=== PATIENT | female | born 1950 | race Caucasian/White ===

== ENCOUNTER 2024-09-30 19:26 | Inpatient (IN) | payer MEDICARE, SELFPAY ==
[2024-09-30] VITALS (13 sets, daily range): BP systolic 127–143; BP diastolic 64–81; PULSE 93–109; RESP 12–23; TEMP 36.2–36.6; O2SAT 90–95; BMI 36.4; BMI 34.4
--- NOTE | 2024-09-30 19:38 | EKG12_ITS ---
Test Reason : CP Blood Pressure : */* mmHG Vent. Rate : 105 BPM Atrial Rate : 105 BPM P-R Int : 166 ms QRS Dur : 70 ms QT Int : 330 ms P-R-T Axes : 30 17 17 degrees QTcB Int : 436 ms Sinus tachycardia Possible Inferior infarct , age undetermined Anterior infarct , age undetermined Abnormal ECG Confirmed by NADEEN LEONARDO, SHIVA ([id number]), editor greeting card DAGO RODRIGUEZ ([id number]) on 10/01/2024 11:35:26 AM Referred By: Confirmed By: SHIVA SENIOR MD
--- NOTE | 2024-09-30 19:48 | EDS_ITS ---
HPI History of Present Illness Chief Complaint: Chest Pain Detail of Chief Complaint: Chest tightness and dyspnea Informant: patient Narrative Narrative: Patient presents to the emergency department with complaint of dyspnea that started around 1 PM. She describes and chest tightness. She tells me she had COVID around Thanksgiving time. She just felt like she had a cold. She still has an occasional cough. She denies recent travel or surgery. No history of asthma or COPD. No history of PE or DVT. No heart history. [facility] Medical History Osteoarthritis of right knee Right knee pain Thyroid disease Neuropathy Hyperlipemia Hypertension Gallstones Diabetes Cataract Arthritis Home Medications ?Medication ?Instructions ?Recorded ?Last Taken ?Type aspirin 81 mg tablet,delayed 81 mg PO DAILY 04/21/24 Unknown History release (Adult Low Dose Aspirin) cholecalciferol (vitamin D3) 50 50 mcg PO DAILY 04/21/24 Unknown History mcg (2,000 unit) capsule glipizide 5 mg tablet, extended 5 mg PO DAILY 04/21/24 Unknown History release 24 hr levothyroxine 25 mcg capsule 25 mcg PO DAILY 04/21/24 Unknown History lisinopril 5 mg tablet 5 mg PO DAILY 04/21/24 Unknown History mecobalamin (vitamin B12) 1,000 3,000 mcg PO DAILY 04/21/24 Unknown History mcg chewable tablet pravastatin 80 mg tablet 80 mg PO QHS 04/21/24 Unknown History magnesium 200 mg tablet 400 mg PO DAILY 09/30/24 Unknown History potassium gluconate 600 mg (99 mg) 650 mg PO DAILY 09/30/24 Unknown History tablet Allergy/AdvReac Type Severity Reaction Status Date / Time Penicillins Allergy Intermediate Swelling Verified 09/30/24 19:28 Family History Father Cancer lung Diabetes Parkinson disease Arthritis Blood clot in vein Hydrocephalus Myocardial infarction Mother Myocardial infarction Heart disease Hypertension Hyperlipemia Brother Cancer lung COPD (chronic obstructive pulmonary disease) Grandfather CVA (cerebral vascular accident) Brother Bowel disease had ostomy Pneumonia due to COVID-19 virus Son Myocardial infarction Surgical History H/O eye surgery Cataract extraction status S/P wrist surgery S/P cholecystectomy History of hysterectomy H/O tubal ligation Hx of tonsillectomy Social History adopted: No household members: family number of children: 5 current occupational status: employed current occupation: [employer] pets and animals: Yes sexually active: No Smoking Status: Never smoker Electronic Cigarette Use: not used alcohol intake: never substance use type: does not use caffeine: Yes (1) Type: coffee frequency: does not exercise seatbelt use: always do you feel safe at home: Yes ROS ROS ED Review of Systems ROS Unobtainable: other Constitutional Constitutional ED: Reports lethargy; Denies chills, fever(s), sweats or weight loss Eyes Eyes: Denies blurry vision, change in vision or diplopia ENT ENT ED: Denies rhinorrhea or sore throat Cardiovascular Cardiovascular: Reports chest pain; Denies orthopnea or racing heartbeat Respiratory/Chest Respiratory/Chest: Reports cough, dyspnea and dyspnea on exertion; Denies ort hopnea or sputum Gastrointestinal Gastrointestinal: Denies abdominal pain, diarrhea, nausea or vomiting Genitourinary Genitourinary ED: Denies dysuria, hematuria or urinary frequency Musculoskeletal Musculoskeletal: Denies arthralgias, back pain, myalgias or neck pain Integumentary Denies abscess, Abrasions or rash Neurologic Neurologic: Denies headache(s) or weakness Psychiatric Psychiatric: Denies anxiety, depression or suicidal thoughts Endocrine Endocrinology: Denies polydipsia, polyphagia or polyuria Hematologic/Lymphatic Hematologic/Lymphatic: Denies easy bleeding, easy bruising or lymphadenopathy Allergic/Immunologic Allergic/Immunologic ED: Denies mouth swelling, tongue swelling or urticaria EXAM Physical Exam Const Vital Signs: 09/30/24 19:28 09/30/24 19:38 09/30/24 19:47 Temperature 97.2 F L Temperature Source Temporal Pulse Rate 109 H Respiratory Rate 22 H Respiratory Effort Respiratory Pattern Blood Pressure 129/64 H Blood Pressure Mean 85 Pulse Ox 90 92 Oxygen Delivery Method Nasal Cannula Non-Rebreather Oxygen Flow Rate (L/min) 6 15 13 Fraction of Inspired Oxygen (FIO2) 09/30/24 20:01 09/30/24 20:17 09/30/24 20:28 Temperature Temperature Source Pulse Rate 109 H 103 H Respiratory Rate 18 22 H Respiratory Effort Respiratory Pattern Blood Pressure 133/70 H Blood Pressure Mean 91 Pulse Ox 95 92 Oxygen Delivery Method Non-Rebreather Venturi Mask Oxygen Flow Rate (L/min) 15 Fraction of Inspired Oxygen (FIO2) 09/30/24 20:45 09/30/24 20:58 09/30/24 21:00 Temperature 97.2 F L Temperature Source Pulse Rate 109 H 103 H Respiratory Rate 18 12 Respiratory Effort Short of Breath Respiratory Pattern Normal Blood Pressure 129/64 H 142/80 H Blood Pressure Mean 85 100 Pulse Ox 92 93 Oxygen Delivery Method Venturi Mask Oxygen Flow Rate (L/min) 13 Fraction of Inspired Oxygen (FIO2) 92 Positive well nourished and well developed General Appearance ED: well developed and NAD HEENT Reports TM's clear and moist mucous membranes normocephalic and atraumatic; Negative for trauma or tenderness Tympanic Membrane ED: Yes TM's clear Eyes PERRL and EOMs intact bilaterally General Eye ED: Negative for pale conjunctiva or scleral icterus Neck no lymphadenopathy, supple and no JVD General: Negative for tenderness Chest Wall inspection of chest normal and palpation of chest normal Chest: Negative for tenderness Resp normal respiratory effort and clear to auscultation bilaterally Resp Narrative: Occasional faint expiratory wheeze bilaterally. Mild tachypnea. No accessory muscle use or retractions. Effort and Inspection: Negative for respiratory distress or pain with movement Auscultation: wheezes; Negative for rhonchi or diminished lung sounds Cardio regular rate, regular rhythm, S1 normal heart sound, S2 normal heart sound and no murmurs Peripheral Pulses: pulses 2+ throughout GI normal to inspection, nondistended, normoactive bowel sounds, soft to palpation, non-tender, non-distended and no masses Back/Spine no CVA tenderness and no thoracic nor lumbar tenderness Extremity normal to inspection General Extremety ED: Negative for edema General Extremity: Negative for edema Neuro oriented x3, CN's II-XII intact bilaterally, no sensory deficits noted and gait normal Sensorium / Orientation: awake, alert, oriented to person, oriented to place and oriented to time Motor Exam: strength 5/5 throughout and strength abnormal Psych mental status grossly normal Skin no rashes or lesions noted and no wounds MDM MDM MDM Narrative Medical decision making narrative: Patient presents to the emergency department with shortness of breath and chest discomfort. In the differential would be acute coronary syndrome versus PE or pneumonia or pneumothorax. IV line established. She was placed on oxygen due to hypoxemia on arrival. She was given a DuoNeb aerosol. CBC with differential obtained showed a white count of 12.9 with hemoglobin 12.9 and platelet count of 243. Chemistries unremarkable. BUN 21 and creatinine 1.22. Troponin was elevated to 63. BNP was normal at 38. Patient was started on heparin drip. D- dimer then came back elevated and she had a CT of the chest that showed extensive bilateral pulmonary emboli without heart strain. Patient case discussed with hospitalist who we evaluate patient for admission to the ICU. Lab Data Attestation: I reviewed the patient's lab results. Labs: Laboratory Results - last 24 hr 09/30/24 09/30/24 09/30/24 16:15 19:35 19:40 WBC 12.9 H RBC 4.16 L Hgb 12.9 Hct 40.1 MCV 96.4 MCH 31.0 MCHC 32.2 RDW Std Deviation 47.4 H RDW Coeff of Jessica 13.3 Plt Count 243 MPV 9.9 Immature Gran % (Auto) 0.600 Neut % (Auto) 61.8 Lymph % (Auto) 28.1 [place] % (Auto) 8.2 Eos % (Auto) 1.1 Baso % (Auto) 0.2 Absolute Neuts (auto) 8.0 H Absolute Lymphs (auto) 3.63 Nucleated RBC % 0 PT 14.1 INR 1.1 APTT 26.4 D-Dimer Quant (PE/DVT) 11.91 H* Sodium 139 Potassium 4.4 Chloride 108 H Carbon Dioxide 25.0 Anion Gap 5 BUN 21 H Creatinine 1.22 H Estim Creat Clear Calc 40.67 Est GFR (MDRD) Af Amer 55 L Est GFR (MDRD) Non-Af 46 L BUN/Creatinine Ratio 17.2 Glucose 173 H Lactic Acid Calcium 9.7 Troponin I High Sens 263 H* B-Natriuretic Peptide 38.1 09/30/24 20:05 WBC RBC Hgb Hct MCV MCH MCHC RDW Std Deviation RDW Coeff of Jessica Plt Count MPV Immature Gran % (Auto) Neut % (Auto) Lymph % (Auto) [place] % (Auto) Eos % (Auto) Baso % (Auto) Absolute Neuts (auto) Absolute Lymphs (auto) Nucleated RBC % PT INR APTT D-Dimer Quant (PE/DVT) Sodium Potassium Chloride Carbon Dioxide Anion Gap BUN Creatinine Estim Creat Clear Calc Est GFR (MDRD) Af Amer Est GFR (MDRD) Non-Af BUN/Creatinine Ratio Glucose Lactic Acid 1.4 Calcium Troponin I High Sens B-Natriuretic Peptide Radiography Diagnostic Testing: Clinical Impression(s) from Imaging Studies Chest CTA 09/30/24 20:32 IMPRESSION: Extensive pulmonary emboli as above without evidence of right ventricular strain at this time Electronically Signed: Vin Park MD at 21:11 EST , EKG Initial EKG: Attestation: I personally reviewed and interpreted this EKG as follows: Comments: Sinus tachycardia with ventricular rate of 105 bpm with no acute ST segment changes Critical Care Time Critical Care Time: Yes Critical care time (excluding procedures): 30-74 minutes, Including time spent:, Discussing w/Patient &/or Family/Ironer Hand, Discussing w/Consultants, Arranging Admission or Transfer, Performing Direct Patient Care at Bedside and - (30 minutes) Discharge Plan Dx/Rx/DC Orders Clinical Impression: Respiratory failure, Hypoxemia, Pulmonary emboli Disposition Disposition: Acute Care Hospital [facility], [place]
--- NOTE | 2024-09-30 19:50 | RAD_ITS ---
STUDY: X-RAY CHEST REASON FOR EXAM: Female, 74 years old. chest pain TECHNIQUE: Single frontal view of the chest. COMPARISON: CTA chest September 30, 2024 FINDINGS: The lungs are clear and expanded. There is no demonstrated pleural abnormality. Normal size heart. Normal mediastinum and peña. Normal visualized pulmonary arteries. Normal visualized aortic arch and descending thoracic aorta. Normal visualized thoracic spine. Normal visualized ribs, clavicles, and shoulders. There is no demonstrated abnormality of the visualized soft tissue structures of the upper abdomen. RAD/Chest 1 View (Portable) IMPRESSION: Normal x-ray examination of the chest. Electronically Signed: Vin Park MD at 22:06 EST ,
[2024-09-30 19:55] LABS: Absolute Lymphocyte Count 3.63 X10^3/uL (0.83-4.51); Basophil# 0.03 X10^3/uL; Basophil% 0.2 % (0-1); Eosinophil# 0.14 X10^3/uL; Eosinophils% 1.1 % (0-5); Hematocrit 40.1 % (37-47); Hemoglobin 12.9 g/dL (12.0-15.0); Lymphocyte # 3.63 X10^3/ul (0.83-4.51); Lymphocyte % 28.1 % (19-41); Mean Corp Hgb Conc 32.2 g/dL (32-36); Mean Corpuscular Volume 96.4 fL (81-99); Mean Platelet Vol. 9.9 fl (6.2-12.0); Monocyte# 1.06 X10^3/uL; Monocyte% 8.2 % (0-10); NRBC Flagged by Analyzer 0 % (0-5); Neutrophil # 7.99 X10^3/uL (2.7-7.7); Neutrophil % 61.8 % (47-70); Platelet Count 243 K/mm3 (150-450); RBC Distribution Width CV 13.3 % (11.6-14.6); RBC Distribution Width SD 47.4 fl (35.1-43.9); Red Blood Count 4.16 M/mm3 (4.2-5.4); White Blood Count 12.9 K/mm3 (4.4-11.0)
[2024-09-30] MEDS: Ipratropium/Albuterol Sulfate 3 ML AMPUL.NEB INHALATION (20:00)
[2024-09-30 20:15] LABS: Anion Gap 5 (5-15); BUN 21 mg/dL (7-18); BUN/Creat Ratio 17.2 RATIO (10-20); Calcium,Total 9.7 mg/dL (8.5-10.1); Chloride 108 mmol/L (98-107); Creatinine, Serum 1.22 mg/dL (0.55-1.02); EST Glomerular Filtration Rate 46 mL/min (>60); Est Glom Filt Rate - Afr Amer 55 mL/min (>60); Estimated Creatinine Clearance 40.67 ml/min; Glucose 173 mg/dL (74-106); Potassium 4.4 mmol/L (3.5-5.1); Sodium Level 139 mmol/L (136-145); Troponin-I HS (w/2H Reflex) 263 pg/mL (3.0-54.0)
[2024-09-30 20:29] LABS: BNP,B-Type NATRIURETIC PEPTIDE 38.1 pg/mL (0-100)
--- NOTE | 2024-09-30 20:32 | CT_ITS ---
We are attempting to reach an attending provider to discuss findings. An addendum with communication details will be sent when the communication is complete. STUDY: CTA CHEST REASON FOR EXAM: Female, 74 years old. dyspnea, chest pain, tachycardia RADIATION DOSAGE (If Supplied By Facility): CTDIvol = ( 20.91 ) mGy, DLP = ( 449.17 ) mGycm TECHNIQUE: The examination was performed with the intravenous administration of IV 100mL Isovue-370. Post-processing of the angiographic images was performed, with multiplanar reformation and 3D reconstruction. Individualized dose optimization techniques were used for this CT. The protocol utilizes one or more of the following dose reduction techniques: automated exposure control, adjustment of mA and/or kV according to patient size,and/or use of iterative reconstruction technique. COMPARISON: None. 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 There is also complete occlusion of the right lower lobe segmental branches. [ No ventricular septal straightening. Normal thoracic aorta and visualized great vessels. There is no demonstrated aortic dissection. Normal heart and pericardium. Normal mediastinum. Normal hilar regions. Normal visualized trachea and bronchi. The lungs are well expanded. Normal pulmonary parenchyma. Normal pleura. Normal chest wall structures. Normal osseous structures. Normal visualized upper abdomen. CT/CTA Chest W/WO Contrast IMPRESSION: Extensive pulmonary emboli as above without evidence of right ventricular strain at this time Electronically Signed: Vin Park MD at 21:11 EST ,
[2024-09-30] MEDS: Heparin Injection (Vial) 5,000 UNIT/ML VIAL 6000 UNIT IV (20:35)
[2024-09-30] MEDS: HEPARIN/D5w 25,000 UNITS 25,000 UNITS/250 ML IV.SOLN. 12 UNITS CONT INF (20:35)
[2024-09-30 20:37] LABS: International Normalized Ratio 1.1; Prothrombin Time (Protime)PT. 14.1 SECONDS (11.7-14.9)
[2024-09-30 20:38] LABS: Partial Thromboplast Time 26.4 Seconds (24.1-36.2)
[2024-09-30 20:42] LABS: D-Dimer Quantitative (DVT/PE) 11.91 FEU/ug/m (0.27-0.49)
[2024-09-30 20:43] LABS: Lactic Acid 1.4 mmol/L (0.4-1.9)
--- NOTE | 2024-09-30 21:08 | HP.PCM.HOS_ITS ---
HPI - General General Date of Admission: 09/30/24 Date of Service: 09/30/24 Chief Complaint: Dyspnea, chest tightness. HPI Narrative The patient is a 74 y/o F w/ PMHx: Obesity, Hypothyroidism, HTN, HLD, OA, Diabetes mellitus type II with chronic neuropathy, Possible CKD stage III unclear subtype based on current GFR who presents to the [facility] ED on 09/30/24 with onset of chest discomfort and dyspnea starting approximately 1 PM with history of COVID diagnosis around the Sunday just prior to with reporting the symptoms as cold-like/URI with occasional cough with no recent surgery or travel nor any history of asthma or COPD with improvement of her URI type symptoms with admitted sedentary lifestyle when she had been ill but given onset of these new significant symptoms of dyspnea and chest discomfort prompted ED evaluation to be cautious. She denied any recent lower extremity pain or swelling. Workup in the ED included T97.2, heart rate 109, BP 129/64, respiratory rate 22, 90% on 6 L nasal cannula eventually transition to a nonrebreather and most recent repeat vital signs T97.2, heart rate 103, BP 142/80, respiratory rate 12, 93% on a Ventimask 13 L with FiO2 92, CBC with WBC 12.9, hemoglobin 12.9, platelet 243 with left shift, coags with D-dimer 11.91, chloride 108, BUN/creatinine 21/1.22, GFR 46, glucose 173, lactic acid 1.4, troponin 263, BNP 38.1, pending chest x-ray and CTA upon request evaluation of patient, blood culture pending per ED, EKG with ST without acute evidence of ischemia. In the ED patient administered heparin bolus as well as drip and DuoNeb therapy. Given significant clot burden requested that ED physician also attempted contact vascular surgery so that they may be aware and give input about any acute interventions felt appropriate at this time however unfortunately they are not on-call for the next 48 hours. [facility] Medical History Hypothyroidism Peripheral neuropathy Type 2 diabetes mellitus Obesity Osteoarthritis of right knee Hyperlipemia Hypertension Gallstones Cataract Arthritis Home Medications ?Medication ?Instructions ?Recorded ?Last Taken ?Type aspirin 81 mg tablet,delayed 81 mg PO DAILY 04/21/24 Unknown History release (Adult Low Dose Aspirin) cholecalciferol (vitamin D3) 50 50 mcg PO DAILY 04/21/24 Unknown History mcg (2,000 unit) capsule glipizide 5 mg tablet, extended 5 mg PO DAILY 04/21/24 Unknown History release 24 hr levothyroxine 25 mcg capsule 25 mcg PO DAILY 04/21/24 Unknown History lisinopril 5 mg tablet 5 mg PO DAILY 04/21/24 Unknown History mecobalamin (vitamin B12) 1,000 3,000 mcg PO DAILY 04/21/24 Unknown History mcg chewable tablet pravastatin 80 mg tablet 80 mg PO QHS 04/21/24 Unknown History magnesium 200 mg tablet 400 mg PO DAILY 09/30/24 Unknown History potassium gluconate 600 mg (99 mg) 650 mg PO DAILY 09/30/24 Unknown History tablet Allergy/AdvReac Type Severity Reaction Status Date / Time Penicillins Allergy Intermediate Swelling Verified 09/30/24 19:28 Family History Father Cancer lung Diabetes Parkinson disease Arthritis Blood clot in vein Hydrocephalus Myocardial infarction Mother Myocardial infarction Heart disease Hypertension Hyperlipemia Brother Cancer lung COPD (chronic obstructive pulmonary disease) Grandfather CVA (cerebral vascular accident) Brother Bowel disease had ostomy Pneumonia due to COVID-19 virus Son Myocardial infarction Surgical History H/O eye surgery Cataract extraction status S/P wrist surgery S/P cholecystectomy History of hysterectomy H/O tubal ligation Hx of tonsillectomy Social History adopted: No household members: family number of children: 5 current occupational status: employed current occupation: [employer]. [email or web address]. pets and animals: Yes sexually active: No Smoking Status: Never smoker Electronic Cigarette Use: not used alcohol intake: never substance use type: does not use caffeine: Yes (1) Type: coffee frequency: does not exercise seatbelt use: always do you feel safe at home: Yes ROS ROS Narrative Admission Review of Systems: CONSTITUTIONAL: No weight loss, fever, chills, + weakness or fatigue. HEENT: Eyes: No visual loss, blurred vision, double vision or yellow sclerae. Ears, Nose, Throat: No hearing loss, sneezing, congestion, runny nose or sore throat. SKIN: No rash or itching, lesions, wounds. CARDIOVASCULAR: + Chest tightness. No marked palpitations, edema, orthopnea, syncopal events. RESPIRATORY: + Dyspnea. No marked cough or sputum, wheezing, hemoptysis. GASTROINTESTINAL: No anorexia, nausea, vomiting or diarrhea, abdominal pain, melena, BRBPR. GENITOURINARY: No dysuria, frequency, urgency or retention. NEUROLOGICAL: No headache, dizziness, syncope, paralysis, ataxia, numbness or tingling in the extremities, focal weakness, change in bowel or bladder control, seizure. MUSCULOSKELETAL: + muscle, back pain, joint pain or stiffness. HEMATOLOGIC: No anemia, bleeding or bruising. LYMPHATICS: No enlarged nodes. No history of splenectomy. PSYCHIATRIC: No history of depression or anxiety. ENDOCRINOLOGIC: No reports of sweating, cold or heat intolerance. No polyuria or polydipsia. ALLERGIES: No history of asthma, hives, eczema or rhinitis. Prior to her current presentation although currently resolved patient did report URI/cold type symptoms including cough, congestion, sore throat, occasional headache but these have since resolved with only symptoms as noted above on ROS. Vital Signs Vital Signs Vital Signs: 09/30/24 19:28 09/30/24 19:38 09/30/24 19:47 Temperature 97.2 F L Temperature Source Temporal Pulse Rate 109 H Respiratory Rate 22 H Respiratory Effort Respiratory Pattern Blood Pressure 129/64 H Blood Pressure Mean 85 Pulse Ox 90 92 Oxygen Delivery Method Nasal Cannula Non-Rebreather Oxygen Flow Rate (L/min) 6 15 13 Fraction of Inspired Oxygen (FIO2) 09/30/24 20:01 09/30/24 20:17 09/30/24 20:28 Temperature Temperature Source Pulse Rate 109 H 103 H Respiratory Rate 18 22 H Respiratory Effort Respiratory Pattern Blood Pressure 133/70 H Blood Pressure Mean 91 Pulse Ox 95 92 Oxygen Delivery Method Non-Rebreather Venturi Mask Oxygen Flow Rate (L/min) 15 Fraction of Inspired Oxygen (FIO2) 09/30/24 20:45 09/30/24 20:58 09/30/24 21:00 Temperature 97.2 F L Temperature Source Pulse Rate 109 H 103 H Respiratory Rate 18 12 Respiratory Effort Short of Breath Respiratory Pattern Normal Blood Pressure 129/64 H 142/80 H Blood Pressure Mean 85 100 Pulse Ox 92 93 Oxygen Delivery Method Venturi Mask Oxygen Flow Rate (L/min) 13 Fraction of Inspired Oxygen (FIO2) 92 Weight Weight: 192 lb 14.472 oz Body Mass Index (BMI) 36.4 Physical Exam Narrative Physical Examination: General: Awake, alert, oriented x 3 and cooperative, seated upright in the ED bed, fatigued, still mildly increased respiratory rate and some accessory muscle usage but respiratory distress has improved. Skin: Normal color, normal turgor, no icterus, no cyanosis except occasional abrasion. HEENT: AT/NC, EOMI, PERRLA, dry MM, Ventimask in place, no discerned carotid bruits, difficult to discern JVD given thickened neck. Lungs: Significantly diminished, greater bases, increased respiratory rate with some accessory muscle usage, respiratory distress improved since initial ED arrival, no rales, ronchi or wheezing. Heart: Tachycardic with regular rhythm; no gallop, rub audible. Abdomen: Soft, obese, NTTP, ND, distant normal BS, no appreciated HSM. Extremities: No cyanosis, no clubbing, mild ankle not markedly pitting edema, no tenderness to calf palpation. Neurological: Patient awake, alert, oriented as noted, cognitive function intact; pupils equally reactive to light and accommodation, cranial nerves grossly normal, moving all 4 extremities, no focal deficits, strength severely globally decreased secondary to acute presentation. Psychiatric: Affect appears fatigued, respiratory distress is improved but still tachypnea and accessory muscle usage, no acute evidence of depressive or anxiety feelings. Results Lab / Micro Data 09/30/24 19:35 09/30/24 19:35 Labs: Laboratory Results - last 24 hr 09/30/24 16:15: PT 14.1, INR 1.1, APTT 26.4, D-Dimer Quant (PE/DVT) 11.91 H* 09/30/24 19:35: WBC 12.9 H, RBC 4.16 L, Hgb 12.9, Hct 40.1, MCV 96.4, MCH 31.0, MCHC 32.2, RDW Std Deviation 47.4 H, RDW Coeff of Jessica 13.3, Plt Count 243, MPV 9.9, Immature Gran % (Auto) 0.600, Neut % (Auto) 61.8, Lymph % (Auto) 28.1, [place] % (Auto) 8.2, Eos % (Auto) 1.1, Baso % (Auto) 0.2, Absolute Neuts (auto) 8.0 H, Absolute Lymphs (auto) 3.63, Nucleated RBC % 0, Sodium 139, Potassium 4.4, C hloride 108 H, Carbon Dioxide 25.0, Anion Gap 5, BUN 21 H, Creatinine 1.22 H, Estim Creat Clear Calc 40.67, Est GFR (MDRD) Af Amer 55 L, Est GFR (MDRD) Non-Af 46 L, BUN/Creatinine Ratio 17.2, Glucose 173 H, Calcium 9.7, Troponin I High Sens 263 H* 09/30/24 19:40: B-Natriuretic Peptide 38.1 09/30/24 20:05: Lactic Acid 1.4 Assessment & Plan Assessment/Plan (1) Respiratory failure: (2) Pulmonary emboli: PLAN: Plan The patient is a 74 y/o F w/ PMHx: Obesity, Hypothyroidism, HTN, HLD, OA, Diabetes mellitus type II with chronic neuropathy, Possible CKD stage III unclear subtype based on current GFR who presents to the [facility] ED on 09/30/24 with onset of chest discomfort and dyspnea starting approximately 1 PM with history of COVID diagnosis around the Sunday just prior to with reporting the symptoms as cold-like/URI with occasional cough with no recent surgery or travel nor any history of asthma or COPD with improvement of her URI type symptoms with admitted sedentary lifestyle when she had been ill but given onset of these new significant symptoms of dyspnea and chest discomfort prompted ED evaluation to be cautious. #1. Acute Hypoxic Respiratory Failure secondary to Acute bilateral pulmonary emboli with associated elevated cardiac troponin suspected secondary to demand ischemia: EKG without acute findings, CTPA with extensive pulmonary emboli without any evidence of right ventricular strain with noted sagittal embolus with occlusion of the right and left main pulmonary arteries extending into all lobar branches bilaterally as well as as a complete occlusion of the right lower lobe segmental branches, initial troponin 263. No family history of hypercoagulable state and no recent travel but patient did recently have COVID which is a suspected etiology. Given significant respiratory status and notable findings on CT we will admit to the ICU, will consult medical review coordinator, will obtain ABG, will maintain on cardiac telemetry, will obtain ECHO, BNP and continue to cycle cardiac enzymes. At this time we will continue heparin drip and reconsider oral anticoagulant within the next 24 to 48 hours. Discussed upon arrival vascular surgery consultation given significant clot burden however unfortunately vascular surgery is not available for consult at this time for the next 48 hours. May consider consultation with them when they are money market clerk if appropriate at that time. #2. Possible Chronic Kidney Disease Stage III: Admission BUN/Cr 21/1.22, GFR 46, unfortunately baseline renal function unknown thus unclear if patient has underlying disease or if this is acute versus chronic, repeat BMP in AM to further elucidate chronicity. #3. Diabetes mellitus type II with chronic neuropathy: Hold oral home regimen, maintain on ADA diet, accu checks w/ ISS. #4. Hypertension: Continue home regimen including lisinopril, PRN hydralazine. #5. Hyperlipidemia: Will continue patient home statin therapy. #6. Hypothyroidism: We will continue patient home levothyroxine regimen. #7. Obesity: Weight loss and lifestyle changes encouraged. #8. DVT prophylaxis: Will continue heparin drip as noted. #9. CODE status: Patient DAGO is her daughter who is present and living will is currently in place. Discussed CODE status at length including difference between FULL code, DNR-CCA and DNR-CC status. Following discussions about the differences in these status, requested Full Code status. Advanced Care Planning Face to Face Time: 16 minutes. Charges/Coding Visit Charges Inpatient E&M: 52703 Init Hosp L3 Procedures Hospitalists Procedures: 23703 Advncd Care Plan 30 Min
[2024-09-30 21:40] LABS: Reflex Troponin-HS? (from REC) Y
--- NOTE | 2024-09-30 21:58 | ED.RN ---
Report called to Renee VENEER PULLER, questions/concerns answered
[2024-09-30 22:36] LABS: Magnesium 2.4 mg/dL (1.6-2.6)
[2024-09-30] MEDS: HEPARIN/D5w 25,000 UNITS 25,000 UNITS/250 ML IV.SOLN. 10 UNITS CONT INF (22:47)
[2024-09-30] MEDS: 0.9% Normal Saline (1000mL) 1,000 ML 100 ML IV (22:47)
[2024-09-30 23:05] LABS: Allen Test Positive; Base Excess -2 mmol/L (-2 to +2); Blood Gas Specimen Type ART; Mode Not entered; O2 Delivery Device Venti Mask; PO2 66 mmHG (75-100); SITE R Radial; SO2 94 % (95-99); Total Carbon Dioxide 23 mmol/L; pCO2 31.8 mmHg (35-45); pH 7.45 (7.35-7.45)
[2024-09-30 23:26] LABS: Troponin-I HS 296 pg/mL (3.0-54.0)
[2024-10-01] VITALS (12 sets, daily range): BP systolic 114–139; BP diastolic 64–83; PULSE 65–91; RESP 13–23; TEMP 36.3–36.7; O2SAT 91–100; BMI 34.4
--- NOTE | 2024-10-01 00:56 | CON.PCM.CC_ITS ---
HPI Consult Data Date of Consult: 10/01/24 HPI Narrative HPI Narrative: 74 yrs old female with past medical history of obesity, hypothyroidism, HTN, HLD, OA, DM, Chronic neuropathy, CKD presented to ED for shortness of breath, chest pain. Patient reported she had covid last week and had been in bed most of the time due to generalized ache. Patient was noted to be hypoxic and tachycardic in ED. BP stable systolic in 140's. Labs significant for WBC 12, TNI 263, Cr 1.22, D-dimer 11.9 CTA of chest with extensive bilateral emboli with out RV strain, normal parenchyma. Patient required NC oxygen supplement initially but now worsening hypoxemia on airvo. She is started on heparin drip and admitted to ICU On my evaluation of patient in ICU, she is awake, alert, on Airvo P/E: Awake, alert on Airvo HEENT: Atraumatic Respiratory: Crackles on the bases CVS: S1, S2 are well heard, HR in the 90's Abd:Soft Extre: No edema SOFTWARE ADMINISTRATOR: Awake, alert, oriented # Assessment/Plan # Extensive Bilateral PE CTA reviewed Given bilateral PE with clot burden and hypoxemia, would benefit from intervention with thrombectomy Consider transfer to higher level of care for thrombectomy Check ECHO for RV strain Continue with heparin drip, monitor PTT Not candidate for systemic thrombolytic given hemodynamic stability # Acute hypoxic respiratory failure Most likely due to PE CTA reviewed no obvious infiltrates Recent reported COVID Check for viral work up Urine legionella and strept antigen to check for pneumonia # Hx of HTN Monitor blood pressure # Hx of HLD Continue with home meds # Hx of DM ISS Monitor blood sugar # Hx of CKD Monitor urine output DVT prophylaxis: Heparin drip Critical care time 60 minutes Entire encounter done via Telemedicine [facility] Medical History Hypothyroidism Peripheral neuropathy Type 2 diabetes mellitus Obesity Osteoarthritis of right knee Hyperlipemia Hypertension Gallstones Cataract Arthritis Home Medications ?Medication ?Instructions ?Recorded ?Last Taken ?Type aspirin 81 mg tablet,delayed 81 mg PO DAILY 04/21/24 Unknown History release (Adult Low Dose Aspirin) cholecalciferol (vitamin D3) 50 50 mcg PO DAILY 04/21/24 Unknown History mcg (2,000 unit) capsule glipizide 5 mg tablet, extended 5 mg PO DAILY 04/21/24 Unknown History release 24 hr levothyroxine 25 mcg capsule 25 mcg PO DAILY 04/21/24 Unknown History lisinopril 5 mg tablet 5 mg PO DAILY 04/21/24 Unknown History mecobalamin (vitamin B12) 1,000 3,000 mcg PO DAILY 04/21/24 Unknown History mcg chewable tablet pravastatin 80 mg tablet 80 mg PO QHS 04/21/24 Unknown History magnesium 200 mg tablet 400 mg PO DAILY 09/30/24 Unknown History potassium gluconate 600 mg (99 mg) 650 mg PO DAILY 09/30/24 Unknown History tablet Allergy/AdvReac Type Severity Reaction Status Date / Time Penicillins Allergy Intermediate Swelling Verified 09/30/24 19:28 Family History Father Cancer lung Diabetes Parkinson disease Arthritis Blood clot in vein Hydrocephalus Myocardial infarction Mother Myocardial infarction Heart disease Hypertension Hyperlipemia Brother Cancer lung COPD (chronic obstructive pulmonary disease) Grandfather CVA (cerebral vascular accident) Brother Bowel disease had ostomy Pneumonia due to COVID-19 virus Son Myocardial infarction Surgical History H/O eye surgery Cataract extraction status S/P wrist surgery S/P cholecystectomy History of hysterectomy H/O tubal ligation Hx of tonsillectomy Social History adopted: No household members: family number of children: 5 current occupational status: employed current occupation: [employer]. pets and animals: Yes sexually active: No Smoking Status: Never smoker Electronic Cigarette Use: not used alcohol intake: never substance use type: does not use caffeine: Yes (1) Type: coffee frequency: does not exercise seatbelt use: always do you feel safe at home: Yes Objective Data Objective Data Vital Signs: Vital Signs Last response 3 Temperature 36.6 C 09/30/24 22:30 Temperature Source Temporal 09/30/24 22:30 Pulse Rate 93 09/30/24 23:33 Respiratory Rate 16 09/30/24 23:33 Respiratory Effort Normal 09/30/24 22:30 Respiratory Depth Normal 09/30/24 22:30 Respiratory Pattern Normal 09/30/24 23:33 Blood Pressure 130/70 H 09/30/24 23:00 Blood Pressure Mean 90 09/30/24 23:00 Blood Pressure Source Monitor 09/30/24 23:00 Pulse Ox 95 09/30/24 23:33 Oxygen Delivery Method Venturi Mask 09/30/24 23:00 Oxygen Flow Rate (L/min) 15 09/30/24 23:00 Fraction of Inspired Oxygen (FIO2) 87 09/30/24 23:33 I&O: I&O Last 24 Hours 3 09/30/24 09/30/24 10/01/24 11:59 23:59 11:59 Intake Total 26.2 / 26.2 Balance 26.2 / 26.2 I&O: Total Stay 3 09/30/24 19:26 thru 09/30/24 22:46 Intake Total 26.2 Balance 26.2 Current Meds Ordered / Administered: Current meds ordered / Administered 3 Generic Name Dose Route Start Last Admin Trade Name Freq PRN Reason Stop Dose Admin Acetaminophen 650 mg 09/30/24 22:17 Acetaminophen 325 Mg Tablet PO Q4H PRN PRN Fever, pain 1-07/31 Al Hydroxide/Mg Hydroxide 30 ml 09/30/24 22:17 Mag Hydrox/Al Hydrox/Simeth 30 Ml Udc PO Q6H PRN PRN Gastric Burning Albuterol Sulfate 2.5 mg 09/30/24 22:17 Albuterol 2.5 Mg/3 Ml Vial.Neb. INHALATION Q2H PRN PRN Dyspnea, wheezing Aspirin 81 mg 10/01/24 08:00 Aspirin E.C. 81 Mg Tablet PO DAILYCM MARGAUX Glucagon 1 mg 09/30/24 22:17 Glucagon 1 Mg/Ml Syringe IM X1 PRN HYPOGLYCEMIA Protocol Guaifenesin 10 ml 09/30/24 22:17 Guaifenesin 10 Ml Udc (200mg/10ml) PO Q4H PRN PRN COUGH Heparin Sodium (Porcine) 0 unit 09/30/24 22:35 Heparin Injection (Vial) 5,000 Unit/Ml Vial IV UD PRN dose adjustment Protocol Hydralazine HCl 10 mg 09/30/24 22:17 Hydralazine 20 Mg/Ml Vial IV Q4H PRN PRN SBP > 160 Protocol Sodium Chloride 1,000 mls @ 100 mls/hr 09/30/24 22:17 09/30/24 22:47 IV 10/01/24 08:16 100 mls/hr .Q10H [facility] Administration Protocol Dextrose 250 mls @ 0 mls/hr 09/30/24 22:17 Dextrose 10%-Water IV .Q0M PRN HYPOGLYCEMIA Protocol As Directed Heparin Sodium/Dextrose 25,000 units in 250 mls @ 10 mls/hr 09/30/24 22:17 09/30/24 22:47 CONT INF 1,000 units/hr .Q25H MARGAUX 10 mls/hr Administration Protocol As Directed Insulin Human Lispro 0 unit 10/01/24 07:00 Insulin Lispro 100 Unit/Ml Insuln.Pen SC ACHS [facility] Protocol Levothyroxine Sodium 25 mcg 10/01/24 06:00 Levothyroxine 25 Mcg Tablet PO 0600 [facility] Lisinopril 5 mg 10/01/24 10:00 Lisinopril 5 Mg Tablet PO DAILY [facility] Protocol Melatonin 3 mg 09/30/24 22:17 Melatonin 3 Mg Tablet PO QHS PRN PRN INSOMNIA Ondansetron HCl 4 mg 09/30/24 22:17 Ondansetron 4 Mg/2 Ml Vial IV Q8H PRN PRN NAUSEA/VOMITING Oxycodone HCl 5 mg 09/30/24 22:17 Oxycodone 5 Mg Tablet PO Q4H PRN PRN Pain Score 4-10 Pravastatin Sodium 80 mg 10/01/24 22:00 Pravastatin 80 Mg Tablet PO QHS [facility] Prochlorperazine Edisylate 5 mg 09/30/24 22:17 Prochlorperazine 10 Mg/2 Ml Vial IV Q4H PRN PRN Breakthrough Nausea/Vomiting Senna/Docusate Sodium 2 tablet 09/30/24 22:17 Senna/Docusate Sodium 1 Tablet PO BID PRN PRN Constipation Sodium Chloride 10 - 40 ml 09/30/24 22:21 0.9% Saline Lock 10 Ml Syringe IV UD PRN SALINE FLUSH Lab / Micro Data 09/30/24 19:35 09/30/24 19:35 Labs: Laboratory Results - last 24 hr 09/30/24 16:15: PT 14.1, INR 1.1, APTT 26.4, D-Dimer Quant (PE/DVT) 11.91 H* 09/30/24 19:35: WBC 12.9 H, RBC 4.16 L, Hgb 12.9, Hct 40.1, MCV 96.4, MCH 31.0, MCHC 32.2, RDW Std Deviation 47.4 H, RDW Coeff of Jessica 13.3, Plt Count 243, MPV 9.9, Immature Gran % (Auto) 0.600, Neut % (Auto) 61.8, Lymph % (Auto) 28.1, [place] % (Auto) 8.2, Eos % (Auto) 1.1, Baso % (Auto) 0.2, Absolute Neuts (auto) 8.0 H, Absolute Lymphs (auto) 3.63, Nucleated RBC % 0, Sodium 139, Potassium 4.4, C hloride 108 H, Carbon Dioxide 25.0, Anion Gap 5, BUN 21 H, Creatinine 1.22 H, Estim Creat Clear Calc 40.67, Est GFR (MDRD) Af Amer 55 L, Est GFR (MDRD) Non-Af 46 L, BUN/Creatinine Ratio 17.2, Glucose 173 H, Calcium 9.7, Magnesium 2.4, T roponin I High Sens 263 H* 09/30/24 19:40: B-Natriuretic Peptide 38.1 09/30/24 20:05: Lactic Acid 1.4 09/30/24 22:40: Troponin I High Sens 296 H* ABG Data ABG results: ABG 09/30/24 23:00 Specimen Type ART Sample Site R Radial pH 7.45 Bicarbonate Actual 22.0 Total CO2 23 Base Excess -2 O2 Saturation 94 L O2 % 50.0 ABG pCO2 31.8 L ABG pO2 66 L Ortega Test Positive O2 Delivery Device Venti Mask Vent Mode Not entered Imaging Radiology Impression Chest X-Ray 09/30/24 19:50 IMPRESSION: Normal x-ray examination of the chest. Electronically Signed: Vin Park MD at 22:06 EST , Chest CTA 09/30/24 20:32 IMPRESSION: Extensive pulmonary emboli as above without evidence of right ventricular strain at this time Electronically Signed: Vin Park MD at 21:11 EST , ADDENDUM: 09/30/24 2131 IMPRESSION: Extensive pulmonary emboli as above without evidence of right ventricular strain at this time N.B. : The above Results were Read Back by Vin Park MD to Moreno Mathis DO, and understanding confirmed on 09/30/2024 21:24:15 (ET). Electronically Signed: Vin Park MD at 21:11 EST , Assessment and Plan . Assessment and plan: Critical Care Time: The entirety of this encounter was done via Telemedicine
[2024-10-01 02:13] LABS: Troponin-I HS 255 pg/mL (3.0-54.0)
--- NOTE | 2024-10-01 02:28 | PCM.DC.SUM ---
Providers Date of Admission: 09/30/24 Date of Discharge: 10/01/24 Primary Care Physician: Dr. Anali Padilla MD Consultations 09/30/24 22:17 Consult: Prescription Clerk Lenses / Pulmonary Medicine Routine Consulting Provider: Intensivists/Pulmonary Med Reason for Consult: Hypoxic Resp Failure, BL PE, recent COVID illness EMERGENT Consult: Yes MD Notified: Yes Date Notified: 09/30/24 Time Notified: 22:11 Method of Notification: Text Reason For Visit: ACUTE RESP FAILURE, BL PE Diagnosis Discharge Diagnosis (1) Respiratory failure: Status: Acute Code(s): J96.90 - Respiratory failure, unspecified, unspecified whether with hypoxia or hypercapnia (2) Pulmonary emboli: Status: Acute Code(s): I26.99 - Other pulmonary embolism without acute cor pulmonale Plan: DISCHARGE DIAGNOSES: #1. Acute Hypoxic Respiratory Failure secondary to Acute bilateral pulmonary emboli with associated elevated cardiac troponin suspected secondary to demand ischemia with no CT evidence of right heart strain #2. Possible Chronic Kidney Disease Stage III #3. Diabetes mellitus type II with chronic neuropathy #4. Hypertension #5. Hyperlipidemia #6. Hypothyroidism #7. Obesity #8. CODE status: Patient DAGO is her daughter who is present and living will is currently in place. Full Code status. Medications at Discharge Home Medications aspirin 81 mg tablet,delayed release (Adult Low Dose Aspirin) 81 mg PO DAILY 04/21/24 cholecalciferol (vitamin D3) 50 mcg (2,000 unit) capsule 50 mcg PO DAILY 04/21/24 glipizide 5 mg tablet, extended release 24 hr 5 mg PO DAILY 04/21/24 levothyroxine 25 mcg capsule 25 mcg PO DAILY 04/21/24 lisinopril 5 mg tablet 5 mg PO DAILY 04/21/24 mecobalamin (vitamin B12) 1,000 mcg chewable tablet 3,000 mcg PO DAILY 04/21/24 pravastatin 80 mg tablet 80 mg PO QHS 04/21/24 magnesium 200 mg tablet 400 mg PO DAILY 09/30/24 potassium gluconate 600 mg (99 mg) tablet 650 mg PO DAILY 09/30/24 Hospital Course Operations None Procedures EKG Summary of Care Provided Minutes Spent on Discharge: 35 Hospital Course: The patient is a 74 y/o F w/ PMHx: Obesity, Hypothyroidism, HTN, HLD, OA, Diabetes mellitus type II with chronic neuropathy, Possible CKD stage III unclear subtype based on current GFR presented to the [facility] ED on 09/30/24 with onset of chest discomfort and dyspnea starting approximately 1 PM with history of COVID diagnosis around the Sunday just prior to with reporting the symptoms as cold-like/URI with occasional cough with no recent surgery or travel nor any history of asthma or COPD with improvement of her URI type symptoms with admitted sedentary lifestyle when she had been ill but given onset of these new significant symptoms of dyspnea and chest discomfort prompted ED evaluation to be cautious. She denied any recent lower extremity pain or swelling. Workup in the ED included T97.2, heart rate 109, BP 129/64, respiratory rate 22, 90% on 6 L nasal cannula eventually transition to a nonrebreather and most recent repeat vital signs T97.2, heart rate 103, BP 142/80, respiratory rate 12, 93% on a Ventimask 13 L with FiO2 92, CBC with WBC 12.9, hemoglobin 12.9, platelet 243 with left shift, coags with D-dimer 11.91, chloride 108, BUN/creatinine 21/1.22, GFR 46, glucose 173, lactic acid 1.4, troponin 263, BNP 38.1, pending chest x-ray and CTA upon request evaluation of patient, blood culture pending per ED, EKG with ST without acute evidence of ischemia. In the ED patient administered heparin bolus as well as drip and DuoNeb therapy. Given significant clot burden requested that ED physician also attempted contact vascular surgery so that they may be aware and give input about any acute interventions felt appropriate at this time however unfortunately were not on-call for the next 48 hours. Patient was admitted to the ICU given oxygenation had improved and patient was stable in the ED with requested ferryboat ticket taker consultation, cardiac enzymes were cycled and remained similar with somewhat of a mild improvement, BNP was obtained and not markedly elevated,. Patient was maintained on telemetry monitoring with continued heparin drip. Unfortunately patient oxygenation did increase although ABG not severe but there was still noted decreased p.o. to thus patient was eventually placed on Airvo given this telemetry ferryboat ticket taker recommended transfer to tertiary facility for evaluation and consideration of thrombectomy. Discussed case with [facility] Dr. Bass who accepted the patient to [facility]. Patient was made aware of the recommendation for transfer and was amenable and updated on plan of care. Weight / BMI Weight Weight: 188 lb 7.924 oz Body Mass Index (BMI) 34.4 ABG / Lab / Microbiology Data 09/30/24 19:35 09/30/24 19:35 Laboratory: Laboratory Results - last 24 hr 09/30/24 16:15: PT 14.1, INR 1.1, APTT 26.4, D-Dimer Quant (PE/DVT) 11.91 H* 09/30/24 19:35: WBC 12.9 H, RBC 4.16 L, Hgb 12.9, Hct 40.1, MCV 96.4, MCH 31.0, MCHC 32.2, RDW Std Deviation 47.4 H, RDW Coeff of Jessica 13.3, Plt Count 243, MPV 9.9, Immature Gran % (Auto) 0.600, Neut % (Auto) 61.8, Lymph % (Auto) 28.1, [place] % (Auto) 8.2, Eos % (Auto) 1.1, Baso % (Auto) 0.2, Absolute Neuts (auto) 8.0 H, Absolute Lymphs (auto) 3.63, Nucleated RBC % 0, Sodium 139, Potassium 4.4, Chloride 108 H, Carbon Dioxide 25.0, Anion Gap 5, BUN 21 H, Creatinine 1.22 H, Estim Creat Clear Calc 40.67, Est GFR (MDRD) Af Amer 55 L, Est GFR (MDRD) Non-Af 46 L, BUN/Creatinine Ratio 17.2, Glucose 173 H, Calcium 9.7, Magnesium 2.4, Troponin I High Sens 263 H* 09/30/24 19:40: B-Natriuretic Peptide 38.1 09/30/24 20:05: Lactic Acid 1.4 09/30/24 22:40: Troponin I High Sens 296 H* 10/01/24 01:30: Troponin I High Sens 255 H* ABG: ABG 09/30/24 23:00 Specimen Type ART Sample Site R Radial pH 7.45 Bicarbonate Actual 22.0 Total CO2 23 Base Excess -2 O2 Saturation 94 L O2 % 50.0 ABG pCO2 31.8 L ABG pO2 66 L Ortega Test Positive O2 Delivery Device Venti Mask Vent Mode Not entered Radiography Diagnostic Testing: Radiology Impression Chest X-Ray 09/30/24 19:50 IMPRESSION: Normal x-ray examination of the chest. Electronically Signed: Vin Park MD at 22:06 EST Reading Location ID and State: [address] [place] [address] Tel , Service support , Chest CTA 09/30/24 20:32 IMPRESSION: Extensive pulmonary emboli as above without evidence of right ventricular strain at this time Electronically Signed: Vin Park MD at 21:11 EST Reading Location ID and State: [address] [place] [address] Tel , Service support , ADDENDUM: 09/30/24 2131 IMPRESSION: Extensive pulmonary emboli as above without evidence of right ventricular strain at this time N.B. : The above Results were Read Back by Vin Park MD to Moreno Mathis DO, and understanding confirmed on 09/30/2024 21:24:15 (ET). Electronically Signed: Vin Park MD at 21:11 EST Reading Location ID and State: [facility] / [place] Tel , Service support , D/C Instructions DC O2, CPAP, BIPAP Needs PSN CPAP & BiPAP: BiPAP & CPAP Settings per PSN Mode AIRVO 09/30/24 23:33 Bipap Delivery Device Nasal Pillows 09/30/24 23:33 Fraction of Inspired Oxygen ( 80 10/01/24 01:00 FIO2) Total Flow Rate 45 09/30/24 23:33 Additional Home O2 Discharge instructions: No DC home with Oxygen: No Meaningful Use Info Meaningful Use Meaningful Use Diagnoses (Choose all that apply): VTE Ischemic Stroke Statin Dosing Therapy Reference: STATIN DOSE THERAPY REFERENCE: * Patients > 75 years receive moderate or high dose statin therapy. * Patients 75 years or YOUNGER should receive HIGH intensity statin dose unless contraindicated. You will be required to document reason for non-treatment if statin daily dose does not meet guidelines. HIGH DOSE STATIN THERAPY DAILY Atorvastatin > than or = to 40 mg Rosuvastatin > than or = to 20 mg Amlodipine + Atorvastatin > than or = to 2.5/40 mg Ezetimibe + Simvastatin 10/80 mg Simvastatin 80mg VTE Anticoag overlap given w/in hospital stay or rx'd at dc?: No Pt receive overlap for 5 days?: No Reason overlap not ordered, prescribed, or given for 5 days: Treatment Not Indicated Discharge Plan Admission Admit Date/Time: 09/30/24 21:18 Primary Reason for Your Visit: Acute Hypoxic Respiratory Failure, BL PE, Elevated Troponins Attending Provider: Demi Mendoza Primary Care Provider: Anali Padilla Consulting Providers: Lalo Mtz; Nickolas Lora; Aung Perry; Adithya Dockery; Lenard Beckford; Homero Roberts; Eleno Bell; Lily Grace; Gray Bañuelos; Stiven Levy; Suman Dumont; Brandy Del Valle; Anni Wheeler; Anders Walters; Omega Bernstein; Cleve Watt; Skyler Hummel; Andres Butler; Cisco Licona; oLn Hanson; Nilay Phillips Discharge Orders/Prescriptions Prescriptions: No Action pravastatin 80 mg tablet 80 mg PO QHS lisinopril 5 mg tablet 5 mg PO DAILY glipizide 5 mg tablet extended release 24hr 5 mg PO DAILY levothyroxine 25 mcg capsule 25 mcg PO DAILY aspirin [Adult Low Dose Aspirin] 81 mg tablet,delayed release (DR/EC) 81 mg PO DAILY mecobalamin (vitamin B12) 1,000 mcg tablet,chewable 3,000 mcg PO DAILY cholecalciferol (vitamin D3) 50 mcg (2,000 unit) capsule 50 mcg PO DAILY potassium gluconate 600 mg (99 mg) tablet 650 mg PO DAILY magnesium 200 mg tablet 400 mg PO DAILY Referrals / Follow Up: Anali Padilla MD [Primary Care Provider] - Disposition Disposition (needs filled in before D/C Order can be placed): Acute Care Hospital Charges/Coding Visit Charges Inpatient E&M: 34471 Disch Hosp >30min
[2024-10-01 03:34] LABS: Absolute Lymphocyte Count 3.73 X10^3/uL (0.83-4.51); Absolute Neutrophil Count 6.7 X10^3/uL (2.0-7.7); Basophil# 0.03 X10^3/uL; Basophil% 0.3 % (0-1); Eosinophil# 0.19 X10^3/uL; Eosinophils% 1.6 % (0-5); Hematocrit 34.6 % (37-47); Hemoglobin 11.7 g/dL (12.0-15.0); Lymphocyte # 3.73 X10^3/ul (0.83-4.51); Lymphocyte % 32.3 % (19-41); Mean Corp Hgb Conc 33.8 g/dL (32-36); Mean Corpuscular Hgb 31.6 pg (27.0-32.0); Mean Corpuscular Volume 93.5 fL (81-99); Mean Platelet Vol. 9.9 fl (6.2-12.0); Monocyte# 0.83 X10^3/uL; Monocyte% 7.2 % (0-10); NRBC Flagged by Analyzer 0 % (0-5); Neutrophil # 6.69 X10^3/uL (2.7-7.7); Neutrophil % 57.8 % (47-70); Platelet Count 219 K/mm3 (150-450); RBC Distribution Width CV 13.3 % (11.6-14.6); RBC Distribution Width SD 45.5 fl (35.1-43.9); White Blood Count 11.6 K/mm3 (4.4-11.0)
[2024-10-01 03:45] LABS: Partial Thromboplast Time 81.2 Seconds (24.1-36.2)
[2024-10-01 03:59] LABS: ALB/GLOB Ratio 0.8 RATIO (0.9-2.4); AST(SGOT) 11 U/L (15-37); Alanine Aminotransfer ALT/SGPT 17 U/L (13-56); Albumin, Serum 3.1 g/dL (3.2-5.0); Alkaline Phosphatase 74 U/L (45-117); Anion Gap 6 (5-15); BUN 16 mg/dL (7-18); BUN/Creat Ratio 15.8 RATIO (10-20); Chloride 109 mmol/L (98-107); Creatinine, Serum 1.01 mg/dL (0.55-1.02); EST Glomerular Filtration Rate 57 mL/min (>60); Est Glom Filt Rate - Afr Amer 69 mL/min (>60); Estimated Creatinine Clearance 49.57 ml/min; Globulin 3.9 g/dL (2.2-4.2); Glucose 141 mg/dL (74-106); Potassium 3.9 mmol/L (3.5-5.1); Sodium Level 139 mmol/L (136-145)
[2024-10-01] MEDS: Levothyroxine 25 MCG TABLET PO (05:57)
[2024-10-01 08:31] LABS: Bedside Glucose 126 mg/dL (74-106)
--- NOTE | 2024-10-01 09:07 | CASEMGMT ---
Insurance review for hospitals In-network with?[employer] insurance if transfer is recommended is as follows: [facility], [facility], [place], [facility], [facility], [facility], [facility], [place], [facility] ([facility]), and . Chelo Luna, Discharge Planning Asst.
== END 2024-10-01 09:25 | disposition short-term general hospital (02) | DRG 175 ==
LOC: ED 21:25 → ICU 21:36
PROVIDERS: Admitting Provider Family Medicine; Emergency Provider Emergency Medicine; PCP Internal Medicine
DX: I26.99 Other pulmonary embolism without acute cor pulmonale (principal); J96.01 Acute respiratory failure with hypoxia; I24.89 Other forms of acute ischemic heart disease; E11.42 Type 2 diabetes mellitus with diabetic polyneuropathy; N18.30 Chronic kidney disease, stage 3 unspecified; I12.9 Hypertensive chronic kidney disease with stage 1 through stage 4 chronic kidney disease, or unspecified chronic kidney disease; E03.9 Hypothyroidism, unspecified; E66.9 Obesity, unspecified; E11.22 Type 2 diabetes mellitus with diabetic chronic kidney disease; E78.5 Hyperlipidemia, unspecified; U09.9 Post COVID-19 condition, unspecified; Z68.34 Body mass index [BMI] 34.0-34.9, adult; Z79.82 Long term (current) use of aspirin; Z79.84 Long term (current) use of oral hypoglycemic drugs; Z79.890 Hormone replacement therapy
CPT/HCPCS: 36600; 71045; 71275; 80048; 80053; 82803; 82962; 83605; 83735; 83880; 84484; 85025; 85379; 85610; 85730; 87040; 93005; 94640; 94660; 94668; 99285; J7030; Q9957; Q9967; A4216

== ENCOUNTER 2024-10-17 12:22 | Emergency (ER) | payer MEDICARE, SELFPAY ==
[2024-10-17] VITALS (9 sets, daily range): BP systolic 120–146; BP diastolic 53–85; PULSE 89–107; RESP 16–23; TEMP 36.8–37.1; O2SAT 91–94; BMI 34.1
--- NOTE | 2024-10-17 13:11 | ED.VIS.DYS ---
HPI History of Present Illness Chief Complaint: Cough Informant: patient and family Narrative Narrative: 74-year-old female presenting to the emergency room with cough and congestion. Patient notable recent medical history including DVT with pulmonary embolism status post thrombectomy on 02 October at [facility]. Currently on Eliquis. Patient states that she was discharged home on 03 October and has been recovering. David Swenson began to have cough and nasal congestion. Yesterday she felt chilled with some bodyaches. No definitive fevers. She notes some green sputum production occasional wheezing. [facility] Medical History Pulmonary emboli Hypothyroidism Peripheral neuropathy Type 2 diabetes mellitus Obesity Osteoarthritis of right knee Hyperlipemia Hypertension Gallstones Cataract Arthritis Home Medications ?Medication ?Instructions ?Recorded ?Last Taken ?Type aspirin 81 mg tablet,delayed 81 mg PO DAILY 04/21/24 Unknown History release (Adult Low Dose Aspirin) cholecalciferol (vitamin D3) 50 50 mcg PO DAILY 04/21/24 Unknown History mcg (2,000 unit) capsule glipizide 5 mg tablet, extended 5 mg PO DAILY 04/21/24 Unknown History release 24 hr levothyroxine 25 mcg capsule 25 mcg PO DAILY 04/21/24 Unknown History lisinopril 5 mg tablet 5 mg PO DAILY 04/21/24 Unknown History mecobalamin (vitamin B12) 1,000 3,000 mcg PO DAILY 04/21/24 Unknown History mcg chewable tablet pravastatin 80 mg tablet 80 mg PO QHS 04/21/24 Unknown History magnesium 200 mg tablet 400 mg PO DAILY 09/30/24 Unknown History potassium gluconate 600 mg (99 mg) 650 mg PO DAILY 09/30/24 Unknown History tablet albuterol sulfate 90 mcg/actuation 2 puff inhalation Q4H PRN PRN 10/17/24 Unknown Rx aerosol inhaler (Ventolin HFA) Wheezing ##1 Allergy/AdvReac Type Severity Reaction Status Date / Time Penicillins Allergy Intermediate Swelling Verified 10/17/24 12:24 Family History Father Cancer lung Diabetes Parkinson disease Arthritis Blood clot in vein Hydrocephalus Myocardial infarction Mother Myocardial infarction Heart disease Hypertension Hyperlipemia Brother Cancer lung COPD (chronic obstructive pulmonary disease) Grandfather CVA (cerebral vascular accident) Brother Bowel disease had ostomy Pneumonia due to COVID-19 virus Son Myocardial infarction Surgical History H/O eye surgery Cataract extraction status S/P wrist surgery S/P cholecystectomy History of hysterectomy H/O tubal ligation Hx of tonsillectomy Social History adopted: No household members: family number of children: 5 current occupational status: employed current occupation: [employer]. pets and animals: Yes sexually active: No Smoking Status: Never smoker Electronic Cigarette Use: not used alcohol intake: never substance use type: does not use caffeine: Yes (1) Type: coffee frequency: does not exercise seatbelt use: always do you feel safe at home: Yes ROS ROS ED Constitutional Constitutional ED: Reports chills; Denies fever(s) or weight loss Eyes Eyes: Denies change in vision or diplopia ENT ENT ED: Reports rhinorrhea; Denies ear pain or sore throat Cardiovascular Cardiovascular: Denies chest pain, orthopnea, palpitations or racing heartbeat Respiratory/Chest Respiratory/Chest: Reports cough and sputum; Denies dyspnea, dyspnea on exertion or orthopnea Gastrointestinal Gastrointestinal: Denies abdominal pain, diarrhea, nausea or vomiting Genitourinary Genitourinary ED: Denies dysuria, hematuria or urinary frequency Musculoskeletal Musculoskeletal: Reports myalgias; Denies arthralgias Integumentary Denies abscess or rash Neurologic Neurologic: Denies headache(s) or weakness Psychiatric Psychiatric: Denies anxiety, depression, suicidal ideation or suicidal thoughts Endocrine Endocrinology: Denies polydipsia, polyphagia or polyuria Allergic/Immunologic Allergic/Immunologic ED: Denies mouth swelling, tongue swelling or urticaria EXAM Physical Exam Const Vital Signs: 10/17/24 12:22 10/17/24 12:23 10/17/24 12:24 Temperature 98.2 F 98.7 F Temperature Source Oral Oral Pulse Rate 107 H 89 Respiratory Rate 18 16 Respiratory Effort Short of Breath Respiratory Depth Normal Respiratory Pattern Normal Blood Pressure 139/85 H 146/77 H Blood Pressure Mean 103 100 Pulse Ox 94 94 Oxygen Delivery Method Room Air Room Air Room Air 10/17/24 13:21 10/17/24 13:29 10/17/24 14:00 Temperature 98.7 F 98.7 F Temperature Source Temporal Oral Pulse Rate 90 102 H 97 Respiratory Rate 16 23 H 18 Respiratory Effort Respiratory Depth Respiratory Pattern Normal Blood Pressure 131/76 H 120/53 L Blood Pressure Mean 94 75 Pulse Ox 92 93 Oxygen Delivery Method Room Air Room Air 10/17/24 14:22 10/17/24 14:50 10/17/24 14:55 Temperature 98.7 F Temperature Source Pulse Rate 98 98 Respiratory Rate 18 18 Respiratory Effort Respiratory Depth Respiratory Pattern Blood Pressure 129/63 H 129/63 H Blood Pressure Mean 85 85 Pulse Ox 92 92 93 Oxygen Delivery Method Room Air Positive well nourished and well developed General Appearance ED: well developed and NAD HEENT Reports normocephalic, head/scalp atraumatic and moist mucous membranes Eyes PERRL and EOMs intact bilaterally Neck no lymphadenopathy, supple and no JVD Resp normal respiratory effort Resp Narrative: End expiratory rhonchi with cough Cardio regular rate, regular rhythm and no murmurs GI normal to inspection, nondistended, normoactive bowel sounds and non-tender Palpation: soft Back/Spine no CVA tenderness and normal ROM Extremity normal to inspection General Extremety ED: Negative for edema General Extremity: Negative for edema Neuro oriented x3 and CN's II-XII intact bilaterally Sensorium / Orientation: alert Motor Exam: strength 5/5 throughout Psych mental status grossly normal Mood & Affect: Negative for depressed or tearful Skin no rashes or lesions noted and no wounds MDM MDM MDM Narrative Medical decision making narrative: Differential diagnosis includes but not limited to pneumonia bronchitis bronchospasm pleural effusion pulmonary infarct anemia viral syndrome My independent interpretation of the chest x-ray is no acute process no definitive pleural effusion. White count is 8.7 hemoglobin 13.1 platelet count of 200 BMP shows a creatinine 1.14. She is RSV positive. Patient received a DuoNeb. At rest her pulse ox is 96%. We got her up to ambulate her and pulse ox was 91 and she dropped to 89 but not significantly labored but readily came right back up when she rested and then continued down.. This is probably multifactorial and recovering from her pulmonary embolism and her RSV infection. We talked about admission and do think it is reasonable that she rest at home monitor. She may require admission. Her RSV infection worsen. History & Record Review Discussion w/independent historian: Patient and Family Additional record(s) reviewed:: Prior inpatient record and Prior ED visit Lab Data Attestation: I reviewed the patient's lab results. Labs: Laboratory Results - last 24 hr 10/17/24 13:22 WBC 8.7 RBC 4.09 L Hgb 13.1 Hct 40.6 MCV 99.3 H MCH 32.0 MCHC 32.3 RDW Std Deviation 53.1 H RDW Coeff of Jessica 14.6 Plt Count 200 MPV 9.8 Immature Gran % (Auto) 0.300 Neut % (Auto) 55.3 Lymph % (Auto) 25.1 [place] % (Auto) 12.0 H Eos % (Auto) 6.8 H Baso % (Auto) 0.5 Absolute Neuts (auto) 4.8 Absolute Lymphs (auto) 2.18 Nucleated RBC % 0 Sodium 139 Potassium 4.3 Chloride 106 Carbon Dioxide 26.0 Anion Gap 6 BUN 15 Creatinine 1.14 H Estim Creat Clear Calc 43.67 Est GFR (MDRD) Af Amer 60 Est GFR (MDRD) Non-Af 50 L BUN/Creatinine Ratio 13.2 Glucose 88 Calcium 9.5 Radiography Diagnostic Testing: Clinical Impression(s) from Imaging Studies Chest X-Ray 10/17/24 13:49 IMPRESSION: Mild bibasilar atelectasis or inflammation. Electronically Signed: Phyllis Sparks MD at 14:32 EST Reading Location ID and State: [facility] / [place] Tel , Service support , Discharge Plan Triage Chief Complaint: Cough ED Provider: Arun Melgar Dx/Rx/DC Orders Clinical Impression: RSV infection, Anticoagulated Instructions: RSV (Respiratory Syncytial Virus) Prescriptions: New albuterol sulfate [Ventolin HFA] 90 mcg/actuation HFA aerosol inhaler 2 puff inhalation Q4H PRN PRN (Reason: Wheezing) Qty: 1 0RF Rx Instructions: with spacer No Action pravastatin 80 mg tablet 80 mg PO QHS lisinopril 5 mg tablet 5 mg PO DAILY glipizide 5 mg tablet extended release 24hr 5 mg PO DAILY levothyroxine 25 mcg capsule 25 mcg PO DAILY aspirin [Adult Low Dose Aspirin] 81 mg tablet,delayed release (DR/EC) 81 mg PO DAILY mecobalamin (vitamin B12) 1,000 mcg tablet,chewable 3,000 mcg PO DAILY cholecalciferol (vitamin D3) 50 mcg (2,000 unit) capsule 50 mcg PO DAILY potassium gluconate 600 mg (99 mg) tablet 650 mg PO DAILY magnesium 200 mg tablet 400 mg PO DAILY Primary Care Provider: Anali Padilla Referrals: Anali Padilla MD [Primary Care Provider] - 3-5 Days Print Language: Telugu Disposition Disposition: Home, Self Care Discharge Date/Time: 10/17/24 14:55
[2024-10-17] MEDS: Ipratropium/Albuterol Sulfate 3 ML AMPUL.NEB INHALATION (13:21)
[2024-10-17 13:37] LABS: Absolute Lymphocyte Count 2.18 X10^3/uL (0.83-4.51); Absolute Neutrophil Count 4.8 X10^3/uL (2.0-7.7); Basophil# 0.04 X10^3/uL; Basophil% 0.5 % (0-1); Eosinophil# 0.59 X10^3/uL; Eosinophils% 6.8 % (0-5); Hematocrit 40.6 % (37-47); Hemoglobin 13.1 g/dL (12.0-15.0); Lymphocyte # 2.18 X10^3/ul (0.83-4.51); Lymphocyte % 25.1 % (19-41); Mean Corp Hgb Conc 32.3 g/dL (32-36); Mean Corpuscular Volume 99.3 fL (81-99); Mean Platelet Vol. 9.8 fl (6.2-12.0); Monocyte# 1.04 X10^3/uL; NRBC Flagged by Analyzer 0 % (0-5); Neutrophil # 4.81 X10^3/uL (2.7-7.7); Neutrophil % 55.3 % (47-70); Platelet Count 200 K/mm3 (150-450); RBC Distribution Width CV 14.6 % (11.6-14.6); RBC Distribution Width SD 53.1 fl (35.1-43.9); Red Blood Count 4.09 M/mm3 (4.2-5.4); White Blood Count 8.7 K/mm3 (4.4-11.0)
[2024-10-17 13:48] LABS: Anion Gap 6 (5-15); BUN 15 mg/dL (7-18); BUN/Creat Ratio 13.2 RATIO (10-20); Calcium,Total 9.5 mg/dL (8.5-10.1); Chloride 106 mmol/L (98-107); Creatinine, Serum 1.14 mg/dL (0.55-1.02); EST Glomerular Filtration Rate 50 mL/min (>60); Est Glom Filt Rate - Afr Amer 60 mL/min (>60); Estimated Creatinine Clearance 43.67 ml/min; Glucose 88 mg/dL (74-106); Potassium 4.3 mmol/L (3.5-5.1); Sodium Level 139 mmol/L (136-145)
--- NOTE | 2024-10-17 13:49 | RAD_ITS ---
HISTORY: cough. TECHNIQUE: XR Chest 2 Views. COMPARISON: 09/30/2024. FINDINGS: CARDIOMEDIASTINAL BORDERS: Cardiac silhouette within normal limits in size. Mediastinal contour unremarkable with calcification of the aortic knob. LUNGS: Mild linear bibasilar opacities. PLEURA: No pleural effusion or pneumothorax seen. OSSEOUS STRUCTURES: Unremarkable. RAD/Chest PA and Lateral IMPRESSION: Mild bibasilar atelectasis or inflammation. Electronically Signed: Phyllis Sparks MD at 14:32 EST ,
== END 2024-10-17 14:55 | disposition home or self-care (01) ==
PROVIDERS: Emergency Provider Emergency Medicine; PCP Internal Medicine; Visit Provider Emergency Medicine
DX: J20.5 Acute bronchitis due to respiratory syncytial virus (principal); E11.42 Type 2 diabetes mellitus with diabetic polyneuropathy; I10 Essential (primary) hypertension; E78.5 Hyperlipidemia, unspecified; E03.9 Hypothyroidism, unspecified; Z79.01 Long term (current) use of anticoagulants; Z79.84 Long term (current) use of oral hypoglycemic drugs; Z79.890 Hormone replacement therapy; Z79.899 Other long term (current) drug therapy; Z86.718 Personal history of other venous thrombosis and embolism; Z86.711 Personal history of pulmonary embolism
CPT/HCPCS: 71046; 80048; 85025; 87631; 94640; 99283

== ENCOUNTER → 2025-01-02 | Outpatient (CLI) | payer MEDICARE, SELFPAY ==
[2025-01-02 15:13] LABS: Color, Urine Yellow (Yellow); Glucose, Dipstick Normal (Normal); Ketone-Dipstick 5 mg/dl (Negative); Leukocyte Esterase-Dipstick 500 /ul (Negative); Nitrite-Dipstick Positive (Negative); Occult Blood-Urine 250 /ul (Negative); Protein-Dipstick 100 mg/dl (Negative); Specific Gravity, Urine 1.015 (1.002-1.030); Urine Bilirubin Dipstick Negative (Negative); Urine Clarity Turbid (Clear); Urine Urobilinogen Normal (Normal)
== END | disposition home or self-care (01) ==
LOC: LABSPEC 14:08
PROVIDERS: PCP Internal Medicine; Referring Provider Physician Assistant; Visit Provider Physician Assistant
DX: N39.0 Urinary tract infection, site not specified (principal)
CPT/HCPCS: 81002; 87077; 87086; 87088; 87186

== ENCOUNTER → 2025-01-05 | Outpatient (CLI) | payer MEDICARE, SELFPAY ==
[2025-01-05 12:50] LABS: Absolute Lymphocyte Count 2.11 X10^3/uL (0.83-4.51); Absolute Neutrophil Count 5.8 X10^3/uL (2.0-7.7); Basophil# 0.03 X10^3/uL; Basophil% 0.3 % (0-1); Eosinophil# 0.04 X10^3/uL; Eosinophils% 0.5 % (0-5); Hematocrit 32.3 % (37-47); Hemoglobin 10.3 g/dL (12.0-15.0); Lymphocyte # 2.11 X10^3/ul (0.83-4.51); Mean Corp Hgb Conc 31.9 g/dL (32-36); Mean Corpuscular Hgb 30.1 pg (27.0-32.0); Mean Corpuscular Volume 94.4 fL (81-99); Mean Platelet Vol. 10.3 fl (6.2-12.0); Monocyte% 9.1 % (0-10); NRBC Flagged by Analyzer 0 % (0-5); Neutrophil # 5.76 X10^3/uL (2.7-7.7); Neutrophil % 65.5 % (47-70); Platelet Count 294 K/mm3 (150-450); RBC Distribution Width CV 14.2 % (11.6-14.6); RBC Distribution Width SD 49.1 fl (35.1-43.9); Red Blood Count 3.42 M/mm3 (4.2-5.4); White Blood Count 8.8 K/mm3 (4.4-11.0)
[2025-01-05 12:58] LABS: International Normalized Ratio 2.7; Prothrombin Time (Protime)PT. 28.9 SECONDS (11.7-14.9)
[2025-01-05 14:24] LABS: ALB/GLOB Ratio 0.7 RATIO (0.9-2.4); AST(SGOT) 52 U/L (<=31); Alanine Aminotransfer ALT/SGPT 43 U/L (<=34); Albumin, Serum 3.3 g/dL (3.4-4.8); Alkaline Phosphatase 79 U/L (35-104); Anion Gap 14 (5-15); BUN 17 mg/dL (4-19); BUN/Creat Ratio 15.7 RATIO (10-20); Calcium,Total 9.3 mg/dL (7.6-11.0); Carbon Dioxide 22.6 mmol/L (21.0-32.0); Chloride 100 mmol/L (98-108); Cholesterol 135 mg/dL (<=200); Creatinine, Serum 1.06 mg/dL (0.70-1.20); EST Glomerular Filtration Rate 55 (>60); Globulin 4.8 g/dL (2.2-4.2); Glucose 95 mg/dL (70-99); High Density Lipoprotein 27 mg/dL; Low Density Lipoprotein Calc. 72 mg/dL; Potassium 3.6 mmol/L (3.3-5.1); Protein, Total 8.2 g/dL (5.9-8.4); Sodium Level 137 mmol/L (133-145); Total Bilirubin 0.22 mg/dL (0.00-1.30); Triglycerides 177 mg/dL; Very Low Density Lipoprotein 35 mg/dL (5-40); cholesterol:hdl ratio screen 4.96
== END | disposition home or self-care (01) ==
LOC: BIMLAB 09:09
PROVIDERS: Physician Assistant; PCP Internal Medicine; Referring Provider Internal Medicine; Visit Provider Internal Medicine
DX: I26.99 Other pulmonary embolism without acute cor pulmonale (principal); E11.40 Type 2 diabetes mellitus with diabetic neuropathy, unspecified; E11.29 Type 2 diabetes mellitus with other diabetic kidney complication; R80.9 Proteinuria, unspecified
CPT/HCPCS: 36415; 80053; 80061; 83036; 84443; 85025; 85610

== ENCOUNTER → 2025-01-09 | Outpatient (CLI) | payer MEDICARE, SELFPAY ==
[2025-01-09 16:36] LABS: International Normalized Ratio 3.2; Prothrombin Time (Protime)PT. 33.8 SECONDS (11.7-14.9)
[2025-01-09 16:42] LABS: Microalbumin,Random Urine 54.3 mg/L (NO RANGE EST.); Microalbumin:Creatinine Ratio 532.4 mg/g CRE
== END | disposition home or self-care (01) ==
LOC: BIMLAB 15:08
PROVIDERS: PCP Internal Medicine; Referring Provider Physician Assistant; Visit Provider Physician Assistant
DX: E11.29 Type 2 diabetes mellitus with other diabetic kidney complication (principal); R80.9 Proteinuria, unspecified
CPT/HCPCS: 36415; 82043; 82570; 85610

== ENCOUNTER → 2025-01-16 | Outpatient (CLI) | payer MEDICARE, SELFPAY ==
[2025-01-16 16:23] LABS: Absolute Neutrophil Count 5.4 X10^3/uL (2.0-7.7); Basophil# 0.03 X10^3/uL; Basophil% 0.3 % (0-1); Eosinophil# 0.14 X10^3/uL; Eosinophils% 1.6 % (0-5); Hematocrit 30.2 % (37-47); Hemoglobin 9.8 g/dL (12.0-15.0); Lymphocyte % 26.8 % (19-41); Mean Corp Hgb Conc 32.5 g/dL (32-36); Mean Corpuscular Hgb 29.9 pg (27.0-32.0); Mean Corpuscular Volume 92.1 fL (81-99); Mean Platelet Vol. 8.9 fl (6.2-12.0); Monocyte# 0.92 X10^3/uL; Monocyte% 10.3 % (0-10); NRBC Flagged by Analyzer 0.2 % (0-5); Neutrophil % 60.4 % (47-70); Platelet Count 340 K/mm3 (150-450); RBC Distribution Width CV 14.7 % (11.6-14.6); RBC Distribution Width SD 49.5 fl (35.1-43.9); Red Blood Count 3.28 M/mm3 (4.2-5.4); White Blood Count 8.9 K/mm3 (4.4-11.0)
[2025-01-16 16:35] LABS: International Normalized Ratio 1.9; Prothrombin Time (Protime)PT. 22.4 SECONDS (11.7-14.9)
== END | disposition home or self-care (01) ==
LOC: BIMLAB 15:44
PROVIDERS: Internal Medicine Cardiovascular Disease; PCP Internal Medicine; Referring Provider Internal Medicine; Visit Provider Internal Medicine
DX: I26.99 Other pulmonary embolism without acute cor pulmonale (principal); I10 Essential (primary) hypertension
CPT/HCPCS: 36415; 85025; 85610

== ENCOUNTER → 2025-05-11 | Outpatient (CLI) | payer MEDICARE, SELFPAY ==
[2025-05-11 12:46] LABS: Hematocrit 38.4 % (37-47); Hemoglobin 12.5 g/dL (12.0-15.0); Immature Granulocytes Count 0.040 X10^3/uL (0.0-0.0); Mean Corp Hgb Conc 32.6 g/dL (32-36); Mean Corpuscular Volume 93.2 fL (81-99); Mean Platelet Vol. 10.0 fl (6.2-12.0); NRBC Flagged by Analyzer 0 % (0-5); Platelet Count 233 K/mm3 (150-450); RBC Distribution Width CV 15.6 % (11.6-14.6); RBC Distribution Width SD 53.5 fl (35.1-43.9); Red Blood Count 4.12 M/mm3 (4.2-5.4); White Blood Count 8.7 K/mm3 (4.4-11.0)
[2025-05-11 13:03] LABS: AST(SGOT) 15 U/L (<=31); Alanine Aminotransfer ALT/SGPT 10 U/L (<=34); Albumin, Serum 4.3 g/dL (3.4-4.8); Alkaline Phosphatase 90 U/L (35-104); Anion Gap 10 (5-15); BUN 26 mg/dL (4-19); BUN/Creat Ratio 20.9 RATIO (10-20); Calcium,Total 10.4 mg/dL (7.6-11.0); Carbon Dioxide 24.5 mmol/L (21.0-32.0); Chloride 104 mmol/L (98-108); Globulin 4.0 g/dL (2.2-4.2); Glucose 110 mg/dL (70-99); Potassium 5.3 mmol/L (3.3-5.1)
--- OUTSIDE RECORDS SUMMARY | 2025-05-11 20:16 | XMS RPT_ITS | CCD ---
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 Name Role Phone DAWN CRUZ Unavailable Unavailable JULIAN, DAWN Unavailable Unavailable JULIAN, DAWN Unavailable Unavailable JULIAN DO, DR SEYMOUR Primary Care Physician [phone] JULIAN DO, DR SEYMOUR Primary Care Physician [phone] JULIAN DO, DR SEYMOUR Attending Unavailable JULIAN DO, DR SEYMOUR Primary Care Unavailable JULIAN DO, DR SEYMOUR Attending Unavailable JULIAN DO, DR SEYMOUR Primary Care Unavailable JULIAN DO, DR SEYMOUR Attending Unavailable JULIAN DO, DR SEYMOUR Primary Care Unavailable JULIAN DO, DR SEYMOUR Attending Unavailable JULIAN DO, DR SEYMOUR Primary Care Unavailable JULIAN DO, DR SEYMOUR Attending Unavailable JULIAN DO, DR SEYMOUR Primary Care Unavailable Randy LEONARDO, Ronel Duran Primary Care Provider Randy LEONARDO, Dr. Briones Primary Care Provider [phone] Dr. Moreno Mathis DO Emergency Provider [phone] Kelly LEONARDO, Dr. Demi Pacheco Admit Provider Kelly LEONARDO, Dr. Demi Pacheco Other Provider [phone] Bibi LEONARDO, Dr. May Other Provider Dr. Nickolas Lora MD Other Provider Dr. Aung Perry MD Other Provider Dr. Adithya Dockery DO Other Provider [phone] Dr. Lenard Beckford MD Other Provider Alejandra LEONARDO, Dr. Valentin Other Provider Ray LEONARDO, Dr. Johansen Other Provider [phone] Lesly LEONARDO, Dr. Bautista Other Provider Sarmad LEONARDO, Dr. Castellano Other Provider Cam LEONARDO, Dr. Saleem Other Provider [phone] Tim LEONARDO, Dr. Will Other Provider [phone] Eligio LEONARDO, Dr. Nava Other Provider [phone] Liam LEONARDO, Dr. Hutton Other Provider [facility] manuel Walters MD, Dr. Mcnamara Other Provider [phone] Amandeep LEONARDO, Dr. Duff Other Provider Shukri LEONARDO, Dr. Poon Other Provider [phone] Shaheed CAST, Dr. Holland Other Provider [phone] Carrie LEONARDO, Dr. Campos Other Provider [phone] Monae CAST, Dr. Peck Other Provider Valentin LEONARDO, Dr. Forrest Other Provider [phone] Alan LEONARDO, Dr. Pemberton Other Provider Dr. Howard Proctor DO Attending Provider Kelly LEONARDO, Dr. Demi Pacheco Attending Provider Dr. Arun Melgar DO Attending Provider Dr. Arun Melgar DO Emergency Provider Dr. Ronel Padilla MD Attending Provider Dr. Ronel Padilla MD Referring Provider Caio Beverly Attending Provider Jose Roberto Hayes Attending Provider Jose Roberto Hayes Referring Provider Arun Melgar Attending Unavailable Ronel Padilla Primary Care Unavailable Demi Mendoza Admitting Unavailable Lalo Mtz Consulting Unavailable Howard Proctor Attending Unavailable Ronel Padilla Primary Care Unavailable Lora, Nickolas Consulting Unavailable Aung Perry Consulting Unavailable Adithya Dockery Consulting Unavailable Lenard Beckford P Consulting Unavailable Matheis, Edward Consulting Unavailable Ray, Eleno Consulting Unavailable Habtegebriel, Lily Consulting Unavailab le Dand, Gray Consulting Unavailable Levy, Stiven Consulting Unavailable Dumont, Suman Consulting Unavailable Eligio, Brandy Consulting Unavailable Aljundi, Lamia Consulting Unavailable Selena, Anders Consulting Unavailable Irukulla, Omega Consulting Unavailable Shukri, Cleve Consulting Unavailable Dhesi, Skyler Consulting Unavailable Andres Butler Consulting Unavailable Fernstrom, Cisco Consulting Unavailable Valentin, Lon Consulting Unavailable Alan, Nilay Consulting Unavailable Demi Mendoza Consulting Unavailable Jose Roberto Hayes Attending Unavailable Arona, Ronel Primary Care Unavailable Jose Roberto Hayes Referring Unavailable Randy, Ronel Attending Unavailable Demi Mendoza Admitting Unavailable Demi Mendoza Attending Unavailable Lalo Mtz Consulting Unavailable Arona, Ronel Primary Care Unavailable Geno, Nickolas Consulting Unavailable Aung Perry Consulting Unavailable Adithya Dockery Consulting Unavailable Lenard Beckford P Consulting Unavailable Matheis, Edward Consulting Unavailable Ray, Eleno Consulting Unavailable Habtegebriel, Lily Consulting Unavailab le Dand, Gray Consulting Unavailable Levy, Stiven Consulting Unavailable Dumont, Suman Consulting Unavailable Eligio, Branyd Consulting Unavailable Aljundi, Lamia Consulting Unavailable Selena, Anders Consulting Unavailable Irukulla, Omega Consulting Unavailable Shukri, Cleve Consulting Unavailable Dhesi, Skyler Consulting Unavailable Andres Butler Consulting Unavailable Fernstrom, Cisco Consulting Unavailable Valentin, Lon Consulting Unavailable Alan, Nilay Consulting Unavailable Demi Mendoza Consulting Unavailable Alber Pham Attending Unavailable Randy, Ronel Referring Unavailable Jose Roberto Hayes Attending Unavailable Arona, Ronel Primary Care Unavailable Ricardo Woodruff Attending Unavailable Alber Pham Attending Unavailable Randy, Ronel Attending Unavailable Arona, Ronel Referring Unavailable Randy, Ronel Primary Care Unavailable Caio Beverly Attending Unavailable Randy, Ronel Referring Unavailable Randy, Ronel Primary Care Unavailable Arona, Ronel Referring Unavailable Arona, Ronel Attending Unavailable Arona, Ronel Primary Care Unavailable Jose Roberto Hayes Attending Unavailable Arona, Ronel Primary Care Unavailable Jose Roberto Hayes Referring Unavailable Arona, Ronel Referring Unavailable Randy, Ronel Attending Unavailable Randy, Ronel Primary Care Unavailable RANDY, RONEL Primary Care Unavailable SILVER, VIN H Attending Unavailable RANDY, RONEL Primary Care Unavailable SILVER, VIN H Attending Unavailable RANDY, RONEL Primary Care Unavailable SILVER, VIN H Attending Unavailable QIAN, AN Referring Unavailable RANDY, RONEL Primary Care Unavailable SILVER, VIN H Attending Unavailable RANDY, RONEL Primary Care Unavailable SILVER, VIN H Referring Unavailable SILVER, VIN H Attending Unavailable SILVER, VIN H Attending Unavailable RANDY, RONEL Primary Care Unavailable SILVER, VIN H Attending Unavailable RANDY, RONEL Primary Care Unavailable JOSE ROBERTO HOLGUIN Admitting Unavailable NONE, PCP Referring Unavailable JOSE ROBERTO HOLGUIN Attending Unavailable RANDY, RONEL Primary Care Unavailable QIAN, AN Attending Unavailable RANDY, RONEL Primary Care Unavailable QIAN, AN Attending Unavailable QIAN, AN Referring Unavailable RANDY, RONEL Primary Care Unavailable RANDY, RONEL Primary Care Unavailable RANDY, RONEL Primary Care Unavailable SILVER, VIN H Attending Unavailable RANDY, RONEL Primary Care Unavailable SILVER, VIN H Attending Unavailable Randy LEONARDO, Dr. Briones Primary Care Provider Dr. Ronel Padilla MD Attending Provider Dr. Ronel Padilla MD Referring Provider Allergies Allergy Classification Reported Allergen(s) Allergy Type Date of Onset Reaction(s) Facility (6 sources) Penicillin; Translations: [penicillin] Drug Allergy Weal (disorder) [facility] (17 sources) Penicillins Propensity to adverse reactions 8 Swelling, [facility] (5 sources) Penicillins Allergy to substance 5 Swelling [facility] (1 source) Penicillins Drug allergy (disorder) 5 [facility] Repository Medications Current Medications Medication Drug Class(es) Dates Sig (Normalized) Sig (Original) BD Single Use Swab 70% topical pad (1 source) Start: 05-12-2021 BD Single Use Swab 70% topical pad 1, Miscellaneous, Daily, # 100 EA, 3 Refill(s), Pharmacy: [facility], 155.6, cm, 01/18/21 15:37:00 EDT, Height, kg, 04/21/21 15:26:00 EDT, Dosing Weight Start Date: 05/12/21 Status: Ordered Blood Glucose Test Machine (1 source) Start: 07-07-2021 Blood Glucose Test Machine See Instructions, Use as directed Brand type per insurance or patient preference, # 1 EA, 0 Refill(s), Pharmacy: [facility], 155.6, cm, 01/18/21 15:37:00 EDT, Height, 86.4, kg, 07/04/21 9:38:00 EDT, Dosing Weight Start Date: 07/07/21 Status: Ordered cholecalciferol 0.05 mg oral capsule (20 sources) Vitamin D Start: 04-21-2024 take 1 capsule by mouth once daily Cholecalciferol (Vitamin D3) 50 mcg (2,000 unit) capsule Active 50 ug PO DAILY April 21, 2024 12:00am Cholecalciferol (D3 2000 PO) Take by mouth. Active glipiZIDE er 5 mg 24 hr extended release oral tablet (20 sources) Sulfonylurea Start: 07-12-2023 End: 04-20-2025 take 1 tablet by mouth once daily Glipizide 5 mg tablet extended release 24hr Active 5 mg PO DAILY 90 April 20, 2025 1:40pm Start: 01-09-2023 glipiZIDE 5 mg oral tablet, extended release Dose : 5 mg = 1 tab(s), Oral, qDayM, # 90 tab(s), 3 Refill(s), Pharmacy: [facility], 155.6, cm, 01/09/23 15:33:00 EDT, Height, kg, 01/09/23 15:33:00 EDT, Dosing Weight Start Date: 01/09/23 Status: Ordered Start: 10-20-2021 glipiZIDE 5 mg oral tablet, extended release Dose : 5 mg = 1 tab(s), Oral, qDayM, # 90 tab(s), 3 Refill(s), Pharmacy: [facility], 155.6, cm, 10/20/21 16:15:00 EST, Height, kg, 10/20/21 16:15:00 EST, Dosing Weight Start Date: 10/20/21 Status: Ordered levothyroxine sodium 0.025 mg oral tablet (20 sources) l-Thyroxine Start: 10-29-2024 End: 04-27-2025 take 1 tablet by mouth once daily Levothyroxine 25 mcg tablet Active 25 ug PO daily 90 April 27, 2025 12:33pm Start: 04-21-2024 End: 10-29-2024 take 1 capsule by mouth once daily Levothyroxine 25 mcg capsule Discontinued 25 ug PO DAILY 90 October 27, 2024 12:40pm October 29, 2024 10:41am Start: 07-12-2023 levothyroxine 25 mcg (0.025 mg) oral tablet Dose : 25 mcg = 1 tab(s), Oral, qDayAC, # 90 tab(s), 1 Refill(s), Pharmacy: [facility], 155.6, cm, 07/12/23 15:19:00 EDT, Height, kg, 07/12/23 15:19:00 EDT, Dosing Weight Start Date: 07/12/23 Status: Ordered Start: 07-12-2023 End: 10-02-2024 take 1 tablet by mouth once daily before breakfast levothyroxine (Synthroid, Levoxyl) 25 MCG tablet Take 25 mcg by mouth every morning (before breakfast). 07/12/2023 Active Start: 01-09-2023 levothyroxine 25 mcg (0.025 mg) oral tablet Dose : 25 mcg = 1 tab(s), Oral, qDayAC, # 90 tab(s), 1 Refill(s), Pharmacy: [facility], 155.6, cm, 01/09/23 15:33:00 EDT, Height, kg, 01/09/23 15:33:00 EDT, Dosing Weight Start Date: 01/09/23 Status: Ordered Start: 10-20-2021 levothyroxine 25 mcg (0.025 mg) oral tablet Dose : 25 mcg = 1 tab(s), Oral, qDayAC, # 90 tab(s), 1 Refill(s), Pharmacy: [facility], 155.6, cm, 10/20/21 16:15:00 EST, Height, kg, 10/20/21 16:15:00 EST, Dosing Weight Start Date: 10/20/21 Status: Ordered lisinopril 5 mg oral tablet (20 sources) Angiotensin Converting Enzyme Inhibitor Start: 07-12-2023 End: 04-20-2025 take 1 tablet by mouth once daily Lisinopril 5 mg tablet Active 5 mg PO DAILY 90 April 20, 2025 1:40pm Start: 01-09-2023 lisinopril 5 m g oral tablet Dose : 5 mg = 1 tab(s), Oral, Daily, # 90 tab(s), 3 Refill(s), Pharmacy: [facility], 155.6, cm, 01/09/23 15:33:00 EDT, Height, kg, 01/09/23 15:33:00 EDT, Dosing Weight Start Date: 01/09/23 Status: Ordered Start: 10-20-2021 lisinopril 5 m g oral tablet Dose : 5 mg = 1 tab(s), Oral, Daily, # 90 tab(s), 3 Refill(s), Pharmacy: [facility], 155.6, cm, 10/20/21 16:15:00 EST, Height, kg, 10/20/21 16:15:00 EST, Dosing Weight Start Date: 10/20/21 Status: Ordered mecobalamin 1 mg chewable tablet (6 sources) Start: 05-11-2025 take 1 tablet by mouth once daily Mecobalamin (Vitamin B12) 1,000 mcg tablet,chewable Active 1000 ug PO DAILY May 11, 2025 10:06am Start: 04-21-2024 End: 05-11-2025 take 3 tablets by mouth once daily Mecobalamin (Vitamin B12) 1,000 mcg tablet,chewable Discontinued 3000 ug PO DAILY April 21, 2024 12:00am May 11, 2025 10:06am pravastatin sodium 80 mg oral tablet (20 sources) HMG-CoA Reductase Inhibitor Start: 07-12-2023 End: 04-20-2025 take 1 tablet by mouth at bedtime Pravastatin 80 mg tablet Active 80 mg PO AT BEDTIME 90 April 20, 2025 1:40pm Start: 01-09-2023 pravastatin 80 mg oral tablet Dose : 80 mg = 1 tab(s), Oral, qHS, # 90 tab(s), 3 Refill(s), Pharmacy: [facility], 155.6, cm, 01/09/23 15:33:00 EDT, Height, kg, 01/09/23 15:33:00 EDT, Dosing Weight Start Date: 01/09/23 Status: Ordered Start: 10-20-2021 pravastatin 80 mg oral tablet Dose : 80 mg = 1 tab(s), Oral, qHS, # 90 tab(s), 3 Refill(s), Pharmacy: [facility], 155.6, cm, 10/20/21 16:15:00 EST, Height, kg, 10/20/21 16:15:00 EST, Dosing Weight Start Date: 10/20/21 Status: Ordered See Below (1 source) Start: 05-12-2021 See Below See Below, See Instructions, True Metrix Level 1 Control Soultion, # 1 EA, 0 Refill(s), Pharmacy: [facility], 155.6, cm, 01/18/21 15:37:00 EDT, Height, 89.7, kg, 04/21/21 15:26:00 EDT, Dosing Weight Start Date: 05/12/21 Status: Ordered Vitamin D3 (3 sources) Start: 07-12-2023 Vitamin D3 qDa y, 0 Refill(s) Start Date: 07/12/23 Status: Ordered warfarin sodium 5 mg oral tablet (16 sources) Vitamin K Antagonist Start: 05-11-2025 Warfarin 5 mg tablet Active 5 mg PO .COMPLEX May 11, 2025 10:07am 5 mg orally; 2x a week, 2.5 mg 5 days a week Start: 01-02-2025 End: 05-11-2025 take 1 tablet by mouth once Warfarin 5 mg tablet Disco ntinued 5 mg PO As Directed January 02, 2025 12:00am May 11, 2025 10:07am on odd numbered days Start: 12-25-2024 End: 02-23-2025 warfarin (Coumadin) 5 MG tab let Take as directed by [facility] (30 tablets= 30 day supply) 30 tablet 1 02/23/2025 Active Completed/Discontinued Medications Medication Drug Class(es) Dates Sig (Normalized) Sig (Original) [id number] 200 actuat albuterol 0.09 mg/actuat metered dose inhaler (5 sources) beta2-Adrenergic Agonist Start: 10-17-2024 End: 05-11-2025 Albuterol Sulfate (Ventolin Hfa) 90 mcg/actuation HFA aerosol inhaler Discontinued 2 NMA INHALATION EVERY 4 HOURS NEEDED as needed for Wheezing 1 October 17, 2024 1:00am May 11, 2025 10:06am with spacer apixaban 5 mg oral tablet (20 sources) Factor Xa Inhibitor Start: 10-27-2024 End: 01-06-2025 take 1 tablet by mouth twice daily Apixaban (Eliquis) 5 mg tablet Discontinued 5 mg PO TWICE A DAY 60 0 October 27, 2024 1:00am January 02, 2025 11:37am Start: 10-02-2024 End: 04-06-2025 take 2 tablets by mouth twice daily, then take 1 tablet by mouth twice daily apixaban (Eliquis) 5 MG tablet Take 2 tablets (10 mg) by mouth 2 times daily for 6 days, THEN 1 tablet (5 mg) 2 times daily. 66 tablet 10/02/2024 12:16 PM EST 10/02/2024 12/05/2024 Discontinued Start: 10-01-2024 End: 10-02-2024 apixaban (Eliquis) tablet 10 mg aspirin 81 mg delayed release oral tablet (13 sources) Platelet Aggregation Inhibitor, Nonsteroidal Anti-inflammatory Drug Start: 04-21-2024 End: 10-27-2024 Aspirin (Adult Low Dose Aspirin) 81 mg tablet,delayed release (DR/EC) Discontinued 81 mg PO DAILY April 21, 2024 12:00am October 27, 2024 12:20pm Start: 03-16-2020 aspirin 81 mg oral tablet (chewable) Dose : 81 mg = 1 tab(s), Oral, qDay, # 90 tab(s), 3 Refill(s), Pharmacy: [facility], 157.5, cm, 03/16/20 16:09:00 EDT, Height, kg, 03/16/20 16:09:00 EDT, Dosing Weight Start Date: 03/16/20 Status: Ordered benzonatate 200 mg oral capsule (5 sources) Non-narcotic Antitussive Start: 12-01-2024 End: 05-11-2025 take 1 capsule by mouth three times daily as needed for cough Benzonatate 200 mg capsule Discontinued 200 mg PO THREE TIMES A DAY as needed for cough 20 December 01, 2024 1:00am May 11, 2025 10:06am cephalexin 500 mg oral capsule (5 sources) Cephalosporin Antibacterial Start: 01-02-2025 End: 05-11-2025 take 1 capsule by mouth four times daily Cephalexin 500 mg capsule Discontinued 500 mg PO .QID 28 January 02, 2025 12:00am May 11, 2025 10:06am cholecalciferol 9.52 unt/ml / glucose 357 mg/ml oral gel (2 sources) Vitamin D Start: 10-01-2024 End: 10-02-2024 glucagon (rdna) 1 mg injection (2 sources) Antihypoglycemic Agent Start: 10-01-2024 End: 10-02-2024 150 ml glucose 50 mg/ml injection (4 sources) Start: 10-01-2024 End: 10-02-2024 Start: 10-01-2024 End: 10-02-2024 250 ml heparin sodium, porcine 100 unt/ml injection (4 sources) Unfractionated Heparin, Anti-coagulant Start: 10-01-2024 End: 10-01-2024 6,824 Units (80 Units/kg 85.3 kg), IntraVENous, Once, On Sun10/01/24 at 1130, For 1 dose, Initial one time bolus Start: 10-01-2024 End: 10-01-2024 5-30 Units/kg/hr 85.3 kg (4. 265-25.59 mL/hr, rounded to 4.3- 25.6 mL/hr), IntraVENous, Continuous, Starting on Sun10/01/24 at 1130, HIGH Dose Heparin Weight Based Dosing (VTE/DVT/PE) >>>>Initial dose: 18 units/kg/hr 100.9 Hold heparin for 60 min Decrease infusion by 2 units/kg/hr - notify prescriber; Check aPTT: 6 hours after initiation and 6 hours after every dose change - every 12 hrs x 1 day after 2 consecutive therapeutic aPTT - daily after every 12 hrs x 1 day is complete. insulin lispro 100 unt/ml injectable solution (2 sources) Insulin Analog Start: 10-01-2024 End: 10-02-2024 Magnesium (20 sources) Start: 09-30-2024 End: 01-07-2025 take 2 tablets by mouth once daily Magnesium 200 mg tablet Discontinued 400 mg PO DAILY September 30, 2024 1:00am January 07, 2025 8:56am Magnesium 200 MG chewable tablet Chew. Active methylPREDNISolone 4 mg oral tablet (5 sources) Corticosteroid Start: 12-01-2024 End: 01-02-2025 take 1 tablet by mouth once Methylprednisolone (Medrol (Daniel)) 4 mg tablets,dose pack Discontinued 0 PO per package directions 21 0 December 01, 2024 1:00am January 02, 2025 11:38am PO PER PKG DIR mupirocin 0.02 mg/mg topical ointment (2 sources) RNA Synthetase Inhibitor Antibacterial Start: 10-01-2024 End: 10-02-2024 1 Application, Nasal, 2 times daily, First dose on Sun10/01/24 at 1130, For 5 days, Indications: MRSA Nasal Decolonization ondansetron ODT (Zofran-ODT) disintegrating tablet 4 mg (2 sources) Start: 10-01-2024 End: 10-02-2024 take 1 tablet by mouth every eight hours as needed for nausea and vomiting ondansetron ODT (Zofran-ODT) disintegrating tablet 4 mg pantoprazole 40 mg delayed release oral tablet (2 sources) Proton Pump Inhibitor Start: 10-02-2024 End: 10-02-2024 take 40 mg by mouth once daily before breakfast 40 mg, Oral, Daily before breakfast, First dose on Sun10/02/24 at 0600, Do not crush, chew, or split. perflutren protein A microsphere (Optison) 3 mL in sodium chloride (PF) 0.9 % 10 mL IV syringe (2 sources) Start: 10-01-2024 End: 10-02-2024 potassium gluconate 2.5 meq oral tablet (20 sources) Start: 09-30-2024 End: 01-07-2025 take 1 tablet by mouth once daily Potassium Gluconate 600 mg (99 mg) tablet Discontinued 650 mg PO DAILY September 30, 2024 1:00am January 07, 2025 8:56am POTASSIUM GLUCON ATE PO Take 650 mg by mouth. Active sulfamethoxazole 800 mg / trimethoprim 160 mg oral tablet (5 sources) Dihydrofolate Reductase Inhibitor Antibacterial, Sulfonamide Antimicrobial Start: 01-04-2025 End: 05-11-2025 Sulfamethoxazole-Trimethopri m (Bactrim Ds) 800-160 mg tablet Discontinued 1 {tbl} PO Q12H 14 0 January 04, 2025 12:00am May 11, 2025 10:06am vitamin b12 1 mg oral tablet (20 sources) Vitamin B12 Start: 10-01-2024 End: 10-02-2024 take 1000 ug by mouth once daily 1,000 mcg, Oral, Daily, First dose on Sun10/01/24 at 1300 Start: 03-16-2020 Vitamin B12 0 Refill(s) Start Date: 03/16/20 Status: Ordered Problems Active Problems Problem Classification Problem Date Documented Da te Episodic/Chronic Chronic kidney disease (13 sources) Chronic kidney disease stage 3; Translations: [Chronic kidney disease, stage 3 unspecified] 01-18-2021 Chronic Diabetes mellitus with complications (14 sources) Neuropathy due to diabetes mellitus; Translations: [Chronic kidney disease due to type 2 diabetes mellitus] Onset: 04-29-2024 01-18-2021 Chronic Diabetes mellitus without complication (17 sources) Diabetes mellitus; Translations: [Type 2 diabetes mellitus without complications] Onset: 07-12-2023 03-16-2020 Chronic Disorders of lipid metabolism (10 sources) Hyperlipidemia; Translations: [Hyperlipidemia, unspecified] Onset: 11-13-2024 03-16-2020 Chronic Essential hypertension (20 sources) Hypertensive disorder; Translations: [Essential (primary) hypertension] Onset: 07-12-2023 03-16-2020 Chronic Nutritional deficiencies (7 sources) Vitamin D deficiency; Translations: [Vitamin D deficiency, unspecified] 03-16-2020 Chronic Osteoarthritis (6 sources) Osteoarthritis of right knee joint; Translations: [Unilateral primary osteoarthritis, right knee] Onset: 08-29-2024 08-01-2024 Chronic Other aftercare (5 sources) Drug therapy finding; 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] 10-25-2024 Episodic Other aftercare (4 sources) Post-discharge follow-up; Translations: [Encounter for follow-up examination after completed treatment for conditions other than malignant neoplasm] 10-27-2024 Episodic Other bone disease and musculoskeletal deformities (6 sources) Osteopenia 03-16-2020 Episodic Other bone disease and musculoskeletal deformities (1 source) Disorder of bone; Translations: [Other specified disorders of bone density and structure, unspecified site] Episodic Other lower respiratory disease (4 sources) Hypoxemia; Translations: [Hypoxemia] 10-01-2024 Episodic Other nervous system disorders (5 sources) Peripheral nerve disease ; Translations: [Polyneuropathy, unspecified] 09-30-2024 Chronic Other non-traumatic joint disorders (5 sources) Arthritis; Translations: [Polyarthritis, unspecified] 04-21-2024 Chronic Other non-traumatic joint disorders (1 source) Polyarthritis, unspecified; Translations: [Polyarthritis, unspecified] Onset: 04-29-2024 Chronic Other non-traumatic joint disorders (6 sources) Pain in right knee; Translations: [Right knee pain] Onset: 08-29-2024 09-30-2024 Episodic Phlebitis; thrombophlebitis and thromboembolism (3 sources) 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; Translations: [Chronic embolism and thrombosis of right femoral vein] Onset: 11-13-2024 11-13-2024 Chronic Pulmonary heart disease (20 sources) Pulmonary embolism; Translations: [Other pulmonary embolism without acute cor pulmonale] Onset: 10-01-2024 10-01-2024 Episodic Thyroid disorders (18 sources) Hypothyroidism; Translations: [Hypothyroidism, unspecified] Onset: 04-29-2024 03-16-2020 Chronic Unclassified (1 source) Unknown / UNK(Unknown) Onset: 04-30-2017 Unclassified (1 source) Cough, unspecified; Translations: [Cough, unspecified] Onset: 11-11-2024 Urinary tract infections (10 sources) Urinary tract infectious disease; Translations: [Urinary tract infection, site not specified] Onset: 01-12-2025 01-03-2025 Episodic Viral infection (9 sources) Respiratory syncytial virus infection; Translations: [Other specified viral diseases] 10-27-2024 Episodic Past or Other Problems Problem Classification Problem Date Documented Da te Episodic/Chronic Administrative/social admission (1 source) Persons encountering health services in other specified circumstances; Translations: [Persons encountering health services in other specified circumstances] Onset: 04-29-2024 Episodic Genitourinary symptoms and ill-defined conditions (1 source) Proteinuria, unspecified; Translations: [Proteinuria, unspecified] Onset: 04-29-2024 Episodic Other gastrointestinal disorders (1 source) Slow transit constipation; Translations: [Slow transit constipation] Onset: 04-29-2024 Episodic Residual codes; unclassified (1 source) Pain, unspecified; Translations: [Pain, unspecified] Onset: 12-01-2024 Episodic Respiratory failure; insufficiency; arrest (adult) (5 sources) Respiratory failure; Translations: [Respiratory failure, unspecified, unspecified whether with hypoxia or hypercapnia] Onset: 10-03-2024 10-01-2024 Episodic Unclassified (1 source) E11.9, E78.5, E55.9 Onset: 04-30-2017 Results Test Name Value Interpretation Reference Range Facility Progress Noteon 04-28-2025 Progress Note [facility] ([facility]) Anticoagulation Clinic [address] [place] [address]; [address], [place], [place] [id number] Yesi Flores (1950) presents to the [facility] today for follow-up warfarin visit. The encounter diagnosis was Bilateral pulmonary embolism (HCC). and has a goal INR 2.0-3.0. Pt has Coumadin 5mg tablets and at last visit was instructed to take 5mg Sun/, 2.5mg all other days. Pt confirms taking this dose and adherence to current regimen: yes Any changes in prescriptions, OTC, and/or herbal medications: no Changes in alcohol, tobacco, or marijuana use: no Any recent hospitalizations or ED visits: no Any recent falls or head trauma: no Any changes in diet (vit K): no Upcoming surgeries or procedure: no Does pt need refills on warfarin prescription: no Review of Systems Constitutional: Negative for activity change, appetite change and fatigue. HENT: Negative for nosebleeds. Respiratory: Negative for shortness of breath. Cardiovascular: Negative for chest pain and leg swelling. Gastrointestinal: Negative for blood in stool, diarrhea, nausea and vomiting. Genitourinary: Negative for hematuria. Neurological: Negative for weakness, light-headedness and headaches. Hematological: Does not bruise/bleed easily. Denies any bleeding concerns or new signs of blood clots. Objective Vitals: 04/28/25 0932 BP: 110/69 Pulse: 71 Weight: 184 lb 3.2 oz (83.6 kg) Assessment Lab Results Component Value Date INR 2.1 (H) 04/28/2025 INR 1.7 (H) 04/16/2025 INR 2.0 (H) 03/24/2025 INR 2.2 (H) 03/03/2025 INR 3.4 (H) 02/17/2025 Plan INR is therapeutic Dosing: continue 5mg Sun/, 2.5mg all other days Next INR Check: 05/19/25 Patient educated on the following: medication adherence, dietary/lifestyle considerations, and Vitamin K content and consistency Sandra was instructed to notify [facility] of any unusual bruising or active/uncontrollable bleeding, medication changes within 24 hours, missed doses, dietary changes, illnesses or hospitalizations, and upcoming surgeries. Patient given written instructions. Patient expressed understanding utilizing the teach back method. Discharged ambulatory in no apparent distress. Time spent 15 Minutes Moira Cedeño RN [facility] Progress Noteon 04-16-2025 Progress Note [facility] ([facility]) Anticoagulation Clinic [address] [place] [address]; [address], [place] [address] Yesi GORMAN Sandra (1950) presents to the [facility] clinic today for follow-up warfarin visit. The encounter diagnosis was Bilateral pulmonary embolism (HCC). and has a goal INR 2.0-3.0. Pt has Coumadin 5mg tablets and at last visit was instructed to take 5mg Mon, 2.5mg all other days. Pt confirms taking this dose and adherence to current regimen: yes Any changes in prescriptions, OTC, and/or herbal medications: no Changes in alcohol, tobacco, or marijuana use: no Any recent hospitalizations or ED visits: no Any recent falls or head trauma: no Any changes in diet (vit K): did not have increased vit. K yet. Her garden is behind on producing this year but will be coming up in the next month or two. Upcoming surgeries or procedure: no Does pt need refills on warfarin prescription: no Review of Systems Constitutional: Negative for activity change, appetite change and fatigue. HENT: Negative for nosebleeds. Respiratory: Negative for shortness of breath. Cardiovascular: Negative for chest pain and leg swelling. Gastrointestinal: Negative for blood in stool, diarrhea, nausea and vomiting. Genitourinary: Negative for hematuria. Neurological: Negative for weakness, light-headedness and headaches. Hematological: Does not bruise/bleed easily. Objective Vitals: 04/16/25 1624 BP: 93/63 Pulse: 102 Weight: 182 lb 6.4 oz (82.7 kg) Assessment Lab Results Component Value Date INR 1.7 (H) 04/16/2025 INR 2.0 (H) 03/24/2025 INR 2.2 (H) 03/03/2025 INR 3.4 (H) 02/17/2025 INR 2.3 (H) 01/27/2025 Plan INR is subtherapeutic d/t need for dose increase-no specific reason noted and INR was 2.0 last visit. Dosinmg Sun/, 2.5mg all other days Next INR Check: 05/05/26 Patient educated on the following: medication adherence, dietary/lifestyle considerations, Vitamin K content and consistency, and rationale for dose change Sandra was instructed to notify [facility] of any unusual bruising or active/uncontrollable bleeding, medication changes within 24 hours, missed doses, dietary changes, illnesses or hospitalizations, and upcoming surgeries. Patient given written instructions. Patient expressed understanding utilizing the teach back method. Discharged ambulatory in no apparent distress. Time spent 15 Minutes Moira Cedeño RN Normal [facility] Microalb:Creat Ratio,Random URon 04-09-2025 MALB:CREAT 53.2 mg/g CRE Normal [facility] Comment on above: Result Comment: AMENDED REPORT 04/09/25 3341 MALB:CREAT previously reported as: 532.4 mg/g CRE Performed By: #### L 502.0250 #### [facility] [address] [place], [address] Progress Noteon 03-24-2025 Progress Note [facility] ([facility]) Anticoagulation Clinic [address]; [address], [place] [address] Yesi Flores (1950) presents to the [facility] clinic today for follow-up warfarin visit. The encounter diagnosis was Bilateral pulmonary embolism (HCC). and has a goal INR 2.0-3.0. Pt has Coumadin 5mg tablets and at last visit was instructed to take 5mg Mon, 2.5mg all other days. Pt confirms taking this dose and adherence to current regimen: yes Any changes in prescriptions, OTC, and/or herbal medications: no Changes in alcohol, tobacco, or marijuana use: no Any recent hospitalizations or ED visits: no Any recent falls or head trauma: no Any changes in diet (vit K): no Upcoming surgeries or procedure: no Does pt need refills on warfarin prescription: no Review of Systems Constitutional: Negative for activity change, appetite change and fatigue. HENT: Negative for nosebleeds. Respiratory: Negative for shortness of breath. Cardiovascular: Negative for chest pain and leg swelling. Gastrointestinal: Negative for blood in stool, diarrhea, nausea and vomiting. Genitourinary: Negative for hematuria. Neurological: Negative for weakness, light-headedness and headaches. Hematological: Does not bruise/bleed easily. Denies any bleeding concerns or new signs of blood clots. Objective Vitals: 03/24/25 0910 BP: 101/67 Pulse: 88 Weight: 180 lb 12.8 oz (82 kg) Assessment Lab Results Component Value Date INR 2.0 (H) 03/24/2025 INR 2.2 (H) 03/03/2025 INR 3.4 (H) 02/17/2025 INR 2.3 (H) 01/27/2025 INR 1.9 (A) 01/16/2025 Plan INR is therapeutic-is now on low end of therapeutic, so will follow up in 3 weeks to ensure does not drop below. She does often increase her vit. K intake over the summer, so may need increased back up if this is the case. Dosinmg Mon, 2.5mg all other days Next INR Check: 04/14/25 Patient educated on the following: medication adherence, dietary/lifestyle considerations, and Vitamin K content and consistency Sandra was instructed to notify [facility] of any unusual bruising or active/uncontrollable bleeding, medication changes within 24 hours, missed doses, dietary changes, illnesses or hospitalizations, and upcoming surgeries. Patient given written instructions. Patient expressed understanding utilizing the teach back method. Discharged ambulatory in no apparent distress. Time spent 15 Minutes Moira Cedeño RN Normal [facility] POCT INRon 03-03-2025 INR Coag (Bld) [Relative time] 2.2 {INR} High 0.9 - 1.1 [facility] Interpretation and review of laboratory results Abnormal [facility] Performed by: [facility], [address] [place] [address] CLIA ID: [id number] [facility] Progress Noteon 03-03-2025 Progress Note [facility] ([facility]) Anticoagulation Clinic [address] [place] [address]; [address] [address] Yesi Flores (1950) presents to the [facility] clinic today for follow-up warfarin visit. The encounter diagnosis was Bilateral pulmonary embolism (HCC). and has a goal INR 2.0-3.0. Pt has Coumadin 5mg tablets and at last visit was instructed to hold x1 then take 2.5mg daily except 5mg on Mondays. Pt confirms taking this dose and adherence to current regimen: yes Any changes in prescriptions, OTC, and/or herbal medications: no Changes in alcohol, tobacco, or marijuana use: no Any recent hospitalizations or ED visits: no Any recent falls or head trauma: no Any changes in diet (vit K): no Upcoming surgeries or procedure: no Does pt need refills on warfarin prescription: no Review of Systems Constitutional: Negative for activity change, appetite change and fatigue. HENT: Negative for nosebleeds. Respiratory: Negative for shortness of breath. Cardiovascular: Positive for leg swelling (chronic problem with right leg, no worse than usual). Negative for chest pain. Gastrointestinal: Negative for blood in stool, diarrhea, nausea and vomiting. Genitourinary: Negative for hematuria. Neurological: Positive for light-headedness (once in awhile, usually if she gets up too fast). Negative for weakness and headaches. Hematological: Does not bruise/bleed easily. Objective Vitals: 03/03/25 0905 BP: 112/76 Pulse: 88 Weight: 179 lb 6.4 oz (81.4 kg) Assessment Lab Results Component Value Date INR 2.2 (H) 03/03/2025 INR 3.4 (H) 02/17/2025 INR 2.3 (H) 01/27/2025 INR 1.9 (A) 01/16/2025 INR 4.8 (HH) 01/13/2025 Plan INR is therapeutic Dosing: continue 2.5mg daily except 5mg on Mondays Next INR Check: 03/24/25 Patient educated on the following: medication adherence Patient care coordination completed: N/A Positive ROS findings are: chronic, no follow-up necessary at this time Sandra was instructed to notify [facility] of any unusual bruising or active/uncontrollable bleeding, medication changes within 24 hours, missed doses, dietary changes, illnesses or hospitalizations, and upcoming surgeries. Patient given written instructions. Patient expressed understanding utilizing the teach back method. Discharged ambulatory in no apparent distress. Time spent 10 Minutes Keely Grover RPh Normal [facility] POCT INRon 02-17-2025 INR Coag (Bld) [Relative time] 3.4 {INR} High 0.9 - 1.1 [facility] Interpretation and review of laboratory results Abnormal [facility] Performed by: [facility], [address] [place] [address] CLIA ID: [id number] [facility] Progress Noteon 02-17-2025 Progress Note [facility] ([facility]) Anticoagulation Clinic [address] [place]; [address], [place] [id number] Subjective HPI Sandra (1950) presents to the [facility] clinic today for follow-up warfarin visit. The encounter diagnosis was Bilateral pulmonary embolism (HCC). and has a goal INR 2.0-3.0. Pt has Coumadin 5mg tablets and at last visit was instructed to take 2.5mg daily 5mg MF. Pt confirms taking this dose and adherence to current regimen: yes Any changes in prescriptions, OTC, and/or herbal medications: no Changes in alcohol, tobacco, or marijuana use: no Any recent hospitalizations or ED visits: no Any recent falls or head trauma: no Any changes in diet (vit K): no Upcoming surgeries or procedure: no Does pt need refills on warfarin prescription: no Review of Systems HENT: Negative for nosebleeds. Respiratory: Negative for shortness of breath. Cardiovascular: Negative for chest pain. Gastrointestinal: Negative for blood in stool. Genitourinary: Negative for hematuria. Neurological: Negative for weakness, light-headedness and headaches. Hematological: Does not bruise/bleed easily. Objective Vitals: 02/17/25 1127 BP: 104/65 Pulse: 84 Weight: 179 lb (81.2 kg) Assessment Lab Results Component Value Date INR 3.4 (H) 02/17/2025 INR 2.3 (H) 01/27/2025 INR 1.9 (A) 01/16/2025 INR 4.8 (HH) 01/13/2025 INR 4.0 (H) 01/06/2025 Plan INR is supratherapeutic d/t unknown. Still a fairly new start to warfarin Dosing: holdx1 then decrease to 2.5mg daily 5mg Mon Next INR Check: 03/03 Patient educated on the following: medication adherence and rationale for dose change Patient care coordination completed: N/A Positive ROS findings are: n/a - no positive findings Sandra was instructed to notify [facility] of any unusual bruising or active/uncontrollable bleeding, medication changes within 24 hours, missed doses, dietary changes, illnesses or hospitalizations, and upcoming surgeries. Patient given written instructions. Patient expressed understanding utilizing the teach back method. Discharged ambulatory in no apparent distress. Time spent 10 Minutes Bina Benavides RPh Normal [facility] POCT INRon 01-27-2025 INR Coag (Bld) [Relative time] 2.3 {INR} High 0.9 - 1.1 [facility] Interpretation and review of laboratory results Abnormal [facility] Performed by: Leia Johnson [facility], [address] [place] [address] [place] [address] CLIA ID: [id number] [facility] Progress Noteon 01-27-2025 Progress Note [facility] ([facility]) Anticoagulation Clinic [address] [facility]; [address], [place] [address] Yesi Flores (1950) presents to the [facility] clinic today for follow-up warfarin visit. The encounter diagnosis was Bilateral pulmonary embolism (HCC). and has a goal INR 2.0-3.0. Pt has Coumadin 5mg tablets and at last visit was instructed to take 2.5mg daily 5mg MF. Pt confirms taking this dose and adherence to current regimen: yes Any changes in prescriptions, OTC, and/or herbal medications: no Changes in alcohol, tobacco, or marijuana use: no Any recent hospitalizations or ED visits: no Any recent falls or head trauma: no Any changes in diet (vit K): no Upcoming surgeries or procedure: no Does pt need refills on warfarin prescription: no Review of Systems HENT: Negative for nosebleeds. Respiratory: Negative for shortness of breath. Cardiovascular: Negative for chest pain. Gastrointestinal: Negative for blood in stool. Genitourinary: Negative for hematuria. Neurological: Negative for weakness, light-headedness and headaches. Hematological: Does not bruise/bleed easily. Objective Vitals: 01/27/25 1144 BP: (!) 147/83 Pulse: 82 Weight: 183 lb 12.8 oz (83.4 kg) Assessment Lab Results Component Value Date INR 2.3 (H) 01/27/2025 INR 1.9 (A) 01/16/2025 INR 4.8 (HH) 01/13/2025 INR 4.0 (H) 01/06/2025 INR 2.0 (H) 12/30/2024 Plan INR is therapeutic Dosin.5mg daily 5mg MonFri Next INR Check: 02/17 Patient educated on the following: medication adherence Patient care coordination completed: N/A Positive ROS findings are: n/a - no positive findings Sandra was instructed to notify [facility] of any unusual bruising or active/uncontrollable bleeding, medication changes within 24 hours, missed doses, dietary changes, illnesses or hospitalizations, and upcoming surgeries. Patient given written instructions. Patient expressed understanding utilizing the teach back method. Discharged ambulatory in no apparent distress. Time spent 10 Minutes Bina Benavides RPh Normal [facility] PT Coag (Bld) [Time]on 01-19 INR Coag (PPP) [Relative time] 1.9 {INR} Abnormal 0.9 - 1.1 [facility] Interpretation and review of laboratory results Abnormal [facility] Progress Noteon 01-19-2025 Progress Note [facility] ([facility]) Anticoagulation Clinic [address] [place] [address], [address], [place] [id number] Subjective HPI Sandra (1950) had INR completed by Outpatient Lab, visit was completed by phone, audio only. The encounter diagnosis was Bilateral pulmonary embolism (HCC). and has a goal INR 2.0-3.0. Pt has Coumadin 5mg tablets and at last visit was instructed to hold x2 days, then 2.5mg /Sun/Sun, 5mg Sun. Pt confirms taking this dose and adherence to current regimen: yes Any changes in prescriptions, OTC, and/or herbal medications: no Changes in alcohol, tobacco, or marijuana use: no Any recent hospitalizations or ED visits: no Any recent falls or head trauma: no Any changes in diet (vit K): no Upcoming surgeries or procedure: no Does pt need refills on warfarin prescription: no Review of Systems Denies any bleeding or new signs of blood clots. Assessment Lab Results Component Value Date INR 1.9 (A) 01/16/2025 INR 4.8 (HH) 01/13/2025 INR 4.0 (H) 01/06/2025 INR 2.0 (H) 12/30/2024 INR 1.1 10/02/2024 Plan INR is subtherapeutic d/t held doses. Dosing: trial 5mg MF, 2.5mg all other days Next INR Check: 01/27/25 Patient educated on the following: medication adherence, Vitamin K content and consistency, and rationale for dose change Patient care coordination completed: Faxed note to PCP per patient request -Dr Padilla at [phone] Patient given verbal instructions. Patient expressed understanding utilizing the teach back method. Time spent 15 Minutes Moira Cedeño RN staffed with Bina Benavides PharmD [facility] Progress Note INR received via fax . CBC included for review. Normal [facility] Protime-INRon 01-19-2025 PT Coag (Bld) [Time] 22.4 s Abnormal 9.0 - 12.[address] [facility] Absolute lymphocyte countOrd ered By: Ronel Padilla on 01-16-2025 Lymphocytes Auto (Unsp spec) [#/Vol] 2.40 10*3/uL 0.83-4.51 [facility] Absolute neutrophil countOrd ered By: Ronel Padilla on 01-16-2025 Neutrophils (Bld) [#/Vol] 5.4 10*3/uL 2.0-7.7 [facility] Automated lymphocyte count a s percentage of total leukocytesOrdered By: Ronel Padilla on 01-16-2025 Lymphocytes/100 WBC Auto (Unsp spec) 26.8 % 19-41 [facility] Basophil percentageOrdered B y: Ronle Padilla on 01-16-2025 Basophils/100 WBC (Bld) 0.3 % 0-1 [facility] CBC W/Diff, Automatedon 12-21 Absolute Lymph 2.40 X10 3/uL Normal 0.83-4.51 [facility] Comment on above: Performed By: #### L 100.0100 #### [facility] [address] [place], [address] Absolute Neut 5.4 X10 3/uL Normal 2.0-7.7 [facility] Comment on above: Performed By: #### L 100.0100 #### [facility] [address] [place], [address] Basophils/100 WBC (Bld) 0.3 % Normal 0-1 [facility] Comment on above: Performed By: #### L 100.0100 #### [facility] [address] [place], [address] Eosinophils/100 WBC (Bld) 1.6 % Normal 0-5 [facility] Comment on above: Performed By: #### L 100.0100 #### [facility] [address] [place], [address] Erythrocyte distribution width (RBC) [Ratio] 14.7 % High 11.6-14.6 [facility] Comment on above: Performed By: #### L 100.0100 #### [facility] [address] [place], [address] Hematocrit (Bld) [Volume fraction] 30.2 % Low 37-47 [facility] Comment on above: Performed By: #### L 100.0100 #### [facility] [address] [place], [address] Hemoglobin (Bld) [Mass/Vol] 9.8 g/dL Low 12.0-15.0 [facility] Comment on above: Performed By: #### L 100.0100 #### [facility] [address] [place], [address] IG% 0.600 Normal 0.0-0.9 [facility] Comment on above: Result Comment: IG% - Immature Granulocytes (promyelocytes, myelocytes and metamyelocytes) > 1% indicates that a LEFT SHIFT is Present. Performed By: #### L 100.0100 #### [facility] [address] [place], [address] Lymphocytes/100 WBC (Bld) 26.8 % Normal 19-41 [facility] Comment on above: Performed By: #### L 100.0100 #### [facility] [address] [place], [address] MCH (RBC) [Entitic mass] 29.9 pg Normal 27.0-32.0 [facility] Comment on above: Performed By: #### L 100.0100 #### [facility] [address] [place], [address] MCHC (RBC) [Mass/Vol] 32.5 g/dL Normal 32-36 [facility] Comment on above: Performed By: #### L 100.0100 #### [facility] [address] [place], [address] MCV (RBC) [Entitic vol] 92.1 fL Normal 81-99 [facility] Comment on above: Performed By: #### L 100.0100 #### [facility] [address] [place], [address] Monocytes/100 WBC (Bld) 10.3 % High 0-10 [facility] Comment on above: Performed By: #### L 100.0100 #### [facility] [address] [place], [address] Neutrophils/100 WBC (Bld) 60.4 % Normal 47-70 [facility] Comment on above: Performed By: #### L 100.0100 #### [facility] [address] [place], [address] Nucleated RBC (Bld) [#/Vol] 0.2 10*3/uL Normal 0-5 [facility] Comment on above: Performed By: #### L 100.0100 #### [facility] [address] [place], [address] Platelet mean volume (Bld) [Entitic vol] 8.9 fL Normal 6.2-12.0 [facility] Comment on above: Performed By: #### L 100.0100 #### [facility] [address] [place], [address] Platelets (Bld) [#/Vol] 340 10*3/uL Normal 150-450 [facility] Comment on above: Performed By: #### L 100.0100 #### [facility] [address] [place], [address] RBC (Bld) [#/Vol] 3.28 10*6/uL Low 4.2-5.4 [facility] Comment on above: Performed By: #### L 100.0100 #### [facility] [address] [place], [address] RDW SD 49.5 fl High 35.1-43.9 [facility] Comment on above: Performed By: #### L 100.0100 #### [facility] [address] [place], [address] WBC (Bld) [#/Vol] 8.9 10*3/uL Normal 4.4-11.0 [facility] Comment on above: Performed By: #### L 100.0100 #### [facility] [address] [place], [address] Eosinophil percentageOrdered By: Ronel Padilla on 01-16-2025 Eosinophils/100 WBC (Bld) 1.6 % 0-5 [facility] Erythrocyte distribution wid th (RBC) [Ratio]Ordered By: Ronel Padilla on 01-16-2025 Erythrocyte distribution width (RBC) [Entitic vol] 49.5 fL High 35.1-43.9 [facility] Erythrocyte distribution wid th ratioOrdered By: Ronel Padilla on 01-16-2025 Erythrocyte distribution width (RBC) [Ratio] 14.7 % High 11.6-14.6 [facility] Erythrocyte distribution wid th standard deviationOrdered By: Ronel Padilla on 01-16-2025 Erythrocyte distribution width (RBC) [Ratio] 49.5 fl High 35.1-43.9 [facility] Hematocrit Auto (Bld) [Volum e fraction]Ordered By: Ronel Padilla on 01-16-2025 Hematocrit (Bld) [Volume fraction] 30.2 % Low 37-47 [facility] Hemoglobin measurementOrdere d By: Ronel Padilla on 01-16-2025 Hemoglobin (Bld) [Mass/Vol] 9.8 g/dL Low 12.0-15.0 [facility] Immature granulocytes/100 WB C Auto (Bld)Ordered By: Ronel Padilla on 01-16-2025 Immature granulocytes/100 WBC (Bld) 0.600 % 0.0-0.9 [facility] Comment on above: IG% - Immature Granu locytes (promyelocytes, myelocytes and metamyelocytes) > 1% indicates that a LEFT SHIFT is Present. International normalized rat io (INR) calculationOrdered By: Vin Masters on 01-16-2025 INR Coag (Bld) [Relative time] 1.9 {INR} [facility] Lymphocytes Auto (Unsp spec) [#/Vol]Ordered By: Ronel Padilla on 01-16-2025 Lymphocytes (Bld) [#/Vol] 2.40 10*3/uL 0.83-4.51 [facility] Lymphocytes/100 WBC Auto (Un sp spec)Ordered By: Ronel Padilla on 01-16-2025 Lymphocytes/100 WBC (Bld) 26.8 % 19-41 [facility] MCV (mean corpuscular volume ) determinationOrdered By: Ronel Padilla on 01-16-2025 MCV (RBC) [Entitic vol] 92.1 fL 81-99 [facility] Mean corpuscular hemoglobin (MCH) determinationOrdered By: Ronel Padilla on 01-16-2025 MCH (RBC) [Entitic mass] 29.9 pg 27.0-32.0 [facility] Mean corpuscular hemoglobin concentration (MCHC) determinationOrdered By: Ronel Padilla on 01-16-2025 MCHC (RBC) [Mass/Vol] 32.5 g/dL 32-36 [facility] Mean platelet volume determi nationOrdered By: Ronel Padilla on 01-16-2025 Platelet mean volume (Bld) [Entitic vol] 8.9 fL 6.2-12.0 [facility] Monocyte percentageOrdered B y: Ronel Padilla on 01-16-2025 Monocytes/100 WBC (Bld) 10.3 % High 0-10 [facility] Neutrophil percentageOrdered By: Ronel Padilla on 01-16-2025 Neutrophils/100 WBC (Bld) 60.4 % 47-70 [facility] Nucleated red blood cell per centageOrdered By: Ronel Padilla on 01-16-2025 Nucleated RBC/100 WBC (Bld) [Ratio] 0.2 % 0-5 [facility] Platelet countOrdered By: Andre Padilla on 01-16-2025 Platelets (Bld) [#/Vol] 340 10*3/uL 150-450 [facility] Prothrombin Time w/INRon INR Coag (PPP) [Relative time] 1.9 {INR} Normal [facility] Comment on above: Performed By: #### L 300.3900 #### [facility] [address] [place], [address] PT Coag (PPP) [Time] 22.4 s High 11.7-14.9 [facility] Comment on above: Performed By: #### L 300.3900 #### [facility] [address] [place], [address] Prothrombin timeOrdered By: Vin Masters on 01-16-2025 PT Coag (PPP) [Time] 22.4 s High 11.7-14.9 [facility] RBC Auto (Bld) [#/Vol]Ordere d By: Ronel Padilla on 01-16-2025 RBC (Bld) [#/Vol] 3.28 10*6/uL Low 4.2-5.4 [facility] White blood cell (WBC) count Ordered By: Ronel Padilla on 01-16-2025 WBC (Bld) [#/Vol] 8.9 10*3/uL 4.4-11.0 [facility] POCT INRon 01-13-2025 INR Coag (Bld) [Relative time] 4.8 {INR} Critically high 0.9 - 1.1 [facility] Interpretation and review of laboratory results Abnormal [facility] Performed by: [facility], [address] [facility] [address] CLIA ID: [id number] [facility] Progress Noteon 01-13-2025 Progress Note [facility] ([facility] [address]; [address], [place] [address] Yesi Flores (1950) presents to the [facility] clinic today for follow-up warfarin visit. The encounter diagnosis was Bilateral pulmonary embolism (HCC). and has a goal INR 2.0-3.0. Pt has Coumadin 5mg tablets and at last visit was instructed to hold x1, then 5mg MWF, 2.5mg all other days. Had INR done at PCP on Sunday and was 3.2 per patient. Cannot see in chart. Pt confirms taking this dose and adherence to current regimen: yes Any changes in prescriptions, OTC, and/or herbal medications: Done with cipro since Sunday. Denies any other new meds or any new OTC or herbals. Changes in alcohol, tobacco, or marijuana use: no has not had any ETOH Any recent hospitalizations or ED visits: no Any recent falls or head trauma: no Any changes in diet (vit K): no denies any cranberry, eve, grapefruit Upcoming surgeries or procedure: no Does pt need refills on warfarin prescription: no Review of Systems Constitutional: Negative for activity change, appetite change and fatigue. HENT: Negative for nosebleeds. Respiratory: Negative for shortness of breath. Cardiovascular: Negative for chest pain and leg swelling. Gastrointestinal: Negative for blood in stool, diarrhea, nausea and vomiting. Genitourinary: Negative for hematuria. Neurological: Negative for weakness, light-headedness and headaches. Hematological: Does not bruise/bleed easily. Denies any bleeding concerns or new signs of blood clots. Objective Vitals: 01/13/25 1141 BP: 125/78 Pulse: 93 Weight: 180 lb 6.4 oz (81.8 kg) Assessment Lab Results Component Value Date INR 4.8 (HH) 01/13/2025 INR 4.0 (H) 01/06/2025 INR 2.0 (H) 12/30/2024 INR 1.1 10/02/2024 Plan INR is supratherapeutic d/t ATB? had reduced dose and still increased. Dosing: hold today and tomorrow, then resuem 5mg MWF, 2.5mg all other days Next INR Check: no appts available at [facility] in 1 week and patient cannot drive to [place] herself/does not have a ride available. Will make an exception this one time, as she has labs to be done on 01/19 by her PCP, so to go to PCP lab on 01/19 and get INR drawn, then call on 01/20/25 once result received. Patient educated on the following: medication adherence, medication interactions, dietary/lifestyle considerations, Vitamin K content and consistency, and rationale for dose change Patient care coordination completed: Faxed note to PCP per request Gave printed lab slip for INR order-will be going to [facility] in [place]-lab at her PCP office Sandra was instructed to notify [facility] of any unusual bruising or active/uncontrollable bleeding, medication changes within 24 hours, missed doses, dietary changes, illnesses or hospitalizations, and upcoming surgeries. Patient given written instructions. Patient expressed understanding utilizing the teach back method. Discharged ambulatory in no apparent distress. Time spent 20 Minutes Moira Cedeño RN Normal [facility] Albumin DL <= 20 mg/L (U) [M ass/Vol]Ordered By: Ronel Padilla on 01-09-2025 Urine Random Microalbumin 54.3 mg/L NO RANGE EST. [facility] Creatinine Unsp time (U) [Ma ss/Vol]Ordered By: Ronel Padilla on 01-09-2025 Creatinine (U) [Mass/Vol] 102.00 mg/dL 28.00-217.0 0 [facility] [employer] normalized rat io (INR) calculationOrdered By: Jose Roberto Hernandez on 01-09-2025 INR Coag (Bld) [Relative time] 3.2 {INR} [facility] Microalbumin/creat ratio urO rdered By: Ronel Padilla on 01-09-2025 Urine Microalbumin/Creatinine Ratio 532.4 mg/g CRE [facility] Prothrombin Time w/INRon INR Coag (PPP) [Relative time] 3.2 {INR} Normal [facility] Comment on above: Performed By: #### L 622.4669 #### [facility] [place], [address] PT Coag (PPP) [Time] 33.8 s High 11.7-14.9 [facility] Comment on above: Performed By: #### L 300.3900 #### [facility] [address] [place], [address] Prothrombin timeOrdered By: Jose Roberto Hernandez on 01-09-2025 PT Coag (PPP) [Time] 33.8 s High 11.7-14.9 [facility] - Coagulationon 0 01-06-2025 INR Coag (Bld) [Relative time] 4 {INR} High 0.9 - 1.1 [facility] No Panel Informationon 01-06 Interpretation and review of laboratory results Abnormal [facility] Performed by: [facility], [address] [address] CLIA ID: [id number] [facility] Progress Noteon 01-06-2025 Progress Note [facility]tico[facility] n Management [facility] ([facility]) Anticoagulation Clinic [address] [place] [address]; [address], [place] [address] Yesi Flores (1950) presents to the [facility] clinic today for follow-up warfarin visit. The encounter diagnosis was Bilateral pulmonary embolism (HCC). and has a goal INR 2.0-3.0. Pt has Coumadin 5mg tablets and at last visit was instructed to take 5mg daily except 2.5mg on MWF. Pt confirms taking this dose and adherence to current regimen: yes Any changes in prescriptions, OTC, and/or herbal medications: yes, had been on cephalexin for UTI, then switched to Cipro on Sunday - will be on Cipro for 1 week. Symptoms are improving now that she is on Cipro. Changes in alcohol, tobacco, or marijuana use: no Any recent hospitalizations or ED visits: no Any recent falls or head trauma: no Any changes in diet (vit K): no, stopped cranberry juice since last visit Upcoming surgeries or procedure: no Does pt need refills on warfarin prescription: no Review of Systems Constitutional: Negative for activity change, appetite change and fatigue. HENT: Negative for nosebleeds. Respiratory: Negative for shortness of breath. Cardiovascular: Negative for chest pain and leg swelling. Gastrointestinal: Negative for blood in stool, diarrhea, nausea and vomiting. Genitourinary: Negative for hematuria. Neurological: Negative for weakness, light-headedness and headaches. Hematological: Does not bruise/bleed easily. Objective Vitals: 01/06/25 1456 BP: 104/68 Pulse: 85 Weight: 178 lb 9.6 oz (81 kg) Assessment Lab Results Component Value Date INR 4.0 (H) 01/06/2025 INR 2.0 (H) 12/30/2024 INR 1.1 10/02/2024 Plan INR is supratherapeutic d/t new start and interaction with Cipro. Will finish Cipro Sunday. Dosing: hold today, then reduce dose to 2.5mg daily except 5mg on MWF. Next INR Check: 01/13/25 Patient educated on the following: medication adherence and medication interactions - encouraged to call us with all new meds Patient care coordination completed: N/A Positive ROS findings are: n/a - no positive findings Sandra was instructed to notify [facility] of any unusual bruising or active/uncontrollable bleeding, medication changes within 24 hours, missed doses, dietary changes, illnesses or hospitalizations, and upcoming surgeries. Patient given written instructions. Patient expressed understanding utilizing the teach back method. Discharged ambulatory in no apparent distress. Time spent 15 Minutes Keely Grover [facility] Absolute neutrophil countOrd ered By: Ronel Padilla on 01-05-2025 Neutrophils (Bld) [#/Vol] 5.8 10*3/uL 2.0-7.7 [facility] Anion gap in Serum or Plasma Ordered By: Ronel Padilla on 01-05-2025 Anion gap [Moles/Vol] 14 mmol/L 5-15 [facility] BUN/creatinine ratioOrdered By: Ronel Padilla on 01-05-2025 Urea nitrogen/Creatinine [Mass ratio] 15.7 mg/mg 10-20 [facility] Basic Metabolic Profile (BMP )on 01-05-2025 BUN Normal 4-19 [facility] Comment on above: Result Comment: DUPL ICATE Performed By: #### L 500.2500, L100.0100 #### [facility] [address] [place], [address] BUN/CRE Normal 10-20 [facility] Comment on above: Result Comment: DUPL ICATE Performed By: #### L 500.2500, L100.0100 #### [facility] [address] [place], [address] Calcium Normal 7.6-11.0 [facility] Comment on above: Result Comment: DUPL ICATE Performed By: #### L 500.2500, L100.0100 #### [facility] [address] [place], [address] CL Normal 98-108 [facility] Comment on above: Result Comment: DUPL ICATE Performed By: #### L 500.2500, L100.0100 #### [facility] [address] [place], [address] CO2 Normal 21.0-32.0 [facility] Comment on above: Result Comment: DUPL ICATE Performed By: #### L 500.2500, L100.0100 #### [facility] [address] [place], [address] CREAT,SERUM Normal 0.70-1.20 [facility] Comment on above: Result Comment: DUPL ICATE Performed By: #### L 500.2500, L100.0100 #### [facility] [address] [place], [address] eGFR Normal >60 [facility] Comment on above: Result Comment: DUPL ICATE Performed By: #### L 500.2500, L100.0100 #### [facility] [address] [place], [address] GAP Normal 5-15 [facility] Comment on above: Result Comment: DUPL ICATE Performed By: #### L 500.2500, L100.0100 #### [facility] [address] [place], [address] GLU Normal 70-99 [facility] Comment on above: Result Comment: DUPL ICATE Performed By: #### L 500.2500, L100.0100 #### [facility] [address] [place], [address] Potassium Normal 3.3-5.1 [facility] Comment on above: Result Comment: DUPL ICATE Performed By: #### L 500.2500, L100.0100 #### [facility] [address] [place], [address] Basic Metabolic Profile (BMP) Normal 133-145 [facility] Comment on above: Result Comment: DUPL ICATE Performed By: #### L 500.2500, L100.0100 #### [facility] [address] [place], [address] Basophil percentageOrdered B y: Ronel Padilla on 01-05-2025 Basophils/100 WBC (Bld) 0.3 % 0-1 [facility] Bilirubin, totalOrdered By: Ronel Padilla on 01-05-2025 Bilirubin [Mass/Vol] 0.22 mg/dL 0.00-1.30 [facility] CBC W/Diff, Automatedon 12-20 Absolute Lymph 2.11 X10 3/uL Normal 0.83-4.51 [facility] Comment on above: Performed By: #### L 300.3900, L300.4310 #### [facility] [address] [place], [address] Absolute Neut 5.8 X10 3/uL Normal 2.0-7.7 [facility] Comment on above: Performed By: #### L 300.3900, L300.4310 #### [facility] [address] [place], [address] Basophils/100 WBC (Bld) 0.3 % Normal 0-1 [facility] Comment on above: Performed By: #### L 300.3900, L300.4310 #### [facility] [address] [place], [address] Eosinophils/100 WBC (Bld) 0.5 % Normal 0-5 [facility] Comment on above: Performed By: #### L 300.3900, L300.4310 #### [facility] [address] [place], [address] Erythrocyte distribution width (RBC) [Ratio] 14.2 % Normal 11.6-14.6 [facility] Comment on above: Performed By: #### L 300.3900, L300.4310 #### [facility] [address] [place], [address] Hematocrit (Bld) [Volume fraction] 32.3 % Low 37-47 [facility] Comment on above: Performed By: #### L 300.3900, L300.4310 #### [facility] [address] [place], [address] Hemoglobin (Bld) [Mass/Vol] 10.3 g/dL Low 12.0-15.0 [facility] Comment on above: Performed By: #### L 300.3900, L300.4310 #### [facility] [address] [place], [address] IG% 0.600 Normal 0.0-0.9 [facility] Comment on above: Result Comment: IG% - Immature Granulocytes (promyelocytes, myelocytes and metamyelocytes) > 1% indicates that a LEFT SHIFT is Present. Performed By: #### L 300.3900, L300.4310 #### [facility] [address] [place], [address] Lymphocytes/100 WBC (Bld) 24.0 % Normal 19-41 [facility] Comment on above: Performed By: #### L 300.3900, L300.4310 #### [facility] [address] [place], [address] MCH (RBC) [Entitic mass] 30.1 pg Normal 27.0-32.0 [facility] Comment on above: Performed By: #### L 300.3900, L300.4310 #### [facility] [address] [place], [address] MCHC (RBC) [Mass/Vol] 31.9 g/dL Low 32-36 [facility] Comment on above: Performed By: #### L 300.3900, L300.4310 #### [facility] [address] [place], [address] MCV (RBC) [Entitic vol] 94.4 fL Normal 81-99 [facility] Comment on above: Performed By: #### L 300.3900, L300.4310 #### [facility] [address] [place], [address] Monocytes/100 WBC (Bld) 9.1 % Normal 0-10 [facility] Comment on above: Performed By: #### L 300.3900, L300.4310 #### [facility] [address] [place], [address] Neutrophils/100 WBC (Bld) 65.5 % Normal 47-70 [facility] Comment on above: Performed By: #### L 300.3900, L300.4310 #### [facility] [address] [place], [address] Nucleated RBC (Bld) [#/Vol] 0 10*3/uL Normal 0-5 [facility] Comment on above: Performed By: #### L 300.3900, L300.4310 #### [facility] [address] [place], [address] Platelet mean volume (Bld) [Entitic vol] 10.3 fL Normal 6.2-12.0 [facility] Comment on above: Performed By: #### L 300.3900, L300.4310 #### [facility] [address] [place], [address] Platelets (Bld) [#/Vol] 294 10*3/uL Normal 150-450 [facility] Comment on above: Performed By: #### L 300.3900, L300.4310 #### [facility] [address] [place], [address] RBC (Bld) [#/Vol] 3.42 10*6/uL Low 4.2-5.4 [facility] Comment on above: Performed By: #### L 300.3900, L300.4310 #### [facility] [address] [place], [address] RDW SD 49.1 fl High 35.1-43.9 [facility] Comment on above: Performed By: #### L 300.3900, L300.4310 #### [facility] [address] [place], [address] WBC (Bld) [#/Vol] 8.8 10*3/uL Normal 4.4-11.0 [facility] Comment on above: Performed By: #### L 300.3900, L300.4310 #### [facility] [address] [place], [address] Calculated very low density lipoprotein (VLDL) cholesterol measurementOrdered By: Ronel Padilla on 01-05-2025 VLDL Cholesterol 35 mg/dL 5-40 [facility] Carbon dioxide, total [Moles /volume] in Central venous bloodOrdered By: Ronel Padilla on 01-05-2025 CO2 [Moles/Vol] 22.6 mmol/L 21.0-32.0 [facility] Chloride assayOrdered By: Andre Padilla on 01-05-2025 Chloride [Moles/Vol] 100 mmol/L 98-108 [facility] Comprehensive Metabolic Prof ilon 01-05-2025 Albumin [Mass/Vol] 3.3 g/dL Low 3.4-4.8 [facility] Comment on above: Performed By: #### L 300.3900, L300.4310 #### [facility] [address] [place], [address] Albumin/Globulin [Mass ratio] 0.7 {ratio} Low 0.9-2.4 [facility] Comment on above: Performed By: #### L 300.3900, L300.4310 #### [facility] [address] [place], [address] ALK PHOS 79 U/L Normal 35-104 [facility] Comment on above: Performed By: #### L 300.3900, L300.4310 #### [facility] [address] [place], [address] ALT [Catalytic activity/Vol] 43 U/L High <=34 [facility] Comment on above: Performed By: #### L 300.3900, L300.4310 #### [facility] [address] [place], [address] AST [Catalytic activity/Vol] 52 U/L High <=31 [facility] Comment on above: Performed By: #### L 300.3900, L300.4310 #### [facility] [address] [place], [address] Bilirubin [Mass/Vol] 0.22 mg/dL Normal 0.00-1.30 [facility] Comment on above: Performed By: #### L 300.3900, L300.4310 #### [facility] [address] [place], [address] BUN/CRE 15.7 RATIO Normal 10-20 [facility] Comment on above: Performed By: #### L 300.3900, L300.4310 #### [facility] [address] [place], [address] Calcium [Mass/Vol] 9.3 mg/dL Normal 7.6-11.0 [facility] Comment on above: Performed By: #### L 300.3900, L300.4310 #### [facility] [address] [place], [address] Chloride [Moles/Vol] 100 mmol/L Normal 98-108 [facility] Comment on above: Performed By: #### L 300.3900, L300.4310 #### [facility] [address] [place], [address] CO2 [Moles/Vol] 22.6 mmol/L Normal 21.0-32.0 [facility] Comment on above: Performed By: #### L 300.3900, L300.4310 #### [facility] [address] [place], [address] Creatinine [Mass/Vol] 1.06 mg/dL Normal 0.70-1.20 [facility] Comment on above: Performed By: #### L 300.3900, L300.4310 #### [facility] [address] [place], [address] GAP 14 Normal 5-15 [facility] Comment on above: Performed By: #### L 300.3900, L300.4310 #### [facility] [address] [place], [address] GFR/1.73 sq M.predicted among non-blacks MDRD (S/P/Bld) [Vol rate/Area] 55 mL/min/{1.73_m2} Low >60 [facility] Comment on above: Result Comment: mL/m in/1.73m2 CKD-EPI Creatinine Equation (2020) Performed By: #### L 300.3900, L300.4310 #### [facility] [address] [place], [address] Globulin (S) [Mass/Vol] 4.8 g/dL High 2.2-4.2 [facility] Comment on above: Performed By: #### L 300.3900, L300.4310 #### [facility] [address] [place], [address] Glucose [Mass/Vol] 95 mg/dL Normal 70-99 [facility] Comment on above: Performed By: #### L 300.3900, L300.4310 #### [facility] [address] [place], [address] Potassium [Moles/Vol] 3.6 mmol/L Normal 3.3-5.1 [facility] Comment on above: Performed By: #### L 300.3900, L300.4310 #### [facility] [address] [place], [address] Sodium [Moles/Vol] 137 mmol/L Normal 133-145 [facility] Comment on above: Performed By: #### L 300.3900, L300.4310 #### [facility] [address] [place], [address] T PROT 8.2 g/dL Normal 5.9-8.4 [facility] Comment on above: Performed By: #### L 300.3900, L300.4310 #### [facility] [address] [place], [address] Urea nitrogen [Mass/Vol] 17 mg/dL Normal 4-19 [facility] Comment on above: Performed By: #### L 300.3900, L300.4310 #### [facility] [address] [place], [address] Eosinophil percentageOrdered By: Ronel Padilla on 01-05-2025 Eosinophils/100 WBC (Bld) 0.5 % 0-5 [facility] Erythrocyte distribution wid th ratioOrdered By: Ronel Padilla on 01-05-2025 Erythrocyte distribution width (RBC) [Ratio] 14.2 % 11.6-14.6 [facility] Erythrocyte distribution wid th standard deviationOrdered By: Ronel Padilla on 01-05-2025 Erythrocyte distribution width (RBC) [Entitic vol] 49.1 fL High 35.1-43.9 [facility] GFR/1.73 sq M.predicted katey g non-blacks MDRD (S/P/Bld) [Vol rate/Area]Ordered By: Ronel Padilla on 01-05-2025 Estimated GFR (MDRD) Non-Af Amer 55 Low >60 [facility] Comment on above: mL/min/1.73m2 CKD-EP I Creatinine Equation (2020) Hematocrit Auto (Bld) [Volum e fraction]Ordered By: Ronel Padilla on 01-05-2025 Hematocrit (Bld) [Volume fraction] 32.3 % Low 37-47 [facility] Hemoglobin A1con 01-05-2025 HbA1c (Bld) [Mass fraction] 8.0 % Normal <=5.6 [facility] Comment on above: Performed By: #### L 300.3900, L300.4310 #### [facility] [address] [place], [place], [id number] Hemoglobin A1c percentageOrd ered By: Ronel Padilla on 01-05-2025 HbA1c (Bld) [Mass fraction] 8.0 % >5.7 [facility] Hemoglobin measurementOrdere d By: Ronel Padilla on 01-05-2025 Hemoglobin (Bld) [Mass/Vol] 10.3 g/dL Low 12.0-15.0 [facility] Immature granulocytes/100 WB C Auto (Bld)Ordered By: Ronel Padilla on 01-05-2025 Immature granulocytes/100 WBC (Bld) 0.600 % 0.0-0.9 [facility] Comment on above: IG% - Immature Granu locytes (promyelocytes, myelocytes and metamyelocytes) > 1% indicates that a LEFT SHIFT is Present. International normalized rat io (INR) calculationOrdered By: Jose Roberto Hernandez on 01-05-2025 INR Coag (Bld) [Relative time] 2.7 {INR} [facility] LDL calc ser/plasOrdered By: Ronel Padilla on 01-05-2025 LDL Cholesterol, Calculated 72 mg/dL [facility] Comment on above: Jdmekoxdij=482-520 m g/dL & Higher Ojhb=540 mg/dL or greater Laboratory - Chemistry and C hemistry - challengeOrdered By: Ronel Padilla on 01-05-2025 AST [Catalytic activity/Vol] 52 U/L High <32 [facility] Lipid Profileon 01-05-2025 CHOL:HDL 4.96 Normal [facility] Comment on above: Performed By: #### L 300.3900, L300.4310 #### [facility] [address] [place], [place], [id number] (331) Cholesterol [Mass/Vol] 135 mg/dL Normal <=200 [facility] Comment on above: Result Comment: Chol esterol level, Desirable <200 mg/dL Borderline high cholesterol 200-239 mg/dL High cholesterol >=240 mg/dL Recommendations of the NCEP Adult Treatment Panel for the following risk-cutoff thresholds for the [place] population. Performed By: #### L 300.3900, L300.4310 #### [facility] [address] [place], [place], [address] Cholesterol in HDL [Mass/Vol] 27 mg/dL Low [facility] Comment on above: Result Comment: Gwendolyn onal Cholesterol Education Program (NCEP) guidelines: <40 mg/dL: Low HDL-cholesterol (major risk factor for CHD) >= 60 mg/dL: High HDL-cholesterol (negative risk factor for CHD) HDL-cholesterol is affected by a number of factors, e.g. smoking, exercise, hormones, sex and age. Performed By: #### L 300.3900, L300.4310 #### [facility] [address] [place], [address] Cholesterol in LDL [Mass/Vol] 72 mg/dL Normal [facility] Comment on above: Result Comment: Bord rtmexe=092-612 mg/dL Higher Gcjb=749 mg/dL or greater Performed By: #### L 300.3900, L300.4310 #### [facility] [address] [place], [address] Cholesterol in VLDL [Mass/Vol] 35 mg/dL Normal 5-40 [facility] Comment on above: Performed By: #### L 300.3900, L300.4310 #### [facility] [address] [place], [address] Triglyceride [Mass/Vol] 177 mg/dL Normal [facility] Comment on above: Result Comment: The drugs N-Acetylcysteine and Metamizole may falsely depress this assay. Normal range: <150 mg/dL Borderline High: 150-199 mg/dL High: 200-499 mg/dL Very High: >500 mg/dL Performed By: #### L 300.3900, L300.4310 #### [facility] [address] [place], [address] Lymphocytes Auto (Unsp spec) [#/Vol]Ordered By: Ronel Padilla on 01-05-2025 Lymphocytes (Bld) [#/Vol] 2.11 10*3/uL 0.83-4.51 [facility] Lymphocytes/100 WBC Auto (Un sp spec)Ordered By: Ronel Padilla on 01-05-2025 Lymphocytes/100 WBC (Bld) 24.0 % 19-41 [facility] MCV (mean corpuscular volume ) determinationOrdered By: Ronel Padilla on 01-05-2025 MCV (RBC) [Entitic vol] 94.4 fL 81-99 [facility] Mean corpuscular hemoglobin (MCH) determinationOrdered By: Ronel Padilla on 01-05-2025 MCH (RBC) [Entitic mass] 30.1 pg 27.0-32.0 [facility] Mean corpuscular hemoglobin concentration (MCHC) determinationOrdered By: Ronel Padilla on 01-05-2025 MCHC (RBC) [Mass/Vol] 31.9 g/dL Low 32-36 [facility] Mean platelet volume determi nationOrdered By: Ronel Padilla on 01-05-2025 Platelet mean volume (Bld) [Entitic vol] 10.3 fL 6.2-12.0 [facility] Monocyte percentageOrdered B y: Ronel Padilla on 01-05-2025 Monocytes/100 WBC (Bld) 9.1 % 0-10 [facility] Neutrophil percentageOrdered By: Ronel Padilla on 01-05-2025 Neutrophils/100 WBC (Bld) 65.5 % 47-70 [facility] Nucleated red blood cell per centageOrdered By: Ronel Padilla on 01-05-2025 Nucleated RBC/100 WBC (Bld) [Ratio] 0 % 0-5 [facility] Platelet countOrdered By: Andre Padilla on 01-05-2025 Platelets (Bld) [#/Vol] 294 10*3/uL 150-450 [facility] Potassium (Unsp spec) [Mass/ Vol]Ordered By: Ronel Padilla on 01-05-2025 Potassium [Moles/Vol] 3.6 mmol/L 3.3-5.1 [facility] Prothrombin Time w/INRon INR Coag (PPP) [Relative time] 2.7 {INR} Normal [facility] Comment on above: Performed By: #### L 500.2500, L100.0100 #### [facility] [address] [place], [address] PT Coag (PPP) [Time] 28.9 s High 11.7-14.9 [facility] Comment on above: Performed By: #### L 500.2500, L100.0100 #### [facility] [address] [place], [address] Prothrombin timeOrdered By: Jose Roberto Hernandez on 01-05-2025 PT Coag (PPP) [Time] 28.9 s High 11.7-14.9 [facility] RBC Auto (Bld) [#/Vol]Ordere d By: Ronel Padilla on 01-05-2025 RBC (Bld) [#/Vol] 3.42 10*6/uL Low 4.2-5.4 [facility] Screening total cholesterol/ high density lipoprotein (HDL) cholesterol ratioOrdered By: Ronel Padilla on 01-05-2025 Cholesterol.total/Brigitte sterol in HDL [Mass ratio] 4.96 {ratio} [facility] Serum creatinine measurement (mass/volume)Ordered By: Ronel Padilla on 01-05-2025 Creatinine [Mass/Vol] 1.06 mg/dL 0.70-1.20 [facility] Serum globulin measurementOr dered By: Ronel Padilla on 01-05-2025 Globulin (S) [Mass/Vol] 4.8 g/dL High 2.2-4.2 [facility] Serum glucose measurement (m ass/volume)Ordered By: Ronel Padilla on 01-05-2025 Glucose [Mass/Vol] 95 mg/dL 70-99 [facility] Serum or plasma alanine hernandez otransferase (ALT) measurementOrdered By: Ronel Padilla on 01-05-2025 ALT [Catalytic activity/Vol] 43 U/L High <35 [facility] Serum or plasma albumin aiden urement (mass/volume)Ordered By: Ronel Padilla on 01-05-2025 Albumin [Mass/Vol] 3.3 g/dL Low 3.4-4.8 [facility] Serum or plasma albumin/glob ulin mass ratioOrdered By: Ronel Padilla on 01-05-2025 Albumin/Globulin [Mass ratio] 0.7 {ratio} Low 0.9-2.4 [facility] Serum or plasma alkaline loreto sphatase measurementOrdered By: Ronel Padilla on 01-05-2025 ALP [Catalytic activity/Vol] 79 U/L 35-104 [facility] Serum or plasma calcium aiden urement (mass/volume)Ordered By: Ronel Padilla on 01-05-2025 Calcium [Mass/Vol] 9.3 mg/dL 7.6-11.0 [facility] Serum or plasma cholesterol in HDL measurement (mass/volume)Ordered By: Ronel Padilla on 01-05-2025 Cholesterol in HDL [Mass/Vol] 27 mg/dL Low >40 [facility] Comment on above: National Cholesterol Education Program (NCEP) guidelines:<40 mg/dL: Low HDL-cholesterol (major risk factor for CHD)>= 60 mg/dL: High HDL-cholesterol (negative risk factor for CHD)HDL-cholesterol is affected by a number of factors, e.g. smoking, exercise, hormones, sex and age. Serum or plasma cholesterol measurement (mass/volume)Ordered By: Ronel Padilla on 01-05-2025 Cholesterol [Mass/Vol] 135 mg/dL <201 [facility] Comment on above: Cholesterol level, D esirable <200 mg/dLBorderline high cholesterol 200-239 mg/dLHigh cholesterol >=240 mg/dLRecommendations of the NCEP Adult Treatment Panel for the following risk-cutoff thresholds for the [place] population. Serum or plasma urea nitroge n measurement (mass/volume)Ordered By: Ronel Padilla on 01-05-2025 Urea nitrogen [Mass/Vol] 17 mg/dL 4-19 [facility] Sodium levelOrdered By: Cheryl Padilla on 01-05-2025 Sodium [Moles/Vol] 137 mmol/L 133-145 [facility] TSH DL <= 0.005 mIU/L QnOrde red By: Ronel Padilla on 01-05-2025 Thyroid Stimulating Hormone (TSH) 2.390 uIU/mL 0.300-4.200 [facility] Thyroid Stim Hormone (TSH)on 01-05-2025 TSH 2.390 uIU/mL Normal 0.300-4.200 [facility] Comment on above: Performed By: #### L 300.3900, L300.4310 #### [facility] [address] [place], [place], [id number] Total proteinOrdered By: Guilherme Padilla on 01-05-2025 Protein [Mass/Vol] 8.2 g/dL 5.9-8.4 [facility] Triglycerides measurementOrd ered By: Ronel Padilla on 01-05-2025 Triglyceride [Mass/Vol] 177 mg/dL <199 [facility] Comment on above: The drugs N-Acetylcy steine and Metamizole may falsely depress this assay. Normal range: <150 mg/dLBorderline High: 150-199 mg/dLHigh: 200-499 mg/dLVery High: >500 mg/dL Urine Cultureon 01-05-2025 [facility] Copy of report sent to Infection Control Printer [id number] 01/05/25 0839 LAMINE. RESULTS CALLED TO VANGIE Presley 01/05/25 0839 Moira Lopez. REPORT READ BACK [BRIDGET VARGAS]. Urine Culture Urine Culture ESBL Escherichia coli Killen Count >100,000 MARKER ESBL producing OrganismA MARKER ESBL producing OrganismA Amikacin Islt MIKO 2 S Ampicillin Islt MIKO >=32 Ampicillin+Sulbac Islt MIKO >=32 R Cefepime Islt MIKO 8 I Eravacycline Islt MIKO <=0.12 S cefTRIAXone Islt MIKO >=64 R Ciprofloxacin Islt MIKO >=4 R B-Lactamase Extended Susc Islt POS Gentamicin Islt MIKO <=1 S Imipenem Islt MIKO <=0.25 S levoFLOXacin Islt MIKO >=8 R Meropenem Islt MIKO <=0.25 S Nitrofurantoin Islt MIKO <=16 S Pip+Tazo Islt MIKO <=4 S Tobramycin Islt MIKO <=1 S TMP SMX Islt MIKO <=20 S Normal [facility] Comment on above: Performed By: #### L 500.2500, L100.0100 #### [facility] [address] [place], [place], [id number] White blood cell (WBC) count Ordered By: Ronel Padilla on 01-05-2025 WBC (Bld) [#/Vol] 8.8 10*3/uL 4.4-11.0 [facility] Bilirubin Test strip Ql (U)O rdered By: Jose Roberto Hernandez on 01-02-2025 Bilirubin Ql (U) Negative Negative [facility] Glucose Ql (U)Ordered By: Charlene Hernandez on 01-02-2025 Urine Glucose (UA) Normal mg/dl Normal [facility] Internal Medicine Office Vis iton 01-02-2025 Internal Medicine Office Visit [facility] [address] [place] [address] OFFICE VISIT Date of Service: 01/02/25 MR#: [id number] Acct: [id number] Name: SANDRA MUNROE Rep #: [id number] : 1950 Provider: ASHLEY Albarado Age/Sex: 74/F Location: [facility] Status: Signed Intake Vital Signs 10/27/24 11:22 01/02/25 11:39 Height 5 ft 2 in 5 ft 2 in Weight: 187 lb 180 lb 4 oz BMI 34.2 32.9 BP 124/80 H 112/68 Blood Pressure Location Lt brachial Rt brachial Position Sitting Sitting Respiration 16 16 Pulse 102 H 112 H Pulse Source Monitor Monitor Temp 97.6 F L 97.7 F L Temp Source Temporal Temporal Pulse Oximetry (%) 97 94 Oxygen Delivery Method room air room air Intake Visit Reasons: ACUTE POSSIBLE BLADDER INFECTION Chief Complaint: 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 Accompanied by: Self Is patient in pain?: Yes Pain scale (1-10): 5 Allergies Penicillins Allergy (Intermediate, Verified 01/02/25 11:36) Swelling Medications ???Medication ???Instructions ???Recorded ???Confirmed ???Type cholecalciferol (vitamin D3) 50 50 mcg PO DAILY 04/21/24 12/01/24 History mcg (2,000 unit) capsule mecobalamin (vitamin B12) 1,000 3,000 mcg PO DAILY 04/21/24 History mcg chewable tablet magnesium 200 mg tablet 400 mg PO DAILY 09/30/24 12/01/24 History potassium gluconate 600 mg (99 mg) 650 mg PO DAILY 09/30/24 5 History tablet albuterol sulfate 90 mcg/actuation 2 puff inhalation Q4H PRN PRN 12/01/24 Rx aerosol inhaler (Ventolin HFA) Wheezing ##1 glipizide 5 mg tablet, extended 5 mg PO DAILY #90 tabs 10/27/24 Rx release 24 hr lisinopril 5 mg tablet 5 mg PO DAILY #90 tabs 10/27/24 Rx pravastatin 80 mg tablet 80 mg PO QHS #90 tabs 10/27/2408/15 Rx levothyroxine 25 mcg tablet 25 mcg PO QDAY #90 tabs 10/29/24 0 12/01/24 Rx benzonatate 200 mg capsule 200 mg PO TID PRN cough #20 caps 0 12/01/24 12/01/24 Rx cephalexin 500 mg capsule 500 mg PO .QID #28 caps 01/02/25 0 01/02/25 Rx warfarin 5 mg tablet 5 mg PO DIRECTED 01/02/2501/02 History Have you fallen in the past year?: No Nurse's Note: pt is thinking it might still be uti back is hurting same sx as last time PFSH Medical History Pulmonary emboli Hypothyroidism Peripheral neuropathy Type 2 diabetes mellitus Obesity Osteoarthritis of right knee Hyperlipemia Hypertension Gallstones Cataract Arthritis Surgical History H/O eye surgery Cataract extraction status S/P wrist surgery S/P cholecystectomy History of hysterectomy H/O tubal ligation Hx of tonsillectomy Family History Father Cancer lung Diabetes Parkinson disease Arthritis Blood clot in vein Hydrocephalus Myocardial infarction Mother Myocardial infarction Heart disease Hypertension Hyperlipemia Brother Cancer lung COPD (chronic obstructive pulmonary disease) Grandfather CVA (cerebral vascular accident) Brother Bowel disease had ostomy Pneumonia due to COVID-19 virus Son Myocardial infarction Social History adopted: No household members: family number of children: 5 current occupational status: employed current occupation: [employer]. pets and animals: Yes sexually active: No Smoking Status: Never smoker Electronic Cigarette Use: not used alcohol intake: never substance use type: does not use caffeine: Yes (1) Type: coffee frequency: does not exercise seatbelt use: always do you feel safe at home: Yes HPI HPI Chief Complaint: back pain Details: SANDRA MUNROE, is a 74 F who presents to the office today for some low back pain. Patient states that 2 weeks ago she went to an Urgent care and was diagnosed with a UTI. She was given antibiotic for this and was on this she thinks for 9 days. She states that she completed the antibiotic as directed. She went to the [facility] because she was having some dysuria with some lower abdominal pains. She had a low grade fever at that time as well She states that after completing the antibiotic that her fever, abdominal pains, and dysuria have resolved. She states that she has continued though to the have some pains on the left lower back. She states that the pain is a constant nagging ache. There is no radiation to the pains (nothing to the flank / groin). No aggravating or alleviating factors. She is not having any fevers or chills, fatigue, myalgias, or mental status changes. Exam Const General: cooperative, healthy appearing, comfortable, no acute distress, well developed and well groomed (more content not included)... Normal [facility] Ketones Test strip Ql (U)Ord ered By: Jose Roberto Hernandez on 01-02-2025 Ketones Ql (U) 5 mg/dl High Negative [facility] - Chemistry and C hemistry - challengeOrdered By: Jose Roberto Hernandez on 01-02-2025 Bilirubin Ql (U) Negative [facility] Glucose Ql (U) Negative [facility] Ketones Ql (U) Moderate (40+) [facility] pH (U) 7.5 [pH] [facility] Specific gravity (U) [Rel density] 1.015 [facility] Urobilinogen (U) [Mass/Vol] Negative [facility] - Hematology and Cell countsOrdered By: Jose Roberto Hernandez on 01-02-2025 Hemoglobin Ql (U) Large [facility] - Specimen inform ationOrdered By: Jose Roberto Hernandez on 01-02-2025 Clarity (U) Hazy [facility] Color (U) Yellow [facility] - UrinalysisOrder ed By: Jose Roberto Hernandez on 01-02-2025 Nitrite Ql (U) Positive [facility] Protein Ql (U) 3+ [facility] Nitrite Test strip Ql (U)Ord ered By: Jose Roberto Hernandez on 01-02-2025 Nitrite Ql (U) Positive High Negative [facility] No Panel InformationOrdered By: Jose Roberto Hernandez on 01-02-2025 Urine Leukocytes Positive [facility] Protein Test strip Ql (U)Ord ered By: Jose Roberto Hernandez on 01-02-2025 Protein Ql (U) 100 mg/dl High Negative [facility] Urinalysis, Routine (Dipstic k)on 01-02-2025 BILIRUBIN URINE Negative Normal Negative [facility] Comment on above: Order Comment: ANN-MARIE CTOR TO SPECIFY Performed By: #### L 500.2500, L100.0100 #### [facility] [address] [place], [address] Clarity (U) Turbid Normal Clear [facility] Comment on above: Order Comment: ANN-MARIE CTOR TO SPECIFY Performed By: #### L 500.2500, L100.0100 #### [facility] [address] [place], [address] Color (U) Yellow Normal Yellow [facility] Comment on above: Order Comment: ANN-MARIE CTOR TO SPECIFY Performed By: #### L 500.2500, L100.0100 #### [facility] [address] [place], [address] GLUCOSE, UR Normal Normal Normal [facility] Comment on above: Order Comment: ANN-MARIE CTOR TO SPECIFY Performed By: #### L 500.2500, L100.0100 #### [facility] [address] [place], [address] KETONE UR 5 mg/dl Abnormal Negative [facility] Comment on above: Order Comment: ANN-MARIE CTOR TO SPECIFY Performed By: #### L 500.2500, L100.0100 #### [facility] [address] [place], [address] LEUK ESTERASE 500 /ul Abnormal Negative [facility] Comment on above: Order Comment: ANN-MARIE CTOR TO SPECIFY Performed By: #### L 500.2500, L100.0100 #### [facility] [address] [place], [address] Nitrite Ql (U) Positive Abnormal Negative [facility] Comment on above: Order Comment: ANN-MARIE CTOR TO SPECIFY Performed By: #### L 500.2500, L100.0100 #### [facility] [address] [place], [address] OCCULT BLOOD-UR 250 /ul Abnormal Negative [facility] Comment on above: Order Comment: ANN-MARIE CTOR TO SPECIFY Performed By: #### L 500.2500, L100.0100 #### [facility] [address] [place], [address] pH UR 6.0 Normal 5.0 - 8.0 [facility] Comment on above: Order Comment: ANN-MARIE CTOR TO SPECIFY Performed By: #### L 500.2500, L100.0100 #### [facility] [address] [place], [address] PROT DIPSTX 100 mg/dl Abnormal Negative [facility] Comment on above: Order Comment: ANN-MARIE CTOR TO SPECIFY Performed By: #### L 500.2500, L100.0100 #### [facility] [address] [place], [address] SP.GR. DIPSTX 1.015 Normal 1.002-1.030 [facility] Comment on above: Order Comment: ANN-MARIE CTOR TO SPECIFY Performed By: #### L 500.2500, L100.0100 #### [facility] [address] [place], [address] UROBILI Normal Normal Normal [facility] Comment on above: Order Comment: ANN-MARIE CTOR TO SPECIFY Performed By: #### L 500.2500, L100.0100 #### [facility] [address] [place], [address] Urine blood detectionOrdered By: Jose Roberto Hernandez on 01-02-2025 Urine Occult Blood 250 /ul High Negative [facility] Urine clarityOrdered By: Vlad Hernandez on 01-02-2025 Clarity (U) Turbid Clear [facility] Urine color determinationOrd ered By: Jose Roberto Hernandez on 01-02-2025 Color (U) Yellow Yellow [facility] Urine cultureOrdered By: Vlad Hernandez on 01-02-2025 Bacteria identified Cx Nom (U) ESBL Escherichia coli Abnormal [facility] Urine leukocyte esterase det ection by dipstickOrdered By: Jose Roberto Hernandez on 01-02-2025 Leukocyte esterase Test strip Ql (U) 500 /ul High Negative [facility] Urine pHOrdered By: Jose Roberto Hernandez on 01-02-2025 pH (U) 6.0 [pH] 5.0 - 8.0 [facility] Urine specific gravity measu rementOrdered By: Jose Roberto Hernandez on 01-02-2025 Specific gravity (U) [Rel density] 1.015 1.002-1.030 [facility] Urobilinogen Ql (U)Ordered B y: Jose Roberto Hernandez on 01-02-2025 Urine Urobilinogen Normal mg/dl Normal [facility] 37on 12-30-2024 37 Stop Eliquis today 12/30/24 and no longer take. Continue warfarin as instructed on printout from [facility] clinic today. Normal [facility] POCT INRon 12-30-2024 INR Coag (Bld) [Relative time] 2 {INR} High 0.9 - 1.1 [facility] Interpretation and review of laboratory results Abnormal [facility] Performed by: [facility], [address] [place] [address] CLIA ID: [id number] [facility] Progress Noteon 12-30-2024 Progress Note [facility] Management [facility] ([facility]) Anticoagulation Clinic [address] [place] [address], [address], [place] [address] Yesi Flores (1950) presents to the [facility] clinic today for new patient visit. Pt was referred by Dr. Ryder. The encounter diagnosis was Bilateral pulmonary embolism (HCC). and has a goal INR 2.0-3.0. Duration of therapy is lifelong. PCP: Ronel Padilla MD Telephone Answering Service Operator (if applicable): Dr. ryder Pt has Coumadin 5mg tablets and was instructed to take 5mg daily starting 12/27/24. Also to bridge with Eliquis 5mg BID. Switching due to cost. Pt confirms taking this dose and adherence to current regimen. Any changes in prescriptions, OTC, and/or herbal medications: no Alcohol use: no Tobacco use: no Any recent hospitalizations or ED visits: no Any recent falls or head trauma: no Any changes in diet (vit K): no Upcoming surgeries or procedure: no Does pt need refills on warfarin prescription: no Review of Systems Constitutional: Negative for activity change, appetite change and fatigue. HENT: Negative for nosebleeds. Respiratory: Negative for shortness of breath. Cardiovascular: Negative for chest pain and leg swelling. Gastrointestinal: Negative for blood in stool, diarrhea, nausea and vomiting. Genitourinary: Negative for hematuria. Neurological: Negative for weakness, light-headedness and headaches. Hematological: Does not bruise/bleed easily. Denies any bleeding concerns or new signs of blood clots. Objective Vitals: 12/30/24 1446 BP: 116/77 Pulse: 86 Weight: 180 lb 12.8 oz (82 kg) Assessment Lab Results Component Value Date INR 2.0 (H) 12/30/2024 INR 1.1 10/02/2024 Plan INR is therapeutic but came up pretty quickly and may be seeing a little false elevation from Eliquis. Recheck in 1 week. STOP Eliquis today. Warfarin Dosin.5mg MWF, 5mg all other days Next INR Check: 01/06/25 [facility] Interested in home meter once 3 month kimmy reached. Pt signed [facility] pt agreement form. Pt was given full education which includes our office written materials, supplemental oral instructions, and all questions were answered. Specifically Sandra was educated on the indication, risks of bleeding, s/s thromboses, when to seek medical attention, medication interactions, dietary/lifestyle considerations, risks with surgery, monitoring, and importance of adherence. Pt was educated on the effects of vitamin K containing foods and the importance of consistency was stressed. Pt was also advised to avoid large amounts of alcohol, grapefruit juice or cranberry juice while on warfarin. Sandra was instructed to notify [facility] of any unusual bruising or active/uncontrollable bleeding, medication changes within 24 hours, missed doses, dietary changes, illnesses or hospitalizations, and upcoming surgeries. The patient was instructed to notify all other physicians and pharmacists know that warfarin was started as a double-check against drug interactions. Patient given written instructions. Patient expressed understanding utilizing the teach back method. Discharged ambulatory in no apparent distress. Time spent 45 Minutes Moira Cedeño RN staffed with Bina Benavides PharmD [facility] 36on 12-29-2024 36 [facility] ([facility]) Anticoagulation Clinic [address] [place] [address], [address], [place] [address] Sandra (1950) was referred to [facility] by Dr. Ryder. Patient is on warfarin for PE and has a goal INR 2.0 - 3.0. Duration of therapy = Lifelong. Pt has Coumadin 5mg tablets. Anticoagulation history: Started on warfarin: 12/27/24 Hx of DVT (if yes, when?): Yes: 09/2024 Hx of PE (if yes, when?): Yes: 09/2024 Hx of stroke (if yes, when?): No Were clots provoked or unprovoked?: ? Hx of bleed (if yes, when?): No Has patient been on any other anticoagulants in the past: Eliquis but switching due to cost HAS-BLED score = 1 (age) Interacting meds = Eliquis, Synthroid Lab Results Component Value Date HGB 10.1 (L) 10/02/2024 HCT 31.4 (L) 10/02/2024 PLT 157 10/02/2024 CREATININE 0.81 10/02/2024 ALT 6 10/02/2024 AST 16 10/02/2024 Updated pt's home medications, PMH, SH, and allergies in [facility]. Pt is scheduled for a new pt appointment on 12/30 ([place]) at 2:45. [facility] Progress Noteon 12-29-2024 Progress Note Updated episode. [facility] 36on 12-25-2024 36 Sent warfarin [facility]mg tablets to [facility] - patient to take 1 tablet nightly starting Sunday. [facility] 36 Called patient to le t her know that we will be sending in prescription today. 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 [facility] 3612-19-2024 36 I called and spoke with patient. She has about 2 weeks left of Eliquis. She would like to come to the [place] office due to distance. Due to appt availability, I was not able to schedule patient until 12/30. We will have her start the warfarin on Wednesday 12/27. I told her that I will call her back next week once we send in prescription. [facility] 3612-11-2024 36 I called the patient to go over the results of her recent echocardiogram. We had repeat echocardiogram to make sure her RV had recovered from her pulmonary embolism. The echo showed normal LV and RV function. We also heard from her pharmacy team. Unfortunately the patient did not qualify for the [facility] jodie to help cover the cost of her apixaban. The patient does not think she will be able to afford apixaban. The Xarelto is ranjith be the same problem. She currently has apixaban for another 2 to 3 weeks at home. At this point we talked about that her only option is to transition to warfarin. I will make a referral to the [facility] clinic for new warfarin initiation once the patient runs out of her apixaban in the next couple weeks. The patient voiced understanding. She is also planning on cutting back on her working hours so perhaps eventually she may qualify for the [facility] [facility] if her income drops below the cutoff. An Ryder MD, [facility], [facility] Client Support Representative [facility], [facility] [place] [address] [place] [address] [address] [place] [address] p [phone] f [phone] [email or web address] [facility] 3612-10-2024 36 I met with patient i office and unfortunately she is over income for any financial assistance. Eliquis will not be affordable moving forward. Xarelto is also the same copay. Samples were provided and patient currently has 3 weeks of medication on hand. Thanks! [facility] US Heart TransthoracicOrdere d By: Yu Chávez on 12-10-2024 Ascending Aorta 3.7 cm [facility] Work Phone: [phone] Ascending Aorta Index 2 cm/m2 [facility] Work Phone: [phone] Est. RA Pressure 3 mmHg [facility] Work Phone: Fractional Shortening 2D 32 % 28 - 44 % [facility] Work Phone: [phone] Global Longitudinal Strain -18 % [facility] Work Phone: [phone] Interpretation and review of laboratory results Abnormal [facility] Work Phone: [phone] IVC Diameter 1.1 cm [facility] Work Phone: [phone] IVSd 1 cm Abnormal 0.6 - 0.9 cm [facility] Work Phone: [phone] Left ventricular Ejection fraction by US.2D+Calculated by biplane method of disks 73 % 55 - 100 % [facility] Work Phone: [phone] LV EDV A2C 40 mL [facility] Work Phone: [phone] LV EDV A4C 43 mL [facility] Work Phone: [phone] LV EDV BP 42 mL Abnormal 56 - 104 mL [facility] Work Phone: LV EDV Index A2C 22 mL/m2 [facility] Work Phone: LV EDV Index A4C 23 mL/m2 [facility] Work Phone: [phone] LV EDV Index BP 23 mL/m2 [facility] Work Phone: LV Ejection Fraction A2C 75 % [facility] Work Phone: [phone] LV Ejection Fraction A4C 71 % [facility] Work Phone: LV ESV A2C 10 mL [facility] Work Phone: LV ESV A4C 13 mL [facility] Work Phone: LV ESV BP 11 mL Abnormal 19 - 49 mL [facility] Work Phone: LV ESV Index A2C 5 mL/m2 [facility] Work Phone: LV ESV Index A4C 7 mL/m2 [facility] Work Phone: [phone] LV ESV Index BP 6 mL/m2 [facility] Work Phone: [phone] LV Mass 2D 98.9 g 67 - 162 g [facility] Work Phone: [phone] LV Mass 2D Index 53.5 g/m2 43 - 95 g/m2 [facility] Work Phone: [phone] LV RWT Ratio 0.59 [facility] Work Phone: [phone] LVIDd 3.4 cm Abnormal 3.9 - 5.3 cm [facility] Work Phone: [phone] LVIDd Index 1.84 cm/m2 [facility] Work Phone: [phone] LVIDs 2.3 cm [facility] Work Phone: LVIDs Index 1.24 cm/m2 [facility] Work Phone: LVPWd 1 cm Abnormal 0.6 - 0.9 cm [facility] Work Phone: RV Basal Dimension 3.8 cm [facility] Work Phone: RV Free Wall Peak S' 13 cm/s [facility] [employer] Phone: RV GLS -27 % [facility] Work Phone: RV Longitudinal Dimension 6.2 cm [facility] Work Phone: RV Mid Dimension 3.2 cm [facility] Work Phone: TAPSE 1.9 cm 1.7 cm [facility] Work Phone: [facility] Work Phone: US Heart Transthoracicon Left Ventricle: Left ventricle is smaller than normal. Normal wall thickness. Hyperdynamic left ventricular systolic function. EF by 2D Simpsons Biplane is 73%. Global longitudinal strain is -18.0%. Normal wall motion. Right Ventricle: Right ventricle size is normal. Normal systolic function. Aorta: Mildly dilated ascending aorta. Ao ascending diameter is 3.7 cm. Pericardium: Evidence of prominent epicardial fat. Trivial pericardial effusion present. Left Ventricle Left ventricle is smaller than normal. Normal wall thickness. Hyperdynamic left ventricular systolic function. EF by 2D Simpsons Biplane is 73%. Global longitudinal strain is -18.0%. Normal wall motion. Right Ventricle Right ventricle size is normal. Normal systolic function. Left Atrium Left atrium size is normal. Right Atrium Right atrium size is normal. IVC/SVC IVC diameter is normal and decreases greater than 50% during inspiration; therefore the estimated right atrial pressure is normal (~3 mmHg). Tricuspid Valve Valve structure is normal. Trace regurgitation. Aortic Valve Trileaflet. No stenosis. Pulmonic Valve Valve structure is normal. Trace regurgitation. Ascending Aorta Mildly dilated ascending aorta. Ao ascending diameter is 3.7 cm. Pericardium Evidence of prominent epicardial fat. Trivial pericardial effusion present. Study Details Image quality: good. Additional technique includes myocardial strain. Heart rate: 85 bpm. Blood pressure: 129/78 mmHg. No contrast was given. [facility] 36on 12-05-2024 36 Met with patient in office previously - she was given 1 month of samples on 11/13/24. I will follow up Sunday to check in. Previously patient expressed concerns regarding cost (double checked - copay is very high ~$300 for 30 day supply). At office visit I provided [facility] phone number to have patient or daughter call back with income to verify whether or not she is eligible for assistance. Will also send email to patients daughter for financial assistance enrollment as previously discussed. I have pended new Rx for Eliquis 5 mg BID for your review. Additionally have set aside another 2 weeks of samples if needed in the meantime. Thanks! Caio Jacobson [facility] No Panel InformationOrdered By: Caio Humphreys on 12-01-2024 Influenza Types A,B Rapid (Clinic) Negative [facility] Visit Reporton 0 12-01-2024 Urgent Care Visit Report [facility] [address]], [address] [place], [place] [address] OFFICE VISIT Date of Service: 12/01/24 MR#: [id number] Acct: [id number] Name: SANDRA MUNROE Rep #: [id number] : 1950 Provider: ASHLEY Hardin Age/Sex: 74/F Location: [facility] Status: Signed Intake Vital Signs 10/27/24 11:22 12/01/24 15:27 Height 5 ft 2 in Weight: 187 lb BMI 34.2 BP 124/80 H 122/66 H Blood Pressure Location Lt brachial Lt brachial Position Sitting Sitting Respiration 16 12 Pulse 102 H 94 Pulse Source Monitor NIBP Temp 97.6 F L 97.8 F Temp Source Temporal Oral Pulse Oximetry (%) 97 98 Oxygen Delivery Method room air room air Intake Visit Reasons: CONCERN FOR FLU Chief Complaint: IRBY,BA, cough, congestion Allergies Penicillins Allergy (Intermediate, Verified 12/01/24 15:27) Swelling Medications ???Medication ???Instructions ???Recorded ???Confirmed ???Type cholecalciferol (vitamin D3) 50 50 mcg PO DAILY 04/21/24 12/01/24 History mcg (2,000 unit) capsule mecobalamin (vitamin B12) 1,000 3,000 mcg PO DAILY 04/21/24 History mcg chewable tablet magnesium 200 mg tablet 400 mg PO DAILY 09/30/24 12/01/24 History potassium gluconate 600 mg (99 mg) 650 mg PO DAILY 09/30/24 5 History tablet albuterol sulfate 90 mcg/actuation 2 puff inhalation Q4H PRN PRN 12/01/24 Rx aerosol inhaler (Ventolin HFA) Wheezing ##1 apixaban 5 mg tablet (Eliquis) 5 mg PO BID #60 tabs 10/27/2411/22 Rx glipizide 5 mg tablet, extended 5 mg PO DAILY #90 tabs 10/27/24 Rx release 24 hr lisinopril 5 mg tablet 5 mg PO DAILY #90 tabs 10/27/24 Rx pravastatin 80 mg tablet 80 mg PO QHS #90 tabs 10/27/2408/15 Rx levothyroxine 25 mcg tablet 25 mcg PO QDAY #90 tabs 10/29/24 0 12/01/24 Rx benzonatate 200 mg capsule 200 mg PO TID PRN cough #20 caps 0 12/01/24 12/01/24 Rx methylprednisolone 4 mg tablets in See Rx Instructions PO PER PKG D IR 12/01/24 12/01/24 Rx a dose pack (Medrol (Daniel)) #21 tabs Have you fallen in the past year?: No Nurse's Note: Patient here for cough, congestion, IRBY, BA x3 days. Ran rapid flu test. PFSH Medical History Pulmonary emboli Hypothyroidism Peripheral neuropathy Type 2 diabetes mellitus Obesity Osteoarthritis of right knee Hyperlipemia Hypertension Gallstones Cataract Arthritis Surgical History H/O eye surgery Cataract extraction status S/P wrist surgery S/P cholecystectomy History of hysterectomy H/O tubal ligation Hx of tonsillectomy Family History Father Cancer lung Diabetes Parkinson disease Arthritis Blood clot in vein Hydrocephalus Myocardial infarction Mother Myocardial infarction Heart disease Hypertension Hyperlipemia Brother Cancer lung COPD (chronic obstructive pulmonary disease) Grandfather CVA (cerebral vascular accident) Brother Bowel disease had ostomy Pneumonia due to COVID-19 virus Son Myocardial infarction Social History adopted: No household members: family number of children: 5 current occupational status: employed current occupation: [employer]. [employer]. pets and animals: Yes sexually active: No Smoking Status: Never smoker Electronic Cigarette Use: not used alcohol intake: never substance use type: does not use caffeine: Yes (1) Type: coffee frequency: does not exercise seatbelt use: always do you feel safe at home: Yes HPI HPI Chief Complaint: IRBY,BA, cough, congestion Details: SANDRA MUNROE, is a 74 F who presents to the office today for [facility] evaluation [facility] the [facility] for approximately 3 day history of persistent headache, myalgias, cough, congestion. No complaints of fever, chills, fatigue, nausea, and diarrhea. Patient notes no complaints of chest pain or shortness of breath or dyspnea on exertion. Several close contacts recently dx???d w/ similar URI complaints. No [id number] taken to assist. No other associated symptoms and no other alleviating/aggravatin g factors. ROS Const Constitutional: No other (As above) Exam Const General: cooperative, healthy appearing and no acute distress Orientation: alert, awake and oriented x3 HENMT Head: normal to inspection Ears: hearing grossly normal bilaterally, external ears normal, TM's normal bilaterally and EAC's normal Nose: external nose normal, nares normal, septum normal and clear nasal discharge Face and sinus: normal facial exam, sinuses nontender and face symmetric Mouth: oral mucosae normal, lip normal, tongue n (more content not included)... Normal [facility] ECG 12 lead - CLINIC PERFORM EDon 11-13-2024 Sinus Rhythm WITHIN NORMAL LIMITS [facility] Office Visiton 11-13-2024 Follow-up visit [id number] Momo Munroe 1950 F Date Provider Department Center 11/13/2024 [id number]-WHHPEAN RYDER [facility] JOANNE [facility] [address] Family History Problem Relation Age of Onset Heart disease Mother Cancer Father Diabetes type I Father Lung disease Father Family Status - Relation Status Age at Mother Father Level of Service:20490 SD OFFICE/OUTPATIENT ESTABLISHED MOD MDM 30 MIN Reason for Visit and Comments: Follow-up [091867] Normal [facility] Progress Noteon 11-13-2024 Progress Note [facility] Cardiology Note DATE of SERVICE:11/13/24 TIME of SERVICE: 10:41 AM Chief Complaint: Chief Complaint Patient presents with Follow-up History of PresentIllness: Sandra Munroe is a 74 y.o. female with medical history mentioned below who presents to clinic today for a follow-up visit. In summary, the patient presented to the hospital in September with acute shortness of breath. She initially presented to her local emergency department in [place]. She was found to have pulmonary embolism and was subsequently transferred to [facility] for further evaluation. I had seen the patient while she was admitted and had offered a pulmonary thrombectomy. The patient underwent thrombectomy removal of large thrombus burden. She was subsequently started on oral anticoagulation with apixaban. She did really well following her thrombectomy and was discharged home the following day. 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 Her echocardiogram performed showed normal LV function with mildly enlarged right ventricle. Since her hospital discharge, the patient has largely done well. She continues to deny any chest pain. Her shortness of breath is completely resolved. 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 She denies any lower extremity pain. She has been compliant with her apixaban. The cost of apixaban is an issue though as she is paying around $230 per 30-day supply at this time. She denies any bleeding complications. She denies any orthopnea or PND. She denies any syncope or loss of consciousness. Her blood pressures are well-controlled at home. Past Medical History: - Hypertension - Dyslipidemia - Diabetes - Pulmonary embolism Past Surgical History Past Surgical History: Procedure Laterality Date CARDIAC CATHETERIZATION N/A 10/01/2024 Performed by An Ryder MD at [facility] Cardiac Cath/EP Lab CARDIAC CATHETERIZATION N/A 10/01/2024 Performed by An Ryder MD at [facility] Cardiac Cath/EP Lab Family History Family History Problem Relation Name Age of Onset Heart disease Mother Madhu Cancer Father Colin Diabetes type I Father Colin Lung disease Father Colin Social History Social History Tobacco Use Smoking status: Never Smokeless tobacco: Never Substance Use Topics Alcohol use: Not Currently Drug use: Never Allergies: Allergies Allergen Reactions Penicillins Swelling and Hives Medications: Current Outpatient Medications: apixaban (Eliquis) 5 MG tablet, Take 2 tablets (10 mg) by mouth 2 times daily for 6 days, THEN 1 tablet (5 mg) 2 times daily., Disp: 66 tablet, Rfl: 0 Cholecalciferol (D3 2000 PO), Take by mouth., Disp: , Rfl: cyanocobalamin (Vitamin B-12) 1000 MCG tablet, Take 1,000 mcg by mouth daily., Disp: , Rfl: glipiZIDE XL (Glucotrol XL) 5 MG 24 hr tablet, Take 5 mg by mouth daily., Disp: , Rfl: levothyroxine (Synthroid, Levoxyl) 25 MCG tablet, Take 25 mcg by mouth every morning (before breakfast)., Disp: , Rfl: lisinopril 5 MG tablet, Take 5 mg by mouth daily., Disp: , Rfl: Magnesium 200 MG chewable tablet, Chew., Disp: , Rfl: POTASSIUM GLUCONATE PO, Take 650 mg by mouth., Disp: , Rfl: pravastatin (Pravachol) 80 MG tablet, Take 80 mg by mouth Nightly., Disp: , Rfl: Review of Systems: All full and complete review of systems was performed and was negative except for what is mentioned in the HPI. Physical Examination: Vitals: Vitals: 11/13/24 1012 BP: 110/58 BP Location: Left arm Patient Position: Sitting BP Cuff Size: Adult Pulse: 80 SpO2: 94% Weight: 185 lb 3.2 oz (84 kg) Height: 5' 2 (1.575 m) Body mass index is 33.87 kg/m?. Physical Exam: GEN: NAD, A&Ox3, cooperative, mood appropriate Neck: No JVD. Heart: regular rate and rhythm, No murmurs or rubs. Lungs: Clear to ausculation bilaterally without any wheezing or crackles. Abd: Soft, non-tender, non-distended. Ext: No edema. Some tightness in the RLE without any tenderness or erythema Laboratory Tests: Lab Results Component Value Date WBC 8.3 10/02/2024 HGB 10.1 (L) 10/02/2024 HCT 31.4 (L) 10/02/2024 MCV 99.4 (H) 10/02/2024 PLT 157 10/02/2024 Lab Results Component Value Date GLUCOSE 111 10/02/2024 CALCIUM 8.1 (L) 10/02/2024 NA 138 10/02/2024 K 3.8 10/02/2024 CO2 21 (L) 10/02/2024 CL 112 (H) 10/02/2024 BUN 13 10/02/2024 CREATININE 0.81 10/02/2024 @LASTCMP@ No results found for: CHLPL, CHOL No results found for: TRIG No results found for: HDL No results found for: LDLCALC, LDLDIRECT EKG 11/13/2024 (Personally reviewed) Sinus rhythm Transthoracic Echocardiogram 10/02/2024; Left Ventricle: Left ventricle size is normal. Mildly increased wall thickness. Normal left ventricular systolic function. EF by 2D Simpsons Biplane is 71%. Glob (more content not included)... Normal [facility] Internal Medicine Office Vis iton 10-24-2024 Internal Medicine Office Visit [facility] [address] [place] [address] [place] [address] OFFICE VISIT Date of Service: 10/27/24 MR#: [id number] Acct: [id number] Name: SANDRA MUNROE Rep #: [id number] : 1950 Provider: Dr. 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 [employer] Required: No Accompanied by: Self Is patient in pain?: No Allergies Penicillins Allergy (Intermediate, Verified 10/27/24 11:16) Swelling Medications ???Medication ???Instructions ???Recorded ???Confirmed ???Type cholecalciferol (vitamin D3) 50 50 mcg PO DAILY 04/21/24 10/27/24 History mcg (2,000 unit) capsule mecobalamin (vitamin B12) 1,000 3,000 mcg PO DAILY 04/21/24 10/27/24 History mcg chewable tablet magnesium 200 mg tablet 400 mg PO DAILY 09/30/24 10/27/24 History potassium gluconate 600 mg (99 mg) 650 mg PO DAILY 09/30/24 10/27/24 History tablet albuterol sulfate 90 mcg/actuation 2 puff inhalation Q4H PRN PRN 10/17/24 10/27/24 Rx aerosol inhaler (Ventolin HFA) Wheezing ##1 apixaban 5 mg tablet (Eliquis) 5 mg PO BID #60 tabs 10/27/24 10/27/24 Rx glipizide 5 mg tablet, extended 5 mg PO DAILY #90 tabs 10/27/24 10/27/24 Rx release 24 hr levothyroxine 25 mcg capsule 25 mcg PO DAILY #90 caps 10/27/24 10/27/24 Rx lisinopril 5 mg tablet 5 mg PO DAILY #90 tabs 10/27/24 10/27/24 Rx pravastatin 80 mg tablet 80 mg PO QHS #90 tabs 10/27/24 10/27/24 Rx Have you fallen in the past year?: No PFSH Medical History Pulmonary emboli Hypothyroidism Peripheral neuropathy Type 2 diabetes mellitus Obesity Osteoarthritis of right knee Hyperlipemia Hypertension Gallstones Cataract Arthritis Surgical History H/O eye surgery Cataract extraction status S/P wrist surgery S/P cholecystectomy History of hysterectomy H/O tubal ligation Hx of tonsillectomy Family History Father Cancer lung Diabetes Parkinson disease Arthritis Blood clot in vein Hydrocephalus Myocardial infarction Mother Myocardial infarction Heart disease Hypertension Hyperlipemia Brother Cancer lung COPD (chronic obstructive pulmonary disease) Grandfather CVA (cerebral vascular accident) Brother Bowel disease had ostomy Pneumonia due to COVID-19 virus Son Myocardial infarction Social History adopted: No household members: family number of children: 5 current occupational status: employed current occupation: [employer]. pets and animals: Yes sexually active: No Smoking Status: Never smoker Electronic Cigarette Use: not used alcohol intake: never substance use type: does not use caffeine: Yes (1) Type: coffee frequency: does not exercise seatbelt use: always do you feel safe at home: Yes HPI HPI Chief Complaint: hosp f/u Details: SANDRA MUNROE, is a 74 F who presents to the office today for a follow up. She is due for some routine blood work and believes she is up to date on her screening. She did get a flu shot since she was last seen. She doesn't smoke and does need refills. She reports she is eating healthy and reports her activity level is improving. She doesn't check her sugars at home. She is taking her medication as prescribed without problems. She does try to monitor her carbohydrate and sugar intake sometimes. She is still not up to date on her diabetic eye exam and doesn't see podiatry. The patient reports her neuropathy has been doing better. She takes her synthroid first thing in the morning before anything else. She doesn't check her blood pressure at home routinely. She is taking her medication as prescribed without problems and does monitor her salt intake. The patient presented to the ED on 09/30 with complaints of chest pain and shortness of breath and reports it started that day. She reports she was having associated lightheadedness and weakness. She had COVID around Thanksgiving and recovered from that. She was noted to be hypoxic and was started on oxygen. Labs demonstrated an elevated troponin and D-dimer levels and imaging confirmed bilateral pulmonary emboli. She was admitted for further management and started on anticoagulation. Given the extent of her clot burden, (more content not included)... Normal [facility] Absolute neutrophil countOrd ered By: Arun Carterehne on 10-17-2024 Neutrophils (Bld) [#/Vol] 4.8 10*3/uL 2.0-7.7 [facility] Basic Metabolic Profile (BMP )on 10-17-2024 BUN/CRE 13.2 RATIO Normal 10-20 [facility] Comment on above: Performed By: #### L 500.2500, L100.0100 #### [facility] [address] [place], [address] CA,Total 9.5 mg/dL Normal 8.5-10.1 [facility] Comment on above: Performed By: #### L 500.2500, L100.0100 #### [facility] [address] [place], [address] Chloride [Moles/Vol] 106 mmol/L Normal 98-107 [facility] Comment on above: Performed By: #### L 500.2500, L100.0100 #### [facility] [address] [place], [address] CO2 [Moles/Vol] 26.0 mmol/L Normal 21.0-32.0 [facility] Comment on above: Performed By: #### L 500.2500, L100.0100 #### [facility] [address] [place], [address] Creatinine [Mass/Vol] 1.14 mg/dL High 0.55-1.02 [facility] Comment on above: Result Comment: The validity of the calculated GFR GFRAA in patients over 70 years has not been determined. Clinical correlation is essential. Performed By: #### L 500.2500, L100.0100 #### [facility] [address] [place], [address] ECRCL 43.67 ml/min Normal [facility] Comment on above: Performed By: #### L 500.2500, L100.0100 #### [facility] [address] [place] [place], [address] EST GFR - AA 60 mL/min Normal >60 [facility] Comment on above: Result Comment: Afri can Ecuadorean GFR Calc Performed By: #### L 500.2500, L100.0100 #### [facility] [address] [place], [address] GAP 6 Normal 5-15 [facility] Comment on above: Performed By: #### L 500.2500, L100.0100 #### [facility] [address] [place], [address] GFR/1.73 sq M.predicted among non-blacks MDRD (S/P/Bld) [Vol rate/Area] 50 mL/min/{1.73_m2} Low >60 [facility] Comment on above: Result Comment: Non- GFR Calc Performed By: #### L 500.2500, L100.0100 #### [facility] [address] [place], [address] Glucose [Mass/Vol] 88 mg/dL Normal 74-106 [facility] Comment on above: Performed By: #### L 500.2500, L100.0100 #### [facility] [address] [place], [address] Potassium [Moles/Vol] 4.3 mmol/L Normal 3.5-5.1 [facility] Comment on above: Result Comment: Slig ht Hemolysis, Result may be falsely increased. Performed By: #### L 500.2500, L100.0100 #### [facility] [address] [place], [address] Sodium [Moles/Vol] 139 mmol/L Normal 136-145 [facility] Comment on above: Performed By: #### L 500.2500, L100.0100 #### [facility] [address] [place], [address] Urea nitrogen [Mass/Vol] 15 mg/dL Normal 7-18 [facility] Comment on above: Performed By: #### L 500.2500, L100.0100 #### [facility] [address] [place], [address] Basophil percentageOrdered B y: Arun Melgar on 10-17-2024 Basophils/100 WBC (Bld) 0.5 % 0-1 [facility] Blood urea nitrogen (BUN)/cr eatinine ratioOrdered By: Arun Melgar on 10-17-2024 Urea nitrogen/Creatinine [Mass ratio] 13.2 mg/mg 10- [facility] CBC W/Diff, Automatedon 09-22 Absolute Lymph 2.18 X10 3/uL Normal 0.83-4.51 [facility] Comment on above: Performed By: #### L 500.2500, L100.0100 #### [facility] [address] [place], [address] Absolute Neut 4.8 X10 3/uL Normal 2.0-7.7 [facility] Comment on above: Performed By: #### L 500.2500, L100.0100 #### [facility] [address] [place], [address] Basophils/100 WBC (Bld) 0.5 % Normal 0-1 [facility] Comment on above: Performed By: #### L 500.2500, L100.0100 #### [facility] [address] [place], [address] Eosinophils/100 WBC (Bld) 6.8 % High 0-5 [facility] Comment on above: Performed By: #### L 500.2500, L100.0100 #### [facility] [address] [place], [address] Erythrocyte distribution width (RBC) [Ratio] 14.6 % Normal 11.6-14.6 [facility] Comment on above: Performed By: #### L 500.2500, L100.0100 #### [facility] [address] [place], [address] Hematocrit (Bld) [Volume fraction] 40.6 % Normal 37-47 [facility] Comment on above: Performed By: #### L 500.2500, L100.0100 #### [facility] [address] [place], [address] Hemoglobin (Bld) [Mass/Vol] 13.1 g/dL Normal 12.0-15.0 [facility] Comment on above: Performed By: #### L 500.2500, L100.0100 #### [facility] [address] [place], [address] IG% 0.300 Normal 0.0-0.9 [facility] Comment on above: Result Comment: IG% - Immature Granulocytes (promyelocytes, myelocytes and metamyelocytes) > 1% indicates that a LEFT SHIFT is Present. Performed By: #### L 500.2500, L100.0100 #### [facility] [address] [place], [address] Lymphocytes/100 WBC (Bld) 25.1 % Normal 19-41 [facility] Comment on above: Performed By: #### L 500.2500, L100.0100 #### [facility] [address] [place], [address] MCH (RBC) [Entitic mass] 32.0 pg Normal 27.0-32.0 [facility] Comment on above: Performed By: #### L 500.2500, L100.0100 #### [facility] [address] [place], [address] MCHC (RBC) [Mass/Vol] 32.3 g/dL Normal 32-36 [facility] Comment on above: Performed By: #### L 500.2500, L100.0100 #### [facility] [address] [place], [address] MCV (RBC) [Entitic vol] 99.3 fL High 81-99 [facility] Comment on above: Performed By: #### L 500.2500, L100.0100 #### [facility] [address] [place], [address] Monocytes/100 WBC (Bld) 12.0 % High 0-10 [facility] Comment on above: Performed By: #### L 500.2500, L100.0100 #### [facility] [address] [place], [address] Neutrophils/100 WBC (Bld) 55.3 % Normal 47-70 [facility] Comment on above: Performed By: #### L 500.2500, L100.0100 #### [facility] [address] [place], [address] Nucleated RBC (Bld) [#/Vol] 0 10*3/uL Normal 0-5 [facility] Comment on above: Performed By: #### L 500.2500, L100.0100 #### [facility] [address] [place], [address] Platelet mean volume (Bld) [Entitic vol] 9.8 fL Normal 6.2-12.0 [facility] Comment on above: Performed By: #### L 500.2500, L100.0100 #### [facility] [address] [place], [address] Platelets (Bld) [#/Vol] 200 10*3/uL Normal 150-450 [facility] Comment on above: Performed By: #### L 500.2500, L100.0100 #### [facility] [address] [place], [address] RBC (Bld) [#/Vol] 4.09 10*6/uL Low 4.2-5.4 [facility] Comment on above: Performed By: #### L 500.2500, L100.0100 #### [facility] [address] [place], [address] RDW SD 53.1 fl High 35.1-43.9 [facility] Comment on above: Performed By: #### L 500.2500, L100.0100 #### [facility] [address] [place], [address] WBC (Bld) [#/Vol] 8.7 10*3/uL Normal 4.4-11.0 [facility] Comment on above: Performed By: #### L 500.2500, L100.0100 #### [facility] [address] [place], [address] Carbon dioxide measurementOr dered By: Arun Melgar on 10-17-2024 CO2 [Moles/Vol] 26.0 mmol/L 21.0-32.0 [facility] Chest PA and Lateralon 10-17 Chest PA and Lateral [facility] Imaging Services [address] [place] [address] Chest PA and Lateral MR#: [id number] Acct: [id number] Name: SANDRA MUNROE Rep #: [id number] : 1950 F 74 From: Phyllis schneider MD PCP: Dr. Ronel Padilla MD Status: [facility] ER Study: Chest PA and Lateral Date of Exam: 10/17/24 Exam# [id number] Ordering Dr: Arun Melgar DO [id number] HISTORY: cough. TECHNIQUE: XR Chest 2 Views. COMPARISON: 09/30/2024. FINDINGS: CARDIOMEDIASTINAL BORDERS: Cardiac silhouette within normal limits in size. Mediastinal contour unremarkable with calcification of the aortic knob. LUNGS: Mild linear bibasilar opacities. PLEURA: No pleural effusion or pneumothorax seen. OSSEOUS STRUCTURES: Unremarkable. RAD/Chest PA and Lateral IMPRESSION: Mild bibasilar atelectasis or inflammation. Electronically Signed: Phyllis Sparks MD at 14:32 EST , CC: Dr. Ronel Padilla MD; Dr. Arun Melgar DO Dehairer: Signed Normal [facility] Chloride measurementOrdered By: Arun Melgar on 10-17-2024 Chloride [Moles/Vol] 106 mmol/L 98-107 [facility] Emergency Department Summary on 10-17-2024 Emergency Department Summary [facility] Medical Records Department [address] [place] [address] Emergency Department Summary 10/17/24 MR#: [id number] Acct: [id number] Name: SANDRA MUNROE Rep #: [id number] : 1950 74 From: Arun Melgar DO PCP: Dr. Ronel Padilla MD Status:DEP ER Location: ED HPI History of Present Illness Chief Complaint: Cough Informant: patient and family Narrative Narrative: 74-year-old female presenting to the emergency room with cough and congestion. Patient notable recent medical history including DVT with pulmonary embolism status post thrombectomy on 02 October at [facility]. Currently on Eliquis. Patient states that she was discharged home on 03 October and has been recovering. David Swenson began to have cough and nasal congestion. Yesterday she felt chilled with some bodyaches. No definitive fevers. She notes some green sputum production occasional wheezing. [facility] Medical History Pulmonary emboli Hypothyroidism Peripheral neuropathy Type 2 diabetes mellitus Obesity Osteoarthritis of right knee Hyperlipemia Hypertension Gallstones Cataract Arthritis Home Medications ???Medication ???Instructions ???Recorded ???Last Taken ???Type aspirin 81 mg tablet,delayed 81 mg PO DAILY 04/21/24 Unknown History release (Adult Low Dose Aspirin) cholecalciferol (vitamin D3) 50 50 mcg PO DAILY 04/21/24 Unknown History mcg (2,000 unit) capsule glipizide 5 mg tablet, extended 5 mg PO DAILY 04/21/24 Unknown History release 24 hr levothyroxine 25 mcg capsule 25 mcg PO DAILY 04/21/24 Unknown History lisinopril 5 mg tablet 5 mg PO DAILY 04/21/24 Unknown History mecobalamin (vitamin B12) 1,000 3,000 mcg PO DAILY 04/21/24 Unknown History mcg chewable tablet pravastatin 80 mg tablet 80 mg PO QHS 04/21/24 Unknown History magnesium 200 mg tablet 400 mg PO DAILY 09/30/24 Unknown History potassium gluconate 600 mg (99 mg) 650 mg PO DAILY 09/30/24 Unknown History tablet albuterol sulfate 90 mcg/actuation 2 puff inhalation Q4H PRN PRN 10/17/24 Unknown Rx aerosol inhaler (Ventolin HFA) Wheezing ##1 Allergy/AdvReac Type Severity Reaction Status Date / Time Penicillins Allergy Intermediate Swelling Verified 10/17/24 12:24 Family History Father Cancer lung Diabetes Parkinson disease Arthritis Blood clot in vein Hydrocephalus Myocardial infarction Mother Myocardial infarction Heart disease Hypertension Hyperlipemia Brother Cancer lung COPD (chronic obstructive pulmonary disease) Grandfather CVA (cerebral vascular accident) Brother Bowel disease had ostomy Pneumonia due to COVID-19 virus Son Myocardial infarction Surgical History H/O eye surgery Cataract extraction status S/P wrist surgery S/P cholecystectomy History of hysterectomy H/O tubal ligation Hx of tonsillectomy Social History adopted: No household members: family number of children: 5 current occupational status: employed current occupation: [employer]. pets and animals: Yes sexually active: No Smoking Status: Never smoker Electronic Cigarette Use: not used alcohol intake: never substance use type: does not use caffeine: Yes (1) Type: coffee frequency: does not exercise seatbelt use: always do you feel safe at home: Yes ROS ROS ED Constitutional Constitutional ED: Reports chills; Denies fever(s) or weight loss Eyes Eyes: Denies change in vision or diplopia ENT ENT ED: Reports rhinorrhea; Denies ear pain or sore throat Cardiovascular Cardiovascular: Denies chest pain, orthopnea, palpitations or racing heartbeat Respiratory/Chest Respiratory/Chest: Reports cough and sputum; Denies dyspnea, dyspnea on exertion or orthopnea Gastrointestinal Gastrointestinal: Denies abdominal pain, diarrhea, nausea or vomiting Genitourinary Genitourinary ED: Denies dysuria, hematuria or urinary frequency Musculoskeletal Musculoskeletal: Reports myalgias; Denies arthralgias Integumentary Denies abscess or rash Neurologic Neurologic: Denies headache(s) or weakness Psychiatric Psychiatric: Denies anxiety, depression, suicidal ideation or suicidal thoughts Endocrine Endocrinology: Denies polydipsia, polyphagia or polyuria Allergic/Immunologic Allergic/Immunologic ED: Denies mouth swelling, tongue swelling or urticaria EXAM Physical Exam Const Vital Signs: 10/17/24 12:22 10/17/24 12:23 10/17/24 12:24 Temperature 98.2 F 98.7 F Temperature Source Oral Oral Pulse Rate 107 H 89 Respiratory Rate 18 16 Respiratory Effort Short of (more content not included)... Normal [facility] Eosinophil percentageOrdered By: Arun Melgar on 10-17-2024 Eosinophils/100 WBC (Bld) 6.8 % High 0-5 [facility] Erythrocyte distribution wid th ratioOrdered By: Arun Melgar on 10-17-2024 Erythrocyte distribution width (RBC) [Ratio] 14.6 % 11.6-14.6 [facility] Erythrocyte distribution wid th standard deviationOrdered By: Arun Melgar on 10-17-2024 Erythrocyte distribution width (RBC) [Entitic vol] 53.1 fL High 35.1-43.9 [facility] Estimated glomerular filtrat ion rate (GFR) AmericanOrdered By: Arun Melgar on 10-17-2024 Estimated GFR (MDRD) Amer 60 mL/min >60 [facility] Comment on above: GFR Calc Estimation of creatinine rolf aranceOrdered By: Arun Melgar on 10-17-2024 Estimated Creatinine Clearance Calc 43.67 ml/min [facility] Glomerular filtration rate ( GFR) estimationOrdered By: Arun Melgar on 10-17-2024 Estimated GFR (MDRD) Non-Af Amer 50 mL/min Low >60 [facility] Comment on above: Non- GFR Calc Glucose measurementOrdered B y: Arun Melgar on 10-17-2024 Glucose [Mass/Vol] 88 mg/dL 74-106 [facility] Hematocrit Auto (Bld) [Volum e fraction]Ordered By: Arun Melgar on 10-17-2024 Hematocrit (Bld) [Volume fraction] 40.6 % 37-47 [facility] Hemoglobin measurementOrdere d By: Arun Melgar on 10-17-2024 Hemoglobin (Bld) [Mass/Vol] 13.1 g/dL 12.0-15.0 [facility] Immature granulocytes/100 WB C Auto (Bld)Ordered By: Arun Melgar on 10-17-2024 Immature granulocytes/100 WBC (Bld) 0.300 % 0.0-0.9 [facility] Comment on above: IG% - Immature Granu locytes (promyelocytes, myelocytes and metamyelocytes) > 1% indicates that a LEFT SHIFT is Present. Influenza virus A and B and SARS-CoV-2 (COVID-19) and Respiratory syncytial virus RNAOrdered By: Arun Melgar on 10-17-2024 SARS-CoV-2 (COVID-19) RNA ROSIBEL+probe Ql (Unsp spec) RSV Abnormal [facility] Lymphocytes Auto (Unsp spec) [#/Vol]Ordered By: Arun Melgar on 10-17-2024 Lymphocytes (Bld) [#/Vol] 2.18 10*3/uL 0.83-4.51 [facility] Lymphocytes/100 WBC Auto (Un sp spec)Ordered By: Arun Melgar on 10-17-2024 Lymphocytes/100 WBC (Bld) 25.1 % 19-41 [facility] M100.678on 10-17-2024 M100.678 Pending SARS-CoV-2 (COVID 19) Negative INFLUENZA A Negative INFLUENZA B Negative RSV PCR A Positive A RSV Normal [facility] Comment on above: Performed By: #### L 300.3900, L300.4310 #### [facility] [address] [place], [address] MCV (mean corpuscular volume ) determinationOrdered By: Arun Melgar on 10-17-2024 MCV (RBC) [Entitic vol] 99.3 fL High 81-99 [facility] Mean corpuscular hemoglobin (MCH) determinationOrdered By: Arun Melgar on 10-17-2024 MCH (RBC) [Entitic mass] 32.0 pg 27.0-32.0 [facility] Mean corpuscular hemoglobin concentration (MCHC) determinationOrdered By: Arun Melgar on 10-17-2024 MCHC (RBC) [Mass/Vol] 32.3 g/dL 32-36 [facility] Mean platelet volume determi nationOrdered By: Arun Melgar on 10-17-2024 Platelet mean volume (Bld) [Entitic vol] 9.8 fL 6.2-12.0 [facility] Monocyte percentageOrdered B y: Arun Melgar on 10-17-2024 Monocytes/100 WBC (Bld) 12.0 % High 0-10 [facility] Neutrophil percentageOrdered By: Arun Melgar on 10-17-2024 Neutrophils/100 WBC (Bld) 55.3 % 47-70 [facility] Nucleated red blood cell per centageOrdered By: Arun Melgar on 10-17-2024 Nucleated RBC/100 WBC (Bld) [Ratio] 0 % 0-5 [facility] Platelet countOrdered By: Corbin Melgar on 10-17-2024 Platelets (Bld) [#/Vol] 200 10*3/uL 150-450 [facility] Potassium measurementOrdered By: Arnu Melgar on 10-17-2024 Potassium [Moles/Vol] 4.3 mmol/L 3.5-5.1 [facility] Comment on above: Slight Hemolysis, Re sult may be falsely increased. RBC Auto (Bld) [#/Vol]Ordere d By: Arun Melgar on 10-17-2024 RBC (Bld) [#/Vol] 4.09 10*6/uL Low 4.2-5.4 [facility] Serum anion gap measurementO rdered By: Arun Melgar on 10-17-2024 Anion gap [Moles/Vol] 6 mmol/L 5-15 [facility] Serum or plasma calcium aiden urement (mass/volume)Ordered By: Arun Melgar on 10-17-2024 Calcium [Mass/Vol] 9.5 mg/dL 8.5-10.1 [facility] Serum or plasma creatinine m easurement (mass/volume)Ordered By: Arun Melgar on 10-17-2024 Creatinine [Mass/Vol] 1.14 mg/dL High 0.55-1.02 [facility] Comment on above: The validity of the calculated GFR & GFRAA in patients over 70 years has not been determined. Clinical correlation is essential. Serum or plasma urea nitroge n measurement (mass/volume)Ordered By: Arun Melgar on 10-17-2024 Urea nitrogen [Mass/Vol] 15 mg/dL 7-18 [facility] Sodium levelOrdered By: Catalino Melgar on 10-17-2024 Sodium [Moles/Vol] 139 mmol/L 136-145 [facility] White blood cell (WBC) count Ordered By: Arun Melgar on 10-17-2024 WBC (Bld) [#/Vol] 8.7 10*3/uL 4.4-11.0 [facility] Culture, Blood (WB)on 2023 CUB Blood cultures x2, from two different sites No growth in 5 days. Normal [facility] Comment on above: Performed By: #### L 500.2500, L100.0100 #### [facility] [address], [address] 30on 10-02-2024 30 Problem: Knowledge Deficit Goal: Patient/family/caregiv er demonstrates understanding of disease process, treatment plan, medications, and discharge instructions Outcome: Adequate for Discharge Problem: Potential for Compromised Skin Integrity Goal: Skin Integrity is Maintained or Improved Outcome: Adequate for Discharge Goal: Nutritional status is improving Outcome: Adequate for Discharge Problem: Urinary Incontinence Goal: Perineal skin integrity is maintained or improved Outcome: Adequate for Discharge Normal [facility] CBC W Auto Differential pane l (Bld)Ordered By: Ace Renner on 10-02-2024 Basophils (Bld) [#/Vol] 0 10*3/uL 0.0 - 0.2 10*3/uL [facility] Basophils/100 WBC (Bld) 0.2 % 0.0 - 2.0 % [facility] Eosinophils (Bld) [#/Vol] 0.2 10*3/uL 0.0 - 0.5 10*3/uL [facility] Eosinophils/100 WBC (Bld) 2.2 % 0.0 - 6.0 % [facility] Erythrocyte distribution width (RBC) [Ratio] 13.3 % 11.5 - 15.0 % [facility] Hematocrit (Bld) [Volume fraction] 31.4 % Low 35.0 - 47.0 % [facility] Hemoglobin (Bld) [Mass/Vol] 10.1 g/dL Low 11.7 - 16.0 g/dL [facility] Immature granulocytes (Bld) [#/Vol] 0 10*3/uL NINF - 0.1 10*3/uL [facility] Immature granulocytes/100 WBC (Bld) 0.5 % 0.0 - 2.0 % [facility] Interpretation and review of laboratory results Abnormal [facility] Lymphocytes (Bld) [#/Vol] 2.1 10*3/uL 1.0 - 4.3 10*3/uL [facility] Lymphocytes/100 WBC (Bld) 25 % 15.0 - 45.0 % [facility] MCH (RBC) [Entitic mass] 32 pg 26.0 - 34.0 pg [facility] MCHC (RBC) [Mass/Vol] 32.2 % 30.5 - 36.0 % [facility] MCV (RBC) [Entitic vol] 99.4 fL High 77.0 - 99.0 fL [facility] Monocytes (Bld) [#/Vol] 0.7 10*3/uL 0.0 - 0.9 10*3/uL [facility] Monocytes/100 WBC (Bld) 8.3 % 5.0 - 13.0 % [facility] Neutrophils (Bld) [#/Vol] 5.3 10*3/uL 1.8 - 7.5 10*3/uL [facility] Neutrophils/100 WBC (Bld) 63.8 % 38.0 - 82.0 % [facility] Nucleated RBC/100 WBC (Bld) [Ratio] 0 % [facility] Platelet mean volume (Bld) [Entitic vol] 10.2 fL 9.0 - 12.7 fL [facility] Platelets (Bld) [#/Vol] 157 10*3/uL 140 - 440 10*3/uL [facility] RBC (Bld) [#/Vol] 3.16 10*6/uL Low 3.80 - 5.2 0 10*6/uL [facility] WBC (Bld) [#/Vol] 8.3 10*3/uL 3.6 - 10.7 10*3/uL [facility] CBC WITH AUTO DIFFERENTIALon 10-02-2024 Basophils (Bld) [#/Vol] 0.0 10*3/uL Normal 0.0-0.2 [facility] Comment on above: Performed By: #### L [id number] ####Shuttle Route Vehicle Operator: LIVIA [phone])[address] Basophils/100 WBC (Bld) 0.2 % Normal 0.0-2.0 [facility] Comment on above: Performed By: #### L [id number] ####[employer] Vehicle Operator: LIVIA [phone])[facility])[address] [place] [address] Eosinophils (Bld) [#/Vol] 0.2 10*3/uL Normal 0.0-0.5 [facility] Comment on above: Performed By: #### L [id number] ####[employer] Vehicle Operator: LIVIA [phone])[facility])[address] [place] [address] Eosinophils/100 WBC (Bld) 2.2 % Normal 0.0-6.0 [facility] Comment on above: Performed By: #### L [id number] ####[employer] Vehicle Operator: LIVIA VARGAS ([phone])[facility])[address] [place] [address] Erythrocyte distribution width (RBC) [Ratio] 13.3 % Normal 11.5-15.0 [facility] Comment on above: Performed By: #### L [id number] ####[employer] Vehicle Operator: LIVIA VARGAS ([phone])[facility])[address] [place] [address] Hematocrit (Bld) [Volume fraction] 31.4 % Low 35.0-47.0 [facility] Comment on above: Performed By: #### L [id number] ####[employer] Vehicle Operator: LIVIA VARGAS ([phone])[facility])[address] [place] [address] Hemoglobin (Bld) [Mass/Vol] 10.1 g/dL Low 11.7-16.0 [facility] Comment on above: Performed By: #### L [id number] ####[employer] Vehicle Operator: LIVIA VARGAS ([phone])[facility])[address] [place] [address] IMMATURE GRANS % 0.5 % Normal 0.0-2.0 [facility] Comment on above: Performed By: #### L [id number] ####[employer] Vehicle Operator: LIVIA VARGAS ([phone])[facility])[address] [place] [address] IMMATURE GRANS ABSOLUTE 0.0 10*3/uL Normal <0.1 [facility] Comment on above: Performed By: #### L [id number] ####[employer] Vehicle Operator: LIVIA VARGAS ([phone])[facility])[address] [place] [address] Lymphocytes (Bld) [#/Vol] 2.1 10*3/uL Normal 1.0-4.3 [facility] Comment on above: Performed By: #### L [id number] ####[employer] Vehicle Operator: LIVIA VARGAS ([phone])[facility])[address] [place] [address] Lymphocytes/100 WBC (Bld) 25.0 % Normal 15.0-45.0 [facility] Comment on above: Performed By: #### L [id number] ####[employer] Vehicle Operator: LIVIA VARGAS ([phone])[facility])[address] [place] [address] MCH (RBC) [Entitic mass] 32.0 pg Normal 26.0-34.0 [facility] Comment on above: Performed By: #### L [id number] ####[employer] Vehicle Operator: LIVIA VARGAS ([phone])[facility])[address] [place] [address] MCHC 32.2 % Normal 30.5-36.0 [facility] Comment on above: Performed By: #### L [id number] ####[employer] Vehicle Operator: LIVIA VARGAS ([phone])[facility])[address] [place] [address] MCV (RBC) [Entitic vol] 99.4 fL High 77.0-99.0 [facility] Comment on above: Performed By: #### L [id number] ####Shuttle Route Vehicle Operator: LIVIA VARGAS ([phone])[facility])[address] [place] [address] Monocytes (Bld) [#/Vol] 0.7 10*3/uL Normal 0.0-0.9 [facility] Comment on above: Performed By: #### L [id number] ####Shuttle Route Vehicle Operator: LIVIA VARGAS ([phone])[facility])[address] [place] [address] Monocytes/100 WBC (Bld) 8.3 % Normal 5.0-13.0 [facility] Comment on above: Performed By: #### L [id number] ####Shuttle Route Vehicle Operator: LIVIA VARGAS ([phone])[facility])[address] [place] [address] NEUTROPHILS ABSOLUTE 5.3 10*3/uL Normal 1.8-7.5 [facility] Comment on above: Performed By: #### L [id number] ####Shuttle Route Vehicle Operator: LIVIA VARGAS ([phone])[facility])[address] [place] [address] Neutrophils/100 WBC (Bld) 63.8 % Normal 38.0-82.0 [facility] Comment on above: Performed By: #### L [id number] ####Shuttle Route Vehicle Operator: LIVIA VARGAS ([phone])[facility])[address] [place] [address] NRBC 0.0 /100 WBCs Normal 0.0-2.0 [facility] Comment on above: Performed By: #### L [id number] ####Shuttle Route Vehicle Operator: LIVIA VARGAS ([phone])[facility])[address] [place] [address] Platelet mean volume (Bld) [Entitic vol] 10.2 fL Normal 9.0-12.7 [facility] Comment on above: Performed By: #### L [id number] ####Shuttle Route Vehicle Operator: LIVIA VARGAS ([phone])[facility])[address] [place] [address] Platelets (Bld) [#/Vol] 157 10*3/uL Normal 140-440 [facility] Comment on above: Performed By: #### L [id number] ####Shuttle Route Vehicle Operator: LIVIA VARGAS ([phone])[facility])[address] [place] [address] RBC (Bld) [#/Vol] 3.16 10*6/uL Low 3.80-5.20 [facility] Comment on above: Performed By: #### L [id number] ####Shuttle Route Vehicle Operator: LIVIA VARGAS ([phone])[facility])[address] [place] [address] WBC (Bld) [#/Vol] 8.3 10*3/uL Normal 3.6-10.7 [facility] Comment on above: Performed By: #### L [id number] ####Shuttle Route Vehicle Operator: LIVIA VARGAS ([phone])[facility])[address] [place] [address] COMPREHENSIVE METABOLIC PANE Serge 10-02-2024 Albumin [Mass/Vol] 2.8 g/dL Low 3.4-4.8 [facility] Comment on above: Performed By: #### L [id number] ####Shuttle Route Vehicle Operator: LIVIA VARGAS ([phone])[facility])[address] [place] [address] ALP [Catalytic activity/Vol] 98 U/L Normal 40-150 [facility] Comment on above: Performed By: #### L [id number] ####Shuttle Route Vehicle Operator: LIVIA VARGAS ([phone])[facility] ([facility])[address] [place] [address] ALT [Catalytic activity/Vol] 6 U/L Normal <30 [facility] Comment on above: Performed By: #### L [id number] ####Shuttle Route Vehicle Operator: LIVIA VARGAS ([id number])[facility] ([facility])[address] [place] [address] Anion gap [Moles/Vol] 5 mmol/L Normal 3-13 [facility] Comment on above: Performed By: #### L [id number] ####Shuttle Route Vehicle Operator: LIVIA VARGAS ([id number])[facility])[address] [place] [address] AST [Catalytic activity/Vol] 16 U/L Normal <34 [facility] Comment on above: Performed By: #### L [id number] ####Shuttle Route Vehicle Operator: LIVIA VARGAS ([id number])[facility])[address] [place] [address] Bilirubin [Mass/Vol] 0.4 mg/dL Normal <1.2 [facility] Comment on above: Performed By: #### L [id number] ####Shuttle Route Vehicle Operator: LIVIA VARGAS ([id number])[facility] [place] [address] Calcium [Mass/Vol] 8.1 mg/dL Low 8.8-10.0 [facility] Comment on above: Performed By: #### L [id number] ####Shuttle Route Vehicle Operator: LIVIA VARGAS ([id number])[facility])[address] [place] [address] [place] Chloride [Moles/Vol] 112 mmol/L High 98-107 [facility] Comment on above: Performed By: #### L [id number] ####Shuttle Route Vehicle Operator: LIVIA VARGAS ([phone])[facility] [place] [address] CO2 [Moles/Vol] 21 mmol/L Low 23-31 [facility] Comment on above: Performed By: #### L [id number] ####Shuttle Route Vehicle Operator: LIVIA VARGAS ([id number])[facility] [place] [address] Creatinine [Mass/Vol] 0.81 mg/dL Normal 0.57-1.11 [facility] Comment on above: Performed By: #### L [id number] ####Shuttle Route Vehicle Operator: LIVIA VARGAS ([phone])[facility] ([facility])[address] [place] [address] [place] GLOMERULAR FILTRATION RATE ML/MIN/1.73 SQ M.PREDICTED 76.3 mL/min/1.73m*2 Normal >60.0 [facility] Comment on above: Result Comment: Calc ulation based on the Chronic Kidney Disease Epidemiology Collaboration (CKD-EPI) equation refit without adjustment for race Performed By: #### L [id number] ####Shuttle Route Vehicle Operator: LIVIA VARGAS ([id number])[facility])[address] [place] [address] [place] Glucose [Mass/Vol] 111 mg/dL Normal 82-115 [facility] Comment on above: Performed By: #### L [id number] ####Shuttle Route Vehicle Operator: LIVIA VARGAS ([id number])[facility] ([facility])[address] [place] [address] Potassium [Moles/Vol] 3.8 mmol/L Normal 3.5-5.1 [facility] Comment on above: Result Comment: [facility] potassium values may be up to 0.5 mmol/L lower than serum values. Performed By: #### L [id number] ####Shuttle Route Vehicle Operator: LIVIA VARGAS ([id number])[facility] ([facility])[address] [place] [address] Protein [Mass/Vol] 6.1 g/dL Low 6.4-8.3 [facility] Comment on above: Performed By: #### L [id number] ####Shuttle Route Vehicle Operator: LIVIA VARGAS ([id number])[facility])[address] [place] [address] Sodium [Moles/Vol] 138 mmol/L Normal 136-145 [facility] Comment on above: Performed By: #### L AB17 ####Shuttle Route Vehicle Operator: LIVIA VARGAS ([id number])[facility] ([facility])[address] [place] [address] Urea nitrogen [Mass/Vol] 13 mg/dL Normal 9-23 [facility] Comment on above: Performed By: #### L AB17 ####Shuttle Route Vehicle Operator: LIVIA VARGAS ([id number])[facility])[address] [place] [address] Comprehensive metabolic 1998 panelon 10-02-2024 Albumin [Mass/Vol] 2.8 g/dL Low 3.4 - 4.8 g/dL [facility] ALP [Catalytic activity/Vol] 98 U/L 40 - 150 U/L [facility] ALT [Catalytic activity/Vol] 6 U/L NINF - 30 U/L [facility] Anion gap [Moles/Vol] 5 mmol/L 3 - 13 mmol/L [facility] AST [Catalytic activity/Vol] 16 U/L NINF - 34 U/L [facility] Bilirubin [Mass/Vol] 0.4 mg/dL NINF - 1.2 mg/dL [facility] Calcium [Mass/Vol] 8.1 mg/dL Low 8.8 - 10. 0 mg/dL [facility] Chloride [Moles/Vol] 112 mmol/L High 98 - 10 7 mmol/L [facility] CO2 [Moles/Vol] 21 mmol/L Low 23 - 31 mmol/L [facility] Creatinine [Mass/Vol] 0.81 mg/dL 0.57 - 1.11 mg/dL [facility] GFR/1.73 sq M.predicted (S/P/Bld) [Vol rate/Area] 76.3 mL/min - PINF [facility] Comment on above: Calculation based on the Chronic Kidney Disease Epidemiology Collaboration (CKD-EPI) equation refit without adjustment for race Glucose [Mass/Vol] 111 mg/dL 82 - 115 mg/dL [facility] Interpretation and review of laboratory results Abnormal [facility] Potassium [Moles/Vol] 3.8 mmol/L 3.5 - 5.1 mmol/L [facility] Comment on above: Plasma potassium bandar ues may be up to 0.5 mmol/L lower than serum values. Protein [Mass/Vol] 6.1 g/dL Low 6.4 - 8.3 g/dL [facility] Sodium [Moles/Vol] 138 mmol/L 136 - 145 mmol/L [facility] Urea nitrogen [Mass/Vol] 13 mg/dL 9 - 23 mg/dL [facility] Laboratory - Chemistry and C hemistry - challengeon 10-02-2024 Glucose [Mass/Vol] 181 mg/dL High 70 - 100 mg/dL [facility] Laboratory - Coagulationon 1 12-03-2023 aPTT Coag (PPP) [Time] 26.6 s 20.0 - 30.5 s [facility] INR Coag (PPP) [Relative time] 1.1 {INR} 0.9 - 1.1 [facility] Comment on above: Recommended Anticoag ulant Therapy: SEE BELOW ----- INR of 2.0 - 3.0 : - Prophylaxis of Venous Thrombosis (high-risk surgery) - Treatment of Venous Thrombosis - Treatment of Pulmonary Embolism (Includes tissue heart valves, Acute Myocardial Infarction to prevent systemic embolism, Valvular Heart Disease, and Atrial Fibrillation) ----- INR of 2.5 - 3.5 : - Mechanical Prosthetic Valves (high risk) - If oral anticoagulant therapy is used to prevent Myocardial Infarction PT Coag (Bld) [Time] 12 s 9.0 - 1 2.0 s 2-Observe No Panel Informationon 10-02 Acute extensive DVT in the right lower extremity as described below. Age indeterminate occlusive deep vein thrombosis in the left gastrocnemius vein. Acute occlusive deep vein thrombosis in the left soleal vein. No evidence of superficial thrombosis in the right lower extremity. No evidence of superficial thrombosis in the left lower extremity. Right Lower Venous No evidence of superficial thrombosis in the right lower extremity. Common Femoral Vein: Patent, normal phasicity, spontaneous, normal augmentation, compressible. Greater Saphenous Vein: Entire vessel patent, compressible Saphenofemoral Junction: Patent, compressible. Small Saphenous Vein: Patent, compressible. Femoral Vein: Acute non-occlusive thrombus. Popliteal Vein: Acute occlusive thrombus. Gastrocnemius Vein: Patent, compressible. Soleal Vein: Acute occlusive thrombus. Posterior Tibial Vein: Acute occlusive thrombus. Peroneal Vein: Acute occlusive thrombus. Bandage in right groin limiting visualization. Left Lower Venous No evidence of superficial thrombosis in the left lower extremity. Common Femoral Vein: Patent, normal phasicity, spontaneous, normal augmentation, compressible. Greater Saphenous Vein: Enitre vessel patent, compressible. Saphenofemoral Junction: Patent, compressible. Small Saphenous Vein: Patent, compressible. Profunda Femoral Vein: Patent. Femoral Vein: Patent, normal phasicity, spontaneous, normal augmentation, compressible. Popliteal Vein: Patent, normal phasicity, spontaneous, normal augmentation, compressible. Gastrocnemius Vein: Age indeterminate occlusive thrombus. Soleal Vein: Acute occlusive thrombus. Posterior Tibial Vein: Patent, compressible. Peroneal Vein: Patent, compressible. Food Technologist Details A schmidt scale, color Doppler imaging and spectral Doppler analysis ultrasound was performed. During the study longitudinal and transverse views were obtained. Pulsed wave doppler was performed. The exam was performed with the patient in the supine position. Overall the study quality was adequate. Study was technically difficult due to: presence of lines and dressings. CV CPACS Interpretation and review of laboratory results Abnormal 2-Observe Performed by: [employer] [facility], [address] [place], [place] [id number] CLIA ID: [id number] [employer] [facility] Interpretation and review of laboratory results Abnormal [employer] POCT ACT 208 High [employer] Performed by: [facility], [address] [address] CLIA ID: [id number] [facility] POCT ACT 217 [facility] POCT ACT 259 [facility] Interpretation and review of laboratory results Normal [facility] PROTIME AND APTTon 4 aPTT Coag (Bld) [Time] 26.6 s Normal 20.0-30.5 [facility] Comment on above: Performed By: #### Junior [id number] ####Shuttle Route Vehicle Operator: LIVIA VARGAS ([id number])[facility] ([facility])[address] [place] [address] INR Coag (PPP) [Relative time] 1.1 {INR} Normal 0.9-1.1 [facility] Comment on above: Result Comment: Liam mmended Anticoagulant Therapy: SEE BELOW ----- INR of 2.0 - 3.0 : - Prophylaxis of Venous Thrombosis (high-risk surgery) - Treatment of Venous Thrombosis - Treatment of Pulmonary Embolism (Includes tissue heart valves, Acute Myocardial Infarction to prevent systemic embolism, Valvular Heart Disease, and Atrial Fibrillation) ----- INR of 2.5 - 3.5 : - Mechanical Prosthetic Valves (high risk) - If oral anticoagulant therapy is used to prevent Myocardial Infarction Performed By: #### L [id number] ####Shuttle Route Vehicle Operator: LIVIA VARGAS ([id number])[facility] ([facility])[address] [place] [address] PT Coag (PPP) [Time] 12.0 s Normal 9.0-12.0 [facility] Comment on above: Performed By: #### L [id number] ####Shuttle Route Vehicle Operator: LIVIA VARGAS ([phone])[facility] ([facility])[address] [place] [address] Progress Noteon 10-02-2024 Progress Note -- Attestation signed by Jose Roberto Holguin MD at 10/02/2024 7:44 PM I have personally performed a [id number] diagnostic evaluation on this patient on date of service 10/02/24. History, labs, imaging studies, and electronic medical record have been reviewed by me. This note documented by the [x]house visitor []MARGIE reflects my history, exam, and medical decision making. I have reviewed and agree with the care plan. Changes were made in the orders as necessary. ROS documentation was reviewed and negative unless otherwise stated in HPI. Additional pertinent interval history, ROS, and physical exam findings: Ambulating off oxygen without desat. No pre-syncope. BP stable. Ok for discharge. BP normal/elevated. Should be able to resume low-dose ACEi. ICU Progress Note Name: Sandra Munroe : 1950(74 y.o.) Date: 10/02/24 Team: MICU Attending: Dr. Holguin Subjective: Hospital Summary: On 09/30 Pt began to get short of breath and lightheaded around 1PM. She presented to the ED at [facility]. D-dimer was elevated so CTA chest was obtained. Showed bilateral extensive PE without evidence of RV strain. Was started on a heparin gtt. Pt was also noted to be hypoxic so was placed on HFNC. Pt reports she tested positive for COVID on 09/16 and was essentially bed bound recovering. Denies any recent surgery. No trauma or other illness. Pt reports her last medical procedure was in July when she got a Rt knee injection. Interval Events: Pt resting bed this AM. Thrombectomy performed yesterday. Pt satting well on room air. States her breathing feels much better. ECHO being done this AM. Pt has no complaints. Scheduled Meds:apixaban, 10 mg, Oral, BID Followed by [START ON 10/08/2024] apixaban, 5 mg, Oral, BID cyanocobalamin, 1,000 mcg, Oral, Daily influenza, 0.5 mL, IntraMUSCular, Once insulin lispro, 0-6 Units, SubCUTAneous, TID WC levothyroxine, 25 mcg, Oral, qAM AC [Held by provider] lisinopril, 5 mg, Oral, Daily mupirocin, 1 Application, Nasal, BID pantoprazole, 40 mg, Oral, qAM AC pravastatin, 80 mg, Oral, Nightly Continuous Infusions: Objective: Last Vitals: BP MAP 109/94 (10/02/24 1000) 101 (10/02/24 1000) Arterial BP MAP Temp 36.8 ?C (98.2 ?F) (10/02/24 0800) Pulse 83 (10/02/24 1000) Resp 23 (10/02/24 0900) SpO2 92 % (10/02/24 1000) Weight 181 lb (82.1 kg) (10/02/24 0848) BMI Body mass index is 33.11 kg/m?. I/O: 10/01 0700 - 10/02 0659 In: 400 [P.O.:380; I.V.:20] Out: 5 Ventilator: Oxygen Delivery: O2 Flow Rate (L/min): 2 L/min Invasive Lines / Tubes / Drains: Peripheral IV 10/01/24 Anterior;Left;Proximal Antecubital (Active) Number of days: 0 Peripheral IV 10/01/24 Anterior;Right Wrist (Active) Number of days: 0 Central Line Indication: NA - patient does not have a central line Etienne Indications: NA - patient does not have a Etienne catheter Restraints: NA - patient is not restrained. Wounds: Puncture Site 10/01/24 Leg Anterior;Proximal;Righ t;Upper (Active) Date First Assessed/Time First Assessed: 10/01/241532 Location: Leg Wound Location Orientation: Anterior;Proximal;Righ t;Upper Constitutional: General Appearance [x]WDWN [x]Obese []Cachectic []Thin []Ill Eyes: Inspection of Pupils/Irises Pupils round and react: [x]Yes []No Sclera: []Icteric [x]Non-Icteric Inspection of Conjunctiva/Lids Conjunctiva: []Injected [x]Non-Injected Lids: [x]Intact []Lesion Present ENT/Mouth: External Inspection of ears/nose [] Normal [] Scar/Lesion/Mass Inspection of teeth/lips/gums Dentition: [x][place] Teeth []Dentures Lips/Gums: [x]Intact []Lesion Present Mucosa: [x][place] []Moist []Dry Neck: External Appearance Overall Appearance: []Normal []Lesion/Mass/Crepitus Present Trachea midline: []Yes []No Thyroid [x]Normal []Enlarged []Tender []Mass []Absent Respiratory: Respiratory effort []Labored [x]Non-Labored [] Mechanically-Ventilate d Auscultation [x]Clear []Crackles []Wheezes []Rhonchi Cardiovascular: Auscultation Rate: [x]Regular []Irregular []Tachycardia []Bradycardia Rhythm: [x]Regular []Irregular Murmur: []Present [x]Absent Extremities Peripheral Edema: []Present [x]Absent Varicosities: []Present []Absent Gastrointestinal: Abdomen Palpation: [x]Soft []Firm []Tender [x]Non-Tender []Distended [x]Non-distended Mass: []Present [x]Absent Bowel Sounds: [x]Present []Absent Hernia: []Present []Absent Liver/Spleen: []Hepatosplenomegaly []Organomegaly Absent Musculoskeletal: Inspection of Digits and Nails Cyanosis: []Present [x]Absent Clubbing: []Present [x]Absent Ischemia: []Present [x]Absent Infection: []Present [x]Absent Extremities M (more content not included)... Normal [facility] Progress Note -- Attestation signed by An Ryder MD at 10/02/2024 3:00 PM This patient was seen and personally examined by me. Labs, imaging studies and electronic medical record reviewed. See [x]progress note []H&P []Consult documented by MARGIE which reflects my hpi, pmh, psh, ros, fh, sh as well with my additions and assessment and plan as I discussed with the MARGIE. Ms. Castellanos is okay 74-year-old lady who presented to the hospital initially in [place] with acute onset of more shortness of breath and dizziness. She was found to have large pulmonary embolism with a saddle component. She was taken for mechanical thrombectomy yesterday with removal of large thrombus burden. Subsequently the patient did really well. She has been weaned off oxygen overnight. Her right femoral access site is without any hematoma. An echocardiogram performed today showing normal LV function and some mild RV dilation. She has been transition from heparin to Eliquis. She will continue 10 mg twice daily for 7 days then subsequently would reduce to 5 mg twice daily. Her DVT scan is done but the results are still pending at this time. From our standpoint the patient can be discharged later today as long as she walks in the hallways and does fine without any drop in any O2 sats. Even though the patient did have COVID not too long ago which is considered a prothrombotic state I would recommend lifelong anticoagulation given the extent of her pulmonary embolism on presentation. The patient is not very active at baseline as well. We will arrange follow-up with the cardiology team as an outpatient. An Ryder MD, [facility], [facility] Client Support Representative [facility] [place] [address] [place] [address] [place] [address] p [phone] f [phone] [email or web address] [facility] [place] [facility] Interventional Cardiology NAME: Sandra Munroe DATE OF : 1950 CHIEF COMPLAINT Shortness of breath/PE ASSESSMENT AND PLAN Submassive saddle PE S/p an INARI 10/01/24. Overall patient doing well at this time. Her SaO2 stable on room air, she doing well with ambulation. Patient will be maintained on apixaban 5 mg twice daily after loading dose 10 mg twice daily x 7 days. At this time we will plan for long-term oral anticoagulation. She okay for discharge from our standpoint. All questions were answered. Primary Hypertension Blood pressure is well controlled. BP Goal <120/80. Blood pressure soft at times, but she is asymptomatic. Continue lisinopril. Lifestyle modification with DASH diet, Limit caffeine and alcohol, and avoid tobacco use. Avoid NSAIDs and decongestants. Continue to monitor and report persistent HTN. Mixed Hyperlipidemia Last LDL undetectable second to hypertriglyceridemia. Recommended goal of <55 mg/dL per ESC guidelines. Last LFTs were stable. Continue pravastatin. Follow low fat/low cholesterol diet. See addendum for further recommendations. SUBJECTIVE Sandra Munroe is an 74 y.o. female with past medical history significant for hypertension, hyperlipidemia, diabetes with neuropathy, and obesity. She presented to [facility] with shortness of breath and dizziness. Recently had COVID around Thanksgiving and has not been active. Upon admission her SaO2 was 70% she was started on high flow nasal cannula. CT showed bilateral saddle pulmonary embolism. At bedtime troponin mildly elevated. Transferred to [facility] for possible thrombectomy. RV dilation noted on CT. She underwent and INARI procedure with removal of large thrombus burden. TTE completed today official results pending but LVEF 71%, RV non-dilated. Today patient was up ambulating the unit without difficulty on room air. Her family at bedside. Her breathing is much improved. Denies any chest pain, chest tightness, palpitations, dizziness, lightheadedness, presyncope or syncope. Denies any SOB, edema, orthopnea, PND, bendopnea, fatigue, or weight changes. Denies myalgia, nausea, vomiting, diarrhea, dysuria, fever, or chills. No acute events overnight. Allergies Allergen Reactions Penicillins Swelling OBJECTIVE Vitals: 10/02/24 0800 10/02/24 0848 10/02/24 0900 10/02/24 1000 BP: 131/62 113/70 109/94 BP Location: Left arm Patient Position: Lying Pulse: 91 92 83 Resp: 17 23 Temp: 36.8 ?C (98.2 ?F) TempSrc: Temporal SpO2: 93% 96% 92% Weight: 181 lb (82.1 kg) Height: 5' 2 (1.575 m) Intake/Output Summary (Last 24 hours) at 10/02/2024 1054 Last data filed at 10/02/2024 0645 Gross per 24 hour Intake 400 ml Output 5 ml Net 395 ml Physical Exam Constitutional: General: She is not in acute distress. Appearance: Normal appearance. Neck: Vascular: No JVD. Cardiovascular: Rate and Rhythm: (more content not included)... Normal [facility] Progress Note PHYSICAL THERAPY [facility] Name/MRN: Sandra Munroe ([id number]) Date: 10/02/2024 PT orders received. Per orders, PT eval and treat - if Josh mobility sub score is less than or equal to 2 (Activity/Mobility). Current Activity/Mobility score is 3. Will sign off PT. If PT eval is needed, will need eval and treat orders placed. Ana Jose, PT Normal [facility] US Heart TransthoracicOrdere d By: Sacha Prado on 10-02-2024 Ao Root Index 1.86 cm/m2 [facility] Work Phone: Aortic Arch 2.4 cm [facility] Work Phone: Aortic Root 3.4 cm [facility] Work Phone: Aortic Sinus Valsalva 3.4 cm [facility] [employer] Work Phone: Aortic Sinus Valsalva Index 1.86 cm/m2 [facility] Work Phone: Ascending Aorta 3.6 cm [facility] Work Phone: Ascending Aorta Index 1.97 cm/m2 [employer] Work Phone: E/E' Lateral 6.6 [facility] Work Phone: E/E' Ratio (Averaged) 6.6 [facility] [employer] Work Phone: E/E' Septal 6.6 [facility] Work Phone: EF BP 71 % 55 - 100 % [facility] Work Phone: Est. RA Pressure 3 mmHg [facility] Work Phone: Fractional Shortening 2D 35 % 28 - 44 % [facility] Work Phone: Global Longitudinal Strain -19 % [facility] Work Phone: Interpretation and review of laboratory results Abnormal [facility] Work Phone: IVC Diameter 2 cm [facility] Work Phone: IVSd 1.3 cm Abnormal 0.6 - 0.9 cm [facility] Work Phone: LA Diameter 3 cm [facility] Work Phone: LA Size Index 1.64 cm/m2 [facility] [employer] Work Phone: LA Volume 2C 28 mL 22 - 52 mL [facility] Work Phone: LA Volume 4C 33 mL 22 - 52 mL [facility] Work Phone: [phone] LA Volume A/L 33 mL [facility] Work Phone: LA Volume BP 35 mL 22 - 52 mL [facility] Work Phone: LA Volume Index 2C 15 mL/m2 Abnormal 16 - 34 mL/m2 [facility] Work Phone: LA Volume Index 4C 18 mL/m2 16 - 34 mL/m2 [facility] Work Phone: LA Volume Index A/L 18 mL/m2 16 - 34 mL/m2 [facility] Work Phone: LA Volume Index BP 19 ml/m2 16 - 34 ml/m2 [facility] Work Phone: LA/AO Root Ratio 0.88 [facility] Work Phone: LV E' Lateral Velocity 10 cm/s [facility] Work Phone: LV E' Septal Velocity 10 cm/s [facility] Work Phone: LV EDV A2C 37 mL [facility] Work Phone: LV EDV A4C 59 mL [facility] Work Phone: LV EDV BP 49 mL Abnormal 56 - 104 mL [facility] Work Phone: LV EDV Index A2C 20 mL/m2 [facility] Work Phone: LV EDV Index A4C 32 mL/m2 [facility] Work Phone: LV EDV Index BP 27 mL/m2 [facility] Work Phone: LV Ejection Fraction A2C 71 % [facility] Work Phone: LV Ejection Fraction A4C 71 % [facility] Work Phone: LV ESV A2C 11 mL [facility] Work Phone: LV ESV A4C 17 mL [facility] Work Phone: LV ESV BP 14 mL Abnormal 19 - 49 mL [facility] [facility] Work Phone: LV ESV Index A2C 6 mL/m2 [facility] Work Phone: LV ESV Index A4C 9 mL/m2 [facility] Work Phone: LV ESV Index BP 8 mL/m2 [facility] Work Phone: LV Mass 2D 196.1 g Abnormal 67 - 162 g [facility] Work Phone: LV Mass 2D Index 107.1 g/m2 Abnormal 43 - 95 g/m2 [facility] Work Phone: LV RWT Ratio 0.56 [facility] Work Phone: LVIDd 4.3 cm 3.9 - 5.3 cm [facility] Work Phone: LVIDd Index 2.35 cm/m2 [facility] Work Phone: LVIDs 2.8 cm [facility] Work Phone: LVIDs Index 1.53 cm/m2 [facility] Work Phone: LVOT Area 3.1 cm2 [facility] Work Phone: LVOT Cardiac Output 5.9 liter/mi nut e [facility] [employer] Work Phone: LVOT Diameter 2 cm [facility] [employer] Work Phone: LVOT Mean Gradient 3 mmHg [facility] [employer] Work Phone: LVOT Peak Gradient 6 mmHg [facility] [employer] Work Phone: [phone] LVOT Peak Velocity 1.2 m/s [facility] [employer] Work Phone: [phone] LVOT Stroke Volume Index 40.5 mL/m2 [facility] [employer] Work Phone: LVOT SV 74.1 ml [facility] [employer] Work Phone: [phone] LVOT VTI 23.6 cm [facility] [employer] Work Phone: LVPWd 1.2 cm Abnormal 0.6 - 0.9 cm [facility] [employer] Work Phone: [phone] MV A Velocity 0.93 m/s [facility] [employer] Work Phone: [phone] MV E Velocity 0.66 m/s [facility] Work Phone: MV E Wave Deceleration Time 216.1 ms [facility] [employer] Work Phone: MV E/A 0.71 [facility] [employer] Work Phone: RA Area 4C 29.4 mL [facility] [employer] Work Phone: [phone] RV Basal Dimension 2.8 cm [facility] [employer] Work Phone: RV Free Wall Peak S' 17 cm/s [facility] [employer] Work Phone: RV Longitudinal Dimension 6.5 cm [facility] [employer] Work Phone: RV Mid Dimension 3.1 cm [facility] Work Phone: RVSP 25 mmHg [facility] [employer] Work Phone: Sinotubular Junction 2.7 cm [facility] [employer] Work Phone: TAPSE 2.1 cm 1.7 cm [facility] [employer] Work Phone: TR Max Velocity 2.36 m/s [facility] Work Phone: TR Peak Gradient 22 mmHg [facility] [employer] Work Phone: [facility] [employer] Work Phone: US Heart Transthoracicon Left Ventricle: Left ventricle size is normal. Mildly increased wall thickness. Normal left ventricular systolic function. EF by 2D Simpsons Biplane is 71%. Global longitudinal strain is normal with a value of -19.0%. Normal wall motion. Normal diastolic function. Normal left ventricular filling pressure. Right Ventricle: Right ventricle is mildly dilated. Normal systolic function. Aorta: Normal sized sinuses of Valsalva. Mildly dilated ascending aorta. Ao ascending diameter is 3.6 cm. No significant valvular abnormalities. Left Ventricle Left ventricle size is normal. Mildly increased wall thickness. Normal left ventricular systolic function. EF by 2D Simpsons Biplane is 71%. Global longitudinal strain is normal with a value of -19.0%. Normal wall motion. Normal diastolic function. Normal left ventricular filling pressure. Right Ventricle Right ventricle is mildly dilated. Normal systolic function. Left Atrium Left atrium size is normal. LA Vol Index A/L is 18 mL/m2. Right Atrium Right atrium size is normal. IVC/SVC IVC diameter is normal and decreases greater than 50% during inspiration; therefore the estimated right atrial pressure is normal (~3 mmHg). Mitral Valve Valve structure is normal. Trace regurgitation. No stenosis noted. Tricuspid Valve Valve structure is normal. Trace regurgitation. Normal RVSP. RVSP is 25 mmHg. Aortic Valve Trileaflet. No cusp thickening. No cusp calcification. No regurgitation. No stenosis. Pulmonic Valve The pulmonic valve visualization is suboptimal but appears to be functioning normally. No regurgitation. Ascending Aorta Normal sized sinuses of Valsalva. Mildly dilated ascending aorta. Ao ascending diameter is 3.6 cm. Pericardium No pericardial effusion. Septum No interatrial shunt visualized on color Doppler. Pulmonary Artery Main pulmonary artery is normal in size. Study Details Image quality: adequate. Additional technique includes myocardial strain. Heart rate: 83 bpm. Blood pressure: 125/65 mmHg. The underlying ECG rhythm was sinus rhythm. No contrast was given. Echo Additional Conclusions No significant valvular abnormalities. Wall Scoring Baseline Score Index: 1.00 The left ventricular wall motion is normal. CV CPACS 30on 10-01-2024 30 Problem: Knowledge Deficit Goal: Patient/family/caregiv er demonstrates understanding of disease process, treatment plan, medications, and discharge instructions Outcome: Progressing Problem: Potential for Compromised Skin Integrity Goal: Skin Integrity is Maintained or Improved Outcome: Progressing Goal: Nutritional status is improving Outcome: Progressing Problem: Urinary Incontinence Goal: Perineal skin integrity is maintained or improved Outcome: Progressing Normal [facility] APTTon 10-01-2024 aPTT Coag (Bld) [Time] 25.0 s Normal 20.0-30.5 [facility] Comment on above: Result Comment: SEJAL R COMMENTS: NOTE: The therapeutic time for Heparin anticoagulation, based on Xa activity inhibition, is an APTT of 46-80 seconds. Performed By: #### L [id number] ####Shuttle Route Vehicle Operator: LIVIA VARGAS ([id number])[address] Absolute neutrophil countOrd ered By: Demi Mendoza on 10-01-2024 Neutrophils (Bld) [#/Vol] 6.7 10*3/uL 2.0-7.7 [facility] Albumin to globulin ratioOrd ered By: Demi Mendoza on 10-01-2024 Albumin/Globulin [Mass ratio] 0.8 {ratio} Low 0.9-2.4 [facility] Anesthesia Noteon 10-01-2024 Anesthesia Note Sedation Plan ASA class 3 - patient with severe systemic disease Mallampati class: II - soft palate, uvula, fauces visible. Sedation plan: local anesthesia and minimal sedation Risks, benefits, and alternatives discussed with patient. Plan discussed with attending. Immediate reassessment prior to sedation: Patient's status reviewed and vital signs assessed; acceptable to perform procedure and proceed to administer sedation as planned. Normal [facility] Basophil percentageOrdered B y: Demi Kelly on 10-01-2024 Basophils/100 WBC (Bld) 0.3 % 0-1 W [facility] Bedside Glucoseon 10-01-2024 FINGERSTICK GLU 126 mg/dL High 74-106 [facility] Comment on above: Result Comment: ADOLFO KERN OF PATIENT CARE PER NURSING PROTOCOL Performed By: #### L 501.080 #### [facility] [address], [address] Bilirubin, totalOrdered By: Demi Mendoza on 10-01-2024 Bilirubin [Mass/Vol] 0.50 mg/dL 0.20-1.00 [facility] Comment on above: For patients on eltr ombopag therapy, use of Dimension Birchleaf TBIL is not recommended. Blood urea nitrogen (BUN)/cr eatinine ratioOrdered By: Demi Mendoza on 10-01-2024 Urea nitrogen/Creatinine [Mass ratio] 15.8 mg/mg 10-20 [facility] CBC W Auto Differential pane l (Bld)on 10-01-2024 Basophils (Bld) [#/Vol] 0 10*3/uL 0.0 - 0.2 10*3/uL [facility] [employer] Basophils/100 WBC (Bld) 0.2 % 0.0 - 2.0 % [facility] [employer] Eosinophils (Bld) [#/Vol] 0.2 10*3/uL 0.0 - 0.5 10*3/uL [facility] [employer] Eosinophils/100 WBC (Bld) 1.8 % 0.0 - 6.0 % [facility] [employer] Erythrocyte distribution width (RBC) [Ratio] 13.2 % 11.5 - 15.0 % [facility] [employer] Hematocrit (Bld) [Volume fraction] 33.9 % Low 35.0 - 47.0 % [facility] Hemoglobin (Bld) [Mass/Vol] 11.2 g/dL Low 11.7 - 16.0 g/dL [facility] [employer] Immature granulocytes (Bld) [#/Vol] 0 10*3/uL NINF - 0.1 10*3/uL [facility] [employer] Immature granulocytes/100 WBC (Bld) 0.5 % 0.0 - 2.0 % [facility] [employer] Interpretation and review of laboratory results Abnormal [facility] Lymphocytes (Bld) [#/Vol] 2.6 10*3/uL 1.0 - 4.3 10*3/uL [facility] Lymphocytes/100 WBC (Bld) 32.1 % 15.0 - 45.0 % [facility] MCH (RBC) [Entitic mass] 31.5 pg 26.0 - 34.0 pg [facility] MCHC (RBC) [Mass/Vol] 33 % 30.5 - 36.0 % [facility] MCV (RBC) [Entitic vol] 95.2 fL 77.0 - 99.0 fL [facility] Monocytes (Bld) [#/Vol] 0.6 10*3/uL 0.0 - 0.9 10*3/uL [facility] Monocytes/100 WBC (Bld) 7 % 5.0 - 13.0 % [facility] Neutrophils (Bld) [#/Vol] 4.8 10*3/uL 1.8 - 7.5 10*3/uL [facility] Neutrophils/100 WBC (Bld) 58.4 % 38.0 - 82.0 % [facility] Nucleated RBC/100 WBC (Bld) [Ratio] 0 % [facility] Platelet mean volume (Bld) [Entitic vol] 9.9 fL 9.0 - 12.7 fL [facility] Platelets (Bld) [#/Vol] 191 10*3/uL 140 - 440 10*3/uL [facility] RBC (Bld) [#/Vol] 3.56 10*6/uL Low 3.80 - 5.2 0 10*6/uL [facility] WBC (Bld) [#/Vol] 8.2 10*3/uL 3.6 - 10.7 10*3/uL [facility] CBC W/Diff, Automatedon 12 Absolute Lymph 3.73 X10 3/uL Normal 0.83-4.51 [facility] Comment on above: Performed By: #### L 500.2500, L100.0100 #### [facility] [address] [place], [address] Absolute Neut 6.7 X10 3/uL Normal 2.0-7.7 [facility] Comment on above: Performed By: #### L 500.2500, L100.0100 #### [facility] [address] [place], [address] Basophils/100 WBC (Bld) 0.3 % Normal 0-1 W [facility] Comment on above: Performed By: #### L 500.2500, L100.0100 #### [facility] [address] [place], [address] Eosinophils/100 WBC (Bld) 1.6 % Normal 0-5 [facility] Comment on above: Performed By: #### L 500.2500, L100.0100 #### [facility] [address] [place], [address] Erythrocyte distribution width (RBC) [Ratio] 13.3 % Normal 11.6-14.6 [facility] Comment on above: Performed By: #### L 500.2500, L100.0100 #### [facility] [address] [place], [address] Hematocrit (Bld) [Volume fraction] 34.6 % Low 37-47 [facility] Comment on above: Performed By: #### L 500.2500, L100.0100 #### [facility] [address] [place], [address] Hemoglobin (Bld) [Mass/Vol] 11.7 g/dL Low 12.0-15.0 [facility] Comment on above: Performed By: #### L 500.2500, L100.0100 #### [facility] [address] [place], [address] IG% 0.800 Normal 0.0-0.9 [facility] Comment on above: Result Comment: IG% - Immature Granulocytes (promyelocytes, myelocytes and metamyelocytes) > 1% indicates that a LEFT SHIFT is Present. Performed By: #### L 500.2500, L100.0100 #### [facility] [address] [place], [address] Lymphocytes/100 WBC (Bld) 32.3 % Normal 19-41 [facility] Comment on above: Performed By: #### L 500.2500, L100.0100 #### [facility] [address] [place], [address] MCH (RBC) [Entitic mass] 31.6 pg Normal 27.0-32.0 [facility] Comment on above: Performed By: #### L 500.2500, L100.0100 #### [facility] [address] [place], [address] MCHC (RBC) [Mass/Vol] 33.8 g/dL Normal 32-36 [facility] Comment on above: Performed By: #### L 500.2500, L100.0100 #### [facility] [address] [place], [address] MCV (RBC) [Entitic vol] 93.5 fL Normal 81-99 [facility] Comment on above: Performed By: #### L 500.2500, L100.0100 #### [facility] [address] [place], [address] Monocytes/100 WBC (Bld) 7.2 % Normal 0-10 [facility] Comment on above: Performed By: #### L 500.2500, L100.0100 #### [facility] [address] [place], [address] Neutrophils/100 WBC (Bld) 57.8 % Normal 47-70 [facility] Comment on above: Performed By: #### L 500.2500, L100.0100 #### [facility] [address] [place], [address] Nucleated RBC (Bld) [#/Vol] 0 10*3/uL Normal 0-5 [facility] Comment on above: Performed By: #### L 500.2500, L100.0100 #### [facility] [address] [place], [address] Platelet mean volume (Bld) [Entitic vol] 9.9 fL Normal 6.2-12.0 [facility] Comment on above: Performed By: #### L 500.2500, L100.0100 #### [facility] [address] [place], [address] Platelets (Bld) [#/Vol] 219 10*3/uL Normal 150-450 [facility] Comment on above: Performed By: #### L 500.2500, L100.0100 #### [facility] [address] [place], [address] RBC (Bld) [#/Vol] 3.70 10*6/uL Low 4.2-5.4 [facility] Comment on above: Performed By: #### L 500.2500, L100.0100 #### [facility] [address] [place], [address] RDW SD 45.5 fl High 35.1-43.9 [facility] Comment on above: Performed By: #### L 500.2500, L100.0100 #### [facility] [address] [place], [address] WBC (Bld) [#/Vol] 11.6 10*3/uL High 4.4-11.0 [facility] Comment on above: Performed By: #### L 500.2500, L100.0100 #### [facility] [address] [place], [address] CBC WITH AUTO DIFFERENTIALon 10-01-2024 Basophils (Bld) [#/Vol] 0.0 10*3/uL Normal 0.0-0.2 [facility] Comment on above: Performed By: #### L [id number] #### [employer] Operator: LIVIA VARGAS ([id number]) [facility] ([facility]) [address] [place] [address] [place] Basophils/100 WBC (Bld) 0.2 % Normal 0.0-2.0 [facility] Comment on above: Performed By: #### L [id number] #### [employer] Operator: LIVIA VARGAS ([id number]) [facility] ([facility]) [address] [place] [address] [place] Eosinophils (Bld) [#/Vol] 0.2 10*3/uL Normal 0.0-0.5 [facility] Comment on above: Performed By: #### L [id number] #### [employer] Operator: LIVIA VARGAS ([phone]) [facility]) [address] [place] [address] Eosinophils/100 WBC (Bld) 1.8 % Normal 0.0-6.0 [facility] Comment on above: Performed By: #### L [id number] #### [employer] Operator: LIVIA VARGAS ([id number]) [facility]) [address] [place] [address] Erythrocyte distribution width (RBC) [Ratio] 13.2 % Normal 11.5-15.0 [facility] Comment on above: Performed By: #### L [id number] #### [employer] Operator: LIVIA VARGAS ([id number]) [facility]) [address] [place] [address] Hematocrit (Bld) [Volume fraction] 33.9 % Low 35.0-47.0 [facility] Comment on above: Performed By: #### L [id number] #### [employer] Operator: LIVIA VARGAS ([id number]) [facility]) [address] [place] [address] Hemoglobin (Bld) [Mass/Vol] 11.2 g/dL Low 11.7-16.0 [facility] Comment on above: Performed By: #### L [id number] #### [employer] Operator: LIVIA VARGAS ([id number]) [facility]) [address] [place] [address] IMMATURE GRANS % 0.5 % Normal 0.0-2.0 [facility] Comment on above: Performed By: #### L [id number] #### [employer] Operator: LIVIA VARGAS ([id number]) [address] IMMATURE GRANS ABSOLUTE 0.0 10*3/uL Normal <0.1 [facility] Comment on above: Performed By: #### L [id number] #### [employer] Operator: LIVIA VARGAS ([id number]) [facility]) [address] [place] [address] Lymphocytes (Bld) [#/Vol] 2.6 10*3/uL Normal 1.0-4.3 [facility] Comment on above: Performed By: #### L [id number] #### [employer] Operator: LIVIA VARGAS ([id number]) [facility]) [address] [place] [address] Lymphocytes/100 WBC (Bld) 32.1 % Normal 15.0-45.0 [facility] Comment on above: Performed By: #### L [id number] #### [employer] Operator: LIVIA VARGAS ([id number]) [facility]) [address] [place] [address] MCH (RBC) [Entitic mass] 31.5 pg Normal 26.0-34.0 [facility] Comment on above: Performed By: #### L [id number] #### [employer] Operator: LIVIA VARGAS ([id number]) [facility]) [address] [place] [address] MCHC 33.0 % Normal 30.5-36.0 [facility] Comment on above: Performed By: #### L [id number] #### [employer] Operator: LIVIA VARGAS ([id number]) [facility]) [address] [place] [address] MCV (RBC) [Entitic vol] 95.2 fL Normal 77.0-99.0 [facility] Comment on above: Performed By: #### L [id number] #### [employer] Operator: LIVIA VARGAS ([id number]) [facility] ([facility]) [address] [place] [address] Monocytes (Bld) [#/Vol] 0.6 10*3/uL Normal 0.0-0.9 [facility] Comment on above: Performed By: #### L [id number] #### [employer] Operator: LIVIA VARGAS ([id number]) [facility]) [address] [place] [address] Monocytes/100 WBC (Bld) 7.0 % Normal 5.0-13.0 [facility] Comment on above: Performed By: #### L [id number] #### [employer] Operator: LIVIA VARGAS ([id number]) [facility] [address] [place] [address] NEUTROPHILS ABSOLUTE 4.8 10*3/uL Normal 1.8-7.5 [facility] Comment on above: Performed By: #### L [id number] #### [employer] Operator: LIVIA VARGAS ([id number]) [facility] ([facility]) [address] [place] [address] Neutrophils/100 WBC (Bld) 58.4 % Normal 38.0-82.0 [facility] Comment on above: Performed By: #### L [id number] #### [employer] Operator: LIVIA VARGAS ([id number]) [facility]) [address] [place] [address] NRBC 0.0 /100 WBCs Normal 0.0-2.0 [facility] Comment on above: Performed By: #### L [id number] #### [employer] Operator: LIVIA VARGAS ([id number]) [facility] ([facility]) [address] [place] [address] Platelet mean volume (Bld) [Entitic vol] 9.9 fL Normal 9.0-12.7 [facility] Comment on above: Performed By: #### L [id number] #### [employer] Operator: LIVIA VARGAS ([id number]) [facility] ([facility]) [address] [place] [address] [place] Platelets (Bld) [#/Vol] 191 10*3/uL Normal 140-440 [facility] Comment on above: Performed By: #### L [id number] #### [employer] Operator: LIVIA VARGAS ([id number]) [facility] ([facility]) [address] [place] [address] [place] RBC (Bld) [#/Vol] 3.56 10*6/uL Low 3.80-5.20 [facility] Comment on above: Performed By: #### L [id number] #### [employer] Operator: LIVIA VARGAS ([id number]) [facility]) [address] [place] [address] WBC (Bld) [#/Vol] 8.2 10*3/uL Normal 3.6-10.7 [facility] Comment on above: Performed By: #### L [id number] #### [employer] Operator: LIVIA VARGAS ([id number]) [facility] ([facility]) [address] [place] [address] COMPREHENSIVE METABOLIC PANE Serge 10-01-2024 Albumin [Mass/Vol] 2.9 g/dL Low 3.4-4.8 [facility] Comment on above: Performed By: #### L [id number] ####[employer] Operator: LIVIA VARGAS ([id number])[facility])[address] [place] [address] ALP [Catalytic activity/Vol] 63 U/L Normal 40-150 [facility] Comment on above: Performed By: #### L [id number] ####[employer] Operator: LIVIA VARGAS ([id number])[facility])[address] [place] [address] ALT [Catalytic activity/Vol] U/L Normal <30 [facility] Comment on above: Performed By: #### L [id number] ####[employer] Operator: LIVIA VARGAS ([id number])[facility])[address] [place] [address] Anion gap [Moles/Vol] 7 mmol/L Normal 3-13 [facility] Comment on above: Performed By: #### L [id number] ####[employer] Vehicle Operator: LIVIA VARGAS ([id number])[facility])[address] [place] [address] AST [Catalytic activity/Vol] 15 U/L Normal <34 [facility] Comment on above: Performed By: #### L [id number] ####[employer] Vehicle Operator: LIVIA VARGAS ([id number])[facility] ([facility])[address] [place] [address] Bilirubin [Mass/Vol] 0.4 mg/dL Normal <1.2 [facility] Comment on above: Performed By: #### L [id number] ####[employer]uttle Route Vehicle Operator: LIVIA VARGAS ([id number])[facility])[address] [place] [address] Calcium [Mass/Vol] 8.0 mg/dL Low 8.8-10.0 [facility] Comment on above: Performed By: #### L [id number] ####[employer] Route Vehicle Operator: LIVIA VARGAS ([id number])[facility])[address] [place] [address] Chloride [Moles/Vol] 111 mmol/L High 98-107 [facility] Comment on above: Performed By: #### L [id number] ####[employer] Route Vehicle Operator: LIVIA VARGAS ([id number])[facility] ([facility])[address] [place] [address] CO2 [Moles/Vol] 22 mmol/L Low 23-31 [facility] Comment on above: Performed By: #### L [id number] ####Shuttle Route Vehicle Operator: LIVIA VARGAS ([id number])[facility])[address] [place] [address] Creatinine [Mass/Vol] 0.82 mg/dL Normal 0.57-1.11 [facility] Comment on above: Performed By: #### L [id number] ####Shuttle Route Vehicle Operator: LIVIA VARGAS ([id number])[facility] ([facility])[address] [place] [address] [place] GLOMERULAR FILTRATION RATE ML/MIN/1.73 SQ M.PREDICTED 75.2 mL/min/1.73m*2 Normal >60.0 [facility] Comment on above: Result Comment: Calc ulation based on the Chronic Kidney Disease Epidemiology Collaboration (CKD-EPI) equation refit without adjustment for race Performed By: #### L [id number] ####[employer] Route Vehicle Operator: LIVIA VARGAS ([id number])[facility] ([facility])[address] [place] [address] Glucose [Mass/Vol] 148 mg/dL High 82-115 [facility] Comment on above: Performed By: #### L [id number] ####Sh[employer] Route Vehicle Operator: LIVIA VARGAS ([phone])[facility])[address] [place] [address] Potassium [Moles/Vol] 3.6 mmol/L Normal 3.5-5.1 [facility] Comment on above: Result Comment: [facility] potassium values may be up to 0.5 mmol/L lower than serum values. Performed By: #### L [id number] ####Shuttle Route Vehicle Operator: LIVIA VARGAS ([id number])[facility])[address] [place] [address] Protein [Mass/Vol] 6.4 g/dL Normal 6.4-8.3 [facility] Comment on above: Performed By: #### L [id number] ####[employer] Route Vehicle Operator: LIVIA VARGAS ([id number])[facility] ([facility])[address] [place] [address] Sodium [Moles/Vol] 140 mmol/L Normal 136-145 [facility] Comment on above: Performed By: #### L [id number] ####[employer] Route Vehicle Operator: LIVIA VARGAS ([id number])[facility])[address] [place] [address] Urea nitrogen [Mass/Vol] 13 mg/dL Normal 9-23 [facility] Comment on above: Performed By: #### L [id number] ####[employer]uttle Route Vehicle Operator: LIVIA VARGAS ([id number])[facility])[address] [place] [address] Carbon dioxide measurementOr dered By: Demi Mendoza on 10-01-2024 CO2 [Moles/Vol] 24.0 mmol/L 21.0-32.0 [facility] Cardiac catheterization stud yon 10-01-2024 Images from the original result were not included. Impression Successful mechanical thrombectomy of pulmonary arteries with large thrombus burden removed. Improvement in mean pulmonary artery pressure from 26 mm Hg to 17 mm Hg. Recommendations: Restart anticoagulation with oral anticoagulants about 2 hours post procedure as long as the access site is without any hematoma. Rest of the care per the primary team. --------- Right heart catheterization: Pre-Intervention: PA systolic 46 mm Hg, PA diastolic 15 mm Hg and PA mean of 26 mm Hg Post intervention: PA systolic 27 mm Hg, PA diastolic 9 mm Hg and PA mean of 17 mm Hg Procedure notes: Right femoral vein infiltration with needle visualized under fluoro and US guidance. The femoral vein was closed with 2 Perclose devices with hemostasis achieved. Peripheral Angiogram: After getting access, angiogram of the IVC and Iliofemoral vein was performed through the sheath. No evidence of clot was noted in the Iliofemoral vein or the IVC. Pulmonary angiogram / mechanical thrombectomy: Flowtriever catheter was advanced to the right lobar pulmonary artery. Mechanical thrombectomy with flowtriever was performed in the R middle lobe/Truncus, and R main PA with a total of 3 aspirations though we were not able to fill the catheter syringe. Under negative suction, the flowtriever catheter was removed through the sheath (The flowtriever sheath was also placed on negative suction). The flowtriever catheter was flushed without any significant with large thrombus removal. The flowtriever sheath was then removed under negative suction. The sheath was then flushed after removal, large thrombus was removed from the sheath. The flowtriever was hen advanced to the R main PA and pulmonary angiogram was performed that did not show much of a residual thrombus. The flowtriever catheter was then pulled to the L main PA and angiogram was performed that did not show any significant moment. A Flowsaver device was used to return the blood back to the patient. Estimated blood loss of approximately 20-30 ml. Total contrast use 70 ml. Images of thrombus removed can be seen below. Pulmonary Thrombectomy Thrombus present in the following site: right pulmonary artery. Catheter used: CATH ASPIR [id number] 24F 95CM. Right Heart Cath Covelo-Narcisa catheter not inserted. Clinical Background 74 y.o. female with a past medical history of hypertension, hyperlipidemia, hypothyroidism, type 2 diabetes mellitus, chronic neuropathy, osteoarthritis of the right knee, and obesity who initially presented to [facility] due to complaints of shortness of breath and dizziness who was subsequently found to have a large saddle pulmonary embolism. Thrombolysis Access site: RFV. Cath Recommendations Patient management should include: Aggressive risk factor modification and aggressive medical management. CV CPACS HEMO Cardiac catheterization stud yOrdered By: An Ryder on 10-01-2024 [facility] [employer] Work Phone: Chloride measurementOrdered By: Demi Mendoza on 10-01-2024 Chloride [Moles/Vol] 109 mmol/L High 98-107 [facility] Comprehensive Metabolic Prof ilon 10-01-2024 Albumin [Mass/Vol] 3.1 g/dL Low 3.2-5.0 [facility] Comment on above: Performed By: #### L 500.2500, L100.0100 #### [facility] [address] [place], [address] Albumin/Globulin [Mass ratio] 0.8 {ratio} Low 0.9-2.4 [facility] Comment on above: Performed By: #### L 500.2500, L100.0100 #### [facility] [address] [place], [address] ALK P 74 U/L Normal 45-117 [facility] Comment on above: Performed By: #### L 500.2500, L100.0100 #### [facility] [address] [place], [address] ALT [Catalytic activity/Vol] 17 U/L Normal 13-56 [facility] Comment on above: Performed By: #### L 500.2500, L100.0100 #### [facility] [address] [place], [address] AST [Catalytic activity/Vol] 11 U/L Low 15-37 [facility] Comment on above: Performed By: #### L 500.2500, L100.0100 #### [facility] [address] [place], [address] Bilirubin [Mass/Vol] 0.50 mg/dL Normal 0.20-1.00 [facility] Comment on above: Result Comment: For patients on eltrombopag therapy, use of Dimension [place] TBIL is not recommended. Performed By: #### L 500.2500, L100.0100 #### [facility] [address] [place], [address] BUN/CRE 15.8 RATIO Normal 10-20 [facility] Comment on above: Performed By: #### L 500.2500, L100.0100 #### [facility] [address] [place], [address] CA,Total 9.0 mg/dL Normal 8.5-10.1 [facility] Comment on above: Performed By: #### L 500.2500, L100.0100 #### [facility] [address] [place], [address] Chloride [Moles/Vol] 109 mmol/L High 98-107 [facility] Comment on above: Performed By: #### L 500.2500, L100.0100 #### [facility] [address] [place], [address] CO2 [Moles/Vol] 24.0 mmol/L Normal 21.0-32.0 [facility] Comment on above: Performed By: #### L 500.2500, L100.0100 #### [facility] [address] [place], [address] Creatinine [Mass/Vol] 1.01 mg/dL Normal 0.55-1.02 [facility] Comment on above: Result Comment: The validity of the calculated GFR GFRAA in patients over 70 years has not been determined. Clinical correlation is essential. Performed By: #### L 500.2500, L100.0100 #### [facility] [address] [place], [address] ECRCL 49.57 ml/min Normal [facility] Comment on above: Performed By: #### L 500.2500, L100.0100 #### [facility] [address] [place], [address] EST GFR - AA 69 mL/min Normal >60 [facility] Comment on above: Result Comment: Afri can Ecuadorean GFR Calc Performed By: #### L 500.2500, L100.0100 #### [facility] [address] [place], [address] GAP 6 Normal 5-15 [facility] Comment on above: Performed By: #### L 500.2500, L100.0100 #### [facility] [address] [place], [address] GFR/1.73 sq M.predicted among non-blacks MDRD (S/P/Bld) [Vol rate/Area] 57 mL/min/{1.73_m2} Low >60 [facility] Comment on above: Result Comment: Non- GFR Calc Performed By: #### L 500.2500, L100.0100 #### [facility] [address] [place], [address] Globulin (S) [Mass/Vol] 3.9 g/dL Normal 2.2-4.2 [facility] Comment on above: Performed By: #### L 500.2500, L100.0100 #### [facility] [address] [place], [address] Glucose [Mass/Vol] 141 mg/dL High 74-106 [facility] Comment on above: Result Comment: Fast ing Glucose result greater than or equal to 126 mg/dL suggests DIABETES MELLITUS per A.D.A. criteria. Performed By: #### L 500.2500, L100.0100 #### [facility] [address] [place], [address] Potassium [Moles/Vol] 3.9 mmol/L Normal 3.5-5.1 [facility] Comment on above: Performed By: #### L 500.2500, L100.0100 #### [facility] [address] [place], [address] Sodium [Moles/Vol] 139 mmol/L Normal 136-145 [facility] Comment on above: Performed By: #### L 500.2500, L100.0100 #### [facility] [address] [place], [address] T PROT 7.0 g/dL Normal 6.4-8.2 [facility] Comment on above: Performed By: #### L 500.2500, L100.0100 #### [facility] [address] [place], [address] Urea nitrogen [Mass/Vol] 16 mg/dL Normal 7-18 [facility] Comment on above: Performed By: #### L 500.2500, L100.0100 #### [facility] [address] [place], [address] Comprehensive metabolic 1998 panelon 10-01-2024 Albumin [Mass/Vol] 2.9 g/dL Low 3.4 - 4.8 g/dL [facility] ALP [Catalytic activity/Vol] 63 U/L 40 - 150 U/L [facility] ALT [Catalytic activity/Vol] U/L NINF - 30 U/L [facility] Anion gap [Moles/Vol] 7 mmol/L 3 - 13 mmol/L [facility] AST [Catalytic activity/Vol] 15 U/L NINF - 34 U/L [facility] Bilirubin [Mass/Vol] 0.4 mg/dL NINF - 1.2 mg/dL [facility] Calcium [Mass/Vol] 8 mg/dL Low 8.8 - 10. 0 mg/dL [facility] Chloride [Moles/Vol] 111 mmol/L High 98 - 10 7 mmol/L [facility] CO2 [Moles/Vol] 22 mmol/L Low 23 - 31 mmol/L [facility] Creatinine [Mass/Vol] 0.82 mg/dL 0.57 - 1.11 mg/dL [facility] GFR/1.73 sq M.predicted (S/P/Bld) [Vol rate/Area] 75.2 mL/min - PINF [facility] Comment on above: Calculation based on the Chronic Kidney Disease Epidemiology Collaboration (CKD-EPI) equation refit without adjustment for race Glucose [Mass/Vol] 148 mg/dL High 82 - 115 mg/dL [facility] Interpretation and review of laboratory results Abnormal [facility] Potassium [Moles/Vol] 3.6 mmol/L 3.5 - 5.1 mmol/L [facility] Comment on above: Plasma potassium bandar ues may be up to 0.5 mmol/L lower than serum values. Protein [Mass/Vol] 6.4 g/dL 6.4 - 8.3 g/dL [facility] Sodium [Moles/Vol] 140 mmol/L 136 - 145 mmol/L [facility] Urea nitrogen [Mass/Vol] 13 mg/dL 9 - 23 mg/dL [facility] Consulton 10-01-2024 Consult -- Attestation signed by An Ryder MD at 10/01/2024 1:24 PM I, Dr. Ryder, saw and evaluated the patient on 10/01/2024. I personally obtained the ibarra and critical portions of the history and physical exam. I reviewed the chart and discussed the patient with the fellow Dr. Hart. I agree with the fellow's medical decision making. Ms. Munroe is a 74-year-old female with prior medical history of hypertension, dyslipidemia, diabetes and obesity who presented to the hospital as a transfer from [place] where she presented with acute onset of shortness of breath and dizziness the day of her presentation. Reportedly the patient did have a COVID around and claims she has not been as active at home. On the day of the presentation she did have acute worsening of her shortness of breath along with lightheadedness. She did not have any syncope or loss of consciousness. She stayed at home for a bit but when she was seen by her family she was noted to be quite short of breath so they brought her to the emergency department locally. She was found to have a sats in the 70s and was placed on high flow nasal cannula. She subsequently underwent CT PE study that showed extensive bilateral pulmonary embolism along with a saddle. She was noted to have mildly elevated high-sensitivity troponin. She was transferred to [facility] for further management. I personally reviewed the CT scan and she does have extensive proximal thrombus bilaterally along with a saddle PE. The RV looks enlarged on the CT. On my evaluation, the patient was on 9 L of high flow nasal cannula which I turned down to 5 L while maintaining her O2 sats. Her heart rates are within normal limits along with her blood pressure at this time. She does endorse some shortness of breath. We talked about how to proceed at this time including her different options including anticoagulation versus catheter-based therapies. Looking at the clot burden in the location of the clot, I think the patient will be a good candidate for catheter-based therapies. We discussed the risks and benefits of the procedure. Continue anticoagulation at this time. We will proceed with mechanical thrombectomy for pulmonary embolism later on today. We would also recommend echocardiogram to evaluate her RV function and lower extremity duplex to rule out any residual DVTs. The patient will need age-appropriate cancer screenings. Despite her having COVID recently and that being a nidus for her DVT/PE, we may have to consider indefinite anticoagulation at discharge. An Ryder MD, [facility], [facility] Client Support Representative [facility], [facility] [address] [place] [id number] p [phone] f [phone] [email or web address] [facility] Heart & Vascular [place] [facility] Cardiology /Electrophysiology Consult Note Reason for Consult/Chief Complaint: SOB and dizziness, Saddle PE Referring provider: Dr. Bass Established paper cleaner: None History of Present Illness: Sandra Munroe is a 74 y.o. female with a past medical history of hypertension, hyperlipidemia, hypothyroidism, type 2 diabetes mellitus, chronic neuropathy, osteoarthritis of the right knee, and obesity who initially presented to [facility] due to complaints of shortness of breath and dizziness. The patient reports that she tested positive for COVID right before . Since then, she has been feeling well. She has been working and recently went to the mall with her daughters for holiday gifts without any issues. She noted that yesterday afternoon she acutely began to feel very dizzy and slightly lightheaded. Later that evening, around dinnertime, she continued to complain of dizziness and lightheadedness and was slightly short of breath. Per her daughters, who are present at bedside, they note that she looked very schmidt and unwell and she was visibly short of breath. Given her symptoms, she presented to the emergency department. While at [facility] she was noted to be hypoxic and was started on supplemental oxygen initially via nasal cannula but she did eventually require high flow nasal cannula. She was noted to have an elevated high-sensitivity troponin, and an elevated D-dimer. She underwent a CTA chest which was notable for bilateral extensive PEs with a saddle embolus component. She was transferred to [facility] for consideration for mechanical thrombectomy. On my evaluation today, she states that she is feeling well. She continues to have some shortness of breath, and endorses that she did have some chest pressure yesterday when her symptoms began at home. She has no personal history of DVT/PE. Her father did have DVTs, however, this was in the setting of judy (more content not included)... Normal [facility] Consultation - Intensiviston 10-01-2024 Consultation - Kindergarten Instructional Assistant [facility] Medical Records Department [address] [place] [address] Consultation - Kindergarten Instructional Assistant 10/01/24 0056 MR#: [id number] Acct: [id number] Name: SANDRA MUNROE Rep #: [id number] : 1950 74 From: Lily Grace MD PCP: Dr. Ronel Padilla MD Status:ADM IN Location: ICU ICU-1 HPI Consult Data Date of Consult: 10/01/24 HPI Narrative HPI Narrative: 74 yrs old female with past medical history of obesity, hypothyroidism, HTN, HLD, OA, DM, Chronic neuropathy, CKD presented to ED for shortness of breath, chest pain. Patient reported she had covid last week and had been in bed most of the time due to generalized ache. Patient was noted to be hypoxic and tachycardic in ED. BP stable systolic in 140's. Labs significant for WBC 12, TNI 263, Cr 1.22, D-dimer 11.9 CTA of chest with extensive bilateral emboli with out RV strain, normal parenchyma. Patient required NC oxygen supplement initially but now worsening hypoxemia on airvo. She is started on heparin drip and admitted to ICU On my evaluation of patient in ICU, she is awake, alert, on Airvo P/E: Awake, alert on Airvo HEENT: Atraumatic Respiratory: Crackles on the bases CVS: S1, S2 are well heard, HR in the 90's Abd:Soft Extre: No edema SUPERVISOR STATEMENT CLERKS: Awake, alert, oriented # Assessment/Plan # Extensive Bilateral PE CTA reviewed Given bilateral PE with clot burden and hypoxemia, would benefit from intervention with thrombectomy Consider transfer to higher level of care for thrombectomy Check ECHO for RV strain Continue with heparin drip, monitor PTT Not candidate for systemic thrombolytic given hemodynamic stability # Acute hypoxic respiratory failure Most likely due to PE CTA reviewed no obvious infiltrates Recent reported COVID Check for viral work up Urine legionella and strept antigen to check for pneumonia # Hx of HTN Monitor blood pressure # Hx of HLD Continue with home meds # Hx of DM ISS Monitor blood sugar # Hx of CKD Monitor urine output DVT prophylaxis: Heparin drip Critical care time 60 minutes Entire encounter done via Telemedicine [facility] Medical History Hypothyroidism Peripheral neuropathy Type 2 diabetes mellitus Obesity Osteoarthritis of right knee Hyperlipemia Hypertension Gallstones Cataract Arthritis Home Medications ???Medication ???Instructions ???Recorded ???Last Taken ???Type aspirin 81 mg tablet,delayed 81 mg PO DAILY 04/21/24 Unknown History release (Adult Low Dose Aspirin) cholecalciferol (vitamin D3) 50 50 mcg PO DAILY 04/21/24 Unknown History mcg (2,000 unit) capsule glipizide 5 mg tablet, extended 5 mg PO DAILY 04/21/24 Unknown History release 24 hr levothyroxine 25 mcg capsule 25 mcg PO DAILY 04/21/24 Unknown History lisinopril 5 mg tablet 5 mg PO DAILY 04/21/24 Unknown History mecobalamin (vitamin B12) 1,000 3,000 mcg PO DAILY 04/21/24 Unknown History mcg chewable tablet pravastatin 80 mg tablet 80 mg PO QHS 04/21/24 Unknown History magnesium 200 mg tablet 400 mg PO DAILY 09/30/24 Unknown History potassium gluconate 600 mg (99 mg) 650 mg PO DAILY 09/30/24 Unknown History tablet Allergy/AdvReac Type Severity Reaction Status Date / Time Penicillins Allergy Intermediate Swelling Verified 09/30/24 19:28 Family History Father Cancer lung Diabetes Parkinson disease Arthritis Blood clot in vein Hydrocephalus Myocardial infarction Mother Myocardial infarction Heart disease Hypertension Hyperlipemia Brother Cancer lung COPD (chronic obstructive pulmonary disease) Grandfather CVA (cerebral vascular accident) Brother Bowel disease had ostomy Pneumonia due to COVID-19 virus Son Myocardial infarction Surgical History H/O eye surgery Cataract extraction status S/P wrist surgery S/P cholecystectomy History of hysterectomy H/O tubal ligation Hx of tonsillectomy Social History adopted: No household members: family number of children: 5 current occupational status: employed current occupation: [employer]. [employer]. pets and animals: Yes sexually active: No Smoking Status: Never smoker Electronic Cigarette Use: not used alcohol intake: never substance use type: does not use caffeine: Yes (1) Type: coffee frequency: does not exercise seatbelt use: always do you feel safe at home: Yes Objective Data Objective Data Vital Signs: Vital Signs Last response 3 Temperature 36.6 C 09/30/24 22:30 Temperature Source Temporal 09/30/24 22:30 Pulse Rate 93 09/30/24 23:33 Respiratory Rate 16 09/30 (more content not included)... Normal [facility] Eosinophil percentageOrdered By: Demi Mendoza on 10-01-2024 Eosinophils/100 WBC (Bld) 1.6 % 0-5 [facility] Erythrocyte distribution wid th ratioOrdered By: Demi Mendoza on 10-01-2024 Erythrocyte distribution width (RBC) [Ratio] 13.3 % 11.6-14.6 [facility] Erythrocyte distribution wid th standard deviationOrdered By: Demi Mendoza on 10-01-2024 Erythrocyte distribution width (RBC) [Entitic vol] 45.5 fL High 35.1-43.9 [facility] Estimated glomerular filtrat ion rate (GFR) AmericanOrdered By: Demi Mendoza on 10-01-2024 Estimated GFR (MDRD) Amer 69 mL/min >60 [facility] Comment on above: GFR Calc Estimation of creatinine rolf aranceOrdered By: Demi Mendoza on 10-01-2024 Estimated Creatinine Clearance Calc 49.57 ml/min [facility] Glomerular filtration rate ( GFR) estimationOrdered By: Demi Kelly on 10-01-2024 Estimated GFR (MDRD) Non-Af Amer 57 mL/min Low >60 [facility] Comment on above: Non- GFR Calc Glucose measurementOrdered B y: Demi Mendoza on 10-01-2024 Glucose [Mass/Vol] 141 mg/dL High 74-106 [facility] Comment on above: Fasting Glucose resu lt greater than or equal to 126 mg/dL suggests DIABETES MELLITUS per A.D.A. criteria. [facility] deOrdered By: Howard Proctor on 10-01-2024 Bedside Glucose (Misc Panel) 126 mg/dL High 74-106 [facility] Comment on above: MANAGEMENT OF PATIEN T CARE PER NURSING PROTOCOL HEMOGLOBIN A1Con 10-01-2024 Glucose [Mass/Vol] 160 mg/dL Normal [facility] Comment on above: Result Comment: ORDE R COMMENTS: HbA1c values of 5.7-6.4 percent indicate an increased risk for developing diabetes mellitus. HbA1c values greater than or equal to 6.5 percent are diagnostic of diabetes mellitus. For diagnosis of diabetes in individuals without unequivocal hyperglycemia, results should be confirmed by repeat testing. Performed By: #### L AB90 ####Shuttle Route Vehicle Operator: LIVIA VARGAS ([id number])[facility] ([facility])[address] [place] [address] HEMOGLOBIN A1C 7.2 %HbA1C High <5.7 [facility] Comment on above: Result Comment: Norm al less than 5.7% Prediabetes 5.7% to 6.4% Diabetes 6.5% or higher --HgbA1C levels may not be accurate in patients who have renal disease, received recent blood transfusions, are anemic, or who have dyshemoglobinemia. Performed By: #### L AB90 ####Shuttle Route Vehicle Operator: LIVIA VARGAS ([id number])[facility])[address] [place] [address] Hematocrit Auto (Bld) [Volum e fraction]Ordered By: Demi Mendoza on 10-01-2024 Hematocrit (Bld) [Volume fraction] 34.6 % Low 37-47 [facility] Hemoglobin measurementOrdere d By: Demi Mendoza on 10-01-2024 Hemoglobin (Bld) [Mass/Vol] 11.7 g/dL Low 12.0-15.0 [facility] Immature granulocytes/100 WB C Auto (Bld)Ordered By: Demi Mendoza on 10-01-2024 Immature granulocytes/100 WBC (Bld) 0.800 % 0.0-0.9 [facility] Comment on above: IG% - Immature Granu locytes (promyelocytes, myelocytes and metamyelocytes) > 1% indicates that a LEFT SHIFT is Present. L501.4020on 10-01-2024 TROPONIN-I HS 255 pg/mL Invalid Interpretation Code 3.0-54.0 [facility] Comment on above: Order Comment: 'TROP ' Serial specimen #1, #2 or #3: 3 Result Comment: Crit ical Result(s) Called at: 02:11:38 10/01/2024 by: Becky Barnes. Results read back by same. Please Note: New Test Units and Gender Specific Reference Ranges. For more information see Policy Stat Procedure [place] High Sensitivity Troponin (TNIH) and attachments. Performed By: #### L 300.3900, L300.4310 #### [facility] [address] [place], [address] Laboratory - Chemistry and C hemistry - challengeon 10-01-2024 Glucose [Mass/Vol] 140 mg/dL High 70 - 100 mg/dL [facility] Average glucose Estimated from glycated hemoglobin (Bld) [Mass/Vol] 160 mg/dL [facility] Laboratory - Chemistry and C hemistry - challengeOrdered By: Demi Mendoza on 10-01-2024 AST [Catalytic activity/Vol] 11 U/L Low 15-37 [facility] - Hematology and Cell countson 10-01-2024 HbA1c (Bld) [Mass fraction] 7.2 % High NINF [facility] Comment on above: Normal less than 5.7 % Prediabetes 5.7% to 6.4% Diabetes 6.5% or higher --HgbA1C levels may not be accurate in patients who have renal disease, received recent blood transfusions, are anemic, or who have dyshemoglobinemia. Lymphocytes Auto (Unsp spec) [#/Vol]Ordered By: Demi Mendoza on 10-01-2024 Lymphocytes (Bld) [#/Vol] 3.73 10*3/uL 0.83-4.51 [facility] Lymphocytes/100 WBC Auto (Un sp spec)Ordered By: Demi Mendoza on 10-01-2024 Lymphocytes/100 WBC (Bld) 32.3 % 19-41 [facility] MCV (mean corpuscular volume ) determinationOrdered By: Demi Mendoza on 10-01-2024 MCV (RBC) [Entitic vol] 93.5 fL 81-99 [facility] Mean corpuscular hemoglobin (MCH) determinationOrdered By: Demi Mendoza on 10-01-2024 MCH (RBC) [Entitic mass] 31.6 pg 27.0-32.0 [facility] Mean corpuscular hemoglobin concentration (MCHC) determinationOrdered By: Demi Mendoza on 10-01-2024 MCHC (RBC) [Mass/Vol] 33.8 g/dL 32-36 [facility] Mean platelet volume determi nationOrdered By: Demi Mendoza on 10-01-2024 Platelet mean volume (Bld) [Entitic vol] 9.9 fL 6.2-12.0 [facility] Monocyte percentageOrdered B y: White on 10-01-2024 Monocytes/100 WBC (Bld) 7.2 % 0-10 [facility] Neutrophil percentageOrdered By: White on 10-01-2024 Neutrophils/100 WBC (Bld) 57.8 % 47-70 [facility] No Panel Informationon 10-01 Interpretation and review of laboratory results Abnormal [facility] velingo Performed by: [facility], [address] [place] [id number] CLIA ID: [id number] [facility] [employer]ingo Performed by: [employer] [facility], [address] [place] [address] CLIA ID: [id number] Reportable Results: OxyHemoglobin 0 - 100% Expected Ranges: OxyHemoglobin Arterial Sample 95 - 100%* Adequate Oxygenation >=92% Venous sample 60 - 85%* Note: *OxyHemoglobin Reference Ranges based upon literature review Adequate oxygenation based upon [facility] Clinical Decision [facility] [employer] Performed by: [facility], [address] [place] [address] CLIA ID: [id number] Reportable Results: OxyHemoglobin 0 - 100% Expected Ranges: OxyHemoglobin Arterial Sample 95 - 100%* Adequate Oxygenation >=92% Venous sample 60 - 85%* Note: *OxyHemoglobin Reference Ranges based upon literature review Adequate oxygenation based upon [facility] Clinical Decision [facility] Interpretation and review of laboratory results Abnormal [facility] HbA1c values of 5.7-6.4 percent indicate an increased risk for developing diabetes mellitus. HbA1c values greater than or equal to 6.5 percent are diagnostic of diabetes mellitus. For diagnosis of diabetes in individuals without unequivocal hyperglycemia, results should be confirmed by repeat testing. 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 Normal [facility] Partial Thromboplast Timeon 10-01-2024 aPTT Coag (Bld) [Time] 81.2 s High 24.1-36.2 [facility] Comment on above: Performed By: #### L 300.3900, L300.4310 #### [facility] [address] [place], [place], [id number] Platelet countOrdered By: Jane rios Kelly on 10-01-2024 Platelets (Bld) [#/Vol] 219 10*3/uL 150-450 [facility] Potassium measurementOrdered By: Demi Mendoza on 10-01-2024 Potassium [Moles/Vol] 3.9 mmol/L 3.5-5.1 [facility] RBC Auto (Bld) [#/Vol]Ordere d By: Demi Mendoza on 10-01-2024 RBC (Bld) [#/Vol] 3.70 10*6/uL Low 4.2-5.4 [facility] Serum anion gap measurementO rdered By: Demi Mendoza on 10-01-2024 Anion gap [Moles/Vol] 6 mmol/L 5-15 [facility] Serum globulin measurementOr dered By: Demi Mendoza on 10-01-2024 Globulin (S) [Mass/Vol] 3.9 g/dL 2.2-4.2 [facility] Serum or plasma alanine hernandez otransferase (ALT) measurementOrdered By: Demi Mendoza on 10-01-2024 ALT [Catalytic activity/Vol] 17 U/L 13-56 [facility] Serum or plasma albumin aiden urement (mass/volume)Ordered By: Demi Mendoza on 10-01-2024 Albumin [Mass/Vol] 3.1 g/dL Low 3.2-5.0 [facility] Serum or plasma alkaline loreto sphatase measurementOrdered By: Demi Kelly on 10-01-2024 ALP [Catalytic activity/Vol] 74 U/L 45-117 [facility] Serum or plasma calcium aiden urement (mass/volume)Ordered By: Demi Mendoza on 10-01-2024 Calcium [Mass/Vol] 9.0 mg/dL 8.5-10.1 [facility] Serum or plasma creatinine m easurement (mass/volume)Ordered By: Demi Mendoza on 10-01-2024 Creatinine [Mass/Vol] 1.01 mg/dL 0.55-1.02 [facility] Comment on above: The validity of the calculated GFR & GFRAA in patients over 70 years has not been determined. Clinical correlation is essential. Serum or plasma urea nitroge n measurement (mass/volume)Ordered By: Demi Mendoza on 10-01-2024 Urea nitrogen [Mass/Vol] 16 mg/dL 7-18 [facility] Sodium levelOrdered By: Sandrita mn Kelly on 10-01-2024 Sodium [Moles/Vol] 139 mmol/L 136-145 [facility] Total proteinOrdered By: Adrian umn Kelly on 10-01-2024 Protein [Mass/Vol] 7.0 g/dL 6.4-8.2 [facility] Troponin IOrdered By: Demi Mendoza on 10-01-2024 Troponin I High Sensitivity 255 pg/mL High 3.0-54.0 [facility] Comment on above: Critical Result(s) C alled at: 02:11:38 10/01/2024 by: Becky Barnes. Results read back by same. Please Note: New Test Units and Gender Specific Reference Ranges. For more information see Policy Stat Procedure [place] High Sensitivity Troponin (TNIH) and attachments. Vital signson 10-01-2024 Oxygen saturation in Blood 63 % [facility] Oxygen saturation in Blood 65 % [facility] White blood cell (WBC) count Ordered By: Demi Mendoza on 10-01-2024 WBC (Bld) [#/Vol] 11.6 10*3/uL High 4.4-11.0 [facility] aPTT Coag (Bld) [Time]on aPTT Coag (PPP) [Time] 25 s 20.0 - 30.5 s [facility] Interpretation and review of laboratory results Normal [facility] NOTE: The therapeuti c time for Heparin anticoagulation, based on Xa activity inhibition, is an APTT of 46-80 seconds. [facility] aPTT Coag (PPP) [Time]Ordere d By: Demi Mendoza on 10-01-2024 aPTT Coag (Bld) [Time] 81.2 s High 24.1-36.2 [facility] 12 Lead EKGon 09-30-2024 12 Lead EKG [facility] [address] [address] 12 Lead EKG 09/30/241945 MR#: [id number] Acct: [id number] Name: SANDRA MUNROE Rep #: [id number] : 1950 74 From: Ricardo Woodruff MD Attending Dr: Dr. Howard Proctor DO Status: DIS IN Ordering Dr: Moreno Mathis DO Date: 09/30/24 Location: ICU Sex: F C Admitted: 09/30/24 Test Reason : CP Blood Pressure : */* mmHG Vent. Rate : 105 BPM Atrial Rate : 105 BPM P-R Int : 166 ms QRS Dur : 70 ms QT Int : 330 ms P-R-T Axes : 30 17 17 degrees QTcB Int : 436 ms Sinus tachycardia Possible Inferior infarct , age undetermined Anterior infarct , age undetermined Abnormal ECG Confirmed by NADEEN LEONARDO, RICARDO ([id number]), dictionary editor DAGO RODRIGUEZ ([id number]) on 10/01/2024 11:35:26 AM Referred By: Confirmed By: RICARDO WOODRUFF MD 10/01/24 1135 Date Ricardo Woodruff MD CC: Dr. Ronel Padilla MD; Dr. Howard Proctor DO; Dr. Moreno Mathis DO Signed Normal [facility] Assessment of wrist artery p atency prior to arterial punctureOrdered By: Demi Mendoza on 09-30-2024 Ortega Test Positive Normal [facility] Comment on above: Performed By: #### L 501.080 #### [facility] [address] [place], [address] BNP (brain natriuretic pepti de measurement)Ordered By: Moreno Mathis on 09-30-2024 Natriuretic peptide B (Bld) [Mass/Vol] 38.1 pg/mL 0-100 [facility] BNP,B-Type NATRIURETIC PEPTI Yue 09-30-2024 Natriuretic peptide B (Bld) [Mass/Vol] 38.1 pg/mL Normal 0-100 [facility] Comment on above: Performed By: #### L 501.080 #### [facility] [address] [place] [place], [address] Base excess Calc (BldV) [Mol es/Vol]Ordered By: Demi Mendoza on 09-30-2024 Blood Gas Base Excess -2 mmol/L -2-2 [facility] Basic Metabolic Profile (BMP )on 09-30-2024 BUN/CRE 17.2 RATIO Normal 10-20 [facility] Comment on above: Order Comment: 1Y Performed By: #### L 500.2500, L100.0100 #### [facility] [address] [place], [address] CA,Total 9.7 mg/dL Normal 8.5-10.1 [facility] Comment on above: Order Comment: 1Y Performed By: #### L 500.2500, L100.0100 #### [facility] [address] [place], [address] Chloride [Moles/Vol] 108 mmol/L High 98-107 [facility] Comment on above: Order Comment: 1Y Performed By: #### L 500.2500, L100.0100 #### [facility] [address] [place], [address] CO2 [Moles/Vol] 25.0 mmol/L Normal 21.0-32.0 [facility] Comment on above: Order Comment: 1Y Performed By: #### L 500.2500, L100.0100 #### [facility] [address] [place], [address] Creatinine [Mass/Vol] 1.22 mg/dL High 0.55-1.02 [facility] Comment on above: Order Comment: 1Y Result Comment: The validity of the calculated GFR GFRAA in patients over 70 years has not been determined. Clinical correlation is essential. Performed By: #### L 500.2500, L100.0100 #### [facility] [address] [place], [address] ECRCL 40.67 ml/min Normal [facility] Comment on above: Order Comment: 1Y Performed By: #### L 500.2500, L100.0100 #### [facility] [address] [place], [address] EST GFR - AA 55 mL/min Low >60 [facility] Comment on above: Order Comment: 1Y Result Comment: Afri can Ecuadorean GFR Calc Performed By: #### L 500.2500, L100.0100 #### [facility] [address] [place], [address] GAP 5 Normal 5-15 [facility] Comment on above: Order Comment: 1Y Performed By: #### L 500.2500, L100.0100 #### [facility] [address] [place], [address] GFR/1.73 sq M.predicted among non-blacks MDRD (S/P/Bld) [Vol rate/Area] 46 mL/min/{1.73_m2} Low >60 [facility] Comment on above: Order Comment: 1Y Result Comment: Non- GFR Calc Performed By: #### L 500.2500, L100.0100 #### [facility] [address] [place], [address] Glucose [Mass/Vol] 173 mg/dL High 74-106 [facility] Comment on above: Order Comment: 1Y Result Comment: Fast ing Glucose result greater than or equal to 126 mg/dL suggests DIABETES MELLITUS per A.D.A. criteria. Performed By: #### L 500.2500, L100.0100 #### [facility] [address] [place], [address] Potassium [Moles/Vol] 4.4 mmol/L Normal 3.5-5.1 [facility] Comment on above: Order Comment: 1Y Performed By: #### L 500.2500, L100.0100 #### [facility] [address] [place], [address] Sodium [Moles/Vol] 139 mmol/L Normal 136-145 [facility] Comment on above: Order Comment: 1Y Performed By: #### L 500.2500, L100.0100 #### [facility] [address] [place], [address] Urea nitrogen [Mass/Vol] 21 mg/dL High 7-18 [facility] Comment on above: Order Comment: 1Y Performed By: #### L 500.2500, L100.0100 #### [facility] [address] [place], [address] BUN Normal - [facility] Comment on above: Order Comment: 'TROP ' Serial specimen #1, #2 or #3: 1 Result Comment: DUP ORDER Performed By: #### L 501.080 #### [facility] [address] [place], [address] BUN/CRE Normal 10-20 [facility] Comment on above: Order Comment: 'TROP ' Serial specimen #1, #2 or #3: 1 Result Comment: DUP ORDER Performed By: #### L 501.080 #### [facility] [address] [place], [address] CA,Total Normal 8.5-10.1 [facility] Comment on above: Order Comment: 'TROP ' Serial specimen #1, #2 or #3: 1 Result Comment: DUP ORDER Performed By: #### L 501.080 #### [facility] [address] [place], [address] CL Normal 98-107 [facility] Comment on above: Order Comment: 'TROP ' Serial specimen #1, #2 or #3: 1 Result Comment: DUP ORDER Performed By: #### L 501.080 #### [facility] [address] [place], [address] CO2 Normal 21.0-32.0 [facility] Comment on above: Order Comment: 'TROP ' Serial specimen #1, #2 or #3: 1 Result Comment: DUP ORDER Performed By: #### L 501.080 #### [facility] [address] [place], [address] CREAT,SERUM Normal 0.55-1.02 [facility] Comment on above: Order Comment: 'TROP ' Serial specimen #1, #2 or #3: 1 Result Comment: DUP ORDER Performed By: #### L 501.080 #### [facility] [address] [place], [address] EST GFR Normal >60 [facility] Comment on above: Order Comment: 'TROP ' Serial specimen #1, #2 or #3: 1 Result Comment: DUP ORDER Performed By: #### L 501.080 #### [facility] [address] [place], [address] EST GFR - AA Normal >60 [facility] Comment on above: Order Comment: 'TROP ' Serial specimen #1, #2 or #3: 1 Result Comment: DUP ORDER Performed By: #### L 501.080 #### [facility] [address] [place], [address] GAP Normal 5-15 [facility] Comment on above: Order Comment: 'TROP ' Serial specimen #1, #2 or #3: 1 Result Comment: DUP ORDER Performed By: #### L 501.080 #### [facility] [address] [place], [address] GLU Normal 74-106 [facility] Comment on above: Order Comment: 'TROP ' Serial specimen #1, #2 or #3: 1 Result Comment: DUP ORDER Performed By: #### L 501.080 #### [facility] [address] [place], [address] Potassium Normal 3.5-5.1 [facility] Comment on above: Order Comment: 'TROP ' Serial specimen #1, #2 or #3: 1 Result Comment: DUP ORDER Performed By: #### L 501.080 #### [facility] [address] [place], [address] Basic Metabolic Profile (BMP) Normal 136-145 [facility] Comment on above: Order Comment: 'TROP ' Serial specimen #1, #2 or #3: 1 Result Comment: DUP ORDER Performed By: #### L 501.080 #### [facility] [address] [place], [address] [facility] 12-10-2 024 Base excess Calc (Bld) [Moles/Vol] -2 mmol/L Normal -2 to +2 [facility] Comment on above: Performed By: #### L 501.080 #### [facility] [address] [place], [address] Blood Gas Type ART Normal [facility] Comment on above: Performed By: #### L 501.080 #### [facility] [address] [place], [address] CO2 [Moles/Vol] 23 mmol/L Normal [facility] Comment on above: Performed By: #### L 501.080 #### [facility] [address] [place], [address] FI02 50.0 Normal [facility] Comment on above: Performed By: #### L 501.080 #### [facility] [address] [place], [address] HCO3 (Bld) [Moles/Vol] 22.0 mmol/L Normal 22-26 [facility] Comment on above: Performed By: #### L 501.080 #### [facility] [address] [place], [address] Mode Not entered Normal [facility] Comment on above: Performed By: #### L 501.080 #### [facility] [address] [place], [address] O2 Delivery Dev Venti Mask Normal [facility] Comment on above: Performed By: #### L 501.080 #### [facility] [address] [place], [address] pCO2 31.8 mmHg Low 35-45 [facility] Comment on above: Performed By: #### L 501.080 #### [facility] [address] [place], [address] pH (Bld) 7.45 [pH] Normal 7.35-7.45 [facility] Comment on above: Performed By: #### L 501.080 #### [facility] [address] [place], [address] PO2 66 mmHG Low 75-100 [facility] Comment on above: Performed By: #### L 501.080 #### [facility] [address] [place], [address] SITE R Radial Normal [facility] Comment on above: Performed By: #### L 501.080 #### [facility] [address] [place], [address] SO2 94 Low 95-99 [facility] Comment on above: Performed By: #### L 501.080 #### [facility] [address] [place], [address] Blood bicarbonate measuremen tOrdered By: Demi Mendoza on 09-30-2024 Blood Gas Bicarbonate Actual 22.0 mmol/L [facility] Blood cultureOrdered By: Sarah Mathis on 09-30-2024 Bacteria identified Cx Nom (Bld) No growth in 5 days. [facility] CBC W/Diff, Automatedon 09-21 Absolute Lymph 3.63 X10 3/uL Normal 0.83-4.51 [facility] Comment on above: Performed By: #### L 500.2500, L100.0100 #### [facility] [address] [place], [address] Absolute Neut 8.0 X10 3/uL High 2.0-7.7 [facility] Comment on above: Performed By: #### L 500.2500, L100.0100 #### [facility] [address] [place], [address] Basophils/100 WBC (Bld) 0.2 % Normal 0-1 [facility] Comment on above: Performed By: #### L 500.2500, L100.0100 #### [facility] [address] [place], [address] Eosinophils/100 WBC (Bld) 1.1 % Normal 0-5 [facility] Comment on above: Performed By: #### L 500.2500, L100.0100 #### [facility] [address] [place], [address] Erythrocyte distribution width (RBC) [Ratio] 13.3 % Normal 11.6-14.6 [facility] Comment on above: Performed By: #### L 500.2500, L100.0100 #### [facility] [address] [place], [address] Hematocrit (Bld) [Volume fraction] 40.1 % Normal 37-47 [facility] Comment on above: Performed By: #### L 500.2500, L100.0100 #### [facility] [address] [place], [address] Hemoglobin (Bld) [Mass/Vol] 12.9 g/dL Normal 12.0-15.0 [facility] Comment on above: Performed By: #### L 500.2500, L100.0100 #### [facility] [address] [place], [address] IG% 0.600 Normal 0.0-0.9 [facility] Comment on above: Result Comment: IG% - Immature Granulocytes (promyelocytes, myelocytes and metamyelocytes) > 1% indicates that a LEFT SHIFT is Present. Performed By: #### L 500.2500, L100.0100 #### [facility] [address] [place], [address] Lymphocytes/100 WBC (Bld) 28.1 % Normal 19-41 [facility] Comment on above: Performed By: #### L 500.2500, L100.0100 #### [facility] [address] [place], [address] MCH (RBC) [Entitic mass] 31.0 pg Normal 27.0-32.0 [facility] Comment on above: Performed By: #### L 500.2500, L100.0100 #### [facility] [address] [place], [address] MCHC (RBC) [Mass/Vol] 32.2 g/dL Normal 32-36 [facility] Comment on above: Performed By: #### L 500.2500, L100.0100 #### [facility] [address] [place], [address] MCV (RBC) [Entitic vol] 96.4 fL Normal 81-99 [facility] Comment on above: Performed By: #### L 500.2500, L100.0100 #### [facility] [address] [place], [address] Monocytes/100 WBC (Bld) 8.2 % Normal 0-10 [facility] Comment on above: Performed By: #### L 500.2500, L100.0100 #### [facility] [address] [place], [address] Neutrophils/100 WBC (Bld) 61.8 % Normal 47-70 [facility] Comment on above: Performed By: #### L 500.2500, L100.0100 #### [facility] [address] [place], [address] Nucleated RBC (Bld) [#/Vol] 0 10*3/uL Normal 0-5 [facility] Comment on above: Performed By: #### L 500.2500, L100.0100 #### [facility] [address] [place], [address] Platelet mean volume (Bld) [Entitic vol] 9.9 fL Normal 6.2-12.0 [facility] Comment on above: Performed By: #### L 500.2500, L100.0100 #### [facility] [address] [place], [address] Platelets (Bld) [#/Vol] 243 10*3/uL Normal 150-450 [facility] Comment on above: Performed By: #### L 500.2500, L100.0100 #### [facility] [address] [place], [address] RBC (Bld) [#/Vol] 4.16 10*6/uL Low 4.2-5.4 [facility] Comment on above: Performed By: #### L 500.2500, L100.0100 #### [facility] [address] [place], [address] RDW SD 47.4 fl High 35.1-43.9 [facility] Comment on above: Performed By: #### L 500.2500, L100.0100 #### [facility] [address] [place], [address] WBC (Bld) [#/Vol] 12.9 10*3/uL High 4.4-11.0 [facility] Comment on above: Performed By: #### L 500.2500, L100.0100 #### [facility] [address] [place], [address] Absolute Neut Normal 2.0-7.7 [facility] Comment on above: Result Comment: DUP ORDER Performed By: #### L 501.080 #### [facility] [address] [place], [address] HCT Normal 37-47 [facility] Comment on above: Result Comment: DUP ORDER Performed By: #### L 501.080 #### [facility] [address] [place], [address] HGB Normal 12.0-15.0 [facility] Comment on above: Result Comment: DUP ORDER Performed By: #### L 501.080 #### [facility] [address] [place], [address] MCH Normal 27.0-32.0 [facility] Comment on above: Result Comment: DUP ORDER Performed By: #### L 501.080 #### [facility] [address] [place], [address] MCHC Normal 32-36 [facility] Comment on above: Result Comment: DUP ORDER Performed By: #### L 501.080 #### [facility] [address] [place], [address] MCV Normal 81-99 [facility] Comment on above: Result Comment: DUP ORDER Performed By: #### L 501.080 #### [facility] [address] [place], [address] NEUT% Normal 47-70 [facility] Comment on above: Result Comment: DUP ORDER Performed By: #### L 501.080 #### [facility] [address] [place], [address] PLT Normal 150-450 [facility] Comment on above: Result Comment: DUP ORDER Performed By: #### L 501.080 #### [facility] [address] [place], [address] RBC Normal 4.2-5.4 [facility] Comment on above: Result Comment: DUP ORDER Performed By: #### L 501.080 #### [facility] [address] [place], [address] RDW CV Normal 11.6-14.6 [facility] Comment on above: Result Comment: DUP ORDER Performed By: #### L 501.080 #### [facility] [address] [place], [address] RDW SD Normal 35.1-43.9 [facility] Comment on above: Result Comment: DUP ORDER Performed By: #### L 501.080 #### [facility] [address] [place], [address] WBC Normal 4.4-11.0 [facility] Comment on above: Result Comment: DUP ORDER Performed By: #### L 501.080 #### [facility] [address] [place], [address] CTA Chest W/WO Contraston CTA Chest W/WO Contrast [facility] Imaging Services [address] [place] [address] CTA Chest W/WO Contrast MR#: [id number] Acct: [id number] Name: SANDRA MUNROE Junior Rep #: [id number] : 1950 F 74 From: Vin Pryor PCP: Dr. Ronel Padilla MD Status: REG ER Study: CTA Chest W/WO Contrast Date of Exam: 09/30/24 Exam# [id number] Ordering Dr: Moreno Mathis DO ADDENDUM by Dr. Vin Park MD on 09/30/24 at 2110 [id number] STUDY: CTA CHEST REASON FOR EXAM: Female, 74 years old. dyspnea, chest pain, tachycardia RADIATION DOSAGE (If Supplied By Facility): CTDIvol = ( 20.91 ) mGy, DLP = ( 449.17 ) mGycm TECHNIQUE: The examination was performed with the intravenous administration of IV 100mL Isovue-370. Post-processing of the angiographic images was performed, with multiplanar reformation and 3D reconstruction. Individualized dose optimization techniques were used for this CT. The protocol utilizes one or more of the following dose reduction techniques: automated exposure control, adjustment of mA and/or kV according to patient size,and/or use of iterative reconstruction technique. COMPARISON: None. 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 There is also complete occlusion of the right lower lobe segmental branches. [ No ventricular septal straightening. Normal thoracic aorta and visualized great vessels. There is no demonstrated aortic dissection. Normal heart and pericardium. Normal mediastinum. Normal hilar regions. Normal visualized trachea and bronchi. The lungs are well expanded. Normal pulmonary parenchyma. Normal pleura. Normal chest wall structures. Normal osseous structures. Normal visualized upper abdomen. 09/30/242110 Date cc: Dr. Ronel Padilla MD; Dr. Moreno Mathis DO * Signed ADDENDUM by Dr. Vin Park MD on 09/30/[address]/CTA Chest W/WO Contrast IMPRESSION: Extensive pulmonary emboli as above without evidence of right ventricular strain at this time N.B. : The above Results were Read Back by Vin Park MD to Moreno Mathis DO, and understanding confirmed on 09/30/2024 21:24:15 (ET). Electronically Signed: Vin Park MD at 21:11 EST , 09/30/24 213 Date cc: Dr. Ronel Padilla MD; Dr. Moreno Mathis, * Signed We are attempting to reach an attending provider to discuss findings. An addendum with communication details will be sent when the communication is complete. [id number] STUDY: CTA CHEST REASON FOR EXAM: Female, 74 years old. dyspnea, chest pain, tachycardia RADIATION DOSAGE (If Supplied By Facility): CTDIvol = ( 20.91 ) mGy, DLP = ( 449.17 ) mGycm TECHNIQUE: The examination was performed with the intravenous administration of IV 100mL Isovue-370. Post-processing of the angiographic images was performed, with multiplanar reformation and 3D reconstruction. Individualized dose optimization techniques were used for this CT. The protocol utilizes one or more of the following dose reduction techniques: automated exposure control, adjustment of mA and/or kV according to patient size,and/or use of iterative reconstruction technique. COMPARISON: None. 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 There is also complete occlusion of the right lower lobe segmental branches. [ No ventricular septal straightening. Normal thoracic aorta and visualized great vessels. There is no demonstrated aortic dissection. Normal heart and pericardium. Normal mediastinum. Normal hilar regions. Normal visualized trachea and bronchi. The lungs are well expanded. Normal pulmonary parenchyma. Normal pleura. Normal chest wall structures. Normal osseous structures. Normal visualized upper abdomen. CT/CTA Chest W/WO Contrast IMPRESSION: Extensive pulmonary emboli as above without evidence of right ventricular strain at this time Electronically Signed: Vin Park MD at 21:11 EST , CC: Dr. Ronel Padilla MD; Dr. Moreno Mathis DO Dehairer: Signed Normal [facility] Chest 1 View (Portable)on Chest 1 View (Portable) [facility] Imaging Services [address] [place] [address] [id number] Chest 1 View (Portable) MR#: [id number] Acct: [id number] Name: SANDRA MUNROE Rep #: [id number] : 1950 F 74 From: Vin Pryor PCP: Dr. Ronel Padilla MD Status: ADM IN Study: Chest 1 View (Portable) Date of Exam: 09/30/24 Exam# [id number] Ordering Dr: Moreno Mathis DO [id number] STUDY: X-RAY CHEST REASON FOR EXAM: Female, 74 years old. chest pain TECHNIQUE: Single frontal view of the chest. COMPARISON: CTA chest September 30, 2024 FINDINGS: The lungs are clear and expanded. There is no demonstrated pleural abnormality. Normal size heart. Normal mediastinum and peña. Normal visualized pulmonary arteries. Normal visualized aortic arch and descending thoracic aorta. Normal visualized thoracic spine. Normal visualized ribs, clavicles, and shoulders. There is no demonstrated abnormality of the visualized soft tissue structures of the upper abdomen. RAD/Chest 1 View (Portable) IMPRESSION: Normal x-ray examination of the chest. Electronically Signed: Vin Park MD at 22:06 EST Reading Location ID and State: [facility] / [place] Tel , Service support , CC: Dr. Ronel Padilla MD; Dr. Moreno Mathis DO Dehairer: Signed Normal [facility] D-Dimer Quantitative (DVT/PE )on 09-30-2024 D-DIMER QUANT 11.91 FEU/ug/m Invalid Interpretation Code 0.27-0.49 [facility] Comment on above: Result Comment: D-Di savita ELEVATED (>0.49): Additional studies and clinical assessments are indicated to conclude diagnosis of: Deep Vein Thrombosis (DVT) or Pulmonary Embolism (PE) RESULTS CALLED TO CARLOS 09/30/242038 Sade Moon. REPORT READ BACK BY .SAME Performed By: #### L 501.080 #### [facility] [address] [facility] [place], [address] D-dimer measurement for deep venous thrombosisOrdered By: Moreno Mathis on 09-30-2024 D-Dimer Quantitative (PE/DVT) 11.91 FEU/ug/m High 0.27-0.49 [facility] Comment on above: D-Dimer ELEVATED (>0 .49): Additional studies and clinicalassessments are indicated to conclude diagnosis of:Deep Vein Thrombosis (DVT) or Pulmonary Embolism (PE)RESULTS CALLED TO CARLOS 09/30/242038 Sade Moon.REPORT READ BACK BY .GINNY Determination of fraction of inspired oxygenOrdered By: Demi Mendoza on 09-30-2024 Blood Gas Oxygen Percent 50.0 [facility] Emergency Department Summary on 09-30-2024 Emergency Department Summary [facility] Medical Records Department [address] [place] [address] Emergency Department Summary 09/30/24 MR#: [id number] Acct: [id number] Name: MUNROEJOSUESANDRA L Rep #: [id number] : 1950 74 From: Moreno Mathis DO PCP: Dr. Ronel Padilla MD Status:ADM IN Location: ICU ICU05-1 HPI History of Present Illness Chief Complaint: Chest Pain Detail of Chief Complaint: Chest tightness and dyspnea Informant: patient Narrative Narrative: Patient presents to the emergency department with complaint of dyspnea that started around 1 PM. She describes and chest tightness. She tells me she had COVID around Thanksgiving time. She just felt like she had a cold. She still has an occasional cough. She denies recent travel or surgery. No history of asthma or COPD. No history of PE or DVT. No heart history. [facility] Medical History Osteoarthritis of right knee Right knee pain Thyroid disease Neuropathy Hyperlipemia Hypertension Gallstones Diabetes Cataract Arthritis Home Medications ???Medication ???Instructions ???Recorded ???Last Taken ???Type aspirin 81 mg tablet,delayed 81 mg PO DAILY 04/21/24 Unknown History release (Adult Low Dose Aspirin) cholecalciferol (vitamin D3) 50 50 mcg PO DAILY 04/21/24 Unknown History mcg (2,000 unit) capsule glipizide 5 mg tablet, extended 5 mg PO DAILY 04/21/24 Unknown History release 24 hr levothyroxine 25 mcg capsule 25 mcg PO DAILY 04/21/24 Unknown History lisinopril 5 mg tablet 5 mg PO DAILY 04/21/24 Unknown History mecobalamin (vitamin B12) 1,000 3,000 mcg PO DAILY 04/21/24 Unknown History mcg chewable tablet pravastatin 80 mg tablet 80 mg PO QHS 04/21/24 Unknown History magnesium 200 mg tablet 400 mg PO DAILY 09/30/24 Unknown History potassium gluconate 600 mg (99 mg) 650 mg PO DAILY 09/30/24 Unknown History tablet Allergy/AdvReac Type Severity Reaction Status Date / Time Penicillins Allergy Intermediate Swelling Verified 09/30/24 19:28 Family History Father Cancer lung Diabetes Parkinson disease Arthritis Blood clot in vein Hydrocephalus Myocardial infarction Mother Myocardial infarction Heart disease Hypertension Hyperlipemia Brother Cancer lung COPD (chronic obstructive pulmonary disease) Grandfather CVA (cerebral vascular accident) Brother Bowel disease had ostomy Pneumonia due to COVID-19 virus Son Myocardial infarction Surgical History H/O eye surgery Cataract extraction status S/P wrist surgery S/P cholecystectomy History of hysterectomy H/O tubal ligation Hx of tonsillectomy Social History adopted: No household members: family number of children: 5 current occupational status: employed current occupation: [employer]. [employer]. pets and animals: Yes sexually active: No Smoking Status: Never smoker Electronic Cigarette Use: not used alcohol intake: never substance use type: does not use caffeine: Yes (1) Type: coffee frequency: does not exercise seatbelt use: always do you feel safe at home: Yes ROS ROS ED Review of Systems ROS Unobtainable: other Constitutional Constitutional ED: Reports lethargy; Denies chills, fever(s), sweats or weight loss Eyes Eyes: Denies blurry vision, change in vision or diplopia ENT ENT ED: Denies rhinorrhea or sore throat Cardiovascular Cardiovascular: Reports chest pain; Denies orthopnea or racing heartbeat Respiratory/Chest Respiratory/Chest: Reports cough, dyspnea and dyspnea on exertion; Denies orthopnea or sputum Gastrointestinal Gastrointestinal: Denies abdominal pain, diarrhea, nausea or vomiting Genitourinary Genitourinary ED: Denies dysuria, hematuria or urinary frequency Musculoskeletal Musculoskeletal: Denies arthralgias, back pain, myalgias or neck pain Integumentary Denies abscess, Abrasions or rash Neurologic Neurologic: Denies headache(s) or weakness Psychiatric Psychiatric: Denies anxiety, depression or suicidal thoughts Endocrine Endocrinology: Denies polydipsia, polyphagia or polyuria Hematologic/Lymphatic Hematologic/Lymphatic: Denies easy bleeding, easy bruising or lymphadenopathy Allergic/Immunologic Allergic/Immunologic ED: Denies mouth swelling, tongue swelling or urticaria EXAM Physical Exam Const Vital Signs: 09/30/24 19:28 09/30/24 19:38 09/30/24 19:47 Temperature 97.2 F L Temperature Source Temporal Pulse Rate 109 H Respiratory Rate 22 H Respiratory Effort Respiratory Pattern Blood Pressure 129/64 H Blood Pressure Mean 85 Pulse Ox 90 92 Oxygen Delivery Method Nasal Cannula (more content not included)... Normal [facility] H AND P Exam - [facility] 09-30-2024 H&P Exam - Hospitalist [facility] Medical Records Department [address] [place] [address] H P Exam - Hospitalist 09/30/242107 MR#: [id number] Acct: [id number] Name: SANDRA MUNROE Rep #: [id number] : 1950 74 From: Demi Mendoza MD PCP: Dr. Ronel Padilla MD Status:ADM IN Location: ICU ICU05-1 HPI - General General Date of Admission: 09/30/24 Date of Service: 09/30/24 Chief Complaint: Dyspnea, chest tightness. HPI Narrative The patient is a 74 y/o F w/ PMHx: Obesity, Hypothyroidism, HTN, HLD, OA, Diabetes mellitus type II with chronic neuropathy, Possible CKD stage III unclear subtype based on current GFR who presents to the [facility] ED on 09/30/24 with onset of chest discomfort and dyspnea starting approximately 1 PM with history of COVID diagnosis around the Sunday just prior to with reporting the symptoms as cold-like/URI with occasional cough with no recent surgery or travel nor any history of asthma or COPD with improvement of her URI type symptoms with admitted sedentary lifestyle when she had been ill but given onset of these new significant symptoms of dyspnea and chest discomfort prompted ED evaluation to be cautious. She denied any recent lower extremity pain or swelling. Workup in the ED included T97.2, heart rate 109, BP 129/64, respiratory rate 22, 90% on 6 L nasal cannula eventually transition to a nonrebreather and most recent repeat vital signs T97.2, heart rate 103, BP 142/80, respiratory rate 12, 93% on a Ventimask 13 L with FiO2 92, CBC with WBC 12.9, hemoglobin 12.9, platelet 243 with left shift, coags with D-dimer 11.91, chloride 108, BUN/creatinine 21/1.22, GFR 46, glucose 173, lactic acid 1.4, troponin 263, BNP 38.1, pending chest x-ray and CTA upon request evaluation of patient, blood culture pending per ED, EKG with ST without acute evidence of ischemia. In the ED patient administered heparin bolus as well as drip and DuoNeb therapy. Given significant clot burden requested that ED physician also attempted contact vascular surgery so that they may be aware and give input about any acute interventions felt appropriate at this time however unfortunately they are not on-call for the next 48 hours. [facility] Medical History Hypothyroidism Peripheral neuropathy Type 2 diabetes mellitus Obesity Osteoarthritis of right knee Hyperlipemia Hypertension Gallstones Cataract Arthritis Home Medications ???Medication ???Instructions ???Recorded ???Last Taken ???Type aspirin 81 mg tablet,delayed 81 mg PO DAILY 04/21/24 Unknown History release (Adult Low Dose Aspirin) cholecalciferol (vitamin D3) 50 50 mcg PO DAILY 04/21/24 Unknown History mcg (2,000 unit) capsule glipizide 5 mg tablet, extended 5 mg PO DAILY 04/21/24 Unknown History release 24 hr levothyroxine 25 mcg capsule 25 mcg PO DAILY 04/21/24 Unknown History lisinopril 5 mg tablet 5 mg PO DAILY 04/21/24 Unknown History mecobalamin (vitamin B12) 1,000 3,000 mcg PO DAILY 04/21/24 Unknown History mcg chewable tablet pravastatin 80 mg tablet 80 mg PO QHS 04/21/24 Unknown History magnesium 200 mg tablet 400 mg PO DAILY 09/30/24 Unknown History potassium gluconate 600 mg (99 mg) 650 mg PO DAILY 09/30/24 Unknown History tablet Allergy/AdvReac Type Severity Reaction Status Date / Time Penicillins Allergy Intermediate Swelling Verified 09/30/24 19:28 Family History Father Cancer lung Diabetes Parkinson disease Arthritis Blood clot in vein Hydrocephalus Myocardial infarction Mother Myocardial infarction Heart disease Hypertension Hyperlipemia Brother Cancer lung COPD (chronic obstructive pulmonary disease) Grandfather CVA (cerebral vascular accident) Brother Bowel disease had ostomy Pneumonia due to COVID-19 virus Son Myocardial infarction Surgical History H/O eye surgery Cataract extraction status S/P wrist surgery S/P cholecystectomy History of hysterectomy H/O tubal ligation Hx of tonsillectomy Social History adopted: No household members: family number of children: 5 current occupational status: employed current occupation: [employer]. [employer]. pets and animals: Yes sexually active: No Smoking Status: Never smoker Electronic Cigarette Use: not used alcohol intake: never substance use type: does not use caffeine: Yes (1) Type: coffee frequency: does not exercise seatbelt use: always do you feel safe at home: Yes ROS ROS Narrative Admission Review of Systems: CONSTITUTIONAL: No weight loss, fever, chills, + weakness or fatigue. HEENT: Eyes: No visual loss, blurred vision, doub (more content not included)... Normal [facility] International normalized rat io (INR) calculationOrdered By: Moreno Mathis on 09-30-2024 INR Coag (Bld) [Relative time] 1.1 {INR} [facility] L501.4020on 09-30-2024 TROPONIN-I HS 296 pg/mL Invalid Interpretation Code 3.0-54.0 [facility] Comment on above: Result Comment: Crit ical Result(s) Called at: 23:25:44 09/30/2024 by: Becky EDWARDS. Results read back by same. Please Note: New Test Units and Gender Specific Reference Ranges. For more information see Policy Stat Procedure [place] High Sensitivity Troponin (TNIH) and attachments. Performed By: #### L 500.2500, L100.0100 #### [facility] [address] [place], [address] L501.5425on 09-30-2024 TROPONIN-I HS 263 pg/mL Invalid Interpretation Code 3.0-54.0 [facility] Comment on above: Order Comment: 1Y Result Comment: Crit ical Result(s) Called at: 20:12:39 09/30/2024 by: FERNANDEZ TRIANA. Results read back by same. Please Note: New Test Units and Gender Specific Reference Ranges. For more information see Policy Stat Procedure [place] High Sensitivity Troponin (TNIH) and attachments. Performed By: #### L 500.2500, L100.0100 #### [facility] [address] [place], [address] Lactic Acidon 09-30-2024 Lactate [Moles/Vol] 1.4 mmol/L Normal 0.4-1.9 [facility] Comment on above: Order Comment: Y Performed By: #### L 501.080 #### [facility] [address] [place], [address] Lactic acid measurementOrder ed By: Moreno Ungur on 09-30-2024 Lactate [Moles/Vol] 1.4 mmol/L 0.4-2.0 [facility] Magnesiumon 09-30-2024 Magnesium [Mass/Vol] 2.4 mg/dL Normal 1.6-2.6 [facility] Comment on above: Order Comment: Comme nts: may add to ED labs Performed By: #### L 501.5200 #### [facility] [address] [place], [address] Magnesium measurementOrdered By: Demi Mendoza on 09-30-2024 Magnesium [Mass/Vol] 2.4 mg/dL 1.6-2.6 [facility] No Panel InformationOrdered By: Demi Mendoza on 09-30-2024 Blood Gas Sample Site R Radial [facility] Blood Gas Specimen Type ART W [facility] Blood Gas Vent Mode Not entered [facility] Oxygen Delivery Device Venti Mask [facility] Oxygen saturation measuremen tOrdered By: Demi Mendoza on 09-30-2024 Blood Gas Oxygen Saturation 94 % Low 95-99 [facility] Partial Thromboplast Timeon 09-30-2024 aPTT Coag (Bld) [Time] 26.4 s Normal 24.1-36.2 [facility] Comment on above: Performed By: #### L 300.3900, L300.4310 #### [facility] [address] [place], [address] Partial pressure of carbon d ioxide measurementOrdered By: Demi Mendoza on 09-30-2024 Arterial Blood Partial Pressure CO2 31.8 mmHg Low 35-45 [facility] Partial pressure of oxygen m easurementOrdered By: Demi Mendoza on 09-30-2024 Arterial Blood Partial Pressure O2 66 mmHG Low 75-100 [facility] Prothrombin Time w/INRon INR Coag (PPP) [Relative time] 1.1 {INR} Normal [facility] Comment on above: Performed By: #### L 300.3900, L300.4310 #### [facility] [address] [place], [address] PT Coag (PPP) [Time] 14.1 s Normal 11.7-14.9 [facility] Comment on above: Performed By: #### L 300.3900, L300.4310 #### [facility] [address] [place], [address] Prothrombin timeOrdered By: Moreno Mathis on 09-30-2024 PT Coag (PPP) [Time] 14.1 s 11.7-14.9 [facility] Total carbon dioxide measure mentOrdered By: Demi Mendoza on 09-30-2024 Blood Gas Total CO2 23 mmol/L [facility] pH (Unsp spec)Ordered By: Jane Mendoza on 09-30-2024 Blood Gas pH 7.45 7.35-7.45 [facility] Orthopedic Visit Reporton Orthopedic Visit Report [facility] [address] [place] [address] [address] [place], [place] [address] OFFICE VISIT Date of Service: 08/14/24 MR#: [id number] Acct: [id number] Name: SANDRA MUNROE Rep #: [id number] : 1950 Provider: Dr. Alber gale MD Age/Sex: 73/F Location[facility] Status: Signed with Addenda ADDENDUM by CHARLENE Austin on 08/14/24 at 1549 Office Procedure Documentation entered by Leyda Austin MA 08/14/24 15:49: Ortho Injections Injections Is this a patient provided medication?: No Details: Obtained consent for injection. Under sterile conditions, injected the patients Right knee with 2ml Kenalog and 4ml bupivacaine. The patient tolerated the injection well without any noted complication. Patient should call our office if redness develops, pain worsens or if they have any concerns. Office Meds Kenalog 40 mg/mL suspension for injection Performing Provider: Alber Pham MD Performing Location: [facility] Administered by: Alber Pham MD on 08/14/24 15:48 Dose Route Admin Location Dispensed Lot Number Expiration Date BACILIO Cortez [employer]urer 80 mg intra-articular Right knee 2 mL [id number] 01/20/26 8738-6279-17 [employer] Date cc: * Signed Intake Vital Signs 08/01/24 13:40 Height 5 ft 1 in Weight: 201 lb 8 oz BMI 38.0 Intake Visit Reasons: RIGHT KNEE Chief Complaint: right knee pain Accompanied by: Self Is patient in pain?: Yes Pain scale (1-10): 2 Allergies Penicillins Allergy (Intermediate, Verified 08/14/24 15:33) Swelling Medications ???Medication ???Instructions ???Recorded ???Confirmed ???Type aspirin 81 mg tablet,delayed 81 mg PO DAILY 04/21/24 08/14/24 History release (Adult Low Dose Aspirin) cholecalciferol (vitamin D3) 50 50 mcg PO DAILY 04/21/24 08/14/24 History mcg (2,000 unit) capsule glipizide 5 mg tablet, extended 5 mg PO DAILY 04/21/24 08/14/24 History release 24 hr levothyroxine 25 mcg capsule 25 mcg PO DAILY 04/21/24 08/14/24 History lisinopril 5 mg tablet 5 mg PO DAILY 04/21/24 08/14/24 History mecobalamin (vitamin B12) 1,000 1,000 mcg PO DAILY 04/21/24 08/14/24 History mcg chewable tablet pravastatin 80 mg tablet 80 mg PO QHS 04/21/24 08/14/24 History Have you fallen in the past year?: No PFSH Medical History Osteoarthritis of right knee Right knee pain Thyroid disease Neuropathy Hyperlipemia Hypertension Gallstones Diabetes Cataract Arthritis Surgical History H/O eye surgery Cataract extraction status S/P wrist surgery S/P cholecystectomy History of hysterectomy H/O tubal ligation Hx of tonsillectomy Family History Father Cancer lung Diabetes Parkinson disease Arthritis Blood clot in vein Hydrocephalus Myocardial infarction Mother Myocardial infarction Heart disease Hypertension Hyperlipemia Brother Cancer lung COPD (chronic obstructive pulmonary disease) Grandfather CVA (cerebral vascular accident) Brother Bowel disease had ostomy Pneumonia due to COVID-19 virus Son Myocardial infarction Social History adopted: No household members: family number of children: 5 current occupational status: employed current occupation: [employer]. pets and animals: Yes sexually active: No Smoking Status: Never smoker Electronic Cigarette Use: not used alcohol intake: never substance use type: does not use caffeine: Yes (1) Type: coffee frequency: does not exercise seatbelt use: always do you feel safe at home: Yes HPI RIGHT KNEE Details: This documentation accurately reflects the service provided and the decisions made by me, Dr. Alber Pham MD 08/14/24 1118. Part of today???s visit was documented by [ ], acting as scribe. SANDRA MUNROE is a 73 year old F here today for 2 weeks follow-up right knee pain and moderate to advanced osteoarthritis. Patient is wanting to go ahead with a cortisone injection at today's visit. Coding Level of Care Code Attention Marcos Diagnoses Osteoarthritis of right knee M17.11 Right knee pain M25.561 Comment 41483 and cpt inject major joint Assessment and Plan Assessment and Plan (1) Osteoarthritis of right knee: Status: Acute Plan: SANDRA MUNROE is a 73 year old F here today for R knee pain. X-rays show moderate to advanced medial compartment joint space narrowing and osteoarthritis. Patient likely had a temporary flare of the pre-existing osteoarthritis. Right knee intra-articular cortisone injection (more content not included)... Normal [facility] Knee 4 or More Viewson 08-01 Knee 4 or More Views [facility] [address] [place] [address] Knee 4 or More Views MR#: [id number] Acct: [id number] Name: SANDRA MUNROE Rep #: [id number] : 1950 F 73 From: Jose Roberto Rodriguez MD PCP: Status: DEP AMB Study: Knee 4 or More Views Date of Exam: 08/01/24 Exam# [id number] Ordering Dr: Alber Pham MD [id number] INDICATION: pain EXAMINATION/TECHNIQUE: X-RAY - RIGHT XR Knee Complete 4 Views or More 4 VIEWS COMPARISON: None FINDINGS: SOFT TISSUES: No soft tissue swelling or gas. No radiopaque foreign body. BONES/JOINTS: No acute fracture. Trace suprapatellar effusion.. Near complete medial compartment space narrowing and mild patellofemoral space narrowing. Mild tricompartment osteophyte formation. . No sclerotic or destructive changes observed. RAD/Knee 4 or More Views IMPRESSION: No evidence of acute injury. Tricompartment osteoarthritis, most prominent in the medial compartment, with trace effusion. Electronically Signed: Jose Roberto Rodriguez MD at 20:08 EDT Reading Location ID and State: [facility] / [place] Tel , Service support , CC: Dr. Alber Pham MD Dehairer: Signed Normal [facility] Orthopedic Visit Reporton Orthopedic Visit Report [facility] [address] [place] [id number] OFFICE VISIT Date of Service: 08/01/24 MR#: [id number] Acct: [id number] Name: SANDRA MUNROE Rep #: [id number] : 1950 Provider: Dr. Alber gale MD Age/Sex: 73/F Location: [facility] Status: Signed Intake Vital Signs 04/21/24 08:01 08/01/24 13:40 Height 5 ft 1 in 5 ft 1 in Weight: 201 lb 201 lb 8 oz BMI 38.0 38.0 BP 122/82 H Blood Pressure Location Lt brachial Position Sitting Respiration 14 Pulse 73 Pulse Source Monitor Temp 98.4 F Temp Source Temporal Pulse Oximetry (%) 97 Oxygen Delivery Method room air Intake Visit Reasons: RIGHT KNEE Chief Complaint: right knee pain Accompanied by: Self Is patient in pain?: Yes Pain scale (1-10): 5 Allergies Penicillins Allergy (Intermediate, Verified 08/01/24 13:42) Swelling Medications ???Medication ???Instructions ???Recorded ???Confirmed ???Type aspirin 81 mg tablet,delayed 81 mg PO DAILY 04/21/24 08/01/24 History release (Adult Low Dose Aspirin) cholecalciferol (vitamin D3) 50 50 mcg PO DAILY 04/21/24 08/01/24 History mcg (2,000 unit) capsule glipizide 5 mg tablet, extended 5 mg PO DAILY 04/21/24 08/01/24 History release 24 hr levothyroxine 25 mcg capsule 25 mcg PO DAILY 04/21/24 08/01/24 History lisinopril 5 mg tablet 5 mg PO DAILY 04/21/24 08/01/24 History mecobalamin (vitamin B12) 1,000 1,000 mcg PO DAILY 04/21/24 08/01/24 History mcg chewable tablet pravastatin 80 mg tablet 80 mg PO QHS 04/21/24 08/01/24 History Have you fallen in the past year?: Yes [facility] Medical History (Updated 08/01/24 @ 13:58 by Alber Pham MD) Osteoarthritis of right knee Right knee pain Thyroid disease Neuropathy Hyperlipemia Hypertension Gallstones Diabetes Cataract Arthritis Surgical History H/O eye surgery Cataract extraction status S/P wrist surgery S/P cholecystectomy History of hysterectomy H/O tubal ligation Hx of tonsillectomy Family History Father Cancer lung Diabetes Parkinson disease Arthritis Blood clot in vein Hydrocephalus Myocardial infarction Mother Myocardial infarction Heart disease Hypertension Hyperlipemia Brother Cancer lung COPD (chronic obstructive pulmonary disease) Grandfather CVA (cerebral vascular accident) Brother Bowel disease had ostomy Pneumonia due to COVID-19 virus Son Myocardial infarction Social History adopted: No household members: family number of children: 5 current occupational status: employed current occupation: [employer]. [employer]. pets and animals: Yes sexually active: No Smoking Status: Never smoker Electronic Cigarette Use: not used alcohol intake: never substance use type: does not use caffeine: Yes (1) Type: coffee frequency: does not exercise seatbelt use: always do you feel safe at home: Yes HPI RIGHT KNEE Details: This documentation accurately reflects the service provided and the decisions made by me, Dr. Alber Pham MD 08/01/24 3264. Part of today???s visit was documented by [ ], acting as scribe. SANDRA MUNROE is a 73 year old F here today for R knee pain. 2 weeks. no trauma. medial mostly. and posterior. worse with twisting. tx icey hot topical. advil and tylenol. a brace but hurting worse. it did swell. getting much better over time. now 5/10 pain, no pain at rest. never had it before. has OA in the hip. changes with the weather. Ortho Exam General General: Yes no acute distress Neurologic: Yes alert and Yes oriented x3 Psychologic: Yes reasonable and appropriate Right Knee Skin/Wound: Yes CDI, No erythema, No ecchymosis and No swelling Examination: Yes Med jt line tenderness, No Lat jt line tenderness, No TTP inf pole patella, No Crepitus, Yes Pain with flexion, No Pain with extention, No Gabriel's Test, No TTP Patellar tendon, No TTP Tibial tubercle, No TTP Pes Anserine and No Illiotibial band tenderness Quad Atrophy: No Stability: NML: Anterior Drawer, NML: Bogdan, NML: Posterior Drawer, NML: Valgus 0, NML: Valgus 30, NML: Varus 0 and NML: Varus 30 Patella Translation: 2 Patellar Tilt Normal: Yes Patella Grind: Yes KNEE: rom 0-100, nvi, slight antlagic gait, incr bmi Left Knee Patella Translation: 2 Supplemental Info Right knee x-rays taken today 4 views obtained show moderate to advanced medial compartment joint space narrowing and signs of osteoarthritis as well as mild-mod at the patellofemoral joint. No acute abnormalities. Coding Level of Care Code Off vis,new,level 3 Diagnoses Right knee pain M25.561 Ost (more content not included)... Normal [facility] Office Vis iton 04-17-2024 Internal Medicine Office Visit [facility] [address] [place], [place] [address] OFFICE VISIT Date of Service: 04/21/24 MR#: [id number] Acct: [id number] Name: SANDRA MUNROE Rep #: [id number] : 1950 Provider: Dr. 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 Sales Required: No Is patient in pain?: No Allergies Penicillins Allergy (Intermediate, Verified 04/21/24 07:47) Swelling Medications ???Medication ???Instructions ???Recorded ???Confirmed ???Type aspirin 81 mg tablet,delayed 81 mg PO DAILY 04/21/24 04/21/24 History release (Adult Low Dose Aspirin) cholecalciferol (vitamin D3) 50 50 mcg PO DAILY 04/21/24 04/21/24 History mcg (2,000 unit) capsule glipizide 5 mg tablet, extended 5 mg PO DAILY 04/21/24 04/21/24 History release 24 hr levothyroxine 25 mcg capsule 25 mcg PO DAILY 04/21/24 04/21/24 History lisinopril 5 mg tablet 5 mg PO DAILY 04/21/24 04/21/24 History mecobalamin (vitamin B12) 1,000 1,000 mcg PO DAILY 04/21/24 04/21/24 History mcg chewable tablet pravastatin 80 mg tablet 80 mg PO QHS 04/21/24 04/21/24 History Have you fallen in the past year?: No Nurse's Note: Does not think she is due for a1c yet. Is concerned about neuropathy in feet. [facility] Medical History Thyroid disease Neuropathy Hyperlipemia Hypertension Gallstones Diabetes Cataract Arthritis Surgical History (Updated 04/21/24 @ 08:[address] Ronel Padilla MD) H/O eye surgery Cataract extraction status S/P wrist surgery S/P cholecystectomy History of hysterectomy H/O tubal ligation Hx of tonsillectomy Family History (Updated 04/21/24 @ 08:[address] Ronel Padilla MD) Father Cancer lung Diabetes Parkinson disease Arthritis Blood clot in vein Hydrocephalus Myocardial infarction Mother Myocardial infarction Heart disease Hypertension Hyperlipemia Brother Cancer lung COPD (chronic obstructive pulmonary disease) Grandfather CVA (cerebral vascular accident) Brother Bowel disease had ostomy Pneumonia due to COVID-19 virus Son Myocardial infarction Social History (Updated 04/21/24 @ 08:[address] Ronel Padilla MD) adopted: No household members: family number of children: 5 current occupational status: employed current occupation: [employer]. [employer]. pets and animals: Yes sexually active: No Smoking Status: Never smoker Electronic Cigarette Use: not used alcohol intake: never substance use type: does not use caffeine: Yes (1) Type: coffee frequency: does not exercise seatbelt use: always do you feel safe at home: Yes HPI HPI Details: SANDRA MUNROE, is a 73 F who presents to the office today to establish care. She was seeing Dr. Cruz and last saw them in December. She is up to date on her routine blood work and believes she is up to date on her screening. She is going to think about her shingrix vaccine. She isn't due for any other immunizations. She doesn't smoke and doesn't need any refills. She reports she is eating healthy and staying active. The patient was diagnosed with diabetes about 18 years ago. She doesn't check her sugars at home. She is taking her medication as prescribed without problems. She does try to monitor her carbohydrate and sugar intake sometimes. She is not up to date on her diabetic eye exam and doesn't see podiatry. The patient reports she has had problems with neuropathy. She reports she gets numbness in her 2nd and 3rd toes bilaterally and will notice an intermittent tingling/itching sensation. She doesn't currently take or do anything for it. She denies any significant pain with it. She doesn't feel her symptoms are getting worse stating they are about the same. She does wear some compression stockings which does help. The patient has been on thyroid medications for around 3-5 years. She takes her synthroid first thing in the morning before anything else. The patient has been on blood pressure medications for about 18 years as well. She doesn't check her blood pressure at home routinely. She is taking her medication as prescribed without problems and does monitor her salt intake. The patient takes her cholesterol medication as prescribed. She states for a while, she wasn't really watching her diet. She states she has been trying to do better in terms of watching her diet for fatty/high cholesterol foods. She has no other qu (more content not included)... Normal [facility] .Auto Diffon 01-07-2024 Basophil, Absolute 0.0 10 3/mcL Normal 0.0-0.2 [facility] ([place]) Comment on above: Performed By: #### A DIFF, LIPID, ANEU, GFR, A1C, TSH, VIDH, CBC, CMP #### [address] [address] Basophils/100 WBC (Bld) 0.2 % Normal 0.0-2.5 A [facility] ([place]) Comment on above: Performed By: #### A DIFF, LIPID, ANEU, GFR, A1C, TSH, VIDH, CBC, CMP #### [address] [address] Eosinophil, Absolute 0.2 10 3/mcL Normal 0.0-0.4 [facility] ([place]) Comment on above: Performed By: #### A DIFF, LIPID, ANEU, GFR, A1C, TSH, VIDH, CBC, CMP #### [address] [address] Eosinophils/100 WBC (Bld) 2.1 % Normal 0.0-7.0 [facility] ([place]) Comment on above: Performed By: #### A DIFF, LIPID, ANEU, GFR, A1C, TSH, VIDH, CBC, CMP #### [address] [address] Lymphocyte, Absolute 2.6 10 3/mcL Normal 0.8-3.9 [facility] ([place]) Comment on above: Performed By: #### A DIFF, LIPID, ANEU, GFR, A1C, TSH, VIDH, CBC, CMP #### [address] [address] Lymphocytes/100 WBC (Bld) 31.9 % Normal 10.0-50.0 [facility] ([place]) Comment on above: Performed By: #### A DIFF, LIPID, ANEU, GFR, A1C, TSH, VIDH, CBC, CMP #### [address] [address] Monocyte, Absolute 0.6 10 3/mcL Normal 0.2-1.0 [facility] ([place]) Comment on above: Performed By: #### A DIFF, LIPID, ANEU, GFR, A1C, TSH, VIDH, CBC, CMP #### [address] [address] Monocytes/100 WBC (Bld) 7.8 % Normal 1.7-13.0 A [facility] ([place]) Comment on above: Performed By: #### A DIFF, LIPID, ANEU, GFR, A1C, TSH, VIDH, CBC, CMP #### [address] [address] Neutrophils/100 WBC (Bld) 58.0 % Normal 37.0-80.0 [facility] ([place]) Comment on above: Performed By: #### A DIFF, LIPID, ANEU, GFR, A1C, TSH, VIDH, CBC, CMP #### [address] [address] .GFRon 01-07-2024 GFR 65 ml/min/1.73sqm Normal [facility] ([place]) Comment on above: Result Comment: GFR Population mean for , Non- Americans Ages 20-29 = 116 mL/min/1.73 sq.m. Ages 30-39 = 107 mL/min/1.73 sq.m. Ages 40-49 = 99 mL/min/1.73 sq.m. Ages 50-59 = 93 mL/min/1.73 sq.m. Ages 60-69 = 85 mL/min/1.73 sq.m. Ages 70+ = 75 mL/min/1.73 sq.m. Chronic Kidney Disease: Less than 60 mL/min/1.73 square meters End Stage Renal Disease: Less than 15 mL/min/1.73 square meters Performed By: #### A DIFF, LIPID, ANEU, GFR, A1C, TSH, VIDH, CBC, CMP #### [address] [address] GFR Non- 54 ml/min/1.73sqm Normal [facility] ([place]) Comment on above: Result Comment: GFR Population mean for , Non- Americans Ages 20-29 = 116 mL/min/1.73 sq.m. Ages 30-39 = 107 mL/min/1.73 sq.m. Ages 40-49 = 99 mL/min/1.73 sq.m. Ages 50-59 = 93 mL/min/1.73 sq.m. Ages 60-69 = 85 mL/min/1.73 sq.m. Ages 70+ = 75 mL/min/1.73 sq.m. Chronic Kidney Disease: Less than 60 mL/min/1.73 square meters End Stage Renal Disease: Less than 15 mL/min/1.73 square meters Performed By: #### A DIFF, LIPID, ANEU, GFR, A1C, TSH, VIDH, CBC, CMP #### [address] [address] .NEUABSon 01-07-2024 Neutrophil, Absolute 4.8 10 3/mcL Normal 2.9-6.2 [facility] ([place]) Comment on above: Performed By: #### A DIFF, LIPID, ANEU, GFR, A1C, TSH, VIDH, CBC, CMP #### [address] [address] A1Con 01-07-2024 HbA1c (Bld) [Mass fraction] 7.0 % High 4.3-6.4 [facility] ([place]) Comment on above: Performed By: #### A DIFF, LIPID, ANEU, GFR, A1C, TSH, VIDH, CBC, CMP #### [address] [address] CBCon 01-07-2024 Erythrocyte distribution width (RBC) [Ratio] 14.3 % Normal 11.5-14.5 [facility] ([place]) Comment on above: Performed By: #### A DIFF, LIPID, ANEU, GFR, A1C, TSH, VIDH, CBC, CMP #### [address] [address] Hematocrit (Bld) [Volume fraction] 40.0 % Normal 37.0-47.0 [facility] ([place]) Comment on above: Performed By: #### A DIFF, LIPID, ANEU, GFR, A1C, TSH, VIDH, CBC, CMP #### [address] [address] Hgb 13.8 G/dL Normal 12.0-16.0 [facility] ([place]) Comment on above: Performed By: #### A DIFF, LIPID, ANEU, GFR, A1C, TSH, VIDH, CBC, CMP #### [address] [address] MCH (RBC) [Entitic mass] 32.6 pg High 27.0-31.2 [facility] ([place]) Comment on above: Performed By: #### A DIFF, LIPID, ANEU, GFR, A1C, TSH, VIDH, CBC, CMP #### [address] [address] MCHC 34.6 G/dL Normal 33.0-37.0 [facility] ([place]) Comment on above: Performed By: #### A DIFF, LIPID, ANEU, GFR, A1C, TSH, VIDH, CBC, CMP #### [address] [address] MCV (RBC) [Entitic vol] 94.1 fL High 80.0-94.0 A [facility] ([place]) Comment on above: Performed By: #### A DIFF, LIPID, ANEU, GFR, A1C, TSH, VIDH, CBC, CMP #### [address] [address] Platelet 206 10 3/mcL Normal 130-400 [facility] ([place]) Comment on above: Performed By: #### A DIFF, LIPID, ANEU, GFR, A1C, TSH, VIDH, CBC, CMP #### [address] [address] Platelet mean volume (Bld) [Entitic vol] 7.8 fL Normal 7.4-10.4 [facility] ([place]) Comment on above: Performed By: #### A DIFF, LIPID, ANEU, GFR, A1C, TSH, VIDH, CBC, CMP #### [address] [address] RBC 4.25 10 6/mcL Normal 4.20-5.40 [facility] ([place]) Comment on above: Performed By: #### A DIFF, LIPID, ANEU, GFR, A1C, TSH, VIDH, CBC, CMP #### [address] [address] WBC 8.3 10 3/mcL Normal 4.6-10.8 [facility] ([place]) Comment on above: Performed By: #### A DIFF, LIPID, ANEU, GFR, A1C, TSH, VIDH, CBC, CMP #### [address] [address] CMPon 01-07-2024 Albumin Level 3.7 G/dL Normal 3.4-4.8 [facility] ([place]) Comment on above: Performed By: #### A DIFF, LIPID, ANEU, GFR, A1C, TSH, VIDH, CBC, CMP #### [address] [address] Albumin/Globulin [Mass ratio] 0.9 {ratio} Low 1.1-2.5 [facility] ([place]) Comment on above: Performed By: #### A DIFF, LIPID, ANEU, GFR, A1C, TSH, VIDH, CBC, CMP #### [address] [address] ALP [Catalytic activity/Vol] 80 U/L Normal 40-135 [facility] ([place]) Comment on above: Performed By: #### A DIFF, LIPID, ANEU, GFR, A1C, TSH, VIDH, CBC, CMP #### [address] [address] ALT [Catalytic activity/Vol] 26 U/L Normal 14-59 [facility] ([place]) Comment on above: Performed By: #### A DIFF, LIPID, ANEU, GFR, A1C, TSH, VIDH, CBC, CMP #### [address] [address] AST [Catalytic activity/Vol] 15 U/L Normal 10-40 [facility] ([place]) Comment on above: Performed By: #### A DIFF, LIPID, ANEU, GFR, A1C, TSH, VIDH, CBC, CMP #### [address] [address] Bili Total 0.4 mg/dL Normal 0.2-1.0 [facility] ([place]) Comment on above: Result Comment: Use of this assay is not recommended for patients undergoing treatment with eltrombopag due to the potential for falsely elevated results. Performed By: #### A DIFF, LIPID, ANEU, GFR, A1C, TSH, VIDH, CBC, CMP #### [address] [address] BUN/Creatinine Ratio 20 ratio Normal 7-27 [facility] ([place]) Comment on above: Performed By: #### A DIFF, LIPID, ANEU, GFR, A1C, TSH, VIDH, CBC, CMP #### [address] [address] Calcium [Mass/Vol] 9.7 mg/dL Normal 8.4-10.2 [facility] ([place]) Comment on above: Performed By: #### A DIFF, LIPID, ANEU, GFR, A1C, TSH, VIDH, CBC, CMP #### [address] [address] Chloride [Moles/Vol] 102 mmol/L Normal 98-107 [facility] ([place]) Comment on above: Performed By: #### A DIFF, LIPID, ANEU, GFR, A1C, TSH, VIDH, CBC, CMP #### [address] [address] CO2 [Moles/Vol] 29 mmol/L Normal 23-31 [facility] ([place]) Comment on above: Performed By: #### A DIFF, LIPID, ANEU, GFR, A1C, TSH, VIDH, CBC, CMP #### [address] [address] Creatinine [Mass/Vol] 1.01 mg/dL Normal 0.55-1.02 [facility] ([place]) Comment on above: Performed By: #### A DIFF, LIPID, ANEU, GFR, A1C, TSH, VIDH, CBC, CMP #### [address] [address] Electrolyte Balance 7.0 mEq/L Normal 4.0-15.0 [facility] ([place]) Comment on above: Performed By: #### A DIFF, LIPID, ANEU, GFR, A1C, TSH, VIDH, CBC, CMP #### [address] [address] Globulin 4.0 G/dL Normal [facility] ([place]) Comment on above: Performed By: #### A DIFF, LIPID, ANEU, GFR, A1C, TSH, VIDH, CBC, CMP #### [address] [address] Glucose [Mass/Vol] 153 mg/dL High 83-110 [facility] ([place]) Comment on above: Performed By: #### A DIFF, LIPID, ANEU, GFR, A1C, TSH, VIDH, CBC, CMP #### [address] [address] Potassium [Moles/Vol] 4.9 mmol/L Normal 3.5-5.1 [facility] ([place]) Comment on above: Performed By: #### A DIFF, LIPID, ANEU, GFR, A1C, TSH, VIDH, CBC, CMP #### [address] [address] Sodium [Moles/Vol] 138 mmol/L Normal 136-145 [facility] ([place]) Comment on above: Performed By: #### A DIFF, LIPID, ANEU, GFR, A1C, TSH, VIDH, CBC, CMP #### [address] [address] Total Protein 7.7 G/dL Normal 6.4-8.2 [facility] ([place]) Comment on above: Performed By: #### A DIFF, LIPID, ANEU, GFR, A1C, TSH, VIDH, CBC, CMP #### [address] [place], [place] [address] Urea nitrogen [Mass/Vol] 20 mg/dL High 05-08 [facility] ([place]) Comment on above: Performed By: #### A DIFF, LIPID, ANEU, GFR, A1C, TSH, VIDH, CBC, CMP #### [address] [address] LABORATORYOrdered By: SYSTEM SYSTEM on 01-07-2024 25-hydroxyvitamin D3 [Mass/Vol] 31.7 ng/mL Invalid Interpretation Code AO ADM SS Comment on above: Interpretive Data: I nterpretive Values Based on Total 25(OH) Vitamin D: Deficient <20 ng/mL Insufficient 20 - <30 ng/mL Sufficient 30-100 ng/mL Albumin BCP dye [Mass/Vol] 3.7 G/dL Normal 3.4 - 4.8 G/dL AO ADM SS Albumin/Globulin [Mass ratio] 0.9 {ratio} Low 1.1 - 2.5 ratio AO ADM SS ALP [Catalytic activity/Vol] 80 U/L Normal 40 - 135 U/L AO ADM SS ALT With P-5'-P [Catalytic activity/Vol] 26 U/L Normal 14 - 59 U/L AO ADM SS AST With P-5'-P [Catalytic activity/Vol] 15 U/L Normal 10 - 40 U/L AO ADM SS Basophil, Absolute 0.0 103/mcL Normal 0.0 - 0.2 10^3/mcL AO Workflow SS Basophils/100 WBC (Bld) 0.2 % Normal 0.0 - 2.5 % AO Workflow SS Bilirubin [Mass/Vol] 0.4 mg/dL Normal 0.2 - 1 .0 mg/dL AO ADM SS Comment on above: Interpretive Data: U se of this assay is not recommended for patients undergoing treatment with eltrombopag due to the potential for falsely elevated results. Calcium [Mass/Vol] 9.7 mg/dL Normal 8.4 - 10. 2 mg/dL AO ADM SS Chloride [Moles/Vol] 102 mmol/L Normal 98 - 10 7 mmol/L AO ADM SS CO2 [Moles/Vol] 29 mmol/L Normal 23 - 31 mmol/L AO ADM SS Creatinine [Mass/Vol] 1.01 mg/dL Normal 0.55 - 1.02 mg/dL AO ADM SS Electrolyte Balance 7.0 mEq/L Normal 4.0 - 15 .0 mEq/L AO ADM SS Eosinophil, Absolute 0.2 103/mcL Normal 0.0 - 0 .4 10^3/mcL AO Workflow SS Eosinophils/100 WBC (Bld) 2.1 % Normal 0.0 - 7.0 % AO Workflow SS Erythrocyte distribution width (RBC) [Ratio] 14.3 % Normal 11.5 - 14.5 % AO Workflow SS GFR/1.73 sq M.predicted among blacks MDRD (S/P/Bld) [Vol rate/Area] 65 ml/min/1.73sqm Invalid Interpretation Code AO Chemistry S Comment on above: Interpretive Data: GFR Population mean for , Non- Americans Ages 20-29 = 116 mL/min/1.73 sq.m. Ages 30-39 = 107 mL/min/1.73 sq.m. Ages 40-49 = 99 mL/min/1.73 sq.m. Ages 50-59 = 93 mL/min/1.73 sq.m. Ages 60-69 = 85 mL/min/1.73 sq.m. Ages 70+ = 75 mL/min/1.73 sq.m. Chronic Kidney Disease: Less than 60 mL/min/1.73 square meters End Stage Renal Disease: Less than 15 mL/min/1.73 square meters GFR/1.73 sq M.predicted among non-blacks MDRD (S/P/Bld) [Vol rate/Area] 54 ml/min/1.73sqm Invalid Interpretation Code AO Chemistry S Comment on above: Interpretive Data: GFR Population mean for , Non- Americans Ages 20-29 = 116 mL/min/1.73 sq.m. Ages 30-39 = 107 mL/min/1.73 sq.m. Ages 40-49 = 99 mL/min/1.73 sq.m. Ages 50-59 = 93 mL/min/1.73 sq.m. Ages 60-69 = 85 mL/min/1.73 sq.m. Ages 70+ = 75 mL/min/1.73 sq.m. Chronic Kidney Disease: Less than 60 mL/min/1.73 square meters End Stage Renal Disease: Less than 15 mL/min/1.73 square meters Globulin 4.0 G/dL Invalid Interpretation Code AO ADM SS Glucose [Mass/Vol] 153 mg/dL High 83 - 110 mg/dL AO ADM SS HbA1c (Bld) [Mass fraction] 7.0 % High 4.3 - 6.4 % AO ADM SS Hematocrit (Bld) [Volume fraction] 40.0 % Normal 37.0 - 47.0 % AO Workflow SS Hemoglobin (Bld) [Mass/Vol] 13.8 G/dL Normal 12.0 - 16.0 G/dL AO Workflow SS Lymphocyte, Absolute 2.6 103/mcL Normal 0.8 - 3 .9 10^3/mcL AO Workflow SS Lymphocytes/100 WBC (Bld) 31.9 % Normal 10.0 - 50.0 % AO Workflow SS MCH (RBC) [Entitic mass] 32.6 pg High 27.0 - 31.2 pg AO Workflow SS MCHC 34.6 G/dL Normal 33.0 - 37.0 G/dL AO Workflow SS MCV (RBC) [Entitic vol] 94.1 fL High 80.0 - 94.0 fL AO Workflow SS Monocyte, Absolute 0.6 103/mcL Normal 0.2 - 1.0 10^3/mcL AO Workflow SS Monocytes/100 WBC (Bld) 7.8 % Normal 1.7 - 13.0 % AO Workflow SS Neutrophil, Absolute 4.8 103/mcL Normal 2.9 - 6 .2 10^3/mcL AO Workflow SS Neutrophils/100 WBC (Bld) 58.0 % Normal 37.0 - 80.0 % AO Workflow SS Platelet mean volume (Bld) [Entitic vol] 7.8 fL Normal 7.4 - 10.4 fL AO Workflow SS Platelets (Bld) [#/Vol] 206 103/mcL Normal 130 - 400 10^3/mcL AO Workflow SS Potassium [Moles/Vol] 4.9 mmol/L Normal 3.5 - 5.1 mmol/L AO ADM SS Protein [Mass/Vol] 7.7 G/dL Normal 6.4 - 8.2 G/dL AO ADM SS RBC (Bld) [#/Vol] 4.25 106/mcL Normal 4.20 - 5.4 0 10^6/mcL AO Workflow SS Sodium [Moles/Vol] 138 mmol/L Normal 136 - 145 mmol/L AO ADM SS TSH Qn 3.62 m[IU]/L Normal 0.36 - 3.74 mcIU/mL AO ADM SS Urea nitrogen [Mass/Vol] 20 mg/dL High 7 - 18 mg/dL AO ADM SS Urea nitrogen/Creatinine [Mass ratio] 20 ratio Normal 7 - 27 ratio AO ADM SS WBC (Bld) [#/Vol] 8.3 103/mcL Normal 4.6 - 10.8 10^3/mcL AO Workflow SS LABORATORYOrdered By: Elaine Meek on 01-07-2024 Cholesterol [Mass/Vol] 298 mg/dL High 0 - 2 00 mg/dL AO ADM SS Comment on above: Interpretive Data: C holesterol Reference Interval: Less than 200 Desirable 200-239 Borderline high risk 240 and above High risk Cholesterol in HDL [Mass/Vol] 45 mg/dL Normal 40 - 60 mg/dL AO ADM SS LDL Cholesterol Not Valid Invalid Interpretation Code 0 - 130 AO ADM SS Comment on above: Result Comment: Trig lyceride >400 invalidates the calculated LDL. Triglyceride [Mass/Vol] 529 mg/dL High 0 - 150 mg/dL AO ADM SS Comment on above: Interpretive Data: T riglyceride Reference Interval: Less than 150 Normal 150-199 Borderline high risk 200-499 High risk 500 or higher Very high risk LIPIDon 01-07-2024 Cholesterol [Mass/Vol] 298 mg/dL High 0-200 [facility] ([place]) Comment on above: Result Comment: Chol esterol Reference Interval: Less than 200 Desirable 200-239 Borderline high risk 240 and above High risk Performed By: #### A DIFF, LIPID, ANEU, GFR, A1C, TSH, VIDH, CBC, CMP #### [address] [address] Cholesterol in HDL [Mass/Vol] 45 mg/dL Normal 40-60 [facility] ([place]) Comment on above: Performed By: #### A DIFF, LIPID, ANEU, GFR, A1C, TSH, VIDH, CBC, CMP #### [address] [address] LDL Cholesterol Not Valid Normal 0-130 [facility] ([place]) Comment on above: Result Comment: Trig lyceride >400 invalidates the calculated LDL. Performed By: #### A DIFF, LIPID, ANEU, GFR, A1C, TSH, VIDH, CBC, CMP #### [address] [address] Triglyceride [Mass/Vol] 529 mg/dL High 0-150 A [facility] ([place]) Comment on above: Result Comment: Trig lyceride Reference Interval: Less than 150 Normal 150-199 Borderline high risk 200-499 High risk 500 or higher Very high risk Performed By: #### A DIFF, LIPID, ANEU, GFR, A1C, TSH, VIDH, CBC, CMP #### [address] [address] TSHon 01-07-2024 TSH Qn 3.62 m[IU]/L Normal 0.36-3.74 [facility] ([place]) Comment on above: Performed By: #### A DIFF, LIPID, ANEU, GFR, A1C, TSH, VIDH, CBC, CMP #### [address] [address] VIDHon 01-07-2024 Vit. D 25-Hydroxy 31.7 ng/mL Normal [facility] ([place]) Comment on above: Result Comment: Inte rpretive Values Based on Total 25(OH) Vitamin D: Deficient <20 ng/mL Insufficient 20 - <30 ng/mL Sufficient 30-100 ng/mL Performed By: #### A DIFF, LIPID, ANEU, GFR, A1C, TSH, VIDH, CBC, CMP #### [address] [address] [place] MAMMOGRAM SCREENING YASH Davidson/Era 08-27-2023 MA MAMMOGRAM SCREENING BILATERAL W/BRENT ORIGINAL FROM: [place] [address] [address] PROCEDURE FOR: SANDRA MUNROE [address] [place] [address] Home: PID#: [id number] Exam#: [id number] : 1950 Age: 72 TO: DAWN CRUZ DO [address] [place] [id number] Fax: NO FAX EXAMINATION: SCREENING DIGITAL BILATERAL MAMMOGRAM WITH TOMOSYNTHESIS, 08/27/2023 7:32 am TECHNIQUE: Screening mammography of the bilateral breasts was performed with tomosynthesis. 2D standard and 3D tomosynthesis combination imaging performed through both breasts in the MLO and CC projection. Computer aided detection was utilized in the interpretation of this exam. COMPARISON: 10/23/2021, 05/16/2021 HISTORY: Breast cancer screening. FINDINGS: BREAST DENSITY: Scattered fibroglandular tissue There are benign appearing calcifications in both breasts. There are no significant masses or calcifications. IMPRESSION: No mammographic evidence of malignancy. Continued screening with annual mammograms is recommended. Manolo Tiradozick risk calculations, generated with the history provided, report this patient's 10 year risk and lifetime risk for developing breast cancer at 2.6% and 3.5%, respectively. Based on this assessment tool, if the patient's calculated lifetime risk is below 20%, then the patient is considered at average risk for developing breast cancer. If the patient's calculated lifetime risk is at or above 20%, then the patient is considered high risk for developing breast cancer and may be a candidate for supplemental breast MRI screening in addition to annual mammographic screening per the [employer]. BIRADS: MAMMOGRAM BI-RADS: 2: Benign finding RECALL: 1 year screening RECALL TYPE: mammo LETTER SENT: Normal BI-RADS 1 and 2 Interpreted by: Lenard Flores MD Preliminary Report By: Lenard Flores MD Electronically signed By Lenard Flores MD Dictated Date: 08/27/2023 9:33:54 AM Prelim Date: 08/27/2023 9:41:01 AM Sign Date: 08/27/2023 9:41:01 AM Ordering Provider: DAWN CRUZ It Support Engineer: JEANETTE COMER RT (R) (M) (CT) letter sent: Normal BI-RADS 1 and 2 Mammogram BI-RADS: 2 Benign Normal [facility] ([place]) LABORATORYOrdered By: Samuel Arevalo on 07-12-2023 Albumin DL <= 20 mg/L (U) [Mass/Vol] 4306 mcg/dL Invalid Interpretation Code AO ADM SS Albumin/Creatinine DL <= 20 mg/L (U) [Mass ratio] 77 mcg/mg Invalid Interpretation Code 0 - 30 mcg/mg AO ADM SS Creatinine (U) [Mass/Vol] 55.9 mg/dL Invalid Interpretation Code 28.0 - 117.0 mg/dL AO ADM SS MALBRon 07-12-2023 U Creatinine 55.9 mg/dL Normal 28.0-117.0 [facility] ([place]) Comment on above: Performed By: #### M ALBR #### [address] [address] U Microalb 4306 mcg/dL Normal [facility] ([place]) Comment on above: Performed By: #### M ALBR #### [address] [address] U Ratio Alb/Cre 77 mcg/mg High 0-30 [facility] ([place]) Comment on above: Performed By: #### M ALBR #### [address] [address] .Auto Diffon 07-09-2023 Basophil, Absolute 0.0 10 3/mcL Normal 0.0-0.2 [facility] ([place]) Comment on above: Performed By: #### A DIFF, LIPID, ANEU, GFR, A1C, TSH, VIDH, CBC, CMP #### [address] [address] Basophils/100 WBC (Bld) 0.3 % Normal 0.0-2.5 A [facility] ([place]) Comment on above: Performed By: #### A DIFF, LIPID, ANEU, GFR, A1C, TSH, VIDH, CBC, CMP #### [address] [address] Eosinophil, Absolute 0.4 10 3/mcL Normal 0.0-0.4 [facility] ([place]) Comment on above: Performed By: #### A DIFF, LIPID, ANEU, GFR, A1C, TSH, VIDH, CBC, CMP #### [address] [address] Eosinophils/100 WBC (Bld) 5.7 % Normal 0.0-7.0 [facility] ([place]) Comment on above: Performed By: #### A DIFF, LIPID, ANEU, GFR, A1C, TSH, VIDH, CBC, CMP #### [address] [address] Lymphocyte, Absolute 2.3 10 3/mcL Normal 0.8-3.9 [facility] ([place]) Comment on above: Performed By: #### A DIFF, LIPID, ANEU, GFR, A1C, TSH, VIDH, CBC, CMP #### [address] [address] Lymphocytes/100 WBC (Bld) 31.4 % Normal 10.0-50.0 [facility] ([place]) Comment on above: Performed By: #### A DIFF, LIPID, ANEU, GFR, A1C, TSH, VIDH, CBC, CMP #### [address] [address] Monocyte, Absolute 0.5 10 3/mcL Normal 0.2-1.0 [facility] ([place]) Comment on above: Performed By: #### A DIFF, LIPID, ANEU, GFR, A1C, TSH, VIDH, CBC, CMP #### [address] [address] Monocytes/100 WBC (Bld) 6.4 % Normal 1.7-13.0 [facility] ([place]) Comment on above: Performed By: #### A DIFF, LIPID, ANEU, GFR, A1C, TSH, VIDH, CBC, CMP #### [address] [address] Neutrophils/100 WBC (Bld) 56.2 % Normal 37.0-80.0 [facility] ([place]) Comment on above: Performed By: #### A DIFF, LIPID, ANEU, GFR, A1C, TSH, VIDH, CBC, CMP #### [address] [address] .GFRon 07-09-2023 GFR 56 ml/min/1.73sqm Normal [facility] ([place]) Comment on above: Result Comment: GFR Population mean for , Non- Americans Ages 20-29 = 116 mL/min/1.73 sq.m. Ages 30-39 = 107 mL/min/1.73 sq.m. Ages 40-49 = 99 mL/min/1.73 sq.m. Ages 50-59 = 93 mL/min/1.73 sq.m. Ages 60-69 = 85 mL/min/1.73 sq.m. Ages 70+ = 75 mL/min/1.73 sq.m. Chronic Kidney Disease: Less than 60 mL/min/1.73 square meters End Stage Renal Disease: Less than 15 mL/min/1.73 square meters Performed By: #### A DIFF, LIPID, ANEU, GFR, A1C, TSH, VIDH, CBC, CMP #### [address] [address] GFR Non- 46 ml/min/1.73sqm Normal [facility] ([place]) Comment on above: Result Comment: GFR Population mean for , Non- Americans Ages 20-29 = 116 mL/min/1.73 sq.m. Ages 30-39 = 107 mL/min/1.73 sq.m. Ages 40-49 = 99 mL/min/1.73 sq.m. Ages 50-59 = 93 mL/min/1.73 sq.m. Ages 60-69 = 85 mL/min/1.73 sq.m. Ages 70+ = 75 mL/min/1.73 sq.m. Chronic Kidney Disease: Less than 60 mL/min/1.73 square meters End Stage Renal Disease: Less than 15 mL/min/1.73 square meters Performed By: #### A DIFF, LIPID, ANEU, GFR, A1C, TSH, VIDH, CBC, CMP #### [address] [address] .NEUABSon 07-09-2023 Neutrophil, Absolute 4.1 10 3/mcL Normal 2.9-6.2 [facility] ([place]) Comment on above: Performed By: #### A DIFF, LIPID, ANEU, GFR, A1C, TSH, VIDH, CBC, CMP #### [place] [id number] A1Con 07-09-2023 HbA1c (Bld) [Mass fraction] 7.1 % High 4.3-6.4 [facility] ([place]) Comment on above: Performed By: #### A DIFF, LIPID, ANEU, GFR, A1C, TSH, VIDH, CBC, CMP #### [place] [address] CBCon 07-09-2023 Erythrocyte distribution width (RBC) [Ratio] 13.4 % Normal 11.5-14.5 [facility] ([place]) Comment on above: Performed By: #### A DIFF, LIPID, ANEU, GFR, A1C, TSH, VIDH, CBC, CMP #### [place] [address] Hematocrit (Bld) [Volume fraction] 36.5 % Low 37.0-47.0 [facility] ([place]) Comment on above: Performed By: #### A DIFF, LIPID, ANEU, GFR, A1C, TSH, VIDH, CBC, CMP #### [place] [address] Hgb 12.5 G/dL Normal 12.0-16.0 [facility] ([place]) Comment on above: Performed By: #### A DIFF, LIPID, ANEU, GFR, A1C, TSH, VIDH, CBC, CMP #### [place] [address] MCH (RBC) [Entitic mass] 32.2 pg High 27.0-31.2 [facility] ([place]) Comment on above: Performed By: #### A DIFF, LIPID, ANEU, GFR, A1C, TSH, VIDH, CBC, CMP #### [address] [address] MCHC 34.4 G/dL Normal 33.0-37.0 [facility] ([place]) Comment on above: Performed By: #### A DIFF, LIPID, ANEU, GFR, A1C, TSH, VIDH, CBC, CMP #### [address] [address] MCV (RBC) [Entitic vol] 93.8 fL Normal 80.0-94.0 A [facility] ([place]) Comment on above: Performed By: #### A DIFF, LIPID, ANEU, GFR, A1C, TSH, VIDH, CBC, CMP #### [address] [address] Platelet 220 10 3/mcL Normal 130-400 [facility] ([place]) Comment on above: Performed By: #### A DIFF, LIPID, ANEU, GFR, A1C, TSH, VIDH, CBC, CMP #### [address] [address] Platelet mean volume (Bld) [Entitic vol] 7.8 fL Normal 7.4-10.4 [facility] ([place]) Comment on above: Performed By: #### A DIFF, LIPID, ANEU, GFR, A1C, TSH, VIDH, CBC, CMP #### [address] [address] RBC 3.89 10 6/mcL Low 4.20-5.40 [facility] ([place]) Comment on above: Performed By: #### A DIFF, LIPID, ANEU, GFR, A1C, TSH, VIDH, CBC, CMP #### [address] [address] WBC 7.3 10 3/mcL Normal 4.6-10.8 [facility] ([place]) Comment on above: Performed By: #### A DIFF, LIPID, ANEU, GFR, A1C, TSH, VIDH, CBC, CMP #### [address] [address] CMPon 07-09-2023 Albumin Level 3.7 G/dL Normal 3.4-4.8 [facility] ([place]) Comment on above: Performed By: #### A DIFF, LIPID, ANEU, GFR, A1C, TSH, VIDH, CBC, CMP #### [address] [address] Albumin/Globulin [Mass ratio] 0.9 {ratio} Low 1.1-2.5 [facility] ([place]) Comment on above: Performed By: #### A DIFF, LIPID, ANEU, GFR, A1C, TSH, VIDH, CBC, CMP #### [address] [address] ALP [Catalytic activity/Vol] 90 U/L Normal 40-135 [facility] ([place]) Comment on above: Performed By: #### A DIFF, LIPID, ANEU, GFR, A1C, TSH, VIDH, CBC, CMP #### [address] [address] ALT [Catalytic activity/Vol] 25 U/L Normal 14-59 [facility] ([place]) Comment on above: Performed By: #### A DIFF, LIPID, ANEU, GFR, A1C, TSH, VIDH, CBC, CMP #### [address] [address] AST [Catalytic activity/Vol] 14 U/L Normal 10-40 [facility] ([place]) Comment on above: Performed By: #### A DIFF, LIPID, ANEU, GFR, A1C, TSH, VIDH, CBC, CMP #### [address] [address] Bili Total 0.4 mg/dL Normal 0.2-1.0 [facility] ([place]) Comment on above: Result Comment: Use of this assay is not recommended for patients undergoing treatment with eltrombopag due to the potential for falsely elevated results. Performed By: #### A DIFF, LIPID, ANEU, GFR, A1C, TSH, VIDH, CBC, CMP #### [address] [address] BUN/Creatinine Ratio 16 ratio Normal 7-27 [facility] ([place]) Comment on above: Performed By: #### A DIFF, LIPID, ANEU, GFR, A1C, TSH, VIDH, CBC, CMP #### [address] [address] Calcium [Mass/Vol] 9.0 mg/dL Normal 8.4-10.2 [facility] ([place]) Comment on above: Performed By: #### A DIFF, LIPID, ANEU, GFR, A1C, TSH, VIDH, CBC, CMP #### [address] [address] Chloride [Moles/Vol] 103 mmol/L Normal 98-107 [facility] ([place]) Comment on above: Performed By: #### A DIFF, LIPID, ANEU, GFR, A1C, TSH, VIDH, CBC, CMP #### [address] [address] CO2 [Moles/Vol] 28 mmol/L Normal 23-31 [facility] ([place]) Comment on above: Performed By: #### A DIFF, LIPID, ANEU, GFR, A1C, TSH, VIDH, CBC, CMP #### [address] [address] Creatinine [Mass/Vol] 1.15 mg/dL High 0.55-1.02 [facility] ([place]) Comment on above: Performed By: #### A DIFF, LIPID, ANEU, GFR, A1C, TSH, VIDH, CBC, CMP #### [address] [address] Electrolyte Balance 9.0 mEq/L Normal 4.0-15.0 [facility] ([place]) Comment on above: Performed By: #### A DIFF, LIPID, ANEU, GFR, A1C, TSH, VIDH, CBC, CMP #### [address] [address] Globulin 4.1 G/dL Normal [facility] ([place]) Comment on above: Performed By: #### A DIFF, LIPID, ANEU, GFR, A1C, TSH, VIDH, CBC, CMP #### [place] [address] Glucose [Mass/Vol] 149 mg/dL High 83-110 [facility] ([place]) Comment on above: Performed By: #### A DIFF, LIPID, ANEU, GFR, A1C, TSH, VIDH, CBC, CMP #### [address] [address] Potassium [Moles/Vol] 4.7 mmol/L Normal 3.5-5.1 [facility] ([place]) Comment on above: Performed By: #### A DIFF, LIPID, ANEU, GFR, A1C, TSH, VIDH, CBC, CMP #### [address] [address] Sodium [Moles/Vol] 140 mmol/L Normal 136-145 [facility]) Comment on above: Performed By: #### A DIFF, LIPID, ANEU, GFR, A1C, TSH, VIDH, CBC, CMP #### [address] [address] Total Protein 7.8 G/dL Normal 6.4-8.2 [facility]) Comment on above: Performed By: #### A DIFF, LIPID, ANEU, GFR, A1C, TSH, VIDH, CBC, CMP #### [address] [address] Urea nitrogen [Mass/Vol] 18 mg/dL Normal 7-18 [facility]) Comment on above: Performed By: #### A DIFF, LIPID, ANEU, GFR, A1C, TSH, VIDH, CBC, CMP #### [address] [address] LABORATORYOrdered By: SYSTEM SYSTEM on 07-09-2023 25-hydroxyvitamin D3 [Mass/Vol] 38.0 ng/mL Invalid Interpretation Code AO ADM SS Comment on above: Interpretive Data: I nterpretive Values Based on Total 25(OH) Vitamin D: Deficient <20 ng/mL Insufficient 20 - <30 ng/mL Sufficient 30-100 ng/mL Albumin BCP dye [Mass/Vol] 3.7 G/dL Invalid Interpretation Code 3.4 - 4.8 G/dL AO ADM SS Albumin/Globulin [Mass ratio] 0.9 {ratio} Invalid Interpretation Code 1.1 - 2.5 ratio AO ADM SS ALP [Catalytic activity/Vol] 90 U/L Invalid Interpretation Code 40 - 135 U/L AO ADM SS ALT With P-5'-P [Catalytic activity/Vol] 25 U/L Invalid Interpretation Code 14 - 59 U/L AO ADM SS AST With P-5'-P [Catalytic activity/Vol] 14 U/L Invalid Interpretation Code 10 - 40 U/L AO ADM SS Basophil, Absolute 0.0 103/mcL Invalid Interpretation Code 0.0 - 0.2 10^3/mcL AO Workflow SS Basophils/100 WBC (Bld) 0.3 % Invalid Interpretation Code 0.0 - 2.5 % AO Workflow SS Bilirubin [Mass/Vol] 0.4 mg/dL Invalid Interpretation Code 0.2 - 1.0 mg/dL AO ADM SS Comment on above: Interpretive Data: U se of this assay is not recommended for patients undergoing treatment with eltrombopag due to the potential for falsely elevated results. Calcium [Mass/Vol] 9.0 mg/dL Invalid Interpretation Code 8.4 - 10.2 mg/dL AO ADM SS Chloride [Moles/Vol] 103 mmol/L Invalid Interpretation Code 98 - 107 mmol/L AO ADM SS CO2 [Moles/Vol] 28 mmol/L Invalid Interpretation Code 23 - 31 mmol/L AO ADM SS Creatinine [Mass/Vol] 1.15 mg/dL Invalid Interpretation Code 0.55 - 1.02 mg/dL AO ADM SS Electrolyte Balance 9.0 mEq/L Invalid Interpretation Code 4.0 - 15.0 mEq/L AO ADM SS Eosinophil, Absolute 0.4 103/mcL Invalid Interpretation Code 0.0 - 0.4 10^3/mcL AO Workflow SS Eosinophils/100 WBC (Bld) 5.7 % Invalid Interpretation Code 0.0 - 7.0 % AO Workflow SS Erythrocyte distribution width (RBC) [Ratio] 13.4 % Invalid Interpretation Code 11.5 - 14.5 % AO Workflow SS GFR/1.73 sq M.predicted among blacks MDRD (S/P/Bld) [Vol rate/Area] 56 ml/min/1.73sqm Invalid Interpretation Code AO Chemistry S Comment on above: Interpretive Data: GFR Population mean for , Non- Americans Ages 20-29 = 116 mL/min/1.73 sq.m. Ages 30-39 = 107 mL/min/1.73 sq.m. Ages 40-49 = 99 mL/min/1.73 sq.m. Ages 50-59 = 93 mL/min/1.73 sq.m. Ages 60-69 = 85 mL/min/1.73 sq.m. Ages 70+ = 75 mL/min/1.73 sq.m. Chronic Kidney Disease: Less than 60 mL/min/1.73 square meters End Stage Renal Disease: Less than 15 mL/min/1.73 square meters GFR/1.73 sq M.predicted among non-blacks MDRD (S/P/Bld) [Vol rate/Area] 46 ml/min/1.73sqm Invalid Interpretation Code [place] Chemistry S Comment on above: Interpretive Data: GFR Population mean for , Non- Americans Ages 20-29 = 116 mL/min/1.73 sq.m. Ages 30-39 = 107 mL/min/1.73 sq.m. Ages 40-49 = 99 mL/min/1.73 sq.m. Ages 50-59 = 93 mL/min/1.73 sq.m. Ages 60-69 = 85 mL/min/1.73 sq.m. Ages 70+ = 75 mL/min/1.73 sq.m. Chronic Kidney Disease: Less than 60 mL/min/1.73 square meters End Stage Renal Disease: Less than 15 mL/min/1.73 square meters Globulin 4.1 G/dL Invalid Interpretation Code AO ADM SS Glucose [Mass/Vol] 149 mg/dL Invalid Interpretation Code 83 - 110 mg/dL AO ADM SS HbA1c (Bld) [Mass fraction] 7.1 % Invalid Interpretation Code 4.3 - 6.4 % AO ADM SS Hematocrit (Bld) [Volume fraction] 36.5 % Invalid Interpretation Code 37.0 - 47.0 % AO Workflow SS Hemoglobin (Bld) [Mass/Vol] 12.5 G/dL Invalid Interpretation Code 12.0 - 16.0 G/dL AO Workflow SS Lymphocyte, Absolute 2.3 103/mcL Invalid Interpretation Code 0.8 - 3.9 10^3/mcL AO Workflow SS Lymphocytes/100 WBC (Bld) 31.4 % Invalid Interpretation Code 10.0 - 50.0 % AO Workflow SS MCH (RBC) [Entitic mass] 32.2 pg Invalid Interpretation Code 27.0 - 31.2 pg AO Workflow SS MCHC 34.4 G/dL Invalid Interpretation Code 33.0 - 37.0 G/dL AO Workflow SS MCV (RBC) [Entitic vol] 93.8 fL Invalid Interpretation Code 80.0 - 94.0 fL AO Workflow SS Monocyte, Absolute 0.5 103/mcL Invalid Interpretation Code 0.2 - 1.0 10^3/mcL AO Workflow SS Monocytes/100 WBC (Bld) 6.4 % Invalid Interpretation Code 1.7 - 13.0 % AO Workflow SS Neutrophil, Absolute 4.1 103/mcL Invalid Interpretation Code 2.9 - 6.2 10^3/mcL AO Workflow SS Neutrophils/100 WBC (Bld) 56.2 % Invalid Interpretation Code 37.0 - 80.0 % AO Workflow SS Platelet mean volume (Bld) [Entitic vol] 7.8 fL Invalid Interpretation Code 7.4 - 10.4 fL AO Workflow SS Platelets (Bld) [#/Vol] 220 103/mcL Invalid Interpretation Code 130 - 400 10^3/mcL AO Workflow SS Potassium [Moles/Vol] 4.7 mmol/L Invalid Interpretation Code 3.5 - 5.1 mmol/L AO ADM SS Protein [Mass/Vol] 7.8 G/dL Invalid Interpretation Code 6.4 - 8.2 G/dL AO ADM SS RBC (Bld) [#/Vol] 3.89 106/mcL Invalid Interpretation Code 4.20 - 5.40 10^6/mcL AO Workflow SS Sodium [Moles/Vol] 140 mmol/L Invalid Interpretation Code 136 - 145 mmol/L AO ADM SS TSH Qn 2.73 m[IU]/L Invalid Interpretation Code 0.36 - 3.74 mcIU/mL AO ADM SS Urea nitrogen [Mass/Vol] 18 mg/dL Invalid Interpretation Code 7 - 18 mg/dL AO ADM SS Urea nitrogen/Creatinine [Mass ratio] 16 ratio Invalid Interpretation Code 7 - 27 ratio AO ADM SS WBC (Bld) [#/Vol] 7.3 103/mcL Invalid Interpretation Code 4.6 - 10.8 10^3/mcL AO Workflow SS LABORATORYOrdered By: Rani Todd on 07-09-2023 Cholesterol [Mass/Vol] 200 mg/dL Invalid Interpretation Code 0 - 200 mg/dL AO ADM SS Comment on above: Interpretive Data: C holesterol Reference Interval: Less than 200 Desirable 200-239 Borderline high risk 240 and above High risk Cholesterol in HDL [Mass/Vol] 43 mg/dL Invalid Interpretation Code 40 - 60 mg/dL AO ADM SS Cholesterol in LDL [Mass/Vol] 118 mg/dL Invalid Interpretation Code 0 - 130 mg/dL AO ADM SS Triglyceride [Mass/Vol] 194 mg/dL Invalid Interpretation Code 0 - 150 mg/dL AO ADM SS Comment on above: Interpretive Data: T riglyceride Reference Interval: Less than 150 Normal 150-199 Borderline high risk 200-499 High risk 500 or higher Very high risk LIPIDon 07-09-2023 Cholesterol [Mass/Vol] 200 mg/dL Normal 0-200 [facility] ([place]) Comment on above: Result Comment: Chol esterol Reference Interval: Less than 200 Desirable 200-239 Borderline high risk 240 and above High risk Performed By: #### A DIFF, LIPID, ANEU, GFR, A1C, TSH, VIDH, CBC, CMP #### [address] [address] Cholesterol in HDL [Mass/Vol] 43 mg/dL Normal 40-60 [facility] ([place]) Comment on above: Performed By: #### A DIFF, LIPID, ANEU, GFR, A1C, TSH, VIDH, CBC, CMP #### [address] [address] Cholesterol in LDL [Mass/Vol] 118 mg/dL Normal 0-130 [facility] ([place]) Comment on above: Performed By: #### A DIFF, LIPID, ANEU, GFR, A1C, TSH, VIDH, CBC, CMP #### [address] [address] Triglyceride [Mass/Vol] 194 mg/dL High 0-150 A [facility] ([place]) Comment on above: Result Comment: Trig lyceride Reference Interval: Less than 150 Normal 150-199 Borderline high risk 200-499 High risk 500 or higher Very high risk Performed By: #### A DIFF, LIPID, ANEU, GFR, A1C, TSH, VIDH, CBC, CMP #### [address] [address] TSHon 09-18-2023 TSH Qn 2.73 m[IU]/L Normal 0.36-3.74 [facility] ([place]) Comment on above: Performed By: #### A DIFF, LIPID, ANEU, GFR, A1C, TSH, VIDH, CBC, CMP #### [address] [address] VIDHon 07-09-2023 Vit. D 25-Hydroxy 38.0 ng/mL Normal [facility] ([place]) Comment on above: Result Comment: Inte rpretive Values Based on Total 25(OH) Vitamin D: Deficient <20 ng/mL Insufficient 20 - <30 ng/mL Sufficient 30-100 ng/mL Performed By: #### A DIFF, LIPID, ANEU, GFR, A1C, TSH, VIDH, CBC, CMP #### [address] [address] .Auto Diffon 01-13-2023 Basophil, Absolute 0.0 10 3/mcL Normal 0.0-0.2 [facility] ([place]) Comment on above: Performed By: #### A DIFF, LIPID, ANEU, GFR, A1C, TSH, VIDH, CBC, CMP #### [address] [address] Basophils/100 WBC (Bld) 0.6 % Normal 0.0-2.5 A [facility] ([place]) Comment on above: Performed By: #### A DIFF, LIPID, ANEU, GFR, A1C, TSH, VIDH, CBC, CMP #### [address] [address] Eosinophil, Absolute 0.3 10 3/mcL Normal 0.0-0.4 [facility] ([place]) Comment on above: Performed By: #### A DIFF, LIPID, ANEU, GFR, A1C, TSH, VIDH, CBC, CMP #### [address] [address] Eosinophils/100 WBC (Bld) 4.3 % Normal 0.0-7.0 [facility] ([place]) Comment on above: Performed By: #### A DIFF, LIPID, ANEU, GFR, A1C, TSH, VIDH, CBC, CMP #### [address] [address] Lymphocyte, Absolute 2.5 10 3/mcL Normal 0.8-3.9 [facility] ([place]) Comment on above: Performed By: #### A DIFF, LIPID, ANEU, GFR, A1C, TSH, VIDH, CBC, CMP #### [address] [address] Lymphocytes/100 WBC (Bld) 35.4 % Normal 10.0-50.0 [facility] ([place]) Comment on above: Performed By: #### A DIFF, LIPID, ANEU, GFR, A1C, TSH, VIDH, CBC, CMP #### [address] [address] Monocyte, Absolute 0.6 10 3/mcL Normal 0.2-1.0 [facility] ([place]) Comment on above: Performed By: #### A DIFF, LIPID, ANEU, GFR, A1C, TSH, VIDH, CBC, CMP #### [address] [address] Monocytes/100 WBC (Bld) 8.4 % Normal 1.7-13.0 A [facility] ([place]) Comment on above: Performed By: #### A DIFF, LIPID, ANEU, GFR, A1C, TSH, VIDH, CBC, CMP #### [address] [address] Neutrophils/100 WBC (Bld) 51.3 % Normal 37.0-80.0 [facility] ([place]) Comment on above: Performed By: #### A DIFF, LIPID, ANEU, GFR, A1C, TSH, VIDH, CBC, CMP #### [address] [address] .GFRon 01-13-2023 GFR 60 ml/min/1.73sqm Normal [facility] ([place]) Comment on above: Result Comment: GFR Population mean for , Non- Americans Ages 20-29 = 116 mL/min/1.73 sq.m. Ages 30-39 = 107 mL/min/1.73 sq.m. Ages 40-49 = 99 mL/min/1.73 sq.m. Ages 50-59 = 93 mL/min/1.73 sq.m. Ages 60-69 = 85 mL/min/1.73 sq.m. Ages 70+ = 75 mL/min/1.73 sq.m. Chronic Kidney Disease: Less than 60 mL/min/1.73 square meters End Stage Renal Disease: Less than 15 mL/min/1.73 square meters Performed By: #### A DIFF, LIPID, ANEU, GFR, A1C, TSH, VIDH, CBC, CMP #### [address] [address] GFR Non- 50 ml/min/1.73sqm Normal [facility] ([place]) Comment on above: Result Comment: GFR Population mean for , Non- Americans Ages 20-29 = 116 mL/min/1.73 sq.m. Ages 30-39 = 107 mL/min/1.73 sq.m. Ages 40-49 = 99 mL/min/1.73 sq.m. Ages 50-59 = 93 mL/min/1.73 sq.m. Ages 60-69 = 85 mL/min/1.73 sq.m. Ages 70+ = 75 mL/min/1.73 sq.m. Chronic Kidney Disease: Less than 60 mL/min/1.73 square meters End Stage Renal Disease: Less than 15 mL/min/1.73 square meters Performed By: #### A DIFF, LIPID, ANEU, GFR, A1C, TSH, VIDH, CBC, CMP #### [address] [address] .NEUABSon 01-13-2023 Neutrophil, Absolute 3.6 10 3/mcL Normal 2.9-6.2 [facility] ([place]) Comment on above: Performed By: #### A DIFF, LIPID, ANEU, GFR, A1C, TSH, VIDH, CBC, CMP #### [address] [address] A1Con 01-13-2023 HbA1c (Bld) [Mass fraction] 7.1 % High 4.3-6.4 [facility] ([place]) Comment on above: Performed By: #### A DIFF, LIPID, ANEU, GFR, A1C, TSH, VIDH, CBC, CMP #### [address] [id number] CBCon 01-13-2023 Erythrocyte distribution width (RBC) [Ratio] 13.7 % Normal 11.5-14.5 [facility] ([place]) Comment on above: Performed By: #### A DIFF, LIPID, ANEU, GFR, A1C, TSH, VIDH, CBC, CMP #### [place] [address] Hematocrit (Bld) [Volume fraction] 38.2 % Normal 37.0-47.0 [facility] ([place]) Comment on above: Performed By: #### A DIFF, LIPID, ANEU, GFR, A1C, TSH, VIDH, CBC, CMP #### [place] [address] Hgb 13.2 G/dL Normal 12.0-16.0 [facility] ([place]) Comment on above: Performed By: #### A DIFF, LIPID, ANEU, GFR, A1C, TSH, VIDH, CBC, CMP #### [place] [address] MCH (RBC) [Entitic mass] 32.2 pg High 27.0-31.2 [facility] ([place]) Comment on above: Performed By: #### A DIFF, LIPID, ANEU, GFR, A1C, TSH, VIDH, CBC, CMP #### [place] [address] MCHC 34.6 G/dL Normal 33.0-37.0 [facility] ([place]) Comment on above: Performed By: #### A DIFF, LIPID, ANEU, GFR, A1C, TSH, VIDH, CBC, CMP #### [place] [id number] MCV (RBC) [Entitic vol] 93.2 fL Normal 80.0-94.0 A [facility] ([place]) Comment on above: Performed By: #### A DIFF, LIPID, ANEU, GFR, A1C, TSH, VIDH, CBC, CMP #### [address] [address] Platelet 201 10 3/mcL Normal 130-400 [facility] ([place]) Comment on above: Performed By: #### A DIFF, LIPID, ANEU, GFR, A1C, TSH, VIDH, CBC, CMP #### [address] [address] Platelet mean volume (Bld) [Entitic vol] 8.0 fL Normal 7.4-10.4 [facility] ([place]) Comment on above: Performed By: #### A DIFF, LIPID, ANEU, GFR, A1C, TSH, VIDH, CBC, CMP #### [address] [address] RBC 4.10 10 6/mcL Low 4.20-5.40 [facility] ([place]) Comment on above: Performed By: #### A DIFF, LIPID, ANEU, GFR, A1C, TSH, VIDH, CBC, CMP #### [address] [address] WBC 7.0 10 3/mcL Normal 4.6-10.8 [facility] ([place]) Comment on above: Performed By: #### A DIFF, LIPID, ANEU, GFR, A1C, TSH, VIDH, CBC, CMP #### [address] [address] CMPon 01-13-2023 Albumin Level 3.7 G/dL Normal 3.4-4.8 [facility] ([place]) Comment on above: Performed By: #### A DIFF, LIPID, ANEU, GFR, A1C, TSH, VIDH, CBC, CMP #### [address] [address] Albumin/Globulin [Mass ratio] 1.0 {ratio} Low 1.1-2.5 [facility] ([place]) Comment on above: Performed By: #### A DIFF, LIPID, ANEU, GFR, A1C, TSH, VIDH, CBC, CMP #### [address] [address] ALP [Catalytic activity/Vol] 90 U/L Normal 40-135 [facility] ([place]) Comment on above: Performed By: #### A DIFF, LIPID, ANEU, GFR, A1C, TSH, VIDH, CBC, CMP #### [address] [address] ALT [Catalytic activity/Vol] 27 U/L Normal 14-59 [facility] ([place]) Comment on above: Performed By: #### A DIFF, LIPID, ANEU, GFR, A1C, TSH, VIDH, CBC, CMP #### [address] [address] AST [Catalytic activity/Vol] 16 U/L Normal 10-40 [facility] ([place]) Comment on above: Performed By: #### A DIFF, LIPID, ANEU, GFR, A1C, TSH, VIDH, CBC, CMP #### [address] [address] Bili Total 0.4 mg/dL Normal 0.2-1.0 [facility] ([place]) Comment on above: Result Comment: Use of this assay is not recommended for patients undergoing treatment with eltrombopag due to the potential for falsely elevated results. Performed By: #### A DIFF, LIPID, ANEU, GFR, A1C, TSH, VIDH, CBC, CMP #### [address] [address] BUN/Creatinine Ratio 19 ratio Normal 7-27 [facility] ([place]) Comment on above: Performed By: #### A DIFF, LIPID, ANEU, GFR, A1C, TSH, VIDH, CBC, CMP #### [address] [address] Calcium [Mass/Vol] 9.1 mg/dL Normal 8.4-10.2 [facility] ([place]) Comment on above: Performed By: #### A DIFF, LIPID, ANEU, GFR, A1C, TSH, VIDH, CBC, CMP #### [address] [address] Chloride [Moles/Vol] 106 mmol/L Normal 98-107 [facility] ([place]) Comment on above: Performed By: #### A DIFF, LIPID, ANEU, GFR, A1C, TSH, VIDH, CBC, CMP #### [address] [address] CO2 [Moles/Vol] 25 mmol/L Normal 23-31 [facility] ([place]) Comment on above: Performed By: #### A DIFF, LIPID, ANEU, GFR, A1C, TSH, VIDH, CBC, CMP #### [address] [address] Creatinine [Mass/Vol] 1.08 mg/dL High 0.55-1.02 [facility] ([place]) Comment on above: Performed By: #### A DIFF, LIPID, ANEU, GFR, A1C, TSH, VIDH, CBC, CMP #### [address] [address] Electrolyte Balance 10.0 mEq/L Normal 4.0-15.0 [facility] ([place]) Comment on above: Performed By: #### A DIFF, LIPID, ANEU, GFR, A1C, TSH, VIDH, CBC, CMP #### [address] [address] Globulin 3.8 G/dL Normal [facility] ([place]) Comment on above: Performed By: #### A DIFF, LIPID, ANEU, GFR, A1C, TSH, VIDH, CBC, CMP #### [address] [address] Glucose [Mass/Vol] 122 mg/dL High 83-110 [facility] ([place]) Comment on above: Performed By: #### A DIFF, LIPID, ANEU, GFR, A1C, TSH, VIDH, CBC, CMP #### [address] [address] Potassium [Moles/Vol] 5.2 mmol/L High 3.5-5.1 [facility] ([place]) Comment on above: Performed By: #### A DIFF, LIPID, ANEU, GFR, A1C, TSH, VIDH, CBC, CMP #### [address] [address] Sodium [Moles/Vol] 141 mmol/L Normal 136-145 [facility] ([place]) Comment on above: Performed By: #### A DIFF, LIPID, ANEU, GFR, A1C, TSH, VIDH, CBC, CMP #### [address] [address] Total Protein 7.5 G/dL Normal 6.4-8.2 [facility] ([place]) Comment on above: Performed By: #### A DIFF, LIPID, ANEU, GFR, A1C, TSH, VIDH, CBC, CMP #### [place] [address] [place], [place] [address] Urea nitrogen [Mass/Vol] 20 mg/dL High 7-18 [facility] ([place]) Comment on above: Performed By: #### A DIFF, LIPID, ANEU, GFR, A1C, TSH, VIDH, CBC, CMP #### [address] [address] LABORATORYOrdered By: SYSTEM SYSTEM on 01-13-2023 Albumin BCP dye [Mass/Vol] 3.7 G/dL Invalid Interpretation Code 3.4 - 4.8 G/dL AO ADM SS Albumin/Globulin [Mass ratio] 1.0 {ratio} Invalid Interpretation Code 1.1 - 2.5 ratio AO ADM SS ALP [Catalytic activity/Vol] 90 U/L Invalid Interpretation Code 40 - 135 U/L AO ADM SS ALT With P-5'-P [Catalytic activity/Vol] 27 U/L Invalid Interpretation Code 14 - 59 U/L AO ADM SS AST With P-5'-P [Catalytic activity/Vol] 16 U/L Invalid Interpretation Code 10 - 40 U/L AO ADM SS Bilirubin [Mass/Vol] 0.4 mg/dL Invalid Interpretation Code 0.2 - 1.0 mg/dL AO ADM SS Calcium [Mass/Vol] 9.1 mg/dL Invalid Interpretation Code 8.4 - 10.2 mg/dL AO ADM SS Chloride [Moles/Vol] 106 mmol/L Invalid Interpretation Code 98 - 107 mmol/L AO ADM SS CO2 [Moles/Vol] 25 mmol/L Invalid Interpretation Code 23 - 31 mmol/L AO ADM SS Creatinine [Mass/Vol] 1.08 mg/dL Invalid Interpretation Code 0.55 - 1.02 mg/dL AO ADM SS Electrolyte Balance 10.0 mEq/L Invalid Interpretation Code 4.0 - 15.0 mEq/L AO ADM SS GFR 60 ml/min/1.73sqm Invalid Interpretation Code AO Chemistry S GFR Non- 50 ml/min/1.73sqm Invalid Interpretation Code AO Chemistry S Globulin 3.8 G/dL Invalid Interpretation Code AO ADM SS Glucose [Mass/Vol] 122 mg/dL Invalid Interpretation Code 83 - 110 mg/dL AO ADM SS HbA1c (Bld) [Mass fraction] 7.1 % Invalid Interpretation Code 4.3 - 6.4 % AO ADM SS Potassium [Moles/Vol] 5.2 mmol/L Invalid Interpretation Code 3.5 - 5.1 mmol/L AO ADM SS Protein [Mass/Vol] 7.5 G/dL Invalid Interpretation Code 6.4 - 8.2 G/dL AO ADM SS Sodium [Moles/Vol] 141 mmol/L Invalid Interpretation Code 136 - 145 mmol/L AO ADM SS TSH Qn 1.85 m[IU]/L Invalid Interpretation Code 0.36 - 3.74 mcIU/mL AO ADM SS Urea nitrogen [Mass/Vol] 20 mg/dL Invalid Interpretation Code 7 - 18 mg/dL AO ADM SS Urea nitrogen/Creatinine [Mass ratio] 19 ratio Invalid Interpretation Code 7 - 27 ratio AO ADM SS Vit. D 25-Hydroxy 41.4 ng/mL Invalid Interpretation Code AO ADM SS LABORATORYOrdered By: Samuel Bowers on 01-13-2023 Basophil, Absolute 0.0 103/mcL Invalid Interpretation Code 0.0 - 0.2 10^3/mcL AO Workflow SS Basophils/100 WBC (Bld) 0.6 % Invalid Interpretation Code 0.0 - 2.5 % AO Workflow SS Cholesterol [Mass/Vol] 232 mg/dL Invalid Interpretation Code 0 - 200 mg/dL AO ADM SS Cholesterol in HDL [Mass/Vol] 48 mg/dL Invalid Interpretation Code 40 - 60 mg/dL AO ADM SS Cholesterol in LDL [Mass/Vol] 134 mg/dL Invalid Interpretation Code 0 - 130 mg/dL AO ADM SS Eosinophil, Absolute 0.3 103/mcL Invalid Interpretation Code 0.0 - 0.4 10^3/mcL AO Workflow SS Eosinophils/100 WBC (Bld) 4.3 % Invalid Interpretation Code 0.0 - 7.0 % AO Workflow SS Erythrocyte distribution width (RBC) [Ratio] 13.7 % Invalid Interpretation Code 11.5 - 14.5 % AO Workflow SS Hematocrit (Bld) [Volume fraction] 38.2 % Invalid Interpretation Code 37.0 - 47.0 % AO Workflow SS Hemoglobin (Bld) [Mass/Vol] 13.2 G/dL Invalid Interpretation Code 12.0 - 16.0 G/dL AO Workflow SS Lymphocyte, Absolute 2.5 103/mcL Invalid Interpretation Code 0.8 - 3.9 10^3/mcL AO Workflow SS Lymphocytes/100 WBC (Bld) 35.4 % Invalid Interpretation Code 10.0 - 50.0 % AO Workflow SS MCH (RBC) [Entitic mass] 32.2 pg Invalid Interpretation Code 27.0 - 31.2 pg AO Workflow SS MCHC 34.6 G/dL Invalid Interpretation Code 33.0 - 37.0 G/dL AO Workflow SS MCV (RBC) [Entitic vol] 93.2 fL Invalid Interpretation Code 80.0 - 94.0 fL AO Workflow SS Monocyte, Absolute 0.6 103/mcL Invalid Interpretation Code 0.2 - 1.0 10^3/mcL AO Workflow SS Monocytes/100 WBC (Bld) 8.4 % Invalid Interpretation Code 1.7 - 13.0 % AO Workflow SS Neutrophil, Absolute 3.6 103/mcL Invalid Interpretation Code 2.9 - 6.2 10^3/mcL AO Workflow SS Neutrophils/100 WBC (Bld) 51.3 % Invalid Interpretation Code 37.0 - 80.0 % AO Workflow SS Platelet mean volume (Bld) [Entitic vol] 8.0 fL Invalid Interpretation Code 7.4 - 10.4 fL AO Workflow SS Platelets (Bld) [#/Vol] 201 103/mcL Invalid Interpretation Code 130 - 400 10^3/mcL AO Workflow SS RBC (Bld) [#/Vol] 4.10 106/mcL Invalid Interpretation Code 4.20 - 5.40 10^6/mcL AO Workflow SS Triglyceride [Mass/Vol] 250 mg/dL Invalid Interpretation Code 0 - 150 mg/dL AO ADM SS WBC (Bld) [#/Vol] 7.0 103/mcL Invalid Interpretation Code 4.6 - 10.8 10^3/mcL AO Workflow SS LIPIDon 01-13-2023 Cholesterol [Mass/Vol] 232 mg/dL High 0-200 [facility] ([place]) Comment on above: Result Comment: Chol esterol Reference Interval: Less than 200 Desirable 200-239 Borderline high risk 240 and above High risk Performed By: #### A DIFF, LIPID, ANEU, GFR, A1C, TSH, VIDH, CBC, CMP #### [address] [address] Cholesterol in HDL [Mass/Vol] 48 mg/dL Normal 40-60 [facility] ([place]) Comment on above: Performed By: #### A DIFF, LIPID, ANEU, GFR, A1C, TSH, VIDH, CBC, CMP #### [address] [address] Cholesterol in LDL [Mass/Vol] 134 mg/dL High 0-130 [facility] ([place]) Comment on above: Performed By: #### A DIFF, LIPID, ANEU, GFR, A1C, TSH, VIDH, CBC, CMP #### [address] [address] Triglyceride [Mass/Vol] 250 mg/dL High 0-150 A [facility] ([place]) Comment on above: Result Comment: Trig lyceride Reference Interval: Less than 150 Normal 150-199 Borderline high risk 200-499 High risk 500 or higher Very high risk Performed By: #### A DIFF, LIPID, ANEU, GFR, A1C, TSH, VIDH, CBC, CMP #### [address] [address] TSHon 01-13-2023 TSH Qn 1.85 m[IU]/L Normal 0.36-3.74 [facility] ([place]) Comment on above: Performed By: #### A DIFF, LIPID, ANEU, GFR, A1C, TSH, VIDH, CBC, CMP #### [address] [address] VIDHon 01-13-2023 Vit. D 25-Hydroxy 41.4 ng/mL Normal [facility] ([place]) Comment on above: Result Comment: Inte rpretive Values Based on Total 25(OH) Vitamin D: Deficient <20 ng/mL Insufficient 20 - <30 ng/mL Sufficient 30-100 ng/mL Performed By: #### A DIFF, LIPID, ANEU, GFR, A1C, TSH, VIDH, CBC, CMP #### [place] [address] [place] [address] LABORATORYOrdered By: Alejandro Reece on 01-14-2022 Albumin BCP dye [Mass/Vol] 3.9 G/dL Invalid Interpretation Code 3.4 - 4.8 G/dL AO ADM SS Albumin/Globulin [Mass ratio] 1.1 {ratio} Invalid Interpretation Code 1.1 - 2.5 ratio AO ADM SS ALP [Catalytic activity/Vol] 89 U/L Invalid Interpretation Code 40 - 135 U/L AO ADM SS ALT With P-5'-P [Catalytic activity/Vol] 20 U/L Invalid Interpretation Code 14 - 59 U/L AO ADM SS AST With P-5'-P [Catalytic activity/Vol] 11 U/L Invalid Interpretation Code 10 - 40 U/L AO ADM SS Basophil, Absolute 0.00 103/mcL Invalid Interpretation Code 0.00 - 0.19 10^3/mcL AO Auto Heme SS Basophils/100 WBC (Bld) 0.3 % Invalid Interpretation Code 0.0 - 2.5 % AO Auto Heme SS Bilirubin [Mass/Vol] 0.4 mg/dL Invalid Interpretation Code 0.2 - 1.0 mg/dL AO ADM SS Calcium [Mass/Vol] 9.5 mg/dL Invalid Interpretation Code 8.4 - 10.2 mg/dL AO ADM SS Chloride [Moles/Vol] 104 mmol/L Invalid Interpretation Code 98 - 107 mmol/L AO ADM SS Cholesterol [Mass/Vol] 228 mg/dL Invalid Interpretation Code 0 - 200 mg/dL AO ADM SS Cholesterol in HDL [Mass/Vol] 47 mg/dL Invalid Interpretation Code 40 - 60 mg/dL AO ADM SS Cholesterol in LDL [Mass/Vol] 130 mg/dL Invalid Interpretation Code 0 - 130 mg/dL AO ADM SS CO2 [Moles/Vol] 22 mmol/L Invalid Interpretation Code 23 - 31 mmol/L AO ADM SS Creatinine [Mass/Vol] 1.11 mg/dL Invalid Interpretation Code 0.55 - 1.02 mg/dL AO ADM SS Electrolyte Balance 15.0 mEq/L Invalid Interpretation Code 4.0 - 15.0 mEq/L AO ADM SS Eosinophil, Absolute 0.20 103/mcL Invalid Interpretation Code 0.00 - 0.40 10^3/mcL AO Auto Heme SS Eosinophils/100 WBC (Bld) 3.0 % Invalid Interpretation Code 0.0 - 7.0 % AO Auto Heme SS Erythrocyte distribution width (RBC) [Ratio] 13.6 % Invalid Interpretation Code 11.5 - 14.5 % AO Auto Heme SS Globulin 3.7 G/dL Invalid Interpretation Code AO ADM SS Glucose [Mass/Vol] 127 mg/dL Invalid Interpretation Code 83 - 110 mg/dL AO ADM SS HbA1c (Bld) [Mass fraction] 6.6 % Invalid Interpretation Code 4.3 - 6.4 % AO ADM SS Hematocrit (Bld) [Volume fraction] 37.8 % Invalid Interpretation Code 37.0 - 47.0 % AO Auto Heme SS Hemoglobin (Bld) [Mass/Vol] 12.9 G/dL Invalid Interpretation Code 12.0 - 16.0 G/dL AO Auto Heme SS Lymphocyte, Absolute 2.90 103/mcL Invalid Interpretation Code 0.77 - 3.85 10^3/mcL AO Auto Heme SS Lymphocytes/100 WBC (Bld) 39.4 % Invalid Interpretation Code 10.0 - 50.0 % AO Auto Heme SS MCH (RBC) [Entitic mass] 31.7 pg Invalid Interpretation Code 27.0 - 31.2 pg AO Auto Heme SS MCHC (RBC) [Mass/Vol] 34.2 G/dL Invalid Interpretation Code 33.0 - 37.0 G/dL AO Auto Heme SS MCV (RBC) [Entitic vol] 92.7 fL Invalid Interpretation Code 80.0 - 94.0 fL AO Auto Heme SS Monocyte, Absolute 0.60 103/mcL Invalid Interpretation Code 0.15 - 1.00 10^3/mcL AO Auto Heme SS Monocytes/100 WBC (Bld) 8.4 % Invalid Interpretation Code 1.7 - 13.0 % AO Auto Heme SS Neutrophil, Absolute 3.60 103/mcL Invalid Interpretation Code 2.85 - 6.16 10^3/mcL AO Auto Heme SS Neutrophils/100 WBC (Bld) 48.9 % Invalid Interpretation Code 37.0 - 80.0 % AO Auto Heme SS Platelet mean volume (Bld) [Entitic vol] 8.4 fL Invalid Interpretation Code 7.4 - 10.4 fL AO Auto Heme SS Platelets (Bld) [#/Vol] 222 103/mcL Invalid Interpretation Code 130 - 400 10^3/mcL AO Auto Heme SS Potassium [Moles/Vol] 4.6 mmol/L Invalid Interpretation Code 3.5 - 5.1 mmol/L AO ADM SS Protein [Mass/Vol] 7.6 G/dL Invalid Interpretation Code 6.4 - 8.2 G/dL AO ADM SS RBC (Bld) [#/Vol] 4.07 106/mcL Invalid Interpretation Code 4.20 - 5.40 10^6/mcL AO Auto Heme SS Sodium [Moles/Vol] 141 mmol/L Invalid Interpretation Code 136 - 145 mmol/L AO ADM SS Triglyceride [Mass/Vol] 257 mg/dL Invalid Interpretation Code 0 - 150 mg/dL AO ADM SS TSH Qn 2.21 m[IU]/L Invalid Interpretation Code 0.36 - 3.74 mcIU/mL AO ADM SS Urea nitrogen [Mass/Vol] 17 mg/dL Invalid Interpretation Code 7 - 18 mg/dL AO ADM SS Urea nitrogen/Creatinine [Mass ratio] 15 ratio Invalid Interpretation Code 7 - 27 ratio AO ADM SS Vit. D 25-Hydroxy 37.7 ng/mL Invalid Interpretation Code AO ADM SS WBC (Bld) [#/Vol] 7.40 103/mcL Invalid Interpretation Code 4.60 - 10.80 10^3/mcL AO Auto Heme SS LABORATORYOrdered By: SYSTEM SYSTEM on 01-14-2022 GFR 59 ml/min/1.73sqm Invalid Interpretation Code AO Chemistry S GFR Non- 48 ml/min/1.73sqm Invalid Interpretation Code AO Chemistry S A1C [facility] 04-30-2017 Hemoglobin A1c/Hemoglobin.total mass fraction (Bld) 6.6 % High 4.8-5.9 [facility] Comment on above: Performed By: #### A 1C ####[address] [address] Comp. Metabolic Panelon 04-21 Chloride 102 mmol/L Normal 98-107 [facility] Comment on above: Performed By: #### C MP ####[address] [address] Electrolyte Balance 8.0 mEq/L Normal [facility] Comment on above: Performed By: #### C MP ####[address] [address] Potassium molar conc 5.1 mmol/L Normal 3.5-5.1 [facility] Comment on above: Performed By: #### C MP ####[address] [address] Sodium 138 mmol/L Normal 136-146 [facility] Comment on above: Performed By: #### C MP ####[address] [address] Alanine aminotransferase (ALT) 12 U/L Normal 10-35 [facility] Comment on above: Performed By: #### C MP ####[place] [address] [address] Albumin/Globulin Ratio 1.5 {ratio} Normal 1.1-2.5 [facility] Comment on above: Performed By: #### C MP ####[address] [address] Alk. Phosphatase 75 IU/L Normal 40-135 [facility] Comment on above: Performed By: #### C MP ####[place] [address] [address] Aspartate aminotransferase (AST) 12 U/L Normal 10-40 [facility] Comment on above: Performed By: #### C MP ####[address] [address] Globulin 3.0 G/dL Normal [facility] Comment on above: Performed By: #### C MP ####[address] [address] T. Protein 7.4 G/dL Normal 6.0-8.3 [facility] Comment on above: Performed By: #### C MP ####[address] [address] Bilirubin (direct) 0.3 mg/dL Normal 0.2-1.0 [facility] Comment on above: Performed By: #### C MP ####[place] [address] [address] Glucose mass conc 125 mg/dL High 80-115 [facility] Comment on above: Performed By: #### C MP ####[address] [address] Calcium 9.7 mg/dL Normal 8.4-10.2 [facility] Comment on above: Performed By: #### C MP ####[address] [address] Albumin 4.4 G/dL Normal 3.4-4.8 [facility] Comment on above: Performed By: #### C MP ####[address] [address] BUN/Creatinine Ratio 19 mg/mg Normal 7-27 [facility] Comment on above: Performed By: #### C MP ####[address] [address] CO2 28 mmol/L Normal 23-31 [facility] Comment on above: Performed By: #### C MP ####[address] [address] Creatinine 1.0 mg/dL Normal 0.6-1.2 [facility] Comment on above: Performed By: #### C MP ####[address] [address] Urea nitrogen 19 mg/dL High 7-18 [facility] Comment on above: Performed By: #### C MP ####[address] [address] Glomerular Filtration Rate E stimateon 04-30-2017 eGFR (non-black) mL/min/{1.73_m2} Normal [facility] Comment on above: Result Comment: Jacobo rivers mean GFR = 85 mL/min/1.73 sq.m. for ages 60-69 years. Chronic Kidney Disease: Less than 60 mL/min/1.73 square metersEnd Stage Renal Disease: Less than 15 mL/min/1.73 square meters Performed By: #### G FR ####[address] [address] eGFR (non-black) 55 mL/min/1.73m 2 Normal A [facility] Comment on above: Performed By: #### G FR ####[place] [address] [address] HDL Cholesterol Profileon Cholesterol 277 mg/dL High 131-200 [facility] Comment on above: Result Comment: Chol esterol Reference Interval: Less than 200 Desirable 200-239 Borderline high risk 240 and above High risk ------ Performed By: #### L IPID ####[place] [address] [address] LDL Cholesterol 152 mg/dL High 0-130 [facility] Comment on above: Result Comment: LDL is a calculated result and requires a 12-hr fast. LDL Reference Interval: Less than 100 Optimal 100-129 Near or above optimal 130-159 Borderline high risk 160-189 High risk 190 and above Very high risk ------- Performed By: #### L IPID ####[place] [address] [address] HDL Cholesterol 49 mg/dL Normal 35-90 [facility] Comment on above: Result Comment: HDL Reference Interval: Less than 40 Low - high risk 60 or above Optimal/lowers risk ------ Performed By: #### L IPID ####[place] [address] [address] Triglyceride 382 mg/dL High 40-150 [facility] Comment on above: Result Comment: Trig lyceride Reference Interval: Less than 150 Normal 150-199 Borderline high risk 200-499 High risk 500 or higher Very high risk ------ Performed By: #### L IPID ####[place] [id number] [place] [address] Vit. D 25-Hydroxyon 04-30-20 17 Vit. D 25-Hydroxy 35 ng/mL Normal [facility] Comment on above: Result Comment: Inte rpretive Values Based on Total 25(OH)D: Severe Deficiency <20 ng/mL Mild to Moderate Deficiency 20-30 ng/mL Optimum Levels 30-100 ng/mL Toxicity Possible >100 ng/mL Performed By: #### V IDH ####[place] [id number] [place] [id number] Vital Signs Date Time Vital Sign Value Performing Clinician Facility 05-11-2025 10:07-0400 Body height 157.[address] Ronel Padilla MD Work Phone: [facility] 05-11-2025 10:07-0400 Body mass index (BMI) [Ratio] 33.8 kg/m2 Dr. Ronel Padilla MD Work Phone: [facility] 05-11-2025 10:07-0400 Body temperature 97.5 [degF] Dr. Ronel Padilla MD Work Phone: [facility] 05-11-2025 10:07-0400 Body weight 83.[address] Ronel Padilla MD Work Phone: [facility] 05-11-2025 10:07-0400 Diastolic blood pressure 84 mm[Hg] Dr. Ronel Padilla MD Work Phone: [facility] 05-11-2025 10:07-0400 Heart rate 72 /min Dr. Ronel Padilla MD Work Phone: [facility] 05-11-2025 10:07-0400 Respiratory rate 16 /min Dr. Ronel Padilla MD Work Phone: [facility] 05-11-2025 10:07-0400 SaO2% (BldA) [Mass fraction] 98 % Dr. Ronel Padilla MD Work Phone: [facility] 05-11-2025 10:07-0400 Systolic blood pressure 126 mm[Hg] Dr. Ronel Padilla MD Work Phone: [facility] 03-03-2025 09:05-0400 Body mass index (BMI) [Ratio] 32.81 kg/m2 [facility] 03-03-2025 09:05-0400 Body weight 81.38 kg [facility] 03-03-2025 09:05-0400 Diastolic blood pressure 76 mm[Hg] [facility] 03-03-2025 09:05-0400 Heart rate 88 /min [facility] 03-03-2025 09:05-0400 Systolic blood pressure 112 mm[Hg] [facility] 02-17-2025 11:27-0400 Body mass index (BMI) [Ratio] 32.74 kg/m2 Bina Kennedy [facility] Work Phone: [facility] 02-17-2025 11:27-0400 Body weight 81.19 kg Bina Kennedy [facility] Work Phone: [facility] 02-17-2025 11:27-0400 Diastolic blood pressure 65 mm[Hg] Bina Benavides [facility] Work Phone: [facility] 02-17-2025 11:27-0400 Heart rate 84 /min Bina Benavides [facility] Work Phone: [facility] 02-17-2025 11:27-0400 Systolic blood pressure 104 mm[Hg] Bina Benavides [facility] Work Phone: [facility] 01-27-2025 11:44-0400 Body mass index (BMI) [Ratio] 33.62 kg/m2 Bina Benavides [facility] Work Phone: [facility] 01-27-2025 11:44-0400 Body weight 83.37 kg Bina Benavides [facility] Work Phone: [facility] 01-27-2025 11:44-0400 Diastolic blood pressure 83 mm[Hg] Bina Benavides [facility] Work Phone: [facility] 01-27-2025 11:44-0400 Heart rate 82 /min Bina Benavides [facility] Work Phone: [facility] 01-27-2025 11:44-0400 Systolic blood pressure 147 mm[Hg] Bina Benavides [facility] Work Phone: [facility] 01-13-2025 11:41-0400 Body mass index (BMI) [Ratio] 33 kg/m2 Moira Mol RN Work Phone: [facility] 01-13-2025 11:41-0400 Body weight 81.83 kg Moira Mol RN Work Phone: [facility] 01-13-2025 11:41-0400 Diastolic blood pressure 78 mm[Hg] Moira Mol RN Work Phone: [facility] 01-13-2025 11:41-0400 Heart rate 93 /min Moira Mol RN Work Phone: [facility] 01-13-2025 11:41-0400 Systolic blood pressure 125 mm[Hg] Moira Mol RN Work Phone: [facility] 01-06-2025 14:56-0400 Body mass index (BMI) [Ratio] 32.67 kg/m2 Keely Grover [facility] [place] 01-06-2025 14:56-0400 Body weight 81.01 kg Keely Grover [facility] [place] 01-06-2025 14:56-0400 Diastolic blood pressure 68 mm[Hg] [facility] 01-06-2025 14:56-0400 Heart rate 85 /min [place] [facility] 01-06-2025 14:56-0400 Systolic blood pressure 104 mm[Hg] [place] [facility] 01-02-2025 11:39-0400 Body height 157.[address] Ronel Padilla MD Work Phone: [facility] 01-02-2025 11:39-0400 Body mass index (BMI) [Ratio] 32.9 kg/m2 Dr. Ronel Padilla MD Work Phone: [facility] 01-02-2025 11:39-0400 Body temperature 97.7 [degF] Dr. Ronel Padilla MD Work Phone: [facility] 01-02-2025 11:39-0400 Body weight 81.[address] Ronel Padilla MD Work Phone: [facility] 01-02-2025 11:39-0400 Diastolic blood pressure 68 mm[Hg] Dr. Rnoel Padilla MD Work Phone: [facility] 01-02-2025 11:39-0400 Heart rate 112 /min Dr. Ronel Padilla MD Work Phone: [facility] 01-02-2025 11:39-0400 Respiratory rate 16 /min Dr. Ronel Padilla MD Work Phone: [facility] 01-02-2025 11:39-0400 SaO2% (BldA) [Mass fraction] 94 % Dr. Ronel Padilla MD Work Phone: [facility] 01-02-2025 11:39-0400 Systolic blood pressure 112 mm[Hg] Dr. Ronel Padilla MD Work Phone: [facility] 12-30-2024 14:46-0400 Body mass index (BMI) [Ratio] 33.07 kg/m2 Moira Cedeño RN Work Phone: [facility] 12-30-2024 14:46-0400 Body weight 82.01 kg Moira Cedeño RN Work Phone: [facility] 12-30-2024 14:46-0400 Diastolic blood pressure 77 mm[Hg] Moira Cedeño RN Work Phone: [facility] 12-30-2024 14:46-0400 Heart rate 86 /min Moira Cedeño RN Work Phone: [facility] 12-30-2024 14:46-0400 Systolic blood pressure 116 mm[Hg] Moira Cedeño RN Work Phone: [facility] 12-10-2024 13:59-0500 Body height 157.5 cm An Ryder MD Work Phone: [facility] 12-10-2024 13:59-0500 Body mass index (BMI) [Ratio] 33.87 kg/m2 An Ryder MD Work Phone: [facility] 12-10-2024 13:59-0500 Body weight 84.01 kg An Ryder MD Work Phone: [facility] 12-01-2024 15:27-0500 Body temperature 97.8 [degF] Dr. Ronel Padilla MD Work Phone: [facility] 12-01-2024 15:27-0500 Diastolic blood pressure 66 mm[Hg] Dr. Ronel Padilla MD Work Phone: [facility] 12-01-2024 15:27-0500 Heart rate 94 /min Dr. Ronel Padilla MD Work Phone: [facility] 12-01-2024 15:27-0500 Respiratory rate 12 /min Dr. Ronel Padilla MD Work Phone: [facility] 12-01-2024 15:27-0500 SaO2% (BldA) [Mass fraction] 98 % Dr. Ronel Padilla MD Work Phone: [facility] 12-01-2024 15:27-0500 Systolic blood pressure 122 mm[Hg] Dr. Ronel Padilla MD Work Phone: [facility] 11-13-2024 10:12-0500 Body height 157.5 cm An Ryder MD Work Phone: [facility] 11-13-2024 10:12-0500 Body mass index (BMI) [Ratio] 33.87 kg/m2 An Ryder MD Work Phone: [facility] 11-13-2024 10:12-0500 Body weight 84.01 kg An Ryder MD Work Phone: [facility] 11-13-2024 10:12-0500 Diastolic blood pressure 58 mm[Hg] An Ryder MD Work Phone: [facility] 11-13-2024 10:12-0500 Heart rate 80 /min An Ryder MD Work Phone: [facility] 11-13-2024 10:12-0500 SaO2% (BldA) [Mass fraction] 94 % An Ryder MD Work Phone: [facility] 11-13-2024 10:12-0500 Systolic blood pressure 110 mm[Hg] An Ryder MD Work Phone: [facility] 10-27-2024 11:22-0500 Body mass index (BMI) [Ratio] 34.2 kg/m2 Dr. Ronel Padilla MD Work Phone: [facility] 10-27-2024 11:22-0500 Body temperature 97.6 [degF] Dr. Ronel Padilla MD Work Phone: [facility] 10-27-2024 11:22-0500 Body weight 84.[address] Ronel Padilla MD Work Phone: [facility] 10-27-2024 11:22-0500 Diastolic blood pressure 80 mm[Hg] Dr. Ronel Padilla MD Work Phone: [facility] 10-27-2024 11:22-0500 Heart rate 102 /min Dr. Ronel Padilla MD Work Phone: [facility] 10-27-2024 11:22-0500 Respiratory rate 16 /min Dr. Ronel Padilla MD Work Phone: [facility] 10-27-2024 11:22-0500 SaO2% (BldA) [Mass fraction] 97 % Dr. Ronel Padilla MD Work Phone: [facility] 10-27-2024 11:22-0500 Systolic blood pressure 124 mm[Hg] Dr. Ronel Padilla MD Work Phone: [facility] 10-17-2024 14:55-0500 SaO2% (BldA) [Mass fraction] 93 % Dr. Ronel Padilla MD Work Phone: [facility] 10-17-2024 14:50-0500 Body temperature 98.7 [degF] Dr. Ronel Padilla MD Work Phone: [facility] 10-17-2024 14:50-0500 Diastolic blood pressure 63 mm[Hg] Dr. Ronel Padilla MD Work Phone: [facility] 10-17-2024 14:50-0500 Heart rate 98 /min Dr. Ronel Padilla MD Work Phone: [facility] 10-17-2024 14:50-0500 Respiratory rate 18 /min Dr. Ronel Padilla MD Work Phone: [facility] 10-17-2024 14:50-0500 Systolic blood pressure 129 mm[Hg] Dr. Ronel Padilla MD Work Phone: [facility] 10-17-2024 12:23-0500 Body mass index (BMI) [Ratio] 34.1 kg/m2 Dr. Ronel Padilla MD Work Phone: [facility] 10-17-2024 12:23-0500 Body weight 84.[address] Ronel Padilla MD Work Phone: [facility] 10-02-2024 12:00-0500 Body temperature 98.4 [degF] Rubens Bass MD Work Phone: [facility] 10-02-2024 12:00-0500 Diastolic blood pressure 74 mm[Hg] Rubens Bass MD Work Phone: [facility] 10-02-2024 12:00-0500 Heart rate 82 /min Rubens Bass MD Work Phone: [facility] 10-02-2024 12:00-0500 Respiratory rate 22 /min Rubens Bass MD Work Phone: [facility] 10-02-2024 12:00-0500 SaO2% (BldA) [Mass fraction] 96 % Rubens Bass MD Work Phone: [facility] 10-02-2024 12:00-0500 Systolic blood pressure 143 mm[Hg] Rubens Bass MD Work Phone: [facility] 10-02-2024 08:48-0500 Body height 157.5 cm Rubens Bass MD Work Phone: [facility] 10-02-2024 08:48-0500 Body mass index (BMI) [Ratio] 33.11 kg/m2 Rubens Bass MD Work Phone: [facility] 10-02-2024 08:48-0500 Body weight 82.1 kg Rubens Bass MD Work Phone: [facility] 10-01-2024 10:35-0500 Inhaled oxygen flow rate 10 L/min Dr. Ronel Padilla MD Work Phone: [facility] 10-01-2024 10:35-0500 SaO2% (BldA) [Mass fraction] 94 % Dr. Ronel Padilla MD Work Phone: [facility] 10-01-2024 09:00-0500 Diastolic blood pressure 64 mm[Hg] Dr. Ronel Padilla MD Work Phone: [facility] 10-01-2024 09:00-0500 Heart rate 78 /min Dr. Ronel Padilla MD Work Phone: [facility] 10-01-2024 09:00-0500 Respiratory rate 15 /min Dr. Ronel Padilla MD Work Phone: [facility] 10-01-2024 09:00-0500 Systolic blood pressure 114 mm[Hg] Dr. Ronel Padilla MD Work Phone: [facility] 10-01-2024 08:00-0500 Body temperature 98.1 [degF] Dr. Ronel Padilla MD Work Phone: [facility] 10-01-2024 04:15-0500 Body mass index (BMI) [Ratio] 34.4 kg/m2 Dr. Ronel Padilla MD Work Phone: [facility] 10-01-2024 04:15-0500 Body weight 85.[address] Ronel Padilla MD Work Phone: [facility] 10-01-2024 03:00-0500 Inhaled oxygen concentration 70 % Dr. Ronel Padilla MD Work Phone: [facility] Encounters Encounter Date Encounter Type Care Provider Facility Start: 05-11-[address] Ronel Padilla MD -Laboratory [facility] Start: 05-11-2025 End: 05-11-[address] Ronel Padilla MD Work Phone: -[facility] Start: 05-11-2025 End: 05-11-[address] Ronel Padilla MD -[facility] Work Phone: Start: 04-28-2025 End: 04-28-2025 ambulatory RONEL PADILLA [facility] Start: 04-16-2025 End: 04-16-2025 ambulatory VINKEILA MASTERS [facility] Start: 03-24-2025 End: 03-24-2025 ambulatory VIN MASTERS [facility] Start: 03-03-2025 End: 03-03-2025 Anticoagulant drug monitoring Vin Masters MD Work Phone: [facility] Comment on above: Bilateral pulmonary embolism (HCC) Start: 03-03-2025 End: 03-03-2025 ambulatory RONEL HERRLAY [facility] Start: 02-21-2025 End: 02-23-2025 Refill Vin Masters MD Work Phone: [facility] Start: 02-17-2025 End: 02-17-2025 Anticoagulant drug monitoring Vin Masters MD Work Phone: [facility] Comment on above: Bilateral pulmonary embolism (HCC) (Primary Dx) Start: 02-17-2025 End: 02-17-2025 ambulatory RONEL HERRLAY [facility] Start: 01-27-2025 End: 01-27-[address] [facility] Start: 01-27-2025 End: 01-27-2025 Anticoagulant drug monitoring Vin Masters MD Work Phone: [facility] Comment on above: Bilateral pulmonary embolism (HCC) Start: 01-19-2025 End: 01-19-[address] [facility] Start: 01-19-2025 End: 01-19-2025 Anticoagulant drug monitoring Moira Cedeño RN Work Phone: [facility] Comment on above: Bilateral pulmonary embolism (HCC) Start: 01-16-2025 End: 01-16-[address] Ronel Padilla MD Work Phone: [facility] Work Phone: Start: 01-16-2025 End: 01-16-[address] Ronel Padilla MD -Laboratory, [facility] Start: 01-16-2025 End: 01-16-2025 ambulatory Ronel Padilla Facility:[facility] Start: 01-13-2025 End: 01-13-2025 Anticoagulant drug monitoring Vin Masters MD Work Phone: [facility] Comment on above: Bilateral pulmonary embolism (HCC) Start: 01-13-2025 End: 01-13-[address] [facility] Start: 01-09-2025 End: 01-09-[address] Ronel Padilla MD Work Phone: [facility] Work Phone: Start: 01-09-2025 End: 01-09-2025 Patient encounter procedure Jose Roberto RAMIREZ -Laboratory, [facility] Start: 01-09-2025 End: 01-09-2025 ambulatory Jose Roberto RAMIREZ Facility:[facility] Start: 01-06-2025 End: 01-06-[address] [facility] Start: 01-06-2025 End: 01-06-2025 Anticoagulant drug monitoring Vin Masters MD Work Phone: [facility] Comment on above: Bilateral pulmonary embolism (HCC) (Primary Dx) Start: 01-05-2025 End: 01-05-[address] Ronel Padilla MD Work Phone: [facility] Work Phone: Start: 01-05-2025 End: 01-05-[address] Ronel Padilla MD -Laboratory, [facility] Start: 01-05-2025 End: 01-05-2025 ambulatory Ronel Padilla Facility:[facility] Start: 01-02-2025 End: 01-02-[address] Ronel Padilla MD Work Phone: [facility] Work Phone: Start: 01-02-2025 End: 01-02-2025 Patient encounter procedure Jose Roberto RAMIREZ -Laboratory, Specimen Work Phone: Start: 01-02-2025 End: 01-02-2025 Patient encounter procedure Jose Roberto RAMIREZ -[facility] Work Phone: Start: 01-02-2025 End: 01-02-2025 ambulatory Ronel Padilla Facility:[facility] Start: 01-02-2025 End: 01-02-2025 ambulatory Jose Roberto RAMIREZ Facility:[facility] Start: 12-30-2024 End: 12-30-2024 Anticoagulant drug monitoring Vin Masters MD Work Phone: [facility] Comment on above: Bilateral pulmonary embolism (HCC) Start: 12-30-2024 End: 12-30-2024 ambulatory [facility] Start: 12-11-2024 End: 12-11-2024 Telephone encounter An Ryder MD Work Phone: [facility] Start: 12-10-2024 End: 12-10-2024 Subsequent hospital visit by physician An Ryder MD Work Phone: [facility] Comment on above: Bilateral pulmonary embolism (HCC) Start: 12-10-2024 End: 12-10-2024 ambulatory [facility] Start: 12-05-2024 End: 12-06-2024 Refill Caio Sanchez [facility] [place] Start: 12-01-2024 End: 12-01-2024 ambulatory Caio RAMIREZ Facility:[facility] Start: 12-01-2024 End: 12-01-2024 Patient encounter procedure Caio RAMIRE[facility] Work Phone: Start: 11-13-2024 End: 11-13-2024 Office outpatient visit 25 minutes An Ryder MD Work Phone: [facility] Comment on above: Bilateral pulmonary embolism (HCC) (Primary Dx); Chronic deep vein thrombosis (DVT) of femoral vein of right lower extremity (HCC); Mixed hyperlipidemia; Primary hypertension Start: 11-13-2024 End: 11-13-2024 ambulatory [facility] Start: 10-27-2024 End: 10-27-[address] Ronel Padilla MD -[facility] Work Phone: Start: 10-27-2024 End: 10-27-2024 ambulatory Ronel Padilla Facility:[facility] Start: 10-17-2024 End: 10-17-2024 Emergency department patient visit Dr. Arun Melgar DO -Emergency Department Work Phone: Start: 10-01-2024 End: 10-02-2024 Evaluation and management of inpatient Rubens Bass MD Work Phone: [facility] Cardiac Thoracic Vascular Intensive Care Unit CTV ICU T1 Comment on above: Bilateral pulmonary embolism (HCC) (Primary Dx); Pulmonary embolism (HCC) Start: 10-01-2024 Non-patient / Non-visit Dr. Jane Mendoza MD -[facility] Work Phone: Start: 09-30-2024 ambulatory Demi Mendoza Facility :[facility] Start: 09-30-2024 End: 10-01-2024 Evaluation and management of inpatient Dr. Howard Proctor DO -Intensive Care Unit Work Phone: Start: 08-14-2024 End: 08-14-2024 ambulatory Alber Pham Facility:[facility] Start: 08-01-2024 End: 08-01-2024 ambulatory Alber Pham Facility:[facility] Start: 04-21-2024 End: 04-21-2024 ambulatory Ronel Padilla Facility:[facility] Start: 01-07-2024 End: 01-08-[address] DAWN CRUZ DO Facility:[facility] Start: 01-07-2024 End: 01-07-[address] DAWN CRUZ DO [facility] Start: 08-27-2023 End: 08-28-[address] DAWN CRUZ DO Facility:[facility] Start: 08-27-2023 End: 08-27-[address] DAWN CRUZ DO [facility] Start: 07-12-2023 End: 07-17-[address] DAWN CRUZ DO Facility:[facility] Start: 07-12-2023 End: 07-16-[address] DAWN CRUZ DO [facility] Start: 07-09-2023 End: 07-10-[address] DAWN CRUZ DO Facility:[facility] Start: 07-09-2023 End: 07-09-[address] DAWN CRUZ DO [facility] Start: 01-13-2023 End: 01-14-[address] DAWN CRUZ DO Facility:[facility] Start: 01-13-2023 End: 01-13-[address] DAWN CRUZ DO [facility] Start: 01-14-2022 End: 01-14-[address] DAWN CRUZ DO [facility] Start: 04-30-2017 End: 05-01-2017 Ambulatory DAWN CRUZ Facility:[facility] [place] Procedures Date Procedure Procedure Detail Performing Clinician Start: 03-03-2025 Prothrombin time Ni lay Provider Poct Start: 02-17-2025 Prothrombin time Vin Masters MD Work Phone: Start: 01-27-2025 Prothrombin time Vin Masters MD Work Phone: Start: 01-16-2025 Prothrombin time Histor ical Provider Work Phone: Start: 01-13-2025 Prothrombin time Vin Masetrs MD Work Phone: Start: 01-06-2025 Prothrombin time Vin Masters MD Work Phone: Start: 01-02-[address] Nancy Padilla MD Work Phone: Start: 03-11-2025 Prothrombin time Vin Masters MD Work Phone: Start: 12-10-2024 Echo transthorc r-t 2d w/wo m-mode rec f-up/lmtd An Ryder MD Work Phone: Start: 11-13-2024 Ecg routine ecg w/le ast 12 lds w/i&r An Ryder MD Work Phone: Start: 10-17-2024 SARS-CoV-2, Influenz a & RSV (PCR) Dr. Ronel Padilla MD Work Phone: Start: 10-17-2024 X-ray of chest, PA a nd lateral views Dr. Ronel Padilla MD Work Phone: Start: 10-02-2024 Glucose quantitative blood xcpt reagent strip Jose Roberto Holguin MD Work Phone: Start: 10-02-2024 Dup-scan xtr veins c omplete bilateral study Rio Vieyra DO Work Phone: Start: 10-02-2024 Echo tthrc r-t 2d w/ wom-mode compl spec&colr d Rio Vieyra DO Work Phone: Start: 10-02-2024 [facility] Work Phone: Start: 10-01-2024 Glucose quantitative blood xcpt reagent strip Jose Roberto Holguin MD Work Phone: Start: 10-01-2024 Cardiac catheterizat ion study An Ryder MD Work Phone: Start: 10-01-2024 End: 10-01-2024 POCT ACT Rubens Bass MD Work Phone: Start: 10-01-2024 End: 10-01-2024 POCT O2 SATURATION Rubens Bass MD Work Phone: Start: 10-01-2024 End: 10-01-2024 POCT ACT Rubens Bass MD Work Phone: Start: 10-01-2024 Comprehensive metabo lic panel An Ryder MD Work Phone: Start: 10-01-2024 Hemoglobin glycosylated a1c Kush Vieyra DO Work Phone: Start: 09-30-2024 CT angiography of est with contrast Dr. Ronel Padilla MD Work Phone: Start: 09-30-2024 Plain chest X-ray Dr. Katerin Padilla MD Work Phone: Start: 09-30-[address] Nancy Padilla MD Work Phone: Plan of Treatment Date Care Activity Detail Author Start: 11-19-2025 End: 11-19-2025 Patient encounter procedure 11/19/2025 10:20 AM EST Office Visit [facility] [place] [address] [place] [phone] An Ryder MD [address] [place] [address] [facility] [place] Start: 10-02-2025 Diabetes: Estimated Glomerular Filtration Rate for [facility] Diabetes: Estimated Glomerular Filtration Rate for [facility] Start: 10-01-2025 Hemoglobin A1c measurement Diabetes: Hemoglobin A1C [facility] Start: 06-22-2025 Influenza vaccination Influenza Vaccine (Season Ended) [facility] Start: 05-11-2025 CBC W Auto Differential panel - Blood [facility] Start: 05-11-2025 Comprehensive metabolic 2000 panel - Serum or Plasma [facility] Start: 03-24-2025 End: 03-24-2025 Anticoagulant drug monitoring 03/24/2025 9:05 AM EDT Anticoagulation - Warfarin Visit [facility] [address] [address] [facility] Start: 03-03-2025 End: 03-03-2025 Anticoagulant drug monitoring 03/03/2025 9:05 AM EDT Anticoagulation - Warfarin Visit [facility] [address] [address] [facility] Start: 02-17-2025 End: 02-17-2025 Anticoagulant drug monitoring 02/17/2025 11:35 AM EDT Anticoagulation - Warfarin Visit [facility] [address] [address] [facility] Start: 02-03-2025 End: 02-03-2025 Anticoagulant drug monitoring 02/03/2025 10:20 AM EDT Anticoagulation - Warfarin Visit [facility] [address] [address] [facility] Start: 01-27-2025 End: 01-27-2025 Anticoagulant drug monitoring 01/27/2025 11:35 AM EDT Anticoagulation - Warfarin Visit [facility] [address] [address] [facility] Start: 01-20-2025 End: 01-20-2025 Anticoagulant drug monitoring 01/20/2025 1:00 AM EDT Anticoagulation - Warfarin Visit [facility] [address] [phone] [facility] Start: 01-19-2025 End: 01-13-2026 Prothrombin time (PT) in Blood by Coagulation assay [facility] Lab Routine Bilateral pulmonary embolism (HCC) Expected: 01/19/2025 (Approximate), Expires: 01/13/2026 [facility] Work Phone: Comment on above: Expected: 01/19/2025 (Approximate), Expi res: 01/13/2026 Start: 01-13-2025 End: 01-13-2025 Anticoagulant drug monitoring 01/13/2025 11:45 AM EDT Anticoagulation - Warfarin Visit [facility] [address] [address] [facility] Start: 01-06-2025 End: 01-06-2025 Anticoagulant drug monitoring 01/06/2025 2:45 PM EDT Anticoagulation - Warfarin Visit [facility] [address] [address] [facility] Start: 12-10-2024 End: 12-10-2024 Patient encounter procedure 12/10/2024 2:00 PM EST Appointment [facility] [address] [place] [phone] An Ryder MD [address] [place] [address] [facility] Start: 11-13-2024 End: 11-13-2026 US Heart Transthoracic Transthoracic echocardiogram (TTE) limited with contrast, bubble, strain, and 3D PRN CV Echocardiography Routine Bilateral pulmonary embolism (HCC) Expected: 11/13/2024 (Approximate), Expires: 11/13/2026 [facility] Work Phone: Comment on above: Expected: 11/13/2024 (Approximate), Expi res: 11/13/2026 Start: 11-13-2024 End: 11-13-2024 Patient encounter procedure 11/13/2024 10:20 AM EST Office Visit [address] [phone] An Ryder MD [address] [place] [address] [facility] Start: 10-22-2024 Medicare Advantage Annual Wellness Visit Medicare Advantage Annual Wellness Visit [facility] Start: 10-01-2024 Patient discharge [facility] Start: 10-01-2024 Continuous positive airway pressure ventilation treatment [facility] Start: 09-30-2024 Following clinical pathway protocol [facility] Start: 09-30-2024 Assessment of risk of venous thromboembolism [facility] Start: 09-30-2024 Care regimes management [facility] Start: 09-30-2024 Consultation [facility] Start: 09-30-2024 Continuous pulse oximetry [facility] Start: 09-30-2024 Fall prevention [facility] Start: 09-30-2024 Incentive spirometry [facility] Start: 09-30-2024 Insertion of catheter into peripheral vein [facility] Start: 09-30-2024 Introduction of urinary catheter [facility] Start: 09-30-2024 Measuring intake and output [facility] Start: 09-30-2024 Notification of physician [facility] Start: 09-30-2024 Oxygen therapy [facility] Start: 09-30-2024 Providing care according to standard [facility] Start: 09-30-2024 Provision of activity privileges [facility] Start: 09-30-2024 Referral to occupational therapist [facility] Start: 09-30-2024 Referral to service [facility] Start: 09-30-2024 Vital signs measurements [facility] Start: 09-30-2024 End: 09-30-2024 [facility] Start: 09-30-2024 Admission procedure [facility] Start: 06-22-2024 COVID-19 Vaccine () COVID-19 Vaccine () [facility] Start: 06-22-2024 Influenza vaccination Influenza Vaccine (#1) [facility] Start: 10-22-2023 Medicare Advantage Annual Wellness Visit Medicare Advantage Annual Wellness Visit [facility] Start: 05-08-2016 Zoster Vaccines (2 of 3) Zoster Vaccines (2 of 3) [facility] Start: 2010 RSV Immunization for Adults (1 - Risk 60-74 years 1-dose series) RSV Immunization for Adults (1 - Risk 60-74 years 1-dose series) [facility] Start: 1990 Screening for malignant neoplasm of breast Mammogram [facility] Start: 1969 DTaP/Tdap/Td Vaccines (1 - Tdap) DTaP/Tdap/Td Vaccines (1 - Tdap) [facility] Start: 1968 Diabetes: Urine Albumin-Creatinine Ratio for [facility] Diabetes: Urine Albumin-Creatinine Ratio for [facility] Start: 1968 Hepatitis C screening Hepatitis C Screening [facility] Start: 1962 Depression Screening Depression Screening [facility] Start: 1960 Diabetic foot examination Diabetes: Foot Exam [facility] Start: 1960 Glaucoma screening Diabetes: Retinopathy Screening [facility] Start: 1960 Preventive dental service Diabetes: Dental Exam [facility] Start: 1950 Lipid panel Lipid Panel [facility] Start: 1950 Screening for malignant neoplasm of colon [facility] Start: 1950 Screening for osteoporosis Bone Density Scan [facility] Start: 1950 Thyroid stimulating hormone measurement TSH Level [facility] Alanine aminotransfe rase [Enzymatic activity/volume] in Serum or Plasma [facility] Albumin [Mass/volume ] in Serum or Plasma [facility] Alkaline phosphatase [Enzymatic activity/volume] in Serum or Plasma [facility] Anion gap in Serum o r Plasma [facility] Bilirubin, total measurement [facility] BUN/Creatinine ratio [facility] Calcium [Mass/volume ] in Serum or Plasma [facility] Carbon dioxide, tota l [Moles/volume] in Central venous blood [facility] Creatinine [Mass/vol ume] in Serum or Plasma [facility] Erythrocyte mean corpuscular volume determination [facility] Glucose [Mass/volume ] in Serum or Plasma [facility] Hematocrit [Volume Fraction] of Blood [facility] Hemoglobin [Mass/vol ume] in Blood [facility] Leukocytes [#/volume ] in Blood [facility] Mean corpuscular hemoglobin concentration determination [facility] Mean corpuscular hemoglobin determination [facility] Measurement of renal function [facility] Neutrophil count [facility] Neutrophil percent differential count [facility] Patient Education RSV (Respirato ry Syncytial Virus) [facility] Work Phone: Patient referral [facility] Work Phone: Platelets [#/volume] in Blood [facility] Potassium measurement [facility] Red blood cell count [facility] Red cell distributio n width determination [facility] Serum chloride measurement [facility] Sodium measurement [facility] Total protein measurement [facility] Urea nitrogen [Mass/volume] in Serum or Plasma [facility] Immunizations Immunization Date Immunization Notes Care Provider Fa [facility] 07-12-2023 Pneumococcal conjuga te PCV20, polysaccharide [id number] conjugate, adjuvant, PF; Translations: [Prevnar 20] DR DAWN CRUZ DO [facility] 08-24-2022 Covid Pfizer Bivalen t Booster Dr. Ronel Padilla MD Work Phone: [facility] 07-20-2022 influenza, high dose seasonal, preservative-free DR DAWN CRUZ DO [facility] 07-20-2022 influenza, injectabl e, quadrivalent, preservative free Dr. Ronel Padilla MD Work Phone: [facility] 07-20-2022 influenza virus vaccine, unspecified formulation Rubens Bass MD Work Phone: [facility] 04-06-2022 Covid (Pfizer) Dr. Ronel Padilla MD Work Phone: [facility] 04-06-2022 SARS-CoV-2 mRNA (tcpgdukunxk-cfjr-mikuz se) vaccine DR DAWN CRUZ DO [facility] 08-03-2021 SARS-CoV-2 mRNA (tozinameran) vaccine DR DAWN CRUZ DO [facility] 11-16-2020 SARS-CoV-2 mRNA (tozinameran) vaccine DR DAWN CRUZ DO [facility] Comment on above: Result Comment: 2020: [id number] 10-26-2020 Covid (Pfizer) Dr. Ronel Padilla MD Work Phone: [facility] 10-26-2020 SARS-CoV-2 (COVID-19 ) mRNA-[address] DAWN CRUZ DO [facility] Comment on above: Location History: [facility] 08-27-2018 pneumococcal conjuga te vaccine, [address] DAWN CRUZ DO [facility] 08-16-2017 influenza virus vaccine, unspecified formulation DR DAWN CRUZ DO [facility] 08-16-2017 influenza, injectabl e, quadrivalent, preservative free Dr. Ronel Padilla MD Work Phone: [facility] 08-08-2016 influenza virus vaccine, unspecified formulation DR DAWN CRUZ DO [facility] 08-08-2016 influenza, injectabl e, quadrivalent, preservative free Dr. Ronel Padilla MD Work Phone: [facility] 03-13-2016 zoster vaccine, live DR NOAH CRUZ DO [facility] 02-21-2016 pneumococcal polysaccharide vaccine, [address] DAWN CRUZ DO [facility] 09-21-2015 influenza virus vaccine, unspecified formulation DR DAWN CRUZ DO [facility] 09-21-2015 Influenza, high dose seasonal Dr. Ronel Padilla MD Work Phone: [facility] 09-21-2015 influenza, high dose seasonal, preservative-free Dr. Ronel Padilla MD Work Phone: [facility] NEGATED: Highlighted row has not occurred!10-02-2024 Seasonal trivalent influenza vaccine, adjuvanted, preservative free Rubens Bass MD Work Phone: [facility] Comment on above: Deferred: Patient Re fused - per patient, already received this year's dose Payers Date Payer Category Payer Medicare [id number] 2024 Private Health Insurance [facility] [id number] 2024 Self-pay 2018 Medicare HMO [id number] 2016 Private Health Insurance [id number] 1950 Unknown [id number] 2.16.8 [id number] 1950 Unknown [id number] 2.16.8 [id number] 1950 Unknown [id number] 2.16.8 40.1.373598.3.579.2.627 1950 Unknown [id number] 2.16.8 40.1.225110.3.579.2.627 1950 Unknown [id number] 2.16.8 40.1.550593.3.579.2.627 Unknown [id number] 2.16.8 40.1.277113.3.579.2.462 Unknown [id number] 2.16.8 40.1.544177.3.579.2.462 Unknown [id number] 2.16.8 40.1.314005.3.579.2.462 Unknown [id number] 2.16.8 40.1.488151.3.579.2.462 Unknown [id number] 2.16.8 40.1.396128.3.579.2.462 Unknown [id number] 2.16.8 40.1.762483.3.579.2.462 Unknown [id number] 2.16.8 40.1.859580.3.579.2.462 Unknown [id number] 2.16.8 40.1.435543.3.579.2.462 Unknown [id number] 2.16.8 40.1.177890.3.579.2.462 Unknown [id number] 2.16.8 40.1.737993.3.579.2.462 Unknown [id number] 2.16.8 40.1.640410.3.579.2.462 Unknown [id number] 2.16.8 40.1.730288.3.579.2.462 Unknown [id number] 2.16.8 40.1.545217.3.579.2.462 Unknown [id number] 2.16.8 40.1.367425.3.579.2.462 Unknown [id number] 2.16.8 40.1.294479.3.579.2.462 Social History Date Type Detail Facility Start: 01-14-2021 End: 10-17-2024 Never smoked tobacco (finding) [facility] Start: 1950 Sex Assigned At Female A [facility] Tobacco smoking stat [facility] Tobacco smoking consumption unknown [facility] Start: 10-01-2024 End: 11-13-2024 History of Social function [facility] Start: 10-01-2024 End: 11-13-2024 Humiliation, Afraid, Rape, and Kick questionnaire [HARK] [facility] Within the last year , have you been afraid of your partner or ex-partner? No [facility] How often to you hav e a drink containing alcohol? Never [facility] How many standard dr inks containing alcohol do you have on a typical day? Patient does not drink [facility] Start: 1950 Sex assigned at Not on file S [facility] Start: 10-01-2024 End: 01-21-2025 Sex Female (finding) [facility] Start: 11-13-2024 Tobacco use and exposure Smoke less tobacco non-user [facility] Start: 11-13-2024 Alcoholic beverage intake Ex-drinker (finding) [facility] Medical Equipment Procedure Code Equipment Code Equipment Origin al Text Equipment Identifier Dates Blood Glucose Te st Strips Start: 07-07-2021 Lancets Start: 09-27-2021 Device Perclose Prostyle - [id number] Start: 10-01-2024 Device Perclose Prostyle - [id number] Start: 10-01-2024 Goals Date Patient Goal Desired Activity /State Functional Status Date Assessment Result Facility 10-01-2024 Functional status Activity Abili ty Unable to Assess [facility] Work Phone: Mental Status Date Assessment Result Facility 10-01-2024 Cognitive function Voice/Name [facility] Work Phone: Clinical Notes 08-27-2023 to 03-03-2025 Keely Grover, [facility] - 03/03/2025 9:05 AM Lisa Benavides, [facility] - 02/17/2025 11:35 AM Lisa Benavides, [facility] - 01/27/2025 11:35 AM Maureen Durbin [place] - 01/19/2025 12:00 AM EDTAttachments Note Date & Type Note Facility 03-03-2025 History of Presen t illness Narrative Images from the original note were not included. [facility] ([facility]) Anticoagulation Clinic [address] [place] [address]; [address], [place] [address] Yesi Flores (1950) presents to the [facility] clinic today for follow-up warfarin visit. The encounter diagnosis was Bilateral pulmonary embolism (HCC). and has a goal INR 2.0-3.0. Pt has Coumadin 5mg tablets and at last visit was instructed to hold x1 then take 2.5mg daily except 5mg on Mondays. Pt confirms taking this dose and adherence to current regimen: yes Any changes in prescriptions, OTC, and/or herbal medications: no Changes in alcohol, tobacco, or marijuana use: no Any recent hospitalizations or ED visits: no Any recent falls or head trauma: no Any changes in diet (vit K): no Upcoming surgeries or procedure: no Does pt need refills on warfarin prescription: no Review of Systems Constitutional: Negative for activity change, appetite change and fatigue. HENT: Negative for nosebleeds. Respiratory: Negative for shortness of breath. Cardiovascular: Positive for leg swelling (chronic problem with right leg, no worse than usual). Negative for chest pain. Gastrointestinal: Negative for blood in stool, diarrhea, nausea and vomiting. Genitourinary: Negative for hematuria. Neurological: Positive for light-headedness (once in awhile, usually if she gets up too fast). Negative for weakness and headaches. Hematological: Does not bruise/bleed easily. Objective Vitals: 03/03/25 0905 BP: 112/76 Pulse: 88 Weight: 179 lb 6.4 oz (81.4 kg) Assessment Lab Results Component Value Date INR 2.2 (H) 03/03/2025 INR 3.4 (H) 02/17/2025 INR 2.3 (H) 01/27/2025 INR 1.9 (A) 01/16/2025 INR 4.8 (HH) 01/13/2025 Plan INR is therapeutic Dosing: continue 2.5mg daily except 5mg on Mondays Next INR Check: 03/24/25 Patient educated on the following: medication adherence Patient care coordination completed: N/A Positive ROS findings are: chronic, no follow-up necessary at this time Sandra was instructed to notify [facility] of any unusual bruising or active/uncontrollable bleeding, medication changes within 24 hours, missed doses, dietary changes, illnesses or hospitalizations, and upcoming surgeries. Patient given written instructions. Patient expressed understanding utilizing the teach back method. Discharged ambulatory in no apparent distress. Time spent 10 Minutes Keely Grover RPh documented in this encounter [facility] 02-17-2025 History of Presen t illness Narrative Images from the original note were not included. [facility] ([facility]) Anticoagulation Clinic [address] [place] [address]; [address], [place] [address] Yesi GORMAN Sandra (1950) presents to the [facility] clinic today for follow-up warfarin visit. The encounter diagnosis was Bilateral pulmonary embolism (HCC). and has a goal INR 2.0-3.0. Pt has Coumadin 5mg tablets and at last visit was instructed to take 2.5mg daily 5mg MF. Pt confirms taking this dose and adherence to current regimen: yes Any changes in prescriptions, OTC, and/or herbal medications: no Changes in alcohol, tobacco, or marijuana use: no Any recent hospitalizations or ED visits: no Any recent falls or head trauma: no Any changes in diet (vit K): no Upcoming surgeries or procedure: no Does pt need refills on warfarin prescription: no Review of Systems HENT: Negative for nosebleeds. Respiratory: Negative for shortness of breath. Cardiovascular: Negative for chest pain. Gastrointestinal: Negative for blood in stool. Genitourinary: Negative for hematuria. Neurological: Negative for weakness, light-headedness and headaches. Hematological: Does not bruise/bleed easily. Objective Vitals: 02/17/25 1127 BP: 104/65 Pulse: 84 Weight: 179 lb (81.2 kg) Assessment Lab Results Component Value Date INR 3.4 (H) 02/17/2025 INR 2.3 (H) 01/27/2025 INR 1.9 (A) 01/16/2025 INR 4.8 (HH) 01/13/2025 INR 4.0 (H) 01/06/2025 Plan INR is supratherapeutic d/t unknown. Still a fairly new start to warfarin Dosing: holdx1 then decrease to 2.5mg daily 5mg Mon Next INR Check: 03/03 Patient educated on the following: medication adherence and rationale for dose change Patient care coordination completed: N/A Positive ROS findings are: n/a - no positive findings Sandra was instructed to notify [facility] of any unusual bruising or active/uncontrollable bleeding, medication changes within 24 hours, missed doses, dietary changes, illnesses or hospitalizations, and upcoming surgeries. Patient given written instructions. Patient expressed understanding utilizing the teach back method. Discharged ambulatory in no apparent distress. Time spent 10 Minutes Bina Benavides RPh documented in this encounter [facility] 01-27-2025 History of Presen t illness Narrative Images from the original note were not included. [facility] ([facility]) Antico[facility] Clinic [address] [facility]; [address], [place] [address] Subjective HPI Sandra (1950) presents to the [facility] clinic today for follow-up warfarin visit. The encounter diagnosis was Bilateral pulmonary embolism (HCC). and has a goal INR 2.0-3.0. Pt has Coumadin 5mg tablets and at last visit was instructed to take 2.5mg daily 5mg MF. Pt confirms taking this dose and adherence to current regimen: yes Any changes in prescriptions, OTC, and/or herbal medications: no Changes in alcohol, tobacco, or marijuana use: no Any recent hospitalizations or ED visits: no Any recent falls or head trauma: no Any changes in diet (vit K): no Upcoming surgeries or procedure: no Does pt need refills on warfarin prescription: no Review of Systems HENT: Negative for nosebleeds. Respiratory: Negative for shortness of breath. Cardiovascular: Negative for chest pain. Gastrointestinal: Negative for blood in stool. Genitourinary: Negative for hematuria. Neurological: Negative for weakness, light-headedness and headaches. Hematological: Does not bruise/bleed easily. Objective Vitals: 01/27/25 1144 BP: (!) 147/83 Pulse: 82 Weight: 183 lb 12.8 oz (83.4 kg) Assessment Lab Results Component Value Date INR 2.3 (H) 01/27/2025 INR 1.9 (A) 01/16/2025 INR 4.8 (HH) 01/13/2025 INR 4.0 (H) 01/06/2025 INR 2.0 (H) 12/30/2024 Plan INR is therapeutic Dosin.5mg daily 5mg MonFri Next INR Check: 02/17 Patient educated on the following: medication adherence Patient care coordination completed: N/A Positive ROS findings are: n/a - no positive findings Sandra was instructed to notify [facility] of any unusual bruising or active/uncontrollable bleeding, medication changes within 24 hours, missed doses, dietary changes, illnesses or hospitalizations, and upcoming surgeries. Patient given written instructions. Patient expressed understanding utilizing the teach back method. Discharged ambulatory in no apparent distress. Time spent 10 Minutes Bina Benavides RPh documented in this encounter [facility] 01-19-2025 History of Presen t illness Narrative INR received via fax. CBC included for review. Images from the original note were not included. [facility] ([facility]) Anticoagulation Clinic [address] [place] [address], [address], [place] [id number] Subjective VITA Sandra (1950) had INR completed by Outpatient Lab, visit was completed by phone, audio only. The encounter diagnosis was Bilateral pulmonary embolism (HCC). and has a goal INR 2.0-3.0. Pt has Coumadin 5mg tablets and at last visit was instructed to hold x2 days, then 2.5mg /Sun/Sun, 5mg Sun. Pt confirms taking this dose and adherence to current regimen: yes Any changes in prescriptions, OTC, and/or herbal medications: no Changes in alcohol, tobacco, or marijuana use: no Any recent hospitalizations or ED visits: no Any recent falls or head trauma: no Any changes in diet (vit K): no Upcoming surgeries or procedure: no Does pt need refills on warfarin prescription: no Review of Systems Denies any bleeding or new signs of blood clots. Assessment Lab Results Component Value Date INR 1.9 (A) 01/16/2025 INR 4.8 (HH) 01/13/2025 INR 4.0 (H) 01/06/2025 INR 2.0 (H) 12/30/2024 INR 1.1 10/02/2024 Plan INR is subtherapeutic d/t held doses. Dosing: trial 5mg MF, 2.5mg all other days Next INR Check: 01/27/25 Patient educated on the following: medication adherence, Vitamin K content and consistency, and rationale for dose change Patient care coordination completed: Faxed note to PCP per patient request -Dr Padilla at [phone] Patient given verbal instructions. Patient expressed understanding utilizing the teach back method. Time spent 15 Minutes Moira Cedeño RN staffed with Bina Benavides PharmD documented in this encounter [facility] 01-13-2025 History of Presen t illness Narrative Images from the original note were not included. [facility] ([facility]) Anticoagulation Clinic [address] [facility]; [address], [place] [address] Yesi Flores (1950) presents to the [facility] clinic today for follow-up warfarin visit. The encounter diagnosis was Bilateral pulmonary embolism (HCC). and has a goal INR 2.0-3.0. Pt has Coumadin 5mg tablets and at last visit was instructed to hold x1, then 5mg MWF, 2.5mg all other days. Had INR done at PCP on Sunday and was 3.2 per patient. Cannot see in chart. Pt confirms taking this dose and adherence to current regimen: yes Any changes in prescriptions, OTC, and/or herbal medications: Done with cipro since Sunday. Denies any other new meds or any new OTC or herbals. Changes in alcohol, tobacco, or marijuana use: no has not had any ETOH Any recent hospitalizations or ED visits: no Any recent falls or head trauma: no Any changes in diet (vit K): no denies any cranberry, eve, grapefruit Upcoming surgeries or procedure: no Does pt need refills on warfarin prescription: no Review of Systems Constitutional: Negative for activity change, appetite change and fatigue. HENT: Negative for nosebleeds. Respiratory: Negative for shortness of breath. Cardiovascular: Negative for chest pain and leg swelling. Gastrointestinal: Negative for blood in stool, diarrhea, nausea and vomiting. Genitourinary: Negative for hematuria. Neurological: Negative for weakness, light-headedness and headaches. Hematological: Does not bruise/bleed easily. Denies any bleeding concerns or new signs of blood clots. Objective Vitals: 01/13/25 1141 BP: 125/78 Pulse: 93 Weight: 180 lb 6.4 oz (81.8 kg) Assessment Lab Results Component Value Date INR 4.8 (HH) 01/13/2025 INR 4.0 (H) 01/06/2025 INR 2.0 (H) 12/30/2024 INR 1.1 10/02/2024 Plan INR is supratherapeutic d/t ATB? had reduced dose and still increased. Dosing: hold today and tomorrow, then resuem 5mg MWF, 2.5mg all other days Next INR Check: no appts available at [facility] in [address] patient cannot drive to [place] herself/does not have a ride available. Will make an exception this one time, as she has labs to be done on 01/19 by her PCP, so to go to PCP lab on 01/19 and get INR drawn, then call on 01/20/25 once result received. Patient educated on the following: medication adherence, medication interactions, dietary/lifestyle considerations, Vitamin K content and consistency, and rationale for dose change Patient care coordination completed: Faxed note to PCP per request Gave printed lab slip for INR order-will be going to [facility] in [place]-lab at her PCP office Sandra was instructed to notify [facility] of any unusual bruising or active/uncontrollable bleeding, medication changes within 24 hours, missed doses, dietary changes, illnesses or hospitalizations, and upcoming surgeries. Patient given written instructions. Patient expressed understanding utilizing the teach back method. Discharged ambulatory in no apparent distress. Time spent 20 Minutes Moira Cedeño RN documented in this encounter [facility] 01-06-2025 History of Presen t illness Narrative Images from the original note were not included. [facility] ([facility]) [facility]tico[facility] [address] [place] [address]; [address], [place] [address] Subjective VITA Flores (1950) presents to the [facility] clinic today for follow-up warfarin visit. The encounter diagnosis was Bilateral pulmonary embolism (HCC). and has a goal INR 2.0-3.0. Pt has Coumadin 5mg tablets and at last visit was instructed to take 5mg daily except 2.5mg on MWF. Pt confirms taking this dose and adherence to current regimen: yes Any changes in prescriptions, OTC, and/or herbal medications: yes, had been on cephalexin for UTI, then switched to Cipro on Sunday - will be on Cipro for 1 week. Symptoms are improving now that she is on Cipro. Changes in alcohol, tobacco, or marijuana use: no Any recent hospitalizations or ED visits: no Any recent falls or head trauma: no Any changes in diet (vit K): no, stopped cranberry juice since last visit Upcoming surgeries or procedure: no Does pt need refills on warfarin prescription: no Review of Systems Constitutional: Negative for activity change, appetite change and fatigue. HENT: Negative for nosebleeds. Respiratory: Negative for shortness of breath. Cardiovascular: Negative for chest pain and leg swelling. Gastrointestinal: Negative for blood in stool, diarrhea, nausea and vomiting. Genitourinary: Negative for hematuria. Neurological: Negative for weakness, light-headedness and headaches. Hematological: Does not bruise/bleed easily. Objective Vitals: 01/06/25 1456 BP: 104/68 Pulse: 85 Weight: 178 lb 9.6 oz (81 kg) Assessment Lab Results Component Value Date INR 4.0 (H) 01/06/2025 INR 2.0 (H) 12/30/2024 INR 1.1 10/02/2024 Plan INR is supratherapeutic d/t new start and interaction with Cipro. Will finish Cipro Sunday. Dosing: hold today, then reduce dose to 2.5mg daily except 5mg on . Next INR Check: 01/13/25 Patient educated on the following: medication adherence and medication interactions - encouraged to call us with all new meds Patient care coordination completed: N/A Positive ROS findings are: n/a - no positive findings Sandra was instructed to notify [facility] of any unusual bruising or active/uncontrollable bleeding, medication changes within 24 hours, missed doses, dietary changes, illnesses or hospitalizations, and upcoming surgeries. Patient given written instructions. Patient expressed understanding utilizing the teach back method. Discharged ambulatory in no apparent distress. Time spent 15 Minutes Keely Grover RPh documented in this encounter [facility] 12-30-2024 History of Presen t illness Narrative [facility] ([facility]tico[facility] [address] [place] [address], [address], [place] [address] Subjective VITA Flores (1950) presents to the [facility] clinic today for new patient visit. Pt was referred by Dr. Ryder. The encounter diagnosis was Bilateral pulmonary embolism (HCC). and has a goal INR 2.0-3.0. Duration of therapy is lifelong. PCP: Ronel Padilla MD Telephone Answering Service Operator (if applicable): Dr. ryder Pt has Coumadin 5mg tablets and was instructed to take 5mg daily starting 12/27/24. Also to bridge with Eliquis 5mg BID. Switching due to cost. Pt confirms taking this dose and adherence to current regimen. Any changes in prescriptions, OTC, and/or herbal medications: no Alcohol use: no Tobacco use: no Any recent hospitalizations or ED visits: no Any recent falls or head trauma: no Any changes in diet (vit K): no Upcoming surgeries or procedure: no Does pt need refills on warfarin prescription: no Review of Systems Constitutional: Negative for activity change, appetite change and fatigue. HENT: Negative for nosebleeds. Respiratory: Negative for shortness of breath. Cardiovascular: Negative for chest pain and leg swelling. Gastrointestinal: Negative for blood in stool, diarrhea, nausea and vomiting. Genitourinary: Negative for hematuria. Neurological: Negative for weakness, light-headedness and headaches. Hematological: Does not bruise/bleed easily. Denies any bleeding concerns or new signs of blood clots. Objective Vitals: 12/30/24 1446 BP: 116/77 Pulse: 86 Weight: 180 lb 12.8 oz (82 kg) Assessment Lab Results Component Value Date INR 2.0 (H) 12/30/2024 INR 1.1 10/02/2024 Plan INR is therapeutic but came up pretty quickly and may be seeing a little false elevation from Eliquis. Recheck in 1 week. STOP Eliquis today. Warfarin Dosin.5mg MWF, 5mg all other days Next INR Check: 01/06/25 [place] location Interested in home meter once 3 month kimmy reached. Pt signed [facility] pt agreement form. Pt was given full education which includes our office written materials, supplemental oral instructions, and all questions were answered. Specifically Sandra was educated on the indication, risks of bleeding, s/s thromboses, when to seek medical attention, medication interactions, dietary/lifestyle considerations, risks with surgery, monitoring, and importance of adherence. Pt was educated on the effects of vitamin K containing foods and the importance of consistency was stressed. Pt was also advised to avoid large amounts of alcohol, grapefruit juice or cranberry juice while on warfarin. Sandra was instructed to notify [facility] of any unusual bruising or active/uncontrollable bleeding, medication changes within 24 hours, missed doses, dietary changes, illnesses or hospitalizations, and upcoming surgeries. The patient was instructed to notify all other physicians and pharmacists know that warfarin was started as a double-check against drug interactions. Patient given written instructions. Patient expressed understanding utilizing the teach back method. Discharged ambulatory in no apparent distress. Time spent 45 Minutes Moira Cedeño RN staffed with Bina Benavides PharmD documented in this encounter [facility] 12-30-2024 Instructions Moira Cedeño RN - 12/30/2024 2:45 PM EDT Stop Eliquis today 12/30/24 and no longer take. Continue warfarin as instructed on printout from [facility] clinic today. documented in this encounter [facility] 12-12-2024 Note [facility]der for warfarin management. Patient is currently on Eliquis and switching due to cost. I called and spoke with patient. She stated that her Eliquis is $296 and she can't afford that. She just picked up samples so she has about 3 weeks worth. I will call her back next Tuesday 12/19 and get her started on the warfarin. [facility] 12-11-2024 Telephone encounter Note I called the patient to go over the results of her recent echocardiogram. We had repeat echocardiogram to make sure her RV had recovered from her pulmonary embolism. The echo showed normal LV and RV function. We also heard from her pharmacy team. Unfortunately the patient did not qualify for the [employer] jodie to help cover the cost of her apixaban. The patient does not think she will be able to afford apixaban. The Xarelto is ranjith be the same problem. She currently has apixaban for another 2 to 3 weeks at home. At this point we talked about that her only option is to transition to warfarin. I will make a referral to the [facility] clinic for new warfarin initiation once the patient runs out of her apixaban in the next couple weeks. The patient voiced understanding. She is also planning on cutting back on her working hours so perhaps eventually she may qualify for the [employer] jodie if her income drops below the cutoff. An Ryder MD, [facility], [facility] Client Support Representative [address] [address] p [phone] f [phone] [email or web address] 12-11-2024 Miscellaneous Notes I called the patient to go over the results of her recent echocardiogram. We had repeat echocardiogram to make sure her RV had recovered from her pulmonary embolism. The echo showed normal LV and RV function. We also heard from her pharmacy team. Unfortunately the patient did not qualify for the [employer] jodie to help cover the cost of her apixaban. The patient does not think she will be able to afford apixaban. The Xarelto is ranjith be the same problem. She currently has apixaban for another 2 to 3 weeks at home. At this point we talked about that her only option is to transition to warfarin. I will make a referral to the [facility] clinic for new warfarin initiation once the patient runs out of her apixaban in the next couple weeks. The patient voiced understanding. She is also planning on cutting back on her working hours so perhaps eventually she may qualify for the [employer] jodie if her income drops below the cutoff. An Ryder MD, FAC, [facility] Client Support Representative [address] [place] [address] p [phone] f [phone] documented in this encounter [facility] 12-10-2024 Telephone encounter Note I met with patient in office and unfortunately she is over income for any financial assistance. Eliquis will not be affordable moving forward. Xarelto is also the same copay. Samples were provided and patient currently has 3 weeks of medication on hand. Thanks! [facility] 12-10-2024 Miscellaneous Notes I met with patient in office and unfortunately she is over income for any financial assistance. Eliquis will not be affordable moving forward. Xarelto is also the same copay. Samples were provided and patient currently has 3 weeks of medication on hand. Thanks! Met with patient in office previously - she was given 1 month of samples on 11/13/24. I will follow up Sunday to check in. Previously patient expressed concerns regarding cost (double checked - copay is very high ~$300 for 30 day supply). At office visit I provided [facility] phone number to have patient or daughter call back with income to verify whether or not she is eligible for assistance. Will also send email to patients daughter for financial assistance enrollment as previously discussed. I have pended new Rx for Eliquis 5 mg BID for your review. Additionally have set aside another 2 weeks of samples if needed in the meantime. Thanks! Caio documented in this encounter [facility] 12-05-2024 Telephone encounter Note Met with patient in office previously - she was given 1 month of samples on 11/13/24. I will follow up Sunday to check in. Previously patient expressed concerns regarding cost (double checked - copay is very high ~$300 for 30 day supply). At office visit I provided [facility] phone number to have patient or daughter call back with income to verify whether or not she is eligible for assistance. Will also send email to patients daughter for financial assistance enrollment as previously discussed. I have pended new Rx for Eliquis 5 mg BID for your review. Additionally have set aside another 2 weeks of samples if needed in the meantime. Thanks! Caio [facility] 12-05-2024 Miscellaneous Notes Met with patient in office previously - she was given 1 month of samples on 11/13/24. I will follow up Sunday to check in. Previously patient expressed concerns regarding cost (double checked - copay is very high ~$300 for 30 day supply). At office visit I provided [facility] phone number to have patient or daughter call back with income to verify whether or not she is eligible for assistance. Will also send email to patients daughter for financial assistance enrollment as previously discussed. I have pended new Rx for Eliquis 5 mg BID for your review. Additionally have set aside another 2 weeks of samples if needed in the meantime. Thanks! Caio documented in this encounter [facility] 11-13-2024 History of Presen t illness Narrative Images from the original note were not included. [facility] Cardiology Note DATE of SERVICE:11/13/24 TIME of SERVICE: 10:41 AM Chief Complaint: Chief Complaint Patient presents with Follow-up History of PresentIllness: Sandra Munroe is a 74 y.o. female with medical history mentioned below who presents to clinic today for a follow-up visit. In summary, the patient presented to the hospital in September with acute shortness of breath. She initially presented to her local emergency department in [place]. She was found to have pulmonary embolism and was subsequently transferred to [facility] for further evaluation. I had seen the patient while she was admitted and had offered a pulmonary thrombectomy. The patient underwent thrombectomy removal of large thrombus burden. She was subsequently started on oral anticoagulation with apixaban. She did really well following her thrombectomy and was discharged home the following day. 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 Her echocardiogram performed showed normal LV function with mildly enlarged right ventricle. Since her hospital discharge, the patient has largely done well. She continues to deny any chest pain. Her shortness of breath is completely resolved. 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 She denies any lower extremity pain. She has been compliant with her apixaban. The cost of apixaban is an issue though as she is paying around $230 per 30-day supply at this time. She denies any bleeding complications. She denies any orthopnea or PND. She denies any syncope or loss of consciousness. Her blood pressures are well-controlled at home. Past Medical History: - Hypertension - Dyslipidemia - Diabetes - Pulmonary embolism Past Surgical History Past Surgical History: Procedure Laterality Date CARDIAC CATHETERIZATION N/A 10/01/2024 Performed by An Ryder MD at [facility] Cardiac Cath/EP Lab CARDIAC CATHETERIZATION N/A 10/01/2024 Performed by An Ryder MD at [facility] Cardiac Cath/EP Lab Family History Family History Problem Relation Name Age of Onset Heart disease Mother Madhu Cancer Father Colin Diabetes type I Father Colin Lung disease Father Colin Social History Social History Tobacco Use Smoking status: Never Smokeless tobacco: Never Substance Use Topics Alcohol use: Not Currently Drug use: Never Allergies: Allergies Allergen Reactions Penicillins Swelling and Hives Medications: Current Outpatient Medications: apixaban (Eliquis) 5 MG tablet, Take 2 tablets (10 mg) by mouth 2 times daily for 6 days, THEN 1 tablet (5 mg) 2 times daily., Disp: 66 tablet, Rfl: 0 Cholecalciferol (D3 2000 PO), Take by mouth., Disp: , Rfl: cyanocobalamin (Vitamin B-12) 1000 MCG tablet, Take 1,000 mcg by mouth daily., Disp: , Rfl: glipiZIDE XL (Glucotrol XL) 5 MG 24 hr tablet, Take 5 mg by mouth daily., Disp: , Rfl: levothyroxine (Synthroid, Levoxyl) 25 MCG tablet, Take 25 mcg by mouth every morning (before breakfast)., Disp: , Rfl: lisinopril 5 MG tablet, Take 5 mg by mouth daily., Disp: , Rfl: Magnesium 200 MG chewable tablet, Chew., Disp: , Rfl: POTASSIUM GLUCONATE PO, Take 650 mg by mouth., Disp: , Rfl: pravastatin (Pravachol) 80 MG tablet, Take 80 mg by mouth Nightly., Disp: , Rfl: Review of Systems: All full and complete review of systems was performed and was negative except for what is mentioned in the HPI. Physical Examination: Vitals: Vitals: 11/13/24 1012 BP: 110/58 BP Location: Left arm Patient Position: Sitting BP Cuff Size: Adult Pulse: 80 SpO2: 94% Weight: 185 lb 3.2 oz (84 kg) Height: 5' 2 (1.575 m) Body mass index is 33.87 kg/m . Physical Exam: GEN: NAD, A&Ox3, cooperative, mood appropriate Neck: No JVD. Heart: regular rate and rhythm, No murmurs or rubs. Lungs: Clear to ausculation bilaterally without any wheezing or crackles. Abd: Soft, non-tender, non-distended. Ext: No edema. Some tightness in the RLE without any tenderness or erythema Laboratory Tests: Lab Results Component Value Date WBC 8.3 10/02/2024 HGB 10.1 (L) 10/02/2024 HCT 31.4 (L) 10/02/2024 MCV 99.4 (H) 10/02/2024 PLT 157 10/02/2024 Lab Results Component Value Date GLUCOSE 111 10/02/2024 CALCIUM 8.1 (L) 10/02/2024 NA 138 10/02/2024 K 3.8 10/02/2024 CO2 21 (L) 10/02/2024 CL 112 (H) 10/02/2024 BUN 13 10/02/2024 CREATININE 0.81 10/02/2024 @LASTCMP@ No results found for: CHLPL, CHOL No results found for: TRIG No results found for: HDL No results found for: LDLCALC, LDLDIRECT EKG 11/13/2024 (Personally reviewed) Sinus rhythm Transthoracic Echocardiogram 10/02/2024; Left Ventricle: Left ventricle size is normal. Mildly increased wall thickness. Normal left ventricular systolic function. EF by 2D Simpsons Biplane is 71%. Global longitudinal strain is normal with a value of -19.0%. Normal wall motion. Normal diastolic function. Normal left ventricular filling pressure. Right Ventricle: Right ventricle is mildly dilated. Normal systolic function. Aorta: Normal sized sinuses of Valsalva. Mildly dilated ascending aorta. Ao ascending diameter is 3.6 cm. No significant valvular abnormalities. Pulmonary thrombectomy 10/01/2024: Impression Successful mechanical thrombectomy of pulmonary arteries with large thrombus burden removed. Improvement in mean pulmonary artery pressure from 26 mm Hg to 17 mm Hg. Assessment and Plan: # Pulmonary embolism: Patient with recent hospitalization in September 2024 with shortness of breath. She was found to have a large saddle pulmonary embolism and was subsequently transferred from her local emergency department to [facility]. I evaluated the patient and she underwent thrombectomy with removal of large thrombus burden. Following the procedure the patient was transition from heparin GGT to apixaban. She took 10 mg twice daily for 7 days and is now taking 5 mg twice daily. She is not having any bleeding complications with it. Her shortness of breath is resolved and she is back to her baseline. Echocardiogram performed during her hospitalization showed mildly enlarged right ventricle with normal function. We will repeat a limited echocardiogram in the next 4 weeks or so to make sure her RV has bounced back to normal. The cost of the apixaban is not a problem. We have started some paperwork through the [employer] website also to see if they can get some coverage. Will also see if the patient will qualify for the [facility] jodie to help cover the cost of her apixaban. # DVT: The patient was also found to have right lower extremity DVT extending from the femoral vein all the way down to her peroneal vein. She is largely asymptomatic with it. Continue anticoagulation as mentioned above. # Hypertension: Blood pressures are well-controlled. Currently managed by her primary care physician. Continue lisinopril 5 mg daily. # Dyslipidemia: Currently managed by her primary care physician. Continue pravastatin 80 mg daily. An Ryder MD, [facility], [facility] Client Support Representative [facility], [facility] [place] [address] [place] [address] [address] [place] [address] p [phone] f [phone] [email or web address] documented in this encounter [facility] 10-02-2024 Note Formatting of this n ote might be different from the original. Care Management Progress Note Patient admitted with PE. Thrombectomy 10/01/24. Medically stable for DC home. Discharge order written. Met with patient at bedside; introduced self and role. No DC needs identified. Length of Stay (Days): 1 GMLOS: No GMLOS Documented [facility] 10-02-2024 Note Formatting of this n ote might be different from the original. Care Management Progress Note Patient admitted with PE. Thrombectomy 10/01/24. Medically stable for DC home. Discharge order written. Met with patient at bedside; introduced self and role. No DC needs identified. Length of Stay (Days): 1 GMLOS: No GMLOS Documented [facility] 10-02-2024 Note Care Management Prog ress Note Patient admitted with PE. Thrombectomy 10/01/24. Medically stable for DC home. Discharge order written. Met with patient at bedside; introduced self and role. No DC needs identified. Length of Stay (Days): 1 GMLOS: No GMLOS Documented [facility] 10-02-2024 Miscellaneous Notes Care Management Progress Note Patient admitted with PE. Thrombectomy 10/01/24. Medically stable for DC home. Discharge order written. Met with patient at bedside; introduced self and role. No DC needs identified. Length of Stay (Days): 1 GMLOS: No GMLOS Documented Problem: Knowledge Deficit Goal: Patient/family/caregiver demonstrates understanding of disease process, treatment plan, medications, and discharge instructions Outcome: Adequate for Discharge Problem: Potential for Compromised Skin Integrity Goal: Skin Integrity is Maintained or Improved Outcome: Adequate for Discharge Goal: Nutritional status is improving Outcome: Adequate for Discharge Problem: Urinary Incontinence Goal: Perineal skin integrity is maintained or improved Outcome: Adequate for Discharge [facility] Cardiac Catheterization Laboratory Post-Procedure Note Patient Name: Sandra Munroe Date: 10/01/2024, 3:25 PM Pre-Operative Diagnosis: Submassive Saddle PE Post-Operative Diagnosis: Submassive Saddle PE Procedure: Mechanical Thrombectomy Findings: Successful mechanical thrombectomy of large saddle PE using the Inari Flowtriever Complications: None Patient had a brief run of atrial tachycardia during the procedure that quickly resolved. Plan: In four hours, if groin site looks good patient can be started on Eliquis 10 mg BID for seven days. Followup Echocardiogram and venous duplex. Physician Signature: Maude Hart MD Problem: Knowledge Deficit Goal: Patient/family/caregiver demonstrates understanding of disease process, treatment plan, medications, and discharge instructions Outcome: Progressing Problem: Potential for Compromised Skin Integrity Goal: Skin Integrity is Maintained or Improved Outcome: Progressing Goal: Nutritional status is improving Outcome: Progressing Problem: Urinary Incontinence Goal: Perineal skin integrity is maintained or improved Outcome: Progressing Sedation Plan ASA class 3 - patient with severe systemic disease Mallampati class: II - soft palate, uvula, fauces visible. Sedation plan: local anesthesia and minimal sedation Risks, benefits, and alternatives discussed with patient. Plan discussed with attending. Immediate reassessment prior to sedation: Patient's status reviewed and vital signs assessed; acceptable to perform procedure and proceed to administer sedation as planned. Cosigned by An Ryder MD at 10/01/2024 3:51 PM EST documented in this encounter [facility] 10-02-2024 Note Internal Medicine: I CU Discharge Summary Sandra Munroe : 1950 ADMIT DATE: 10/01/2024 DISCHARGE DATE: 10/02/24 PCP: Ronel Padilla MD Visit Status: Admission Code Status: FULL CODE Primary Discharge Diagnosis: Extensive bilateral PE without RV strain s/p thrombectomy 10/01 Secondary Discharge Diagnoses: Acute hypoxic resp failure likely 2/2 PE HTN HLD Hypothyroidism T2DM Obesity Reason for Admission & Hospital Course: Sandra Munroe is a 74 y.o. female that presented to [facility] on 10/01/2024 and was admitted for submassive PE. On 09/30 Pt began to get short of breath and lightheaded around 1PM. She presented to the ED at [facility]. D-dimer was elevated so CTA chest was obtained. Showed bilateral extensive PE without evidence of RV strain. Was started on a heparin gtt. Pt was also noted to be hypoxic so was placed on HFNC. Pt reports she tested positive for COVID on 09/16 and was essentially bed bound recovering. Denies any recent surgery. No trauma or other illness. Pt reports her last medical procedure was in July when she got a Rt knee injection. Thrombectomy performed 10/01 with successful retrieval of clot. Pt satting well on room air. Was able to ambulate around unit. States her breathing feels much better. Duplex of LE showed extensive DVTs to Rt LE and DVT to Lt soleal and gastrocnemius. EF 71% with mild dilation of RV. Disposition: Home Activity: No restriction. Diet: Adult diet Regular; Low Fat/Low Chol/High Fiber/2 gm Na Discharge Medications: Medication List START taking these medications apixaban 5 MG tablet Commonly known as: Eliquis Take 2 tablets (10 mg) by mouth 2 times daily for 6 days, THEN 1 tablet (5 mg) 2 times daily. Start taking on: October 02, 2024 CONTINUE taking these medications cyanocobalamin 1000 MCG tablet Commonly known as: Vitamin B-12 D3 2000 PO glipiZIDE XL 5 MG 24 hr tablet Commonly known as: Glucotrol XL levothyroxine 25 MCG tablet Commonly known as: Synthroid, Levoxyl lisinopril 5 MG tablet Magnesium 200 MG chewable tablet POTASSIUM GLUCONATE PO pravastatin 80 MG tablet Commonly known as: Pravachol STOP taking these medications aspirin 81 MG EC tablet Where to Get Your Medications These medications were sent to [facility] [address] [place] [address] Hours: Sunday to Sunday 10 am to 6 pm apixaban 5 MG tablet Notable Medication Changes & Reasoning: Stop ASA. Stop NSAID use Start Eliquis. 10mg BID for 6 more days and 5mg BID thereafter [facility] Interventional Cardiology Procedures Performed Thrombectomy Significant Laboratory/Radiographic Data: TTE Left Ventricle: Left ventricle size is normal. Mildly increased wall thickness. Normal left ventricular systolic function. EF by 2D Simpsons Biplane is 71%. Global longitudinal strain is normal with a value of -19.0%. Normal wall motion. Normal diastolic function. Normal left ventricular filling pressure. Right Ventricle: Right ventricle is mildly dilated. Normal systolic function. Aorta: Normal sized sinuses of Valsalva. Mildly dilated ascending aorta. Ao ascending diameter is 3.6 cm. No significant valvular abnormalities. Duplex US Acute extensive DVT in the right lower extremity as described below. Acute non-occlusive deep vein thrombosis in the right femoral vein. Acute occlusive deep vein thrombosis in the right popliteal vein. Acute occlusive deep vein thrombosis in the right soleal vein. Acute occlusive deep vein thrombosis in the right posterior tibial vein. Acute occlusive deep vein thrombosis in the right peroneal vein. Age indeterminate occlusive deep vein thrombosis in the left gastrocnemius vein. Acute occlusive deep vein thrombosis in the left soleal vein. No evidence of superficial thrombosis in the right lower extremity. No evidence of superficial thrombosis in the left lower extremity. Pending Results at Time of Discharge none Follow Up Appointment(s): Future Appointments Date Time Provider Department Center 11/13/2024 10:20 AM An Ryder MD [facility] [address] Items to Address at Followup Visit: Med compliance Activity level Ensure no NSAID use [facility] 10-02-2024 Hospital course Narrative Internal Medicine: ICU Discharge Summary Sandra Munroe : 1950 ADMIT DATE: 10/01/2024 DISCHARGE DATE: 10/02/24 PCP: Ronel Padilla MD Visit Status: Admission Code Status: FULL CODE Primary Discharge Diagnosis: Extensive bilateral PE without RV strain s/p thrombectomy 10/01 Secondary Discharge Diagnoses: Acute hypoxic resp failure likely 2/2 PE HTN HLD Hypothyroidism T2DM Obesity Reason for Admission & Hospital Course: Sandra Munroe is a 74 y.o. female that presented to [facility] on 10/01/2024 and was admitted for submassive PE. On 09/30 Pt began to get short of breath and lightheaded around 1PM. She presented to the ED at [facility]. D-dimer was elevated so CTA chest was obtained. Showed bilateral extensive PE without evidence of RV strain. Was started on a heparin gtt. Pt was also noted to be hypoxic so was placed on HFNC. Pt reports she tested positive for COVID on 09/16 and was essentially bed bound recovering. Denies any recent surgery. No trauma or other illness. Pt reports her last medical procedure was in July when she got a Rt knee injection. Thrombectomy performed 10/01 with successful retrieval of clot. Pt satting well on room air. Was able to ambulate around unit. States her breathing feels much better. Duplex of LE showed extensive DVTs to Rt LE and DVT to Lt soleal and gastrocnemius. EF 71% with mild dilation of RV. Disposition: Home Activity: No restriction. Diet: Adult diet Regular; Low Fat/Low Chol/High Fiber/2 gm Na Discharge Medications: Medication List START taking these medications apixaban 5 MG tablet Commonly known as: Eliquis Take 2 tablets (10 mg) by mouth 2 times daily for 6 days, THEN 1 tablet (5 mg) 2 times daily. Start taking on: October 02, 2024 CONTINUE taking these medications cyanocobalamin 1000 MCG tablet Commonly known as: Vitamin B-12 D3 2000 PO glipiZIDE XL 5 MG 24 hr tablet Commonly known as: Glucotrol XL levothyroxine 25 MCG tablet Commonly known as: Synthroid, Levoxyl lisinopril 5 MG tablet Magnesium 200 MG chewable tablet POTASSIUM GLUCONATE PO pravastatin 80 MG tablet Commonly known as: Pravachol STOP taking these medications aspirin 81 MG EC tablet Where to Get Your Medications These medications were sent to [facility] [address] [place] [address] Hours: Sunday to Sunday 10 am to 6 pm apixaban 5 MG tablet Notable Medication Changes & Reasoning: Stop ASA. Stop NSAID use Start Eliquis. 10mg BID for 6 more days and 5mg BID thereafter [facility] Inter[facility] Procedures Performed Thrombectomy Significant Laboratory/Radiographic Data: TTE Left Ventricle: Left ventricle size is normal. Mildly increased wall thickness. Normal left ventricular systolic function. EF by 2D Simpsons Biplane is 71%. Global longitudinal strain is normal with a value of -19.0%. Normal wall motion. Normal diastolic function. Normal left ventricular filling pressure. Right Ventricle: Right ventricle is mildly dilated. Normal systolic function. Aorta: Normal sized sinuses of Valsalva. Mildly dilated ascending aorta. Ao ascending diameter is 3.6 cm. No significant valvular abnormalities. Duplex US Acute extensive DVT in the right lower extremity as described below. Acute non-occlusive deep vein thrombosis in the right femoral vein. Acute occlusive deep vein thrombosis in the right popliteal vein. Acute occlusive deep vein thrombosis in the right soleal vein. Acute occlusive deep vein thrombosis in the right posterior tibial vein. Acute occlusive deep vein thrombosis in the right peroneal vein. Age indeterminate occlusive deep vein thrombosis in the left gastrocnemius vein. Acute occlusive deep vein thrombosis in the left soleal vein. No evidence of superficial thrombosis in the right lower extremity. No evidence of superficial thrombosis in the left lower extremity. Pending Results at Time of Discharge none Follow Up Appointment(s): Future Appointments Date Time Provider Department Center 11/13/2024 10:20 AM An Ryder MD [facility] [address] Items to Address at Followup Visit: Med compliance Activity level Ensure no NSAID use Cosigned by Jose Roberto Holguin MD at 10/02/2024 7:44 PM EST documented in this encounter [facility] 10-02-2024 [facility] Discharg e instructions Judit Dacosta, CHILD SUPPORT AGENT - TACTICAL/MOBILE WATCH OFFICER - 10/02/2024 10:52 AM EST DISCHARGE INSTRUCTIONS FOR PROCEDURE SITE Call your doctor with any medication questions or if you notice any side effects from your medications. If you are unable to fill your medications, please call your Telephone Answering Service Operator immediately. The office number is located with your follow-up appointment information. Call your doctor if any redness or drainage from the wound site. DO NOT stop taking your medication unless instructed to do so by your doctor. Read the drug information material that were given to you and take medications as instructed by your doctor. New drugs may have been added to your medications, that will strengthen your heart and prevent re-stenosis of the coronary arteries. Drink 6 glasses of water (8 ounces each) over the next 24 hours. Water helps clear the dye from your body. No alcoholic beverages for 24 hours. It may interfere with healing. No exercise or sex for 5 days. Call 911 for chest pain, arm pain, nausea, neck pain, dizziness or unusual sweating AND your pain has not relieved with 2 doses of Nitroglycerin. Call your doctor if a lump at the puncture site enlarges or is larger than a golf ball. Call your doctor for severe pain to a light touch or for numbness, tingling or swelling of the affected foot. Call your doctor for increased area of bruising with discoloration extending down the leg. Call your doctor for coolness of the leg or foot. If bleeding occurs, lie down on a hard surface preferably the floor and apply pressure to the site for 20 minutes if BLEEDING continues CALL 911. OK to shower. No tub baths, swimming pools, or hot tub soaking for five days. Wash site daily with soap and water, dry gently. The healing wound should remain soft and dry. Keep the site clean and dry. Cover with large band aid and change dressing for total of five days. No lifting, pushing or pulling more than 5 pounds for 5 days. No driving for three days. Limit your stair climbing for three days. PLEASE CALL YOUR HEART DOCTOR IF YOU CANNOT GET YOUR MEDICATIONS. THE NUMBER IS LISTED WITH YOUR FOLLOW-UP APPOINTMENT. The following attachments cannot be sent through Care Everywhere.Quitting Smoking ED ([place])documented in this encounter [facility] 10-02-2024 History of Presen t illness Narrative ICU Progress Note Name: Sandra Munroe : 1950(74 y.o.) Date: 10/02/24 Team: MICU Attending: Dr. Holguin Subjective: Hospital Summary: On 09/30 Pt began to get short of breath and lightheaded around 1PM. She presented to the ED at [facility]. D-dimer was elevated so CTA chest was obtained. Showed bilateral extensive PE without evidence of RV strain. Was started on a heparin gtt. Pt was also noted to be hypoxic so was placed on HFNC. Pt reports she tested positive for COVID on 09/16 and was essentially bed bound recovering. Denies any recent surgery. No trauma or other illness. Pt reports her last medical procedure was in July when she got a Rt knee injection. Interval Events: Pt resting bed this AM. Thrombectomy performed yesterday. Pt satting well on room air. States her breathing feels much better. ECHO being done this AM. Pt has no complaints. Scheduled Meds:apixaban, 10 mg, Oral, BID Followed by [START ON 10/08/2024] apixaban, 5 mg, Oral, BID cyanocobalamin, 1,000 mcg, Oral, Daily influenza, 0.5 mL, IntraMUSCular, Once insulin lispro, 0-6 Units, SubCUTAneous, TID WC levothyroxine, 25 mcg, Oral, qAM AC [Held by provider] lisinopril, 5 mg, Oral, Daily mupirocin, 1 Application, Nasal, BID pantoprazole, 40 mg, Oral, qAM AC pravastatin, 80 mg, Oral, Nightly Continuous Infusions: Objective: Last Vitals: BP MAP 109/94 (10/02/24 1000) 101 (10/02/24 1000) Arterial BP MAP Temp 36.8 C (98.2 F) (10/02/24 0800) Pulse 83 (10/02/24 1000) Resp 23 (10/02/24 0900) SpO2 92 % (10/02/24 1000) Weight 181 lb (82.1 kg) (10/02/24 0848) BMI Body mass index is 33.11 kg/m . I/O: 10/01 0700 - 10/02 0659 In: 400 [P.O.:380; I.V.:20] Out: 5 Ventilator: Oxygen Delivery: O2 Flow Rate (L/min): 2 L/min Invasive Lines / Tubes / Drains: Peripheral IV 10/01/24 Anterior;Left;Proximal Antecubital (Active) Number of days: 0 Peripheral IV 10/01/24 Anterior;Right Wrist (Active) Number of days: 0 Central Line Indication: NA - patient does not have a central line Etienne Indications: NA - patient does not have a Etienne catheter Restraints: NA - patient is not restrained. Wounds: Puncture Site 10/01/24 Leg Anterior;Proximal;Right;Upper (Active) Date First Assessed/Time First Assessed: 10/01/24 1533 Location: Leg Wound Location Orientation: Anterior;Proximal;Right;Upper Constitutional: General Appearance [x]WDWN [x]Obese []Cachectic []Thin []Ill Eyes: Inspection of Pupils/Irises Pupils round and react: [x]Yes []No Sclera: []Icteric [x]Non-Icteric Inspection of Conjunctiva/Lids Conjunctiva: []Injected [x]Non-Injected Lids: [x]Intact []Lesion Present ENT/Mouth: External Inspection of ears/nose [] Normal [] Scar/Lesion/Mass Inspection of teeth/lips/gums Dentition: [x][place] Teeth []Dentures Lips/Gums: [x]Intact []Lesion Present Mucosa: [x][place] []Moist []Dry Neck: External Appearance Overall Appearance: []Normal []Lesion/Mass/Crepitus Present Trachea midline: []Yes []No Thyroid [x]Normal []Enlarged []Tender []Mass []Absent Respiratory: Respiratory effort []Labored [x]Non-Labored [] Mechanically-Ventilated Auscultation [x]Clear []Crackles []Wheezes []Rhonchi Cardiovascular: Auscultation Rate: [x]Regular []Irregular []Tachycardia []Bradycardia Rhythm: [x]Regular []Irregular Murmur: []Present [x]Absent Extremities Peripheral Edema: []Present [x]Absent Varicosities: []Present []Absent Gastrointestinal: Abdomen Palpation: [x]Soft []Firm []Tender [x]Non-Tender []Distended [x]Non-distended Mass: []Present [x]Absent Bowel Sounds: [x]Present []Absent Hernia: []Present []Absent Liver/Spleen: []Hepatosplenomegaly []Organomegaly Absent Musculoskeletal: Inspection of Digits and Nails Cyanosis: []Present [x]Absent Clubbing: []Present [x]Absent Ischemia: []Present [x]Absent Infection: []Present [x]Absent Extremities WRIGHT Equally: Except ([]RUE []RLE []LUE []LLE) Strength/Tone: Intact and Normal ([]RUE []RLE []LUE []LLE) Skin: Inspection [x]Normal []Rash []Lesion []Ulcer Palpation [x]Warm []Cool [x]Dry []Clammy []Nodules []Induration []Skin-tightening Cap-Refill: [] <3 sec [] >3 seconds (delayed) Neurologic: GCS EYE: 4 - Opens spontaneously GCS MOTOR: 6 - Obeys commands for movement GCS VERBAL: 5 - Oriented to person, place, time Total GCS: 15 [] Sensation grossly intact Psych: Mental Status Alert: [x]Yes [] No Oriented: []x0 []X1 []X2 [x]x3 Mood/Affect [x]Normal []Flat []Agitated []Depressed []Anxious []Calm []Sedated []NAD [facility] within last 24 hours- BMP: Recent Labs 10/01/24 1256 10/02/24 0515 NA 140 138 K 3.6 3.8 CL 111* 112* CO2 22* 21* BUN 13 13 CREATININE 0.82 0.81 CALCIUM 8.0* 8.1* LFTs: Recent Labs 10/01/24 1256 10/02/24 0515 AST 15 16 ALT <6 6 PROT 6.4 6.1* ALBUMIN 2.9* 2.8* BILITOT 0.4 0.4 ALKPHOS 63 98 Glucose: Recent Labs 10/01/24 1256 10/01/24 2335 10/02/24 0515 GLUCOSE 148* -- 111 POCGLU -- 140* -- CBC: Recent Labs 10/01/24 1145 10/02/24 0515 WBC 8.2 8.3 HGB 11.2* 10.1* HCT 33.9* 31.4* PLT 191 157 MCV 95.2 99.4* RDW 13.2 13.3 INR: Recent Labs 10/02/24 0515 INR 1.1 Labs in Last 3 months: Lab Results Component Value Date INR 1.1 10/02/2024 Assessment and Plan: Principal Problem: Bilateral pulmonary embolism (HCC) Assessment: Extensive bilateral PE without RV strain s/p thrombectomy 10/01 Acute hypoxic resp failure likely 2/2 PE HTN HLD Hypothyroidism T2DM Obesity Plan: Eliquis 10mg BID for 7 days started yesterday. Continue 5mg BID after ECHO pending LE Duplex pending Restart lisinopril LD ISS Likely d/c today GI Prophylaxis: Pantoprazole PO DVT Prophylaxis: Full anticoagulation Disposition: Discharge Cosigned by Jose Roberto Holguin MD at 10/02/2024 7:44 PM EST Associated attestation - Jose Roberto Holguin MD - 10/02/2024 7:44 PM EST I have personally performed a [id number] diagnostic evaluation on this patient on date of service 10/02/24. History, labs, imaging studies, and electronic medical record have been reviewed by me. This note documented by the [x]house visitor []MARGIE reflects my history, exam, and medical decision making. I have reviewed and agree with the care plan. Changes were made in the orders as necessary. ROS documentation was reviewed and negative unless otherwise stated in HPI. Additional pertinent interval history, ROS, and physical exam findings: Ambulating off oxygen without desat. No pre-syncope. BP stable. Ok for discharge. BP normal/elevated. Should be able to resume low-dose ACEi. [facility] [place] [facility] Interventional Cardiology NAME: Sandra Munroe DATE OF : 1950 CHIEF COMPLAINT Shortness of breath/PE ASSESSMENT AND PLAN Submassive saddle PE S/p an INARI 10/01/24. Overall patient doing well at this time. Her SaO2 stable on room air, she doing well with ambulation. Patient will be maintained on apixaban 5 mg twice daily after loading dose 10 mg twice daily x 7 days. At this time we will plan for long-term oral anticoagulation. She okay for discharge from our standpoint. All questions were answered. Primary Hypertension Blood pressure is well controlled. BP Goal <120/80. Blood pressure soft at times, but she is asymptomatic. Continue lisinopril. Lifestyle modification with DASH diet, Limit caffeine and alcohol, and avoid tobacco use. Avoid NSAIDs and decongestants. Continue to monitor and report persistent HTN. Mixed Hyperlipidemia Last LDL undetectable second to hypertriglyceridemia. Recommended goal of <55 mg/dL per ESC guidelines. Last LFTs were stable. Continue pravastatin. Follow low fat/low cholesterol diet. See addendum for further recommendations. SUBJECTIVE Sandra Munroe is an 74 y.o. female with past medical history significant for hypertension, hyperlipidemia, diabetes with neuropathy, and obesity. She presented to [facility] with shortness of breath and dizziness. Recently had COVID around giving and has not been active. Upon admission her SaO2 was 70% she was started on high flow nasal cannula. CT showed bilateral saddle pulmonary embolism. At bedtime troponin mildly elevated. Transferred to [facility] for possible thrombectomy. RV dilation noted on CT. She underwent and INARI procedure with removal of large thrombus burden. TTE completed today official results pending but LVEF 71%, RV non-dilated. Today patient was up ambulating the unit without difficulty on room air. Her family at bedside. Her breathing is much improved. Denies any chest pain, chest tightness, palpitations, dizziness, lightheadedness, presyncope or syncope. Denies any SOB, edema, orthopnea, PND, bendopnea, fatigue, or weight changes. Denies myalgia, nausea, vomiting, diarrhea, dysuria, fever, or chills. No acute events overnight. Allergies Allergen Reactions Penicillins Swelling OBJECTIVE Vitals: 10/02/24 0800 10/02/24 0848 10/02/24 0900 10/02/24 1000 BP: 131/62 113/70 109/94 BP Location: Left arm Patient Position: Lying Pulse: 91 92 83 Resp: 17 23 Temp: 36.8 C (98.2 F) TempSrc: Temporal SpO2: 93% 96% 92% Weight: 181 lb (82.1 kg) Height: 5' 2 (1.575 m) Intake/Output Summary (Last 24 hours) at 10/02/2024 1054 Last data filed at 10/02/2024 0645 Gross per 24 hour Intake 400 ml Output 5 ml Net 395 ml Physical Exam Constitutional: General: She is not in acute distress. Appearance: Normal appearance. Neck: Vascular: No JVD. Cardiovascular: Rate and Rhythm: Normal rate and regular rhythm. Pulses: Normal pulses. Heart sounds: Normal heart sounds. No murmur heard. Comments: Right femoral site is soft, warm, dry, without pain, hematoma, or ecchymosis. Site is covered with DSD. Sensation intact. Pulses palpable +2. Pulmonary: Effort: Pulmonary effort is normal. Breath sounds: Normal breath sounds. No rales. Skin: General: Skin is warm and dry. Neurological: Mental Status: She is alert and oriented to person, place, and time. Psychiatric: Mood and Affect: Mood normal. Speech: Speech normal. MEDICATIONS apixaban, 10 mg, Oral, BID Followed by [START ON 10/08/2024] apixaban, 5 mg, Oral, BID cyanocobalamin, 1,000 mcg, Oral, Daily influenza, 0.5 mL, IntraMUSCular, Once insulin lispro, 0-6 Units, SubCUTAneous, TID WC levothyroxine, 25 mcg, Oral, qAM AC [Held by provider] lisinopril, 5 mg, Oral, Daily mupirocin, 1 Application, Nasal, BID pantoprazole, 40 mg, Oral, qAM AC pravastatin, 80 mg, Oral, Nightly INFUSION MEDICATIONS LAB VALUES AND TESTING REVIEWED Recent Labs 10/01/24 1256 10/02/24 0515 NA 140 138 K 3.6 3.8 CL 111* 112* CO2 22* 21* BUN 13 13 CREATININE 0.82 0.81 Recent Labs 10/01/24 1145 10/02/24 0515 WBC 8.2 8.3 HGB 11.2* 10.1* HCT 33.9* 31.4* MCV 95.2 99.4* PLT 191 157 CARDIAC TESTS TELEMETRY FINDINGS: NSR with ventricular rate of 8-90 bpm no ectopy overnight. HEART CATH: 10/01/24 CARDIAC PROCEDURE 10/01/2024 4:00 PM (Final) Conclusion Images from the original result were not included. Impression Successful mechanical thrombectomy of pulmonary arteries with large thrombus burden removed. Improvement in mean pulmonary artery pressure from 26 mm Hg to 17 mm Hg. Recommendations: Restart anticoagulation with oral anticoagulants about 2 hours post procedure as long as the access site is without any hematoma. Rest of the care per the primary team. Right heart catheterization: Pre-Intervention: PA systolic 46 mm Hg, PA diastolic 15 mm Hg and PA mean of 26 mm Hg Post intervention: PA systolic 27 mm Hg, PA diastolic 9 mm Hg and PA mean of 17 mm Hg Procedure notes: Right femoral vein infiltration with needle visualized under fluoro and US guidance. The femoral vein was closed with 2 Perclose devices with hemostasis achieved. Peripheral Angiogram: After getting access, angiogram of the IVC and Iliofemoral vein was performed through the sheath. No evidence of clot was noted in the Iliofemoral vein or the IVC. Pulmonary angiogram / mechanical thrombectomy: Flowtriever catheter was advanced to the right lobar pulmonary artery. Mechanical thrombectomy with flowtriever was performed in the R middle lobe/Truncus, and R main PA with a total of 3 aspirations though we were not able to fill the catheter syringe. Under negative suction, the flowtriever catheter was removed through the sheath (The flowtriever sheath was also placed on negative suction). The flowtriever catheter was flushed without any significant with large thrombus removal. The flowtriever sheath was then removed under negative suction. The sheath was then flushed after removal, large thrombus was removed from the sheath. The flowtriever was hen advanced to the R main PA and pulmonary angiogram was performed that did not show much of a residual thrombus. The flowtriever catheter was then pulled to the L main PA and angiogram was performed that did not show any significant moment. A Flowsaver device was used to return the blood back to the patient. Estimated blood loss of approximately 20-30 ml. Total contrast use 70 ml. Images of thrombus removed can be seen below. Signed by: An Ryder on 10/01/2024 4:00 PM IMER Wolfe CNP DATE OF SERVICE: 10/02/2024 Cosigned by An Ryder MD at 10/02/2024 3:00 PM EST Associated attestation - An Ryder MD - 10/02/2024 3:00 PM EST This patient was seen and personally examined by me. Labs, imaging studies and electronic medical record reviewed. See [x]progress note []H&P []Consult documented by MARGIE which reflects my hpi, pmh, psh, ros, fh, sh as well with my additions and assessment and plan as I discussed with the MARGIE. Ms. Castellanos is okay 74-year-old lady who presented to the hospital initially in [place] with acute onset of more shortness of breath and dizziness. She was found to have large pulmonary embolism with a saddle component. She was taken for mechanical thrombectomy yesterday with removal of large thrombus burden. Subsequently the patient did really well. She has been weaned off oxygen overnight. Her right femoral access site is without any hematoma. An echocardiogram performed today showing normal LV function and some mild RV dilation. She has been transition from heparin to Eliquis. She will continue 10 mg twice daily for 7 days then subsequently would reduce to 5 mg twice daily. Her DVT scan is done but the results are still pending at this time. From our standpoint the patient can be discharged later today as long as she walks in the hallways and does fine without any drop in any O2 sats. Even though the patient did have COVID not too long ago which is considered a prothrombotic state I would recommend lifelong anticoagulation given the extent of her pulmonary embolism on presentation. The patient is not very active at baseline as well. We will arrange follow-up with the cardiology team as an outpatient. An Ryder MD, [facility], [facility] Client Support Representative [facility] [place] [address] [place] [address] [address] [place] [address] p [phone] f [phone] [email or web address] Images from the original note were not included. PHYSICAL THERAPY [facility] Name/MRN: Sandra Munroe ([id number]) Date: 10/02/2024 PT orders received. Per orders, PT eval and treat - if Josh mobility sub score is less than or equal to 2 (Activity/Mobility). Current Activity/Mobility score is 3. Will sign off PT. If PT eval is needed, will need eval and treat orders placed. Ana Jose PT documented in this encounter [facility] 10-02-2024 Plan of care note Problem: Knowledge Deficit Goal: Patient/family/caregiver demonstrates understanding of disease process, treatment plan, medications, and discharge instructions Outcome: Adequate for Discharge Problem: Potential for Compromised Skin Integrity Goal: Skin Integrity is Maintained or Improved Outcome: Adequate for Discharge Goal: Nutritional status is improving Outcome: Adequate for Discharge Problem: Urinary Incontinence Goal: Perineal skin integrity is maintained or improved Outcome: Adequate for Discharge [facility] 10-01-2024 Nurse Note 1530 Pt return to U [facility] 10-01-2024 Nurse Note 1530 Pt return to U 1332 Pt to laborer/key man documented in this encounter [facility] 10-01-2024 Note Formatting of this n ote might be different from the original. [facility] Cardiac Catheterization Laboratory Post-Procedure Note Patient Name: Sandra Munroe Date: 10/01/2024, 3:25 PM Pre-Operative Diagnosis: Submassive Saddle PE Post-Operative Diagnosis: Submassive Saddle PE Procedure: Mechanical Thrombectomy Findings: Successful mechanical thrombectomy of large saddle PE using the Inari Flowtriever Complications: None Patient had a brief run of atrial tachycardia during the procedure that quickly resolved. Plan: In four hours, if groin site looks good patient can be started on Eliquis 10 mg BID for seven days. Followup Echocardiogram and venous duplex. Physician Signature: Maude Hart MD [facility] 10-01-2024 Note Formatting of this n ote might be different from the original. [facility] Cardiac Catheterization Laboratory Post-Procedure Note Patient Name: Sandra Munroe Date: 10/01/2024, 3:25 PM Pre-Operative Diagnosis: Submassive Saddle PE Post-Operative Diagnosis: Submassive Saddle PE Procedure: Mechanical Thrombectomy Findings: Successful mechanical thrombectomy of large saddle PE using the Inari Flowtriever Complications: None Patient had a brief run of atrial tachycardia during the procedure that quickly resolved. Plan: In four hours, if groin site looks good patient can be started on Eliquis 10 mg BID for seven days. Followup Echocardiogram and venous duplex. Physician Signature: Maude Hart MD [facility] 10-01-2024 Note [facility] Cardiac Catheterization Laboratory Post-Procedure Note Patient Name: Sandra Munroe Date: 10/01/2024, 3:25 PM Pre-Operative Diagnosis: Submassive Saddle PE Post-Operative Diagnosis: Submassive Saddle PE Procedure: Mechanical Thrombectomy Findings: Successful mechanical thrombectomy of large saddle PE using the Inari Flowtriever Complications: None Patient had a brief run of atrial tachycardia during the procedure that quickly resolved. Plan: In four hours, if groin site looks good patient can be started on Eliquis 10 mg BID for seven days. Followup Echocardiogram and venous duplex. Physician Signature: Maude Hart MD [facility] 10-01-2024 Plan of care note Problem: Knowledge Deficit Goal: Patient/family/caregiver demonstrates understanding of disease process, treatment plan, medications, and discharge instructions Outcome: Progressing Problem: Potential for Compromised Skin Integrity Goal: Skin Integrity is Maintained or Improved Outcome: Progressing Goal: Nutritional status is improving Outcome: Progressing Problem: Urinary Incontinence Goal: Perineal skin integrity is maintained or improved Outcome: Progressing [facility] 10-01-2024 Note Formatting of this n ote might be different from the original. Sedation Plan ASA class 3 - patient with severe systemic disease Mallampati class: II - soft palate, uvula, fauces visible. Sedation plan: local anesthesia and minimal sedation Risks, benefits, and alternatives discussed with patient. Plan discussed with attending. Immediate reassessment prior to sedation: Patient's status reviewed and vital signs assessed; acceptable to perform procedure and proceed to administer sedation as planned. Cosigned by An Ryder MD at 10/01/2024 3:51 PM EST [facility] 10-01-2024 Note Formatting of this n ote might be different from the original. Sedation Plan ASA class 3 - patient with severe systemic disease Mallampati class: II - soft palate, uvula, fauces visible. Sedation plan: local anesthesia and minimal sedation Risks, benefits, and alternatives discussed with patient. Plan discussed with attending. Immediate reassessment prior to sedation: Patient's status reviewed and vital signs assessed; acceptable to perform procedure and proceed to administer sedation as planned. Cosigned by An Ryder MD at 10/01/2024 3:51 PM EST [facility] 10-01-2024 Nurse Note [id number] Pt to laborer/key man [facility] 10-01-2024 Consult note Formatting of th is note is different from the original. [facility] Heart & Vascular [place] [facility] Cardiology /Electrophysiology Consult Note Reason for Consult/Chief Complaint: SOB and dizziness, Saddle PE Referring provider: Dr. Bass Established paper cleaner: None History of Present Illness: Sandra Munroe is a 74 y.o. female with a past medical history of hypertension, hyperlipidemia, hypothyroidism, type 2 diabetes mellitus, chronic neuropathy, osteoarthritis of the right knee, and obesity who initially presented to [facility] due to complaints of shortness of breath and dizziness. The patient reports that she tested positive for COVID right before . Since then, she has been feeling well. She has been working and recently went to the mall with her daughters for holiday gifts without any issues. She noted that yesterday afternoon she acutely began to feel very dizzy and slightly lightheaded. Later that evening, around dinnertime, she continued to complain of dizziness and lightheadedness and was slightly short of breath. Per her daughters, who are present at bedside, they note that she looked very schmidt and unwell and she was visibly short of breath. Given her symptoms, she presented to the emergency department. While at [facility] she was noted to be hypoxic and was started on supplemental oxygen initially via nasal cannula but she did eventually require high flow nasal cannula. She was noted to have an elevated high-sensitivity troponin, and an elevated D-dimer. She underwent a CTA chest which was notable for bilateral extensive PEs with a saddle embolus component. She was transferred to [facility] for consideration for mechanical thrombectomy. On my evaluation today, she states that she is feeling well. She continues to have some shortness of breath, and endorses that she did have some chest pressure yesterday when her symptoms began at home. She has no personal history of DVT/PE. Her father did have DVTs, however, this was in the setting of lung malignancy. She has no personal history of malignancy and she is not currently on any hormone replacement therapy. She is a never smoker. Assessment/Plan Submassive PE with Saddle PE -Patient initially presented to [facility] due to complaints of shortness of breath and dizziness and was found to have bilateral submassive PE with saddle embolus. -She has remained hemodynamically stable, but has continued to require supplemental oxygen via high flow nasal cannula. -CTA chest images reviewed on PACS: There is evidence of saddle PE as well as a large amount of clot burden in the right PA > left PA. RV on CTA chest does appear to be enlarged. -Will obtain an echocardiogram to evaluate RV size and function. -Will obtain bilateral lower extremity venous Doppler ultrasounds to evaluate for DVT. -Will plan for mechanical thrombectomy with Inari Flowtriever device this afternoon. Procedure and plan discussed with the patient and her daughters and they are agreeable. Please keep patient NPO. -Continue heparin drip. Post-procedure she can be transitioned to Eliquis 10 mg BID for seven days and then 5 mg BID for at least 6 months. -Close outpatient followup. Medications: cyanocobalamin, 1,000 mcg, Oral, Daily [START ON 10/02/2024] influenza, 0.5 mL, IntraMUSCular, Once insulin lispro, 0-6 Units, SubCUTAneous, TID WC [START ON 10/02/2024] levothyroxine, 25 mcg, Oral, qAM AC [Held by provider] lisinopril, 5 mg, Oral, Daily mupirocin, 1 Application, Nasal, BID [START ON 10/02/2024] pantoprazole, 40 mg, Oral, qAM AC pravastatin, 80 mg, Oral, Nightly Infusion Medications: heparin, 5-30 Units/kg/hr, Last Rate: 18 Units/kg/hr (10/01/24 1212) Physical Examination: Vitals: 10/01/24 1115 10/01/24 1130 10/01/24 1145 10/01/24 1200 BP: 120/76 125/81 124/77 127/73 BP Location: Left arm Patient Position: Lying Pulse: 82 80 79 79 Resp: 15 16 (!) 26 (!) 10 Temp: 36.6 C (97.9 F) TempSrc: Temporal SpO2: 97% 98% 96% 98% Weight: Height: No intake or output data in the 24 hours ending 10/01/24 1235 Wt Readings from Last 3 Encounters: 10/01/24 188 lb 0.8 oz (85.3 kg) Physical Exam Constitutional: no distress. well nourished. well hydrated Psychiatric: A &O x 3. Medical insight good NMT: Oral mucosa is pink and moist Neck: no JVD. Respiratory: Lungs are CTAB, on supplemental oxygen Cardiac exam: Rhythm: NSR ; Normal S1 and S2 Murmur: none Other: No rub; no gallop Vasc: Peripheral pulses normal Abdomen: Soft, non-tender, non-distended Extremities: no LE edema Skin: Warm to touch and well perfused Laboratory Tests: TROPONIN I, CONVENTIONAL SENSITIVITY No results found for: CKTOTAL, CKMB, CKMBINDEX, TROPONINI TROPONIN I, HIGH SENSITIVITY No results found for: TROPHSBASE No results found for: TROPHS2 No results found for: TROPDELTBASE No results found for: TROPHS3 No results found for: TROPDELTSEC No results for input(s): NA, K, CL, CO2, BUN, CREATININE, GLU, EGFR in the last 72 hours. Recent Labs 10/01/24 1145 WBC 8.2 HGB 11.2* HCT 33.9* MCV 95.2 PLT 191 No results found for: HGBA1C No results found for: TSH No results found for: CHOL No results found for: HDL No results found for: LDLCALC No results found for: TRIG No results found for: CHOLHDL No results found for: LDLCHOLESTER No results for input(s): BNP in the last 72 hours. No results for input(s): INR in the last 72 hours. No results found for: IRON, TIBC, FERRITIN Radiology: CXR: personally reviewed: Cardiac Tests Personally Reviewed: Last EKG No results found for this or any previous visit. Reports reviewed: Last Echo No results found for this or any previous visit. Last Cath No results found for this or any previous visit. Last Stress Test No results found for this or any previous visit. Last EP study No results found for this or any previous visit. No results found for: EFBP, PLVEF, LVEFPHYS, LVEF2D, EF Maude Hart MD Interventional Cardiology, PGY-VII DATE of SERVICE: 10/01/2024 Cosigned by An Ryder MD at 10/01/2024 1:24 PM EST Associated attestation - An Ryder MD - 10/01/2024 1:24 PM EST I, Dr. Ryder, saw and evaluated the patient on 10/01/2024. I personally obtained the ibarra and critical portions of the history and physical exam. I reviewed the chart and discussed the patient with the fellow Dr. Hart. I agree with the fellow's medical decision making. Ms. Munroe is a 74-year-old female with prior medical history of hypertension, dyslipidemia, diabetes and obesity who presented to the hospital as a transfer from [place] where she presented with acute onset of shortness of breath and dizziness the day of her presentation. Reportedly the patient did have a COVID around Thanksgiving and claims she has not been as active at home. On the day of the presentation she did have acute worsening of her shortness of breath along with lightheadedness. She did not have any syncope or loss of consciousness. She stayed at home for a bit but when she was seen by her family she was noted to be quite short of breath so they brought her to the emergency department locally. She was found to have a sats in the 70s and was placed on high flow nasal cannula. She subsequently underwent CT PE study that showed extensive bilateral pulmonary embolism along with a saddle. She was noted to have mildly elevated high-sensitivity troponin. She was transferred to [facility] for further management. I personally reviewed the CT scan and she does have extensive proximal thrombus bilaterally along with a saddle PE. The RV looks enlarged on the CT. On my evaluation, the patient was on 9 L of high flow nasal cannula which I turned down to 5 L while maintaining her O2 sats. Her heart rates are within normal limits along with her blood pressure at this time. She does endorse some shortness of breath. We talked about how to proceed at this time including her different options including anticoagulation versus catheter-based therapies. Looking at the clot burden in the location of the clot, I think the patient will be a good candidate for catheter-based therapies. We discussed the risks and benefits of the procedure. Continue anticoagulation at this time. We will proceed with mechanical thrombectomy for pulmonary embolism later on today. We would also recommend echocardiogram to evaluate her RV function and lower extremity duplex to rule out any residual DVTs. The patient will need age-appropriate cancer screenings. Despite her having COVID recently and that being a nidus for her DVT/PE, we may have to consider indefinite anticoagulation at discharge. An Ryder MD, [facility], [facility] Client Support Representative [facility] Cardiovascular [address] [place] [address] p [phone] f [phone] [email or web address] Work Phone: 10-01-2024 Consult note Formatting of th is note is different from the original. [facility] Heart & Vascular [place] [facility] Cardiology /Electrophysiology Consult Note Reason for Consult/Chief Complaint: SOB and dizziness, Saddle PE Referring provider: Dr. Bass Established paper cleaner: None History of Present Illness: Sandra Munroe is a 74 y.o. female with a past medical history of hypertension, hyperlipidemia, hypothyroidism, type 2 diabetes mellitus, chronic neuropathy, osteoarthritis of the right knee, and obesity who initially presented to [facility] due to complaints of shortness of breath and dizziness. The patient reports that she tested positive for COVID right before . Since then, she has been feeling well. She has been working and recently went to the mall with her daughters for holiday gifts without any issues. She noted that yesterday afternoon she acutely began to feel very dizzy and slightly lightheaded. Later that evening, around dinnertime, she continued to complain of dizziness and lightheadedness and was slightly short of breath. Per her daughters, who are present at bedside, they note that she looked very schmidt and unwell and she was visibly short of breath. Given her symptoms, she presented to the emergency department. While at [facility] she was noted to be hypoxic and was started on supplemental oxygen initially via nasal cannula but she did eventually require high flow nasal cannula. She was noted to have an elevated high-sensitivity troponin, and an elevated D-dimer. She underwent a CTA chest which was notable for bilateral extensive PEs with a saddle embolus component. She was transferred to [facility] for consideration for mechanical thrombectomy. On my evaluation today, she states that she is feeling well. She continues to have some shortness of breath, and endorses that she did have some chest pressure yesterday when her symptoms began at home. She has no personal history of DVT/PE. Her father did have DVTs, however, this was in the setting of lung malignancy. She has no personal history of malignancy and she is not currently on any hormone replacement therapy. She is a never smoker. Assessment/Plan Submassive PE with Saddle PE -Patient initially presented to [facility] due to complaints of shortness of breath and dizziness and was found to have bilateral submassive PE with saddle embolus. -She has remained hemodynamically stable, but has continued to require supplemental oxygen via high flow nasal cannula. -CTA chest images reviewed on PACS: There is evidence of saddle PE as well as a large amount of clot burden in the right PA > left PA. RV on CTA chest does appear to be enlarged. -Will obtain an echocardiogram to evaluate RV size and function. -Will obtain bilateral lower extremity venous Doppler ultrasounds to evaluate for DVT. -Will plan for mechanical thrombectomy with Inari Flowtriever device this afternoon. Procedure and plan discussed with the patient and her daughters and they are agreeable. Please keep patient NPO. -Continue heparin drip. Post-procedure she can be transitioned to Eliquis 10 mg BID for seven days and then 5 mg BID for at least 6 months. -Close outpatient followup. Medications: cyanocobalamin, 1,000 mcg, Oral, Daily [START ON 10/02/2024] influenza, 0.5 mL, IntraMUSCular, Once insulin lispro, 0-6 Units, SubCUTAneous, TID WC [START ON 10/02/2024] levothyroxine, 25 mcg, Oral, qAM AC [Held by provider] lisinopril, 5 mg, Oral, Daily mupirocin, 1 Application, Nasal, BID [START ON 10/02/2024] pantoprazole, 40 mg, Oral, qAM AC pravastatin, 80 mg, Oral, Nightly Infusion Medications: heparin, 5-30 Units/kg/hr, Last Rate: 18 Units/kg/hr (10/01/24 1212) Physical Examination: Vitals: 10/01/24 1115 10/01/24 1130 10/01/24 1145 10/01/24 1200 BP: 120/76 125/81 124/77 127/73 BP Location: Left arm Patient Position: Lying Pulse: 82 80 79 79 Resp: 15 16 (!) 26 (!) 10 Temp: 36.6 C (97.9 F) TempSrc: Temporal SpO2: 97% 98% 96% 98% Weight: Height: No intake or output data in the 24 hours ending 10/01/24 1235 Wt Readings from Last 3 Encounters: 10/01/24 188 lb 0.8 oz (85.3 kg) Physical Exam Constitutional: no distress. well nourished. well hydrated Psychiatric: A &O x 3. Medical insight good NMT: Oral mucosa is pink and moist Neck: no JVD. Respiratory: Lungs are CTAB, on supplemental oxygen Cardiac exam: Rhythm: NSR ; Normal S1 and S2 Murmur: none Other: No rub; no gallop Vasc: Peripheral pulses normal Abdomen: Soft, non-tender, non-distended Extremities: no LE edema Skin: Warm to touch and well perfused Laboratory Tests: TROPONIN I, CONVENTIONAL SENSITIVITY No results found for: CKTOTAL, CKMB, CKMBINDEX, TROPONINI TROPONIN I, HIGH SENSITIVITY No results found for: TROPHSBASE No results found for: TROPHS2 No results found for: TROPDELTBASE No results found for: TROPHS3 No results found for: TROPDELTSEC No results for input(s): NA, K, CL, CO2, BUN, CREATININE, GLU, EGFR in the last 72 hours. Recent Labs 10/01/24 1145 WBC 8.2 HGB 11.2* HCT 33.9* MCV 95.2 PLT 191 No results found for: HGBA1C No results found for: TSH No results found for: CHOL No results found for: HDL No results found for: LDLCALC No results found for: TRIG No results found for: CHOLHDL No results found for: LDLCHOLESTER No results for input(s): BNP in the last 72 hours. No results for input(s): INR in the last 72 hours. No results found for: IRON, TIBC, FERRITIN Radiology: CXR: personally reviewed: Cardiac Tests Personally Reviewed: Last EKG No results found for this or any previous visit. Reports reviewed: Last Echo No results found for this or any previous visit. Last Cath No results found for this or any previous visit. Last Stress Test No results found for this or any previous visit. Last EP study No results found for this or any previous visit. No results found for: EFBP, PLVEF, LVEFPHYS, LVEF2D, EF Maude Hart MD Interventional Cardiology, PGY-VII DATE of SERVICE: 10/01/2024 Cosigned by An Ryder MD at 10/01/2024 1:24 PM EST Associated attestation - An Ryder MD - 10/01/2024 1:24 PM EST I, Dr. Ryder, saw and evaluated the patient on 10/01/2024. I personally obtained the ibarra and critical portions of the history and physical exam. I reviewed the chart and discussed the patient with the fellow Dr. Hart. I agree with the fellow's medical decision making. Ms. Munroe is a 74-year-old female with prior medical history of hypertension, dyslipidemia, diabetes and obesity who presented to the hospital as a transfer from [place] where she presented with acute onset of shortness of breath and dizziness the day of her presentation. Reportedly the patient did have a COVID around Thanksgiving and claims she has not been as active at home. On the day of the presentation she did have acute worsening of her shortness of breath along with lightheadedness. She did not have any syncope or loss of consciousness. She stayed at home for a bit but when she was seen by her family she was noted to be quite short of breath so they brought her to the emergency department locally. She was found to have a sats in the 70s and was placed on high flow nasal cannula. She subsequently underwent CT PE study that showed extensive bilateral pulmonary embolism along with a saddle. She was noted to have mildly elevated high-sensitivity troponin. She was transferred to [facility] for further management. I personally reviewed the CT scan and she does have extensive proximal thrombus bilaterally along with a saddle PE. The RV looks enlarged on the CT. On my evaluation, the patient was on 9 L of high flow nasal cannula which I turned down to 5 L while maintaining her O2 sats. Her heart rates are within normal limits along with her blood pressure at this time. She does endorse some shortness of breath. We talked about how to proceed at this time including her different options including anticoagulation versus catheter-based therapies. Looking at the clot burden in the location of the clot, I think the patient will be a good candidate for catheter-based therapies. We discussed the risks and benefits of the procedure. Continue anticoagulation at this time. We will proceed with mechanical thrombectomy for pulmonary embolism later on today. We would also recommend echocardiogram to evaluate her RV function and lower extremity duplex to rule out any residual DVTs. The patient will need age-appropriate cancer screenings. Despite her having COVID recently and that being a nidus for her DVT/PE, we may have to consider indefinite anticoagulation at discharge. An Ryder MD, [facility], [facility] Client Support Representative [facility], [facility] Cardi[facility] [address] [place] [address] p [phone] f [phone] [email or web address] documented in this encounter [facility] 10-01-2024 History and physical note Images from the original note were not included. Internal Medicine: MICU Initial History and Physical Name: Sandra Munroe : 1950(74 y.o.) Date: 10/01/24 Attending: Dr. Holguin Subjective: Chief Complaint: shortness of breath HPI: Sandra Munroe is a 74 year old female with a PMHx of obesity, hypothyroidism, HTN, HLD, OA of Rt knee, T2DM, and chronic neuropathy. On 09/30 Pt began to get short of breath and lightheaded around 1PM. She presented to the ED at [facility]. D-dimer was elevated so CTA chest was obtained. Showed bilateral extensive PE without evidence of RV strain. Was started on a heparin gtt. Pt was also noted to be hypoxic so was placed on HFNC. Pt reports she tested positive for COVID on 09/16 and was essentially bed bound recovering. Denies any recent surgery. No trauma or other illness. Pt reports her last medical procedure was in July when she got a Rt knee injection. Besides feeling hungry, she has no complaints. Past Medical History: Diagnosis Date Smoking No past surgical history on file. No family history on file. Social History Socioeconomic History Marital status: Spouse name: Not on file Number of children: Not on file Years of education: Not on file Highest education level: Not on file Occupational History Not on file Tobacco Use Smoking status: Not on file Smokeless tobacco: Not on file Substance and Sexual Activity Alcohol use: Not on file Drug use: Not on file Sexual activity: Not on file Other Topics Concern Not on file Social History Narrative Not on file Social Drivers of Health Financial Resource Strain: Not on file Food Insecurity: Not on file Transportation Needs: Not on file Physical Activity: Not on file Stress: Not on file Social Connections: Not on file Intimate Partner Violence: Not At Risk (10/01/2024) Humiliation, Afraid, Rape, and Kick questionnaire Fear of Current or Ex-Partner: No Emotionally Abused: No Physically Abused: No Sexually Abused: No Housing Stability: Not on file No Known Allergies Prior to Admission medications Medication Sig Start Date End Date Taking? Authorizing Provider glipiZIDE XL (Glucotrol XL) 5 MG 24 hr tablet Take 5 mg by mouth daily. 07/12/23 Yes Historical Provider, levothyroxine (Synthroid, Levoxyl) 25 MCG tablet Take 25 mcg by mouth every morning (before breakfast). 07/12/23 Yes Historical Provider, lisinopril 5 MG tablet Take 5 mg by mouth daily. 07/12/23 Yes Historical Provider, pravastatin (Pravachol) 80 MG tablet Take 80 mg by mouth Nightly. 07/12/23 Yes Historical Provider, aspirin 81 MG EC tablet Take 81 mg by mouth daily. Historical Provider, Cholecalciferol (D3 2000 PO) Take by mouth. Historical Provider, cyanocobalamin (Vitamin B-12) 1000 MCG tablet Take 1,000 mcg by mouth daily. Historical Provider, Magnesium 200 MG chewable tablet Chew. Historical Provider, POTASSIUM GLUCONATE PO Take 650 mg by mouth. Historical Provider, Objective: Oxygen Delivery: O2 Flow Rate (L/min): 10 L/min VITALS: BP 128/72 Pulse 80 Temp 36.8 C (98.2 F) (Temporal) Resp 17 Ht 5' 2 (1.575 m) Wt 188 lb 0.8 oz (85.3 kg) SpO2 96% BMI 34.40 kg/m CURRENT PULSE OXIMETRY: SpO2: 96 % Review of Systems Constitutional: Negative for chills and fever. Respiratory: Positive for shortness of breath. Negative for cough. Cardiovascular: Negative for chest pain. Gastrointestinal: Negative for abdominal pain, diarrhea, nausea and vomiting. Musculoskeletal: Positive for arthralgias. Negative for back pain. Constitutional: General Appearance [x]WDWN [x]Obese []Cachectic []Thin []Ill Eyes: Inspection of Pupils/Irises Pupils round and react: [x]Yes []No Sclera: []Icteric [x]Non-Icteric Inspection of Conjunctiva/Lids Conjunctiva: []Injected [x]Non-Injected Lids: [x]Intact []Lesion Present ENT/Mouth: External Inspection of ears/nose [] Normal [] Scar/Lesion/Mass Inspection of teeth/lips/gums Dentition: [x][place] Teeth []Dentures Lips/Gums: [x]Intact []Lesion Present Mucosa: [x][place] [x]Moist []Dry Neck: External Appearance Overall Appearance: [x]Normal []Lesion/Mass/Crepitus Present Trachea midline: [x]Yes []No Thyroid []Normal []Enlarged []Tender []Mass []Absent Respiratory: Respiratory effort []Labored [x]Non-Labored [] Mechanically-Ventilated Auscultation [x]Clear []Crackles []Wheezes []Rhonchi Cardiovascular: Auscultation Rate: [x]Regular []Irregular []Tachycardia []Bradycardia Rhythm: [x]Regular []Irregular Murmur: []Present [x]Absent Extremities Peripheral Edema: []Present [x]Absent Varicosities: []Present [x]Absent Gastrointestinal: Abdomen Palpation: [x]Soft []Firm []Tender [x]Non-Tender []Distended [x]Non-distended Mass: []Present [x]Absent Bowel Sounds: [x]Present []Absent Hernia: []Present []Absent Liver/Spleen: []Hepatosplenomegaly []Organomegaly Absent Musculoskeletal: Inspection of Digits and Nails Cyanosis: []Present [x]Absent Clubbing: []Present [x]Absent Ischemia: []Present [x]Absent Infection: []Present [x]Absent Extremities WRIGHT Equally: Except ([]RUE []RLE []LUE []LLE) Strength/Tone: Intact and Normal ([]RUE []RLE []LUE []LLE) Skin: Inspection [x]Normal []Rash []Lesion []Ulcer Palpation [x]Warm []Cool [x]Dry []Clammy []Nodules []Induration []Skin-tightening Cap-Refill: [] <3 sec [] >3 seconds (delayed) Neurologic: GCS EYE: 4 - Opens spontaneously GCS MOTOR: 6 - Obeys commands for movement GCS VERBAL: 5 - Oriented to person, place, time Total GCS: 15 [] Sensation grossly intact Psych: Mental Status Alert: [x]Yes [] No Oriented: []x0 []X1 []X2 [x]x3 Mood/Affect [x]Normal []Flat []Agitated []Depressed []Anxious []Calm []Sedated []NAD Imaging- CTA Chest shows bilateral extensive PE Assessment and Plan: Principal Problem: Bilateral pulmonary embolism (HCC) Assessment: Extensive bilateral PE without RV strain Acute hypoxic resp failure likely 2/2 PE ASHLEY on CKD? HTN HLD Hypothyroidism T2DM Obesity Plan: Continue HFNC Consult to interventional cardiology Continue heparin gtt ECHO pending LE duplex US to r/o DVT Hold lisinopril LD ISS Hypoglycemia protocol POCT q8 GI Prophylaxis: Pantoprazole PO DVT Prophylaxis: Heparin gtt BMI Classification: Body mass index is 34.4 kg/m . obesity BMI 30-39.9 Disposition: Remain in ICU Status Cosigned by Jose Roberto Holguin MD at 10/01/2024 1:35 PM EST Associated attestation - Jose Roberto Holguin MD - 10/01/2024 1:35 PM EST I have personally performed a ijki-ye-pisv diagnostic evaluation on this patient on date of service 10/01/24. History, labs, imaging studies, and electronic medical record have been reviewed by me. This note documented by the [x]house visitor []MARGIE reflects my history, exam, and medical decision making. I have reviewed and agree with the care plan. Changes were made in the orders as necessary. ROS documentation was reviewed and negative unless otherwise stated in HPI. Additional pertinent interval history, ROS, and physical exam findings: Alert. No prior history of DVT. + Family history of DVT in her father and grand-father. Pt with recent acute illness with COVID. Unlabored. On 4l NC Assessment: Submassive PE: provoked by acute illness? Does have family history. Acute hypoxic respiratory failure ASHLEY/CKD HTN DM Hypothyroid Plan: HWBP. Planning on germán-triever. Likely eliquis a few hours post-procedure if no issues. Follow up echo Hold DEISI. Accucheck/ISS Possible discharge tomorrow if no setbacks and off oxygen. [facility] 10-01-2024 Note Attestation signed by Jose Roberto Holguin MD at 10/14/2024 11:34 PM (Updated) I have personally performed a bqkj-an-ynct diagnostic evaluation on this patient on date of service 10/01/24. History, labs, imaging studies, and electronic medical record have been reviewed by me. This note documented by the [x]house visitor []MARGIE reflects my history, exam, and medical decision making. I have reviewed and agree with the care plan. Changes were made in the orders as necessary. ROS documentation was reviewed and negative unless otherwise stated in HPI. Additional pertinent interval history, ROS, and physical exam findings: Alert. No prior history of DVT. + Family history of DVT in her father and grand-father. Pt with recent acute illness with COVID. Unlabored. On 4l NC Assessment: Submassive PE: provoked by acute illness? Does have family history. Acute hypoxic respiratory failure ASHLEY on CKD Stage 2 HTN DM Hypothyroid Plan: HWBP. Planning on germán-triever. Likely eliquis a few hours post-procedure if no issues. Follow up echo Hold DEISI. Accucheck/ISS Possible discharge tomorrow if no setbacks and off oxygen. chandler Internal Medicine: MICU Initial History and Physical Name: Sandra Munroe : 1950(74 y.o.) Date: 10/01/24 Attending: Dr. Holguin Subjective: Chief Complaint: shortness of breath HPI: Sandra Munroe is a 74 year old female with a PMHx of obesity, hypothyroidism, HTN, HLD, OA of Rt knee, T2DM, and chronic neuropathy. On 09/30 Pt began to get short of breath and lightheaded around 1PM. She presented to the ED at [facility]. D-dimer was elevated so CTA chest was obtained. Showed bilateral extensive PE without evidence of RV strain. Was started on a heparin gtt. Pt was also noted to be hypoxic so was placed on HFNC. Pt reports she tested positive for COVID on 09/16 and was essentially bed bound recovering. Denies any recent surgery. No trauma or other illness. Pt reports her last medical procedure was in July when she got a Rt knee injection. Besides feeling hungry, she has no complaints. Past Medical History: Diagnosis Date Smoking No past surgical history on file. No family history on file. Social History Socioeconomic History Marital status: Spouse name: Not on file Number of children: Not on file Years of education: Not on file Highest education level: Not on file Occupational History Not on file Tobacco Use Smoking status: Not on file Smokeless tobacco: Not on file Substance and Sexual Activity Alcohol use: Not on file Drug use: Not on file Sexual activity: Not on file Other Topics Concern Not on file Social History Narrative Not on file Social Drivers of Health Financial Resource Strain: Not on file Food Insecurity: Not on file Transportation Needs: Not on file Physical Activity: Not on file Stress: Not on file Social Connections: Not on file Intimate Partner Violence: Not At Risk (10/01/2024) Humiliation, Afraid, Rape, and Kick questionnaire Fear of Current or Ex-Partner: No Emotionally Abused: No Physically Abused: No Sexually Abused: No Housing Stability: Not on file No Known Allergies Prior to Admission medications Medication Sig Start Date End Date Taking? Authorizing Provider glipiZIDE XL (Glucotrol XL) 5 MG 24 hr tablet Take 5 mg by mouth daily. 07/12/23 Yes Historical Provider, levothyroxine (Synthroid, Levoxyl) 25 MCG tablet Take 25 mcg by mouth every morning (before breakfast). 07/12/23 Yes Historical Provider, lisinopril 5 MG tablet Take 5 mg by mouth daily. 07/12/23 Yes Historical Provider, pravastatin (Pravachol) 80 MG tablet Take 80 mg by mouth Nightly. 07/12/23 Yes Historical Provider, aspirin 81 MG EC tablet Take 81 mg by mouth daily. Historical Provider, Cholecalciferol (D3 2000 PO) Take by mouth. Historical Provider, cyanocobalamin (Vitamin B-12) 1000 MCG tablet Take 1,000 mcg by mouth daily. Historical Provider, Magnesium 200 MG chewable tablet Chew. Historical Provider, POTASSIUM GLUCONATE PO Take 650 mg by mouth. Historical Provider, Objective: Oxygen Delivery: O2 Flow Rate (L/min): 10 L/min VITALS: BP 128/72 Pulse 80 Temp 36.8 ?C (98.2 ?F) (Temporal) Resp 17 Ht 5' 2 (1.575 m) Wt 188 lb 0.8 oz (85.3 kg) SpO2 96% BMI 34.40 kg/m? CURRENT PULSE OXIMETRY: SpO2: 96 % Review of Systems Constitutional: Negative for chills and fever. Respiratory: Positive for shortness of breath. Negative for cough. Cardiovascular: Negative for chest pain. Gastrointestinal: Negative for abdominal pain, diarrhea, nausea and vomiting. Musculoskeletal: Positive for arthralgias. Neg (more content not included)... [facility] 10-01-2024 History and physical note Images from the original note were not included. Internal Medicine: MICU Initial History and Physical Name: Sandra Munroe : 1950(74 y.o.) Date: 10/01/24 Attending: Dr. Holguin Subjective: Chief Complaint: shortness of breath HPI: Sanrda Munroe is a 74 year old female with a PMHx of obesity, hypothyroidism, HTN, HLD, OA of Rt knee, T2DM, and chronic neuropathy. On 09/30 Pt began to get short of breath and lightheaded around 1PM. She presented to the ED at [facility]. D-dimer was elevated so CTA chest was obtained. Showed bilateral extensive PE without evidence of RV strain. Was started on a heparin gtt. Pt was also noted to be hypoxic so was placed on HFNC. Pt reports she tested positive for COVID on 09/16 and was essentially bed bound recovering. Denies any recent surgery. No trauma or other illness. Pt reports her last medical procedure was in July when she got a Rt knee injection. Besides feeling hungry, she has no complaints. Past Medical History: Diagnosis Date Smoking No past surgical history on file. No family history on file. Social History Socioeconomic History Marital status: Spouse name: Not on file Number of children: Not on file Years of education: Not on file Highest education level: Not on file Occupational History Not on file Tobacco Use Smoking status: Not on file Smokeless tobacco: Not on file Substance and Sexual Activity Alcohol use: Not on file Drug use: Not on file Sexual activity: Not on file Other Topics Concern Not on file Social History Narrative Not on file Social Drivers of Health Financial Resource Strain: Not on file Food Insecurity: Not on file Transportation Needs: Not on file Physical Activity: Not on file Stress: Not on file Social Connections: Not on file Intimate Partner Violence: Not At Risk (10/01/2024) Humiliation, Afraid, Rape, and Kick questionnaire Fear of Current or Ex-Partner: No Emotionally Abused: No Physically Abused: No Sexually Abused: No Housing Stability: Not on file No Known Allergies Prior to Admission medications Medication Sig Start Date End Date Taking? Authorizing Provider glipiZIDE XL (Glucotrol XL) 5 MG 24 hr tablet Take 5 mg by mouth daily. 07/12/23 Yes Historical Provider, levothyroxine (Synthroid, Levoxyl) 25 MCG tablet Take 25 mcg by mouth every morning (before breakfast). 07/12/23 Yes Historical Provider, lisinopril 5 MG tablet Take 5 mg by mouth daily. 07/12/23 Yes Historical Provider, pravastatin (Pravachol) 80 MG tablet Take 80 mg by mouth Nightly. 07/12/23 Yes Historical Provider, aspirin 81 MG EC tablet Take 81 mg by mouth daily. Historical Provider, Cholecalciferol (D3 2000 PO) Take by mouth. Historical Provider, cyanocobalamin (Vitamin B-12) 1000 MCG tablet Take 1,000 mcg by mouth daily. Historical Provider, Magnesium 200 MG chewable tablet Chew. Historical Provider, POTASSIUM GLUCONATE PO Take 650 mg by mouth. Historical Provider, Objective: Oxygen Delivery: O2 Flow Rate (L/min): 10 L/min VITALS: BP 128/72 Pulse 80 Temp 36.8 C (98.2 F) (Temporal) Resp 17 Ht 5' 2 (1.575 m) Wt 188 lb 0.8 oz (85.3 kg) SpO2 96% BMI 34.40 kg/m CURRENT PULSE OXIMETRY: SpO2: 96 % Review of Systems Constitutional: Negative for chills and fever. Respiratory: Positive for shortness of breath. Negative for cough. Cardiovascular: Negative for chest pain. Gastrointestinal: Negative for abdominal pain, diarrhea, nausea and vomiting. Musculoskeletal: Positive for arthralgias. Negative for back pain. Constitutional: General Appearance [x]WDWN [x]Obese []Cachectic []Thin []Ill Eyes: Inspection of Pupils/Irises Pupils round and react: [x]Yes []No Sclera: []Icteric [x]Non-Icteric Inspection of Conjunctiva/Lids Conjunctiva: []Injected [x]Non-Injected Lids: [x]Intact []Lesion Present ENT/Mouth: External Inspection of ears/nose [] Normal [] Scar/Lesion/Mass Inspection of teeth/lips/gums Dentition: [x][place] Teeth []Dentures Lips/Gums: [x]Intact []Lesion Present Mucosa: [x][place] [x]Moist []Dry Neck: External Appearance Overall Appearance: [x]Normal []Lesion/Mass/Crepitus Present Trachea midline: [x]Yes []No Thyroid []Normal []Enlarged []Tender []Mass []Absent Respiratory: Respiratory effort []Labored [x]Non-Labored [] Mechanically-Ventilated Auscultation [x]Clear []Crackles []Wheezes []Rhonchi Cardiovascular: Auscultation Rate: [x]Regular []Irregular []Tachycardia []Bradycardia Rhythm: [x]Regular []Irregular Murmur: []Present [x]Absent Extremities Peripheral Edema: []Present [x]Absent Varicosities: []Present [x]Absent Gastrointestinal: Abdomen Palpation: [x]Soft []Firm []Tender [x]Non-Tender []Distended [x]Non-distended Mass: []Present [x]Absent Bowel Sounds: [x]Present []Absent Hernia: []Present []Absent Liver/Spleen: []Hepatosplenomegaly []Organomegaly Absent Musculoskeletal: Inspection of Digits and Nails Cyanosis: []Present [x]Absent Clubbing: []Present [x]Absent Ischemia: []Present [x]Absent Infection: []Present [x]Absent Extremities WRIGHT Equally: Except ([]RUE []RLE []LUE []LLE) Strength/Tone: Intact and Normal ([]RUE []RLE []LUE []LLE) Skin: Inspection [x]Normal []Rash []Lesion []Ulcer Palpation [x]Warm []Cool [x]Dry []Clammy []Nodules []Induration []Skin-tightening Cap-Refill: [] <3 sec [] >3 seconds (delayed) Neurologic: GCS EYE: 4 - Opens spontaneously GCS MOTOR: 6 - Obeys commands for movement GCS VERBAL: 5 - Oriented to person, place, time Total GCS: 15 [] Sensation grossly intact Psych: Mental Status Alert: [x]Yes [] No Oriented: []x0 []X1 []X2 [x]x3 Mood/Affect [x]Normal []Flat []Agitated []Depressed []Anxious []Calm []Sedated []NAD Imaging- CTA Chest shows bilateral extensive PE Assessment and Plan: Principal Problem: Bilateral pulmonary embolism (HCC) Assessment: Extensive bilateral PE without RV strain Acute hypoxic resp failure likely 2/2 PE ASHLEY on CKD? HTN HLD Hypothyroidism T2DM Obesity Plan: Continue HFNC Consult to interventional cardiology Continue heparin gtt ECHO pending LE duplex US to r/o DVT Hold lisinopril LD ISS Hypoglycemia protocol POCT q8 GI Prophylaxis: Pantoprazole PO DVT Prophylaxis: Heparin gtt BMI Classification: Body mass index is 34.4 kg/m . obesity BMI 30-39.9 Disposition: Remain in ICU Status Cosigned by Jose Roberto Holguin MD at 10/01/2024 1:35 PM EST Associated attestation - Jose Roberto Holguin MD - 10/01/2024 1:35 PM EST I have personally performed a mlkg-ci-prfr diagnostic evaluation on this patient on date of service 10/01/24. History, labs, imaging studies, and electronic medical record have been reviewed by me. This note documented by the [x]house visitor []MARGIE reflects my history, exam, and medical decision making. I have reviewed and agree with the care plan. Changes were made in the orders as necessary. ROS documentation was reviewed and negative unless otherwise stated in HPI. Additional pertinent interval history, ROS, and physical exam findings: Alert. No prior history of DVT. + Family history of DVT in her father and grand-father. Pt with recent acute illness with COVID. Unlabored. On 4l NC Assessment: Submassive PE: provoked by acute illness? Does have family history. Acute hypoxic respiratory failure ASHLEY/CKD HTN DM Hypothyroid Plan: HWBP. Planning on germán-triever. Likely eliquis a few hours post-procedure if no issues. Follow up echo Hold DEISI. Accucheck/ISS Possible discharge tomorrow if no setbacks and off oxygen. chandler documented in this encounter [facility] 10-01-2024 Note [facility] Medical Records Department [address] [place] [address] Discharge Summary 10/01/24 0228 MR#: [id number] Acct: [id number] Name: SANDRA MUNROE Rep #: [id number] : 1950 74 From: Demi Mendoza MD PCP: Dr. Ronel Padilla MD Status:ADM IN [facility] [place] [facility] Date of Admission: 09/30/24 Date of Discharge: 10/01/24 Primary Care Physician: Dr. Ronel Padilla MD Consultations 09/30/24 22:17 Consult: Kindergarten Instructional Assistant / Pulmonary Medicine Routine Consulting Provider: Intensivists/Pulmonary Med Reason for Consult: Hypoxic Resp Failure, BL PE, recent COVID illness EMERGENT Consult: Yes MD Notified: Yes Date Notified: 09/30/24 Time Notified: 22:11 Method of Notification: Text Reason For Visit: ACUTE RESP FAILURE, BL PE Diagnosis Discharge Diagnosis (1) Respiratory failure: Status: Acute Code(s): J96.90 - Respiratory failure, unspecified, unspecified whether with hypoxia or hypercapnia (2) Pulmonary emboli: Status: Acute Code(s): I26.99 - Other pulmonary embolism without acute cor pulmonale Plan: DISCHARGE DIAGNOSES: #1. Acute Hypoxic Respiratory Failure secondary to Acute bilateral pulmonary emboli with associated elevated cardiac troponin suspected secondary to demand ischemia with no CT evidence of right heart strain #2. Possible Chronic Kidney Disease Stage III #3. Diabetes mellitus type II with chronic neuropathy #4. Hypertension #5. Hyperlipidemia #6. Hypothyroidism #7. Obesity #8. CODE status: Patient DAGO is her daughter who is present and living will is currently in place. Full Code status. Medications at Discharge Home Medications aspirin 81 mg tablet,delayed release (Adult Low Dose Aspirin) 81 mg PO DAILY 04/21/24 cholecalciferol (vitamin D3) 50 mcg (2,000 unit) capsule 50 mcg PO DAILY 04/21/24 glipizide 5 mg tablet, extended release 24 hr 5 mg PO DAILY 04/21/24 levothyroxine 25 mcg capsule 25 mcg PO DAILY 04/21/24 lisinopril 5 mg tablet 5 mg PO DAILY 04/21/24 mecobalamin (vitamin B12) 1,000 mcg chewable tablet 3,000 mcg PO DAILY 04/21/24 pravastatin 80 mg tablet 80 mg PO QHS 04/21/24 magnesium 200 mg tablet 400 mg PO DAILY 09/30/24 potassium gluconate 600 mg (99 mg) tablet 650 mg PO DAILY 09/30/24 Hospital Course Operations None Procedures EKG Summary of Care Provided Minutes Spent on Discharge: 35 Hospital Course: The patient is a 74 y/o F w/ PMHx: Obesity, Hypothyroidism, HTN, HLD, OA, Diabetes mellitus type II with chronic neuropathy, Possible CKD stage III unclear subtype based on current GFR presented to the [facility] ED on 09/30/24 with onset of chest discomfort and dyspnea starting approximately 1 PM with history of COVID diagnosis around the Sunday just prior to with reporting the symptoms as cold-like/URI with occasional cough with no recent surgery or travel nor any history of asthma or COPD with improvement of her URI type symptoms with admitted sedentary lifestyle when she had been ill but given onset of these new significant symptoms of dyspnea and chest discomfort prompted ED evaluation to be cautious. She denied any recent lower extremity pain or swelling. Workup in the ED included T97.2, heart rate 109, BP 129/64, respiratory rate 22, 90% on 6 L nasal cannula eventually transition to a nonrebreather and most recent repeat vital signs T97.2, heart rate 103, BP 142/80, respiratory rate 12, 93% on a Ventimask 13 L with FiO2 92, CBC with WBC 12.9, hemoglobin 12.9, platelet 243 with left shift, coags with D-dimer 11.91, chloride 108, BUN/creatinine 21/1.22, GFR 46, glucose 173, lactic acid 1.4, troponin 263, BNP 38.1, pending chest x-ray and CTA upon request evaluation of patient, blood culture pending per ED, EKG with ST without acute evidence of ischemia. In the ED patient administered heparin bolus as well as drip and DuoNeb therapy. Given significant clot burden requested that ED physician also attempted contact vascular surgery so that they may be aware and give input about any acute interventions felt appropriate at this time however unfortunately were not on-call for the next 48 hours. Patient was admitted to the ICU given oxygenation had improved and patient was stable in the ED with requested consulting senior practice director consultation, cardiac enzymes were cycled and remained similar with somewhat of a mild improvement, BNP was obtained and not markedly elevated,. Patient was maintained on telemetry monitoring with continued heparin drip. Unfortunately patient oxygenation did increase although ABG not severe but there was still noted decreased p.o. to thus patient was eventually placed on Airvo given this telemetry consulting senior practice director recommended transfer to tertiary facility for evaluation and consideration of thrombectomy. Discussed case with [facility] Dr. Bass who accepted the patient to T3 316. Patient was made (more content not included)... [facility] 09-30-2024 Evaluation note Diagnosis Onset Date Resolution Pulmonary emboli inactive September 30, 2024 9:18pm Hypoxemia deleted September 30, 2024 9:18pm Respiratory failure deleted Decem 2023 9:18pm Acquired hypothyroidism acute J anuary 2024 11:15am Essential hypertension acute Ja nuary 2024 11:15am RSV infection inactive October 11:15am Type 2 diabetes mellitus inactive October 27, 2024 11:15am Diabetic neuropathy noneactive Janua ry 2024 11:15am Pulmonary embolism noneactive Januar y 2024 11:15am Hospital discharge follow-up noneactive October 27 11:15am UTI (urinary tract infection) acute January 02, 2025 11:12am [facility] Work Phone: [phone] 356-444811-06-2023 Note ORIGINAL FROM: [place] [id number] PROCEDURE FOR: SANDRA MUNROE [address] [place] [address] Home: PID#: [id number] Exam#: [id number] : 1950 Age: 72 TO: DAWN CRUZ [address] [address] Fax: NO FAX EXAMINATION: SCREENING DIGITAL BILATERAL MAMMOGRAM WITH TOMOSYNTHESIS, 08/27/2023 7:32 am TECHNIQUE: Screening mammography of the bilateral breasts was performed with tomosynthesis. 2D standard and 3D tomosynthesis combination imaging performed through both breasts in the MLO and CC projection. Computer aided detection was utilized in the interpretation of this exam. COMPARISON: 10/23/2021, 05/16/2021 HISTORY: Breast cancer screening. FINDINGS: BREAST DENSITY: Scattered fibroglandular tissue There are benign appearing calcifications in both breasts. There are no significant masses or calcifications. IMPRESSION: No mammographic evidence of malignancy. Continued screening with annual mammograms is recommended. Manolo Raymond risk calculations, generated with the history provided, report this patient's 10 year risk and lifetime risk for developing breast cancer at 2.6% and 3.5%, respectively. Based on this assessment tool, if the patient's calculated lifetime risk is below 20%, then the patient is considered at average risk for developing breast cancer. If the patient's calculated lifetime risk is at or above 20%, then the patient is considered high risk for developing breast cancer and may be a candidate for supplemental breast MRI screening in addition to annual mammographic screening per the [place] [employer]. BIRADS: MAMMOGRAM BI-RADS: 2: Benign finding RECALL: 1 year screening RECALL TYPE: mammo LETTER SENT: Normal BI-RADS 1 and 2 Interpreted by: Lenard Flores MD Preliminary Report By: Lenard Flores MD Electronically signed By Lenard Flores MD Dictated Date: 08/27/2023 9:33:54 AM Prelim Date: 08/27/2023 9:41:01 AM Sign Date: 08/27/2023 9:41:01 AM Ordering Provider: DAWN CRUZ It Support Engineer: JEANETTE COMER RT (R) (M) (CT) letter sent: Normal BI-RADS 1 and 2 Mammogram [facility]RADS[facility]ments Appointment Date:01/17/2022 03:30:00 PM Scheduled Provider:DAWN CRUZ DO Location:[facility] Appointment Type:PC OV Future Scheduled Tests Laboratory* Basic Metabolic Panel 01/20/21 * Thyroid Stimulating Hormone 01/20/21 [facility] Evaluation + Plan note Future Appointments Appointment Date:07/12/2023 03:30:00 PM Scheduled Provider:DAWN CRUZ DO Location:[facility] Appointment Type:PC OV Future Scheduled Tests Laboratory* Thyroid Stimulating Hormone 07/12/23 * A1C Hemoglobin 07/12/23 * Complete Blood Count 07/12/23 * Lipid Profile 07/12/23 * Vitamin D Level 07/12/23 * Complete Metabolic Panel 07/12/23 [facility] evaluation + Plan note Future Appointments Appointment Date:07/12/2023 03:30:00 PM Scheduled Provider:DAWN CRUZ DO Location[facility] Appointment Type:[facility] Social GameWorksaluation + Plan note Future Appointments Appointment Date:01/10/2024 03:30:00 PM Scheduled Provider:DAWN CRUZ DO Location:[facility] Appointment Type: OV Future Scheduled Tests Laboratory* Thyroid Stimulating Hormone 01/10/24 * A1C Hemoglobin 01/10/24 * Complete Blood Count 01/10/24 * Lipid Profile 01/10/24 * Vitamin D Level 01/10/24 * Complete Metabolic Panel 01/10/24 Radiology* MA Mammo Screening Bilateral w/ Brent 07/12/23 [facility] evaluation + Plan note Future Appointments Appointment Date:01/10/2024 03:30:00 PM Scheduled Provider:DAWN CRUZ DO Location:[facility] Appointment Type:[facility] Future Scheduled Tests Laboratory* Thyroid Stimulating Hormone 01/10/24 * A1C Hemoglobin 01/10/24 * Complete Blood Count 01/10/24 * Lipid Profile 01/10/24 * Vitamin D Level 01/10/24 * Complete Metabolic Panel 01/10/24 [facility] Social GameWorksaluation + Plan note Future Appointments Appointment Date:01/10/2024 03:30:00 PM Scheduled Provider:DAWN CRUZ DO Location:[facility] Appointment Type:[facility] evaluNetccm note* Diagnosis Bilateral pulmonary embolism (HCC)- Primary Other pulmonary embolism and infarction Bilateral pulmonary embolism (HCC) Other pulmonary embolism and infarction Acute saddle pulmonary embolism with acute cor pulmonale (HCC) [facility] B[facility]ism (HCC)- Primary Other pulmonary embolism and infarction Chronic deep vein thrombosis (DVT) of femoral vein of right lower extremity (HCC) Mixed hyperlipidemia Primary hypertension Unspecified essential hypertension [facility] Bilateral pulmonary embolism (HCC) Other pulmonary embolism and infarction [facility] Diagnosis Bilateral pulmonary embolism (HCC)- Primary Other pulmonary embolism and infarction [facility]* Diagnosis Bilateral pulmonary embolism (HCC) Other pulmonary embolism and infarction [facility] Diagnosis Bilateral pulmonary embolism (HCC)- Primary Other pulmonary embolism and infarction [facility] Diagnosis Bilateral pulmonary embolism (HCC) Other pulmonary embolism and infarction [facility] Diagnosis Bilateral pulmonary embolism (HCC) Other pulmonary embolism and infarction [facility] Diagnosis Bilateral pulmonary embolism (HCC) Other pulmonary embolism and infarction [facility]* Diagnosis Bilateral pulmonary embolism (HCC)- Primary Other pulmonary embolism and infarction [facility]* Diagnosis Bilateral pulmonary embolism (HCC) Other pulmonary embolism and infarction [facility] Diagnosis Onset Date Resolution Status Admit Date Acquired hypothyroidism acute J dino 2024 9:49am Essential hypertension acute Ju ly 2024 9:49am Diabetic neuropathy noneactive May 11, 2025 9:49am Pulmonary embolism noneactive April 222024 9:49am [facility] Work Phone: Hospital course Narrative No data available for this section [facility] Hospital Discharge instructions No data available for this section [facility] Progress note No data available for this section [facility] Reason for referral (narrative)No reason for referral information [facility] Phone: Reason for visit Narrative* Auth/Cert (Routine) Specialty Diagnoses / Procedures Referred By Anastasiia t Referred To Contact Diagnoses Bilateral pulmonary embolism (HCC) Saddle PE's Procedures . Jose Roberto Holguin MD [address] [address] Phone: tel: fax: [facility] Cardiac Thoracic Vascular Intensive Care Unit CTV ICU T1 [address] [place] [address] Phone: tel: Referral ID Status Reason Start Date Expiration Date Visits Re quested Visits Authorized [id number] 1 1 [facility] for visit Narrative* Imaging (Routine) - Closed Specialty Diagnoses / Procedures Referred By [facility] Referred To Contact Cardiology Diagnoses Bilateral pulmonary embolism (HCC) Procedures Transthoracic echocardiogram (TTE) limited with contrast, bubble, strain, and 3D PRN SD ECHO TRANSTHORC R-T 2D W/WO M-MODE REC F-UP/LMTD SD DOP ECHOCARD PULSE WAVE W/SPECTRAL F-UP/LMTD STD SD DOP ECHOCARD COLOR FLOW VELOCITY MAPPING SD 2D TTE W OR W/O FOL W/CON,FU An Ryder MD [address] [place] [address] Phone: tel: fax: Referral ID Status Reason Start Date Expiration Date Visits Re quested Visits Authorized [id number] Closed 12/10/2024 01/20/2025 1 1 [facility] for visit Narrative* Consultation (Routine) - Authorized Specialty Diagnoses / Procedures Referred By [facility] Referred To Contact Pharmacy Diagnoses Bilateral pulmonary embolism (HCC) Procedures SD OFFICE/OUTPATIENT NEW HIGH MDM 60 MINUTES An Ryder MD [address] [place] [address] Phone: tel: fax: [facility] [address] [place] [address] Phone: tel: fax: Referral ID Status Reason Start Date Expiration Date Visits Requested Visits Authorized [id number] Authorized Specialty Services Required 12/11/2024 12/11/2026 1000 1000 [facility] Summary Purpose Family History Relationship Condition Age at Onset Recorded Date/T stan father Malignant neoplasm Unknown Diabetes mellitus Unknown Parkinson's disease Unknown Arthritis Unknown Venous thrombosis Unknown Hydrocephalus Unknown Myocardial infarction Unknown mother Myocardial infarction Unknown Cardiac disease Unknown Hypertension Unknown Hyperlipidemia Unknown brother Malignant neoplasm Unknown Chronic obstructive pulmonary disease Unk nown grandfather Cerebrovascular accident (CVA) Unknown brother Disorder of intestine Unknown Pneumonia due to COVID-19 virus Unknown son Myocardial infarction Unknown Advance Directives Date Activated Date Inactivated Comments 10/01/2024 11:20 AM 10/02/2024 2:55 PM Date Activated Date Inactivated Comments 10/01/2024 11:20 AM 10/02/2024 2:55 PM Advance Directive Response Recorded Date/ Time Living Will No October 17, 1:22pm Do you have a Healthcare Pow er of Occupational Nurse? No October 17, 2024 1:22pm Living Will Yes September 30 11:19pm Do you have a Healthcare Pow er of Occupational Nurse? Yes September 30, 2024 11:19pm Name of Medical Power of Occupational Nurse hong Dent September 30, 2024 11:19pm Chief Complaint and Reason for Visit Chief Complaint Admit Date ACUTE RESP FAILURE, BL PE September 30, 2024 9:18pm ACUTE RESP FAILURE, BL PE October 01, 2024 2:28am COUGH October 17, 2024 12:22pm HOSP FU October 27, 2024 11 :15am CONCERN FOR FLU December 01, 2024 2:56pm ACUTE POSSIBLE BLADDER INFECTION December 202024 11:12am Reason for Visit Admit Date Pulmonary emboli September 30, 2024 9:18pm Hypoxemia September 30, 2024 9:18pm Respiratory failure September 30, 2024 9:18pm Acquired hypothyroidism October 27 11:15am Essential hypertension October 27, 2024 11:15am RSV infection October 27, 2024 11 :15am Type 2 diabetes mellitus October 27 11:15am Diabetic neuropathy October 27, 2024 11 :15am Pulmonary embolism October 27, 2024 11 :15am Hospital discharge follow-up October 11:15am UTI (urinary tract infection) December 11:12am Chief Complaint Admit Date MED FU May 11, 2025 9:49 am Reason for Visit Admit Date Acquired hypothyroidism May 11, 2025 9:49am Essential hypertension May 11, 2025 9 :49am Diabetic neuropathy May 11, 2025 9:49 am Pulmonary embolism May 11, 2025 9:49 am Additional Source Comments INFORMATION SOURCE (unrecogn ized section and content) DATE CREATED AUTHOR 04/17/2018 [employer] DATE CREATED AUTHOR AUTHOR'S ORGANIZ ATION 01/08/2024 [employer] ([place]) DATE CREATED AUTHOR AUTHOR'S ORGANIZ ATION [facility] DATE CREATED AUTHOR AUTHOR'S ORGANIZ ATION 05/02/2025 [facility] Patient Care team informatio n (unrecognized section and content) Tile Presser Relationship Specialty Start Date End Date Ronel Padilla MD [address] [place], [place] [id number] PCP - General Internal Medicine 10/01/24 Tile Presser Relationship Specialty Start Date End Date Ronel Padilla MD [address] [place], [place] [id number] PCP - General Internal Medicine 10/01/24 Tile Presser Relationship Specialty Start Date End Date Ronel Padilla MD [address] [place], [place] [id number] PCP - General Internal Medicine 10/01/24 Tile Presser Relationship Specialty Start Date End Date Ronel Padilla MD [address] [place], [place] [id number] PCP - General Internal Medicine 10/01/24 Tile Presser Relationship Specialty Start Date End Date Ronel Padilla MD [address] [place], [place] [id number] PCP - General Internal Medicine 10/01/24 Tile Presser Relationship Specialty Start Date End Date Ronel Padilla MD [address] [place], [place] [id number] PCP - General Internal Medicine 10/01/24 Tile Presser Relationship Specialty Start Date End Date Ronel Padilla MD [address] [place], [place] [id number] PCP - General Internal Medicine 10/01/24 Team Status: Active Member Role Status Dates Dr. Monique Marks , Family Provider Active Dr. Ronel Padilla MD Primary Care Provider Active Team Status: Inactive Member Role Status Dates Dr. Ronel Padilla MD Primary Care Provider Active Start: September 30, 2024 End: October 01, 2024 Dr. Moreno Mathis DO Emergency Provider Active S tart: September 30, 2024 End: October 01, 2024 Dr. Demi Mendoza MD Admit Provider Active St art: September 30, 2024 End: October 01, 2024 Dr. Demi Mendoza MD Other Provider Active St art: September 30, 2024 End: October 01, 2024 Dr. Lalo Mtz MD Other Provider Active Start: September 30, 2024 End: October 01, 2024 Dr. Nickolas Lora MD Other Provider Active Start: September 30, 2024 End: October 01, 2024 Dr. Aung Perry MD Other Provider Active Star t: September 30, 2024 End: October 01, 2024 Dr. Adithya Dockery DO Other Provider Active Start : September 30, 2024 End: October 01, 2024 Dr. Lenard Beckford MD Other Provider Active Sta rt: September 30, 2024 End: October 01, 2024 Dr. Homero Roberts MD Other Provider Active St art: September 30, 2024 End: October 01, 2024 Dr. Eleno Bell MD Other Provider Active S tart: September 30, 2024 End: October 01, 2024 Dr. Lily Grace MD Other Provider Active Start: September 30, 2024 End: October 01, 2024 Dr. Gray Bañuelos MD Other Provider Active Start : September 30, 2024 End: October 01, 2024 Dr. Stiven Levy MD Other Provider Active Start: September 30, 2024 End: October 01, 2024 Dr. Suman Dumont MD Other Provider Active Start : September 30, 2024 End: October 01, 2024 Dr. Brandy Del Valle MD Other Provider Active Star t: September 30, 2024 End: October 01, 2024 Dr. Anni Wheeler MD Other Provider Active Sta rt: September 30, 2024 End: October 01, 2024 Dr. Anders Walters MD Other Provider Active Star t: September 30, 2024 End: October 01, 2024 Dr. Omega Bernstein MD Other Provider Active St art: September 30, 2024 End: October 01, 2024 Dr. Cleve Watt MD Other Provider Active Star t: September 30, 2024 End: October 01, 2024 Dr. Skyler Hummel , Other Provider Active St art: September 30, 2024 End: October 01, 2024 Dr. Andres Butler MD Other Provider Active Start: September 30, 2024 End: October 01, 2024 Dr. Cisco Licona DO Other Provider Active Start: September 30, 2024 End: October 01, 2024 Dr. Lon Hanson MD Other Provider Active Star t: September 30, 2024 End: October 01, 2024 Dr. Nilay Phillips MD Other Provider Active Sta rt: September 30, 2024 End: October 01, 2024 Dr. Howard Proctor DO Attending Provider Active Start: September 30, 2024 End: October 01, 2024 Team Status: Active Member Role Status Dates Dr. Ronel Padilla MD Primary Care Provider Active Start: October 01, 2024 Dr. Moreno Mathis DO Emergency Provider Active S tart: October 01, 2024 Dr. Demi Mendoza MD Admit Provider Active St art: October 01, 2024 Dr. Demi Mendoza MD Attending Provider Active Start: October 01, 2024 Dr. Demi Mendoza MD Other Provider Active St art: October 01, 2024 Dr. Lalo Mtz MD Other Provider Active Start: October 01, 2024 Dr. Nickolas Lora MD Other Provider Active Start: October 01, 2024 Dr. Aung Perry MD Other Provider Active Star t: October 01, 2024 Dr. Adithya Dockery DO Other Provider Active Start : October 01, 2024 Dr. Lenard Beckford MD Other Provider Active Sta rt: October 01, 2024 Dr. Homero Roberts MD Other Provider Active St art: October 01, 2024 Dr. Eleno Bell MD Other Provider Active S tart: October 01, 2024 Dr. Lily Grace MD Other Provider Active Start: October 01, 2024 Dr. Gray Bañuelos MD Other Provider Active Start : October 01, 2024 Dr. Stiven Levy MD Other Provider Active Start: October 01, 2024 Dr. Suman Dumont MD Other Provider Active Start : October 01, 2024 Dr. Brandy Del Valle MD Other Provider Active Star t: October 01, 2024 Dr. Anni Wheeler MD Other Provider Active Sta rt: October 01, 2024 Dr. Anders Walters MD Other Provider Active Star t: October 01, 2024 Dr. Omega Bernstein MD Other Provider Active St art: October 01, 2024 Dr. Celve Watt MD Other Provider Active Star t: October 01, 2024 Dr. Skyler Hummel DO Other Provider Active St art: October 01, 2024 Dr. Andres Butler MD Other Provider Active Start: October 01, 2024 Dr. Cisco Licona DO Other Provider Active Start: October 01, 2024 Dr. Lon Hanson MD Other Provider Active Star t: October 01, 2024 Dr. Nilay Phillips MD Other Provider Active Sta rt: October 01, 2024 Team Status: Inactive Member Role Status Dates Dr. Ronel Padilla MD Primary Care Provider Active Start: October 17, 2024 End: October 17, 2024 Dr. Arun Melgar DO Attending Provider Active Start: October 17, 2024 End: October 17, 2024 Dr. Arun Melgar DO Emergency Provider Active Start: October 17, 2024 End: October 17, 2024 Team Status: Inactive Member Role Status Dates Dr. Ronel Padilla MD Primary Care Provider Active Start: October 27, 2024 End: October 27, 2024 Dr. Ronel Padilla MD Attending Provider Active Start: October 27, 2024 End: October 27, 2024 Dr. Ronel Padilla MD Referring Provider Active Start: October 27, 2024 End: October 27, 2024 Team Status: Inactive Member Role Status Dates Dr. Ronel Padilla MD Primary Care Provider Active Start: December 01, 2024 End: December 01, 2024 Dr. Ronel Padilla MD Referring Provider Active Start: December 01, 2024 End: December 01, 2024 Caio Humphreys PA, PA Attending Provider Active Start: December 01, 2024 End: December 01, 2024 Team Status: Inactive Member Role Status Dates Dr. Ronel Padilla MD Primary Care Provider Active Start: January 02, 2025 End: January 02, 2025 Dr. Ronel Padilla MD Referring Provider Active Start: January 02, 2025 End: January 02, 2025 Jose Roberto Hernandze PA, PA Attending Provider Active St art: January 02, 2025 End: January 02, 2025 Team Status: Active Member Role Status Dates Dr. Ronel Padilla MD Primary Care Provider Active Start: January 02, 2025 Jose Roberto RAMIREZ, PA Attending Provider Active St art: January 02, 2025 Jose Roberto RAMIREZ, PA Referring Provider Active St art: January 02, 2025 Team Status: Inactive Member Role Status Dates Dr. Ronel Padilla MD Primary Care Provider Active Start: January 05, 2025 End: January 05, 2025 Dr. Ronel Padilla MD Attending Provider Active Start: January 05, 2025 End: January 05, 2025 Dr. Ronel Padilla MD Referring Provider Active Start: January 05, 2025 End: January 05, 2025 Team Status: Active Member Role Status Dates Dr. Ronel Padilla MD Primary Care Provider Active Start: January 09, 2025 Jose Roberto RAMIREZ, PA Attending Provider Active St art: January 09, 2025 Jose Roberto Hernandez PA, PA Referring Provider Active St art: January 09, 2025 Team Status: Inactive Member Role Status Dates Dr. Ronel Padilla MD Primary Care Provider Active Start: January 02, 2025 End: January 02, 2025 Jose Roberto Hernandez PA, PA Attending Provider Active St art: January 02, 2025 End: January 02, 2025 Jose Roberto Hernandez PA, PA Referring Provider Active St art: January 02, 2025 End: January 02, 2025 Team Status: Inactive Member Role Status Dates Dr. Ronel Padilla MD Primary Care Provider Active Start: January 09, 2025 End: January 09, 2025 ASHLEY Michele Attending Provider Active St art: January 09, 2025 End: January 09, 2025 Jose Roberto RAMIREZ PA Referring Provider Active St art: January 09, 2025 End: January 09, 2025 Tile Presser Relationship Specialty Start Date End Date Ronel Padilla MD [address] [place], [place] [id number] PCP - General Internal Medicine 10/01/24 Team Status: Inactive Member Role Status Dates Dr. Ronel Padilla MD Primary Care Provider Active Start: January 16, 2025 End: January 16, 2025 Dr. Ronel Padilla MD Attending Provider Active Start: January 16, 2025 End: January 16, 2025 Dr. Ronel Padilla MD Referring Provider Active Start: January 16, 2025 End: January 16, 2025 Tile Presser Relationship Specialty Start Date End Date Ronel Padilla MD [address] [place], [place] [id number] PCP - General Internal Medicine 10/01/24 Team Status: Active Member Role/Relationship Status Dates Dr. Monique Marks DO Family Provider Active Dr. Ronel Padilla MD Primary Care Provider Active Team Status: Inactive Member Role/Relationship Status Dates Dr. Ronel Padilla MD Primary Care Provider Active Start: January 16, 2025 End: January 16, 2025 Dr. Ronel Padilla MD Attending Provider Active Start: January 16, 2025 End: January 16, 2025 Dr. Ronel Padilla MD Referring Provider Active Start: January 16, 2025 End: January 16, 2025 Team Status: Inactive Member Role/Relationship Status Dates Dr. Ronel Padilla MD Primary Care Provider Active Start: May 11, 2025 End: May 11, 2025 Dr. Ronel Padilla MD Attending Provider Active Start: May 11, 2025 End: May 11, 2025 Dr. Ronel Padilla MD Referring Provider Active Start: May 11, 2025 End: May 11, 2025 Team Status: Active Member Role/Relationship Status Dates Dr. Ronel Padilla MD Primary Care Provider Active Start: May 11, 2025 Dr. Ronel Padilla MD Attending Provider Active Start: May 11, 2025 Dr. Ronel Padilla MD Referring Provider Active Start: May 11, 2025 Scheduled Active and Recently Administ ered Medications (unrecognized section and content) Medication Order 09/30/2024 10/01/2024 10/02/2024 apixaban (Eliquis) tablet 10 mg(Linked Group 1) 10 mg, Oral, 2 times daily, First dose on Sun10/01/24 at 2100, For 7 days, Anticoagulant 2007 (Given - Provider: Sarah Bennett RN) 0915 (Given - Provider: Annalise Johnson, RN) apixaban (Eliquis) tablet 5 mg(Linked Group 1) 5 mg, Oral, 2 times daily, First dose on Sun10/08/24 at 2100, Anticoagulant cyanocobalamin (Vitamin B-12) tablet 1,000 mcg 1,000 mcg, Oral, Daily, First dose on Sun10/01/24 at 1300 1330 (Not Given - Provider: Annalise Johnson RN - Reason: Medication not available) 0916 (Given - Provider: Annalise Johnson, RN) heparin injection 6,824 Units (COMPLETED) 6,824 Units (80 Units/kg 85.3 kg), IntraVENous, Once, On Sun10/01/24 at 1130, For 1 dose, Initial one time bolus 1212 (Given - Provider: Annalise Johnson, RN) Insulin Lispro (Humalog) injection 0-6 Units 0-6 Units, SubCUTAneous, 3 times daily with meals, First dose on Sun10/01/24 at 1200, Low Dose Correction Algorithm Glucose: Dose: LESS than 150 No Insulin 150-199 1 Unit 200-249 2 Units 250-299 3 Units 300-349 4 Units 350-400 5 Units Above 400 6 Units 1200 (Not Given - Provider: Annalise Johnson RN - Reason: NPO)1700 (Not Given - Provider: Annalise Johnson RN - Reason: Other - Comment: not eating) 0700 (Not Given - Provider: Annalise Johnson RN - Reason: Order parameters not met - Comment: bs 111 on 5 AM labs)1200 (Not Given - Provider: Annalise Johnson RN - Reason: Other - Comment: getting discharged, not eating lunch) levothyroxine (Synthroid, Levoxyl) tablet 25 mcg 25 mcg, Oral, Daily before breakfast, First dose on Janeen 10/02/24 at 0600, Tube feeding (TF) interaction, obtain physician order to manage, recommend holding TF for 30 minutes before and after dose. 0547 (Given - Provid er: Sarah Bennett RN) lisinopril tablet 5 mg 5 mg, Oral, Daily, First dose on Sun10/01/24 at 1130, On hold since Sun10/01/2024 at 1122 until manually unheld 1122 (Held by provider - Provider: Kush Vieyra, DO - Reason: Change in vital signs)1130 (Dose Auto Held) 0900 (Dose Auto Held)1500 (Unheld by provider - Provider: Automatic Discharge Provider) mupirocin (Bactroban) 2 % ointment 1 Application 1 Application, Nasal, 2 times daily, First dose on Sun10/01/24 at 1130, For 5 days, Indications: MRSA Nasal Decolonization 1212 (Not Given - Provider: Annalise Johnson, RN - Reason: Patient/family refused)2008 (Given - Provider: Sarah Bennett, BRIDGET) 0915 (Given - Provider: Annalise Johnson, RN) pantoprazole (ProtoNix) EC tablet 40 mg 40 mg, Oral, Daily before breakfast, First dose on Janeen 10/02/24 at 0600, Do not crush, chew, or split. 0547 (Given - Provid er: Sarah Bennett RN) pravastatin (Pravachol) tablet 80 mg 80 mg, Oral, Nightly, First dose on Sun10/01/24 at 2100 2007 (Given - Provider: Sarah Bennett, RN) Continuous Medication Order 09/30/2024 10/01/2024 10/02/2024 heparin 25,000 units in dextrose 5% 250mL infusion (premix) (CANCELED) 5-30 Units/kg/hr 85.3 kg (4.265-25.59 mL/hr, rounded to 4.3-25.6 mL/hr), IntraVENous, Continuous, Starting on Sun10/01/24 at 1130, HIGH Dose Heparin Weight Based Dosing (VTE/DVT/PE) >>>>Initial dose: 18 units/kg/hr<<<< Subsequent dosing: aPTT < 30 Heparin Full re-bolus Increase infusion by 2 units/kg/hr - notify prescriber; aPTT 30-45.9 Heparin Half re-bolus Increase infusion by 1 unit/kg/hr; aPTT 46-80.9 No bolus No change; aPTT 81-100.9 Hold heparin for 60 min Decrease infusion by 1 unit/kg/hr; aPTT > 100.9 Hold heparin for 60 min Decrease infusion by 2 units/kg/hr - notify prescriber; Check aPTT: 6 hours after initiation and 6 hours after every dose change - every 12 hrs x 1 day after 2 consecutive therapeutic aPTT - daily after every 12 hrs x 1 day is complete. 1212 (New Bag - Provider: Maria Elena Johnson RN) PRN Medication Order 09/30/2024 10/01/2024 10/02/2024 dextrose 5 % infusion 100 mL/hr, IntraVENous, PRN, Blood sugar less than 70mg/dL, Starting on Sun10/01/24 at 1122, Start infusion following administration of dextrose 50% or glucagon. dextrose 50 % solution 12.5 g 12.5 g, IntraVENous, PRN, low blood sugar, Blood glucose less than 70 mg/dL and patient NOT ALERT or NPO., Starting on Sun10/01/24 at 1122, If patient does not respond within 5 minutes, repeat dose x1. Start D5W at 100 mL/hour until ordering provider can be reached. Repeat blood glucose in 15 minutes. If blood glucose is less than 70 mg/dL, repeat treatment and recheck blood glucose in 15 minutes x2. If using Glucostabilizer, dose as instructed per system. fentaNYL (Sublimaze) injection (CANCELED) IntraVENous, As needed, Starting on Sun10/01/24 at 1441, Intraprocedure 1441 (Given - Provider: Alana Mckeon, BRIDGET)1457 (Given - Provider: Alana Mckeon, BRIDGET) glucagon (human recombinant) injection 1 mg 1 mg, IntraMUSCular, PRN, low blood sugar, Blood glucose less than 70 mg/dL and patient NOT ALERT or NPO and does not have IV access., Starting on Sun10/01/24 at 1122, After administration, attempt intravenous access and start D5W at 100 mL/hr. Repeat blood glucose in 15 minutes x2 and notify provider. glucose oral gel 15 g 15 g, Oral, As needed, low blood sugar, Starting on Sun10/01/24 at 1122, If blood glucose less than 50 mg/dL and patient ALERT and NOT NPO, give 2 tubes glucose gel. If blood glucose less than 70 mg/dL and patient ALERT and NOT NPO, give 1 tube glucose gel. Repeat blood glucose in 15 minutes. If blood glucose is less than 70 mg/dL, repeat treatment and recheck blood glucose in 15 minutes x2 and notify provider. heparin injection (CANCELED) IntraVENous, As needed, Starting on Sun10/01/24 at 1403, Intraprocedure 1403 (Given - Provider: Luis Antonio Selby RN)1427 (Given - Provider: Luis Antonio Selby RN)1448 (Given - Provider: Alana Mckeon RN) iopamidol (Isovue-300) 61 % injection (CANCELED) As needed, Starting on Sun10/01/24 at 1517, Intraprocedure 1517 (Given - Provider: An Ryder MD) lidocaine (Xylocaine) 1 % injection (CANCELED) As needed, Starting on Sun10/01/24 at 1356, Intraprocedure 1356 (Given - Provider: An Ryder MD)1356 (Given - Provider: An Ryder MD) ondansetron (Zofran) injection 4 mg(Linked Group 2) 4 mg, IntraVENous, Every 6 hours PRN, nausea, vomiting, Starting on Sun10/01/24 at 1114, 1st Line. Give IV if patient is unable to take orally. If inadequate response within 60 minutes, proceed to next-line agent or contact provider if no further options ordered. ondansetron ODT (Zofran-ODT) disintegrating tablet 4 mg(Linked Group 2) 4 mg, Oral, Every 8 hours PRN, nausea, vomiting, Starting on Sun10/01/24 at 1114, 1st Line. If inadequate response within 60 minutes, proceed to next-line agent or contact provider if no further options ordered. Patient should allow tablet to dissolve on tongue. Do not remove from blister pack until just before administering. perflutren protein A microsphere (Optison) 3 mL in sodium chloride (PF) 0.9 % 10 mL IV syringe 0-10 mL, IntraVENous, IMG once PRN, other, Suboptimal echo image, Starting on Sun10/01/24 at 1122, For 1 dose, CV Procedural Medications, Administer via slow IVP for suboptimal echocardiogram enhancement. May administer as divided doses to reach optimal image enhancement Linked Groups Order Group 1: apixaban (Eliquis) tablet 10 mgJump to med 10 mg, Oral, 2 times daily, First dose on Sun10/01/24 at 2100, For 7 days, Anticoagulant Followed by apixaban (Eliquis) tablet 5 mgJump to med 5 mg, Oral, 2 times daily, First dose on Sun10/08/24 at 2100, Anticoagulant Group 2: ondansetron ODT (Zofran-ODT) disintegrating tablet 4 mgJump to med 4 mg, Oral, Every 8 hours PRN, nausea, vomiting, Starting on Sun10/01/24 at 1114, 1st Line. If inadequate response within 60 minutes, proceed to next-line agent or contact provider if no further options ordered. Patient should allow tablet to dissolve on tongue. Do not remove from blister pack until just before administering. Or ondansetron (Zofran) injection 4 mgJump to med 4 mg, IntraVENous, Every 6 hours PRN, nausea, vomiting, Starting on Sun10/01/24 at 1114, 1st Line. Give IV if patient is unable to take orally. If inadequate response within 60 minutes, proceed to next-line agent or contact provider if no further options ordered. Reason for Visit (unrecogniz ed section and content) Reason Comments Follow-up Reason Onset Date Comments Med Refill 12/05/2024 Reason Comments Med Refill Goals (unrecognized section and content) Goals may be documented in a n alternate section FOR RECORDS PERTAINING TO PATIENTS WHO ARE OR HAVE BEEN ENROLLED IN A CHEMICAL DEPENDENCY/SUBSTANCEABUSE PROGRAM, SOME INFORMATION MAY BE OMITTED. This clinical summary was aggregated from multiple sources. Caution should be exercised in using it in the provision of clinical care. This summary normalizes information from multiple sources, and as a consequence, information in this document may materially change the coding, format and clinical context of patient data. In addition, data may be omitted in some cases. CLINICAL DECISIONS SHOULD BE BASED ON THE PRIMARY CLINICAL RECORDS. [facility]. provides no warranty or guarantee of the accuracy or completeness of information in this document.
== END | disposition home or self-care (01) ==
LOC: BIMLAB 10:49
PROVIDERS: PCP Internal Medicine; Referring Provider Internal Medicine; Visit Provider Internal Medicine
DX: I10 Essential (primary) hypertension (principal)
CPT/HCPCS: 36415; 80053; 85025

== ENCOUNTER → 2025-09-14 | Outpatient (CLI) | payer MEDICARE, SELFPAY ==
[2025-09-14 12:45] LABS: Anion Gap 12 (5-15); BUN 22 mg/dL (4-19); BUN/Creat Ratio 17.6 RATIO (10-20); Calcium,Total 9.2 mg/dL (7.6-11.0); Carbon Dioxide 21.1 mmol/L (21.0-32.0); Chloride 107 mmol/L (98-108); Glucose 115 mg/dL (70-99); Potassium 4.0 mmol/L (3.3-5.1)
== END | disposition home or self-care (01) ==
LOC: MTLAB 10:10
PROVIDERS: PCP Internal Medicine; Referring Provider Internal Medicine; Visit Provider Internal Medicine
DX: I10 Essential (primary) hypertension (principal)
CPT/HCPCS: 36415; 80048

== ENCOUNTER → 2025-10-06 | Outpatient (CLI) | payer MEDICARE, SELFPAY ==
--- NOTE | 2025-10-06 16:08 | BD_ITS ---
PROCEDURE: DEXA BONE DENSITY STUDY 10/06/2025 REASON FOR EXAM: SCREENING F, age 75 y/o . Postmenopausal. TECHNIQUE: Procedure Code: BDDBD Modality: DX Procedure: DEXA BONE DENSITY STUDY COMPARISON: None FINDINGS: BMD and T-SCORES Lumbar spine: 1.047 g/cm2, T-score 0.0 Levels: L1 through L4 Left femoral neck: 0.565 g/cm2, T-score -2.6 Femoral neck comparison data not recommended for monitoring change. Left total hip: 0.855 g/cm2, T-score -0.7 Right femoral neck: 0.580 g/cm2, T-score -2.4 Femoral neck comparison data not recommended for monitoring change. Right total hip: 0.859 g/cm2, T-score -0.7 The World Health Organization has defined the following categories based on bone density: Normal bone density: T-score equal to or greater than -1.0 Osteopenia: T-score between -1.0 and -2.5 Osteoporosis: T-score equal to or less than -2.5 FRAX (or Comparable) Fracture Risk Assessment: 10 Year Probability of Fracture: Major Osteoporotic Fracture: 22% Hip Fracture: 6.0% (Note: FRAX is not to be reported in setting of normal range bone density, osteoporosis on DEXA, known history of osteoporosis, prior osteoporotic hip or vertebral fracture, or for any patient undergoing pharmacological treatment for bone loss.) The National Osteoporosis Foundation (NOF) recommends pharmacological treatment for patients with a FRAX 10-year risk of 3% or higher for a hip fracture, or 20% or higher for a major osteoporotic fracture, to prevent osteoporosis and reduce fracture risk. The patient does meet the pharmacological treatment recommendations for prevention of osteoporosis. BD/Dexa Bone Density Study IMPRESSION: OSTEOPOROSIS. Recommend follow-up as clinically warranted. Reading Location: [facility]
--- NOTE | 2025-10-06 17:00 | BI_ITS ---
EXAM: SCRN MAMM (CAD)W/JACINTO BILAT DATE: 10/06/2025 CLINICAL HISTORY: F, Age 75 y/o , SCREENING Sister with breast cancer. TECHNIQUE: Procedure Code: [id number] Modality: MG Procedure: SCRN MAMM (CAD)W/JACINTO BILAT COMPARISON: Prior exam(s) dated August 27, 2020. FINDINGS: TISSUE DENSITY: There are scattered areas of fibroglandular density. Bilateral Breast Mammographic Findings: No significant masses, calcifications or other abnormalities are identified. Stable small benign-appearing bilateral axillary lymph nodes. No suspicious masses, areas of developing architectural distortion, or suspicious calcifications. There has been no significant interval change. BI/SCRN MAMM (CAD)W/JACINTO BILAT IMPRESSION: Stable bilateral screening mammogram. OVERALL FINAL ASSESSMENT BI-RADS 2: BENIGN RECOMMENDATION: Routine annual follow-up in 1 Year Additional Recommendation none A letter with findings and recommendations will be mailed to the patient. Reading Location: [facility]
== END | disposition home or self-care (01) ==
PROVIDERS: PCP Internal Medicine; Referring Provider Internal Medicine; Visit Provider Internal Medicine
DX: Z12.31 Encounter for screening mammogram for malignant neoplasm of breast (principal); Z78.0 Asymptomatic menopausal state
CPT/HCPCS: 77063; 77067; 77080